=== PATIENT | male | born 1935 | race Caucasian/White ===

== ENCOUNTER → 2017-07-28 07:06 | Outpatient (CLI) | payer MEDICARE, SELFPAY ==
[2017-07-28 07:12] LABS: Bacteria 0 SEEN /hpf (None Seen); Red Blood Cells-Urine 0 SEEN /hpf (0-5)
[2017-07-28 10:08] LABS: Color, Urine Yellow (Yellow); Glucose, Dipstick Normal (Normal); Ketone-Dipstick 5 mg/dl (Negative); Leukocyte Esterase-Dipstick 25 /ul (Negative); Nitrite-Dipstick Negative (Negative); Occult Blood-Urine Negative /ul (Negative); Protein-Dipstick 30 mg/dl (Negative); Urine Bilirubin Dipstick Negative (Negative); Urine Clarity Sl. Cloudy (Clear); Urine Urobilinogen Normal (Normal)
[2017-07-28 10:15] LABS: White Blood Cells 0-5 SEEN /hpf (0-5)
[2017-07-28 10:16] LABS: Mucous, Urine 1+ /hpf (<or=2+); Squamous Epithelial Cells - UA 0-5 SEEN /hpf (0-5)
[2017-07-28 10:28] LABS: Absolute Lymphocyte Count 1.59 X10^3/ul (0.83-4.51); Basophil# 0.03 X10^3/uL; Basophil% 0.6 % (0-1); Eosinophil# 0.16 X10^3/uL; Hematocrit 41.2 % (40-54); Hemoglobin 12.1 g/dl (13.0-16.5); Lymphocyte # 1.59 X10^3/ul (4.0); Lymphocyte % 29.7 % (19-41); Mean Corp Hgb Conc 29.4 g/gl (32-36); Mean Corpuscular Hgb 21.5 pg (27.0-32.0); Mean Corpuscular Volume 73.3 fL (80-94); Monocyte# 0.57 X10^3/uL; Monocyte% 10.6 % (0-10); Neutrophil % 55.9 % (47-70); Platelet Count 107 K/mm3 (150-450); RBC Distribution Width CV 20.2 % (11.6-14.6); RBC Distribution Width SD 53.7 fl (35.1-43.9); Red Blood Count 5.62 M/mm3 (4.6-6.2); White Blood Count 5.4 K/mm3 (4.4-11.0)
[2017-07-28 10:33] LABS: Differential Indicated SCAN CRITERIA MET; POSITIVE COUNT NO; POSITIVE DIFFERENTIAL NO; POSITIVE MORPHOLOGY YES
[2017-07-28 10:59] LABS: ALB/GLOB Ratio 0.9 RATIO (0.9-2.4); AST(SGOT) 19 U/L (15-37); Alanine Aminotransfer ALT/SGPT 19 U/L (16-61); Albumin, Serum 3.4 g/dL (3.2-5.0); Alkaline Phosphatase 58 U/L (45-117); Anion Gap 6 (5-15); BUN 14 mg/dL (7-18); BUN/Creat Ratio 10.5 RATIO (10-20); Calcium,Total 8.7 mg/dL (8.5-10.1); Chloride 104 mmol/L (98-107); Creatinine, Serum 1.33 mg/dL (0.70-1.30); EST Glomerular Filtration Rate 55 mL/min (>60); Est Glom Filt Rate - Afr Amer 66 mL/min (>60); Ferritin 13 ng/mL (26-388); Globulin 3.8 g/dL (2.2-4.2); Glucose 88 mg/dL (74-106); Potassium 3.6 mmol/L (3.5-5.1); Protein, Total 7.2 g/dL (6.4-8.2); Sodium Level 138 mmol/L (136-145)
[2017-07-28 11:03] LABS: Differential Comment SCANNED
[2017-07-28 11:04] LABS: Anisocytosis 2+; Hypochromasia 2+; Platelet Estimate MOD DEC (ADEQ)
[2017-07-29 20:07] LABS: CHOLESTEROL TOTAL 134 mg/dL (100-199); HDL-C 50 mg/dL (>39); HDL-P TOTAL 25.2 umol/L (>=30.5); SMALL LDL-P <90 nmol/L (<=527); TRIGLYCERIDES 52 mg/dL (0-149)
[2017-07-30 09:31] LABS: LDL SIZE 21.7 nm (>20.5); LDL-C 74 mg/dL (0-99); LDL-P 589 nmol/L (<1000); LP-IR SCORE ** <25 (<=45)
== END ==
PROVIDERS: Family Provider Internal Medicine; PCP Internal Medicine; Visit Provider Internal Medicine
DX: E61.1 Iron deficiency (principal); E78.00 Pure hypercholesterolemia, unspecified
CPT/HCPCS: 36415; 80053; 80061; 81001; 82728; 83704; 85025

== ENCOUNTER → 2017-08-11 10:40 | Outpatient (CLI) | payer MEDICARE, SELFPAY ==
--- NOTE | 2017-08-11 10:57 | RAD_ITS ---
STUDY: X-RAY - CERVICAL SPINE REASON FOR EXAM: Male, 82 years old. Neck pain TECHNIQUE: 6 view(s) of the cervical spine were obtained. COMPARISON: None FINDINGS: Normal anterior atlantoaxial articulation. Normal odontoid process. Normal cervical lordosis. There is marginal osteophytic lipping of the C4-C7 vertebral bodies. There is severe narrowing of the C5-6 and C7-T1 disc spaces. There is mild narrowing of the C4-5 disc space. There is a 3 mm anterior subluxation of C7 relative to T1. There is multi-level osseous foraminal stenosis. Numerous surgical clips are seen in the anterior neck bilaterally. There is no demonstrated fracture of the cervical spine. RAD/Cerv Spine 4 or 5 Views IMPRESSION: Degenerative changes as detailed above. Electronically Signed: Cory Stovall MD at 16:52 EST , Service support ,
--- NOTE | 2017-08-11 10:57 | RAD_ITS ---
STUDY: X-RAY - LEFT KNEE REASON FOR EXAM: Male, 82 years old. Left knee pain, no known recent injury TECHNIQUE: 4 view(s) of the knee. COMPARISON: None. FINDINGS: Normal visualized distal femur. Normal visualized proximal tibia and fibula. Normal proximal tibiofibular articulation. There are status post medial hemiarthroplasty changes. There is no evidence of implant loosening or associated fracture or dislocation. 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 There is mild degenerative arthrosis of the patellofemoral articulation. The soft tissue structures are unremarkable. RAD/Knee 4 or More Views IMPRESSION: Status post medial hemiarthroplasty changes. There is no evidence of implant loosening or associated fracture or dislocation. Degenerative changes of the lateral and patellofemoral compartments. Electronically Signed: Cory Stovall MD at 16:55 EST , Service support ,
== END ==
PROVIDERS: Family Provider Internal Medicine; PCP Internal Medicine; Visit Provider Internal Medicine
DX: M54.2 Cervicalgia (principal); M25.562 Pain in left knee
CPT/HCPCS: 72050; 73564

== ENCOUNTER 2017-09-05 08:54 | Emergency (ER) | payer MEDICARE, SELFPAY ==
[2017-09-05] VITALS (9 sets, daily range): BP systolic 100–172; BP diastolic 62–106; PULSE 66–88; RESP 12–24; O2SAT 94–100; BMI 33.7
--- NOTE | 2017-09-05 08:57 | RAD_ITS ---
STUDY: X-RAY - PELVIS AND LEFT HIP REASON FOR EXAM: Male, 82 years old. Left hip pain. TECHNIQUE: Radiological exam, hip, unilateral, with pelvis when performed; 1 view COMPARISON: None. FINDINGS: One view of the left hip was obtained. There is total left hip prosthesis in place. There is superior dislocation of the femoral head component. There is no demonstrated definite fracture. RAD/Hip Min 2 Views (Portable) IMPRESSION: Dislocated left hip prosthesis. Electronically Signed: Ernie Noguera MD at 9:42 EDT Tel , Service support ,
[2017-09-05] MEDS: fentaNYL 100 MCG/2 ML Ampul IV (09:06)
--- NOTE | 2017-09-05 09:10 | ED.DCSUM_ITS ---
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 When he bent over his left prosthetic hip dislocated. He is presently in significant pain. He did receive 50 mg of fentanyl by paramedics in 4 mg of Zofran. He has had nothing to eat this morning. He states Dr. Williamson did the total left hip arthroplasty approximate 1 year ago. He has had no problems prior to today. He denies any paresthesia, anesthesia motor weakness. He is on no anticoagulant. He does have history of hypertension. Physical Examination: Blood pressure is elevated 149/96 most likely secondary to pain. He is in obvious discomfort. HEENT exam is unremarkable. Heart is regular without murmur, gallop or rub. Lungs are clear to auscultation. Abdomen is soft nontender with normal bowel sounds. There is no palpable muscle mass without bruit. The left lower extremity is shortened with flexion at the hip consistent with a dislocation. There are no neurovascular findings. Please read written note for complete detail Test Results: One view of the left hip was obtained because of patient having significant pain and concern administering more pain medicine resulting in apnea and hypoxia with hypercarbia. One view of the left hip reveals a superior posterior left prosthetic hip dislocation. Multiview x-ray of the left hip was obtained post reduction and reduction is successful. Emergency Department Course and Treatment: Patient received 100 mg of fentanyl prior to x-ray. plan is procedural sedation with propofol and reduction of prosthetic left hip dislocation. Treatment Plan: Patient was consented for deep sedation with propofol. He had no contra indication. Given an opportunity ask questions and none were asked. He denied allergy to soy products or egg products. He reports no problem with anesthesia in the past. Timeout was called. Patient received a total of 100 g of propofol. The left prosthetic hip dislocation was successfully reduced with out any difficulty. Total time of procedure 19 minutes. Patient did have a drop in his pulse ox. Initially question accuracy since he was not cyanotic and waveform was poor. Weight for may have been poor because of cold extremities. He did become cyanotic and was placed on a nonrebreather which resulted in improvement quickly. Patient has no recall of reduction. Patient is alert and oriented to time of this dictation. Knee immobilizer was placed after reduction. He was referred to Dr. Domingo who performed the left total hip arthroplasty approximately 1 year ago. Disposition: Discharged to home with spouse. Impression: 1. Posterior superior left prosthetic hip dislocation 2. Deep cessation (total time 19 minutes) 3. Reduction of left prosthetic hip dislocation This note was generated with [employer] dictation software. It may contain incorrect words, spelling, and punctuation that were not noted in review of the chart prior to signing ED Disposition - Plan for ED Patient: Disposition: Home or Assisted Living Chief Complaint: Lower Extremity Injury Instructions: ED Hip Replace Dislocation Reduc Referrals: Qing Hannon MD [Primary Care Provider] - Byron Domingo MD [STAFF PHYSICIAN] - 1 Week
--- NOTE | 2017-09-05 09:25 | ED.RN ---
PT PLACED ON NRB FOR LOW PULSE OX
--- NOTE | 2017-09-05 09:29 | RAD_ITS ---
STUDY: X-RAY - PELVIS AND LEFT HIP REASON FOR EXAM: Male, 82 years old. Post reduction. TECHNIQUE: Radiological exam, hip, unilateral, with pelvis when performed; 2 or 3 views. COMPARISON: 09/05/2017, 9:26 AM. FINDINGS: There again is left hip prosthesis in place. The previously noted dislocation of the femoral component has been reduced. The alignment as seen on these views appears to be unremarkable. There is no demonstrated acute fracture. RAD/Hip Min 2 Views (Portable) IMPRESSION: Reduced dislocation. Electronically Signed: Ernie Noguera MD at 10:21 EDT Tel , Service support ,
[2017-09-05] MEDS: Propofol 200 MG/20 ML Vial IV BOLUS (09:34)
--- NOTE | 2017-09-05 11:02 | ED.RN ---
THIS NURSE REVIEWED D/C INSTRUCTIONS WITH PT AND . PT VERBALIZED UNDERSTANDING INSTRUCTIONS. IV D/C. IV CATHETER INTACT. PT TOLERATED WELL. PT DENIES FURTHER NEEDS OR QUESTIONS AT THIS TIME
== END 2017-09-05 11:04 | disposition home or self-care (01) ==
PROVIDERS: Emergency Provider Emergency Medicine; Family Provider Internal Medicine; PCP Internal Medicine
DX: T84.021A Dislocation of internal left hip prosthesis, initial encounter (principal); R23.0 Cyanosis
CPT/HCPCS: 27265; 73502; 96374; 96375; 99285; J7030; A4216; J2405

== ENCOUNTER → 2017-10-09 11:07 | Outpatient (CLI) | payer MEDICARE, SELFPAY ==
[2017-10-09 11:35] LABS: AST(SGOT) 21 U/L (15-37); Alanine Aminotransfer ALT/SGPT 22 U/L (16-61); Albumin, Serum 3.7 g/dL (3.2-5.0); Alkaline Phosphatase 63 U/L (45-117); Anion Gap 6 (5-15); BUN 19 mg/dL (7-18); BUN/Creat Ratio 14.3 RATIO (10-20); Calcium,Total 8.6 mg/dL (8.5-10.1); Chloride 105 mmol/L (98-107); Creatinine, Serum 1.33 mg/dL (0.70-1.30); EST Glomerular Filtration Rate 55 mL/min (>60); Est Glom Filt Rate - Afr Amer 66 mL/min (>60); Globulin 3.6 g/dL (2.2-4.2); Glucose 124 mg/dL (74-106); Potassium 4.1 mmol/L (3.5-5.1); Protein, Total 7.3 g/dL (6.4-8.2); Sodium Level 137 mmol/L (136-145)
[2017-10-09 13:21] LABS: Absolute Lymphocyte Count 1.15 X10^3/ul (0.83-4.51); Basophil# 0.02 X10^3/uL; Basophil% 0.3 % (0-1); Eosinophil# 0.19 X10^3/uL; Eosinophils% 2.7 % (0-5); Hematocrit 41.8 % (40-54); Hemoglobin 12.1 g/dl (13.0-16.5); Lymphocyte # 1.15 X10^3/ul (4.0); Lymphocyte % 16.3 % (19-41); Mean Corp Hgb Conc 28.9 g/gl (32-36); Mean Corpuscular Hgb 21.3 pg (27.0-32.0); Mean Corpuscular Volume 73.7 fL (80-94); Monocyte# 0.65 X10^3/uL; Monocyte% 9.2 % (0-10); Neutrophil # 4.99 X10^3/uL (2.7-7.7); Neutrophil % 70.9 % (47-70); Platelet Count 115 K/mm3 (150-450); RBC Distribution Width CV 18.5 % (11.6-14.6); RBC Distribution Width SD 49.7 fl (35.1-43.9); Red Blood Count 5.67 M/mm3 (4.6-6.2)
[2017-10-09 13:29] LABS: POSITIVE COUNT NO; POSITIVE DIFFERENTIAL NO; POSITIVE MORPHOLOGY YES
[2017-10-09 13:30] LABS: Differential Indicated SCAN CRITERIA MET
[2017-10-09 13:38] LABS: Polychromasia 1+
[2017-10-09 13:39] LABS: Ovalocyte 2+; Platelet Morphology LARGE; Target Cells RARE
== END ==
PROVIDERS: Visit Provider Internal Medicine
DX: E86.0 Dehydration (principal)
CPT/HCPCS: 80053; 85025

== ENCOUNTER → 2018-01-29 12:31 | Outpatient (CLI) | payer MEDICARE, SELFPAY | PROVIDERS: Family Provider Internal Medicine; PCP Internal Medicine; Visit Provider Internal Medicine | DX: R05 Cough (principal) | CPT/HCPCS: 71046 ==

== ENCOUNTER → 2018-02-02 12:36 | Outpatient (CLI) | payer MEDICARE, SELFPAY | PROVIDERS: Family Provider Internal Medicine; PCP Internal Medicine; Visit Provider Internal Medicine | DX: R22.1 Localized swelling, mass and lump, neck (principal) | CPT/HCPCS: 76536 ==

== ENCOUNTER → 2018-04-26 11:12 | Outpatient (CLI) | payer MEDICARE, SELFPAY ==
--- NOTE | 2018-04-26 11:14 | RAD_ITS ---
STUDY: X-RAY - LEFT SHOULDER REASON FOR EXAM: Male, 82 years old. Bilateral shoulder pain. TECHNIQUE: 4 view(s) of the shoulder. COMPARISON: None. FINDINGS: There is severe degenerative arthrosis of the glenohumeral articulation. Normal acromioclavicular joint. Normal acromion. There is no acute fracture, dislocation or destructive osseous pathology. There is demineralization of the humerus and visualized osseous structures. The soft tissue structures are unremarkable. There is a pacer generator overlying the left chest. Normal visualized pulmonary apex. RAD/Shoulder min 2 Views IMPRESSION: Marked degenerative changes of the glenohumeral joint without fracture or dislocation. Electronically Signed: Ray Sebastian DO at 19:19 EST Tel [phone], Service support ,
--- NOTE | 2018-04-26 11:14 | RAD_ITS ---
STUDY: X-RAY - RIGHT SHOULDER REASON FOR EXAM: Male, 82 years old. Bilateral shoulder pain. TECHNIQUE: 4 view(s) of the shoulder. COMPARISON: None. FINDINGS: There is moderate to severe degenerative arthrosis of the glenohumeral articulation. Normal acromioclavicular joint. Normal acromion. There is no acute fracture, dislocation or destructive osseous pathology. There is demineralization of the humerus and visualized osseous structures. The soft tissue structures are unremarkable. Normal visualized pulmonary apex. RAD/Shoulder min 2 Views IMPRESSION: Moderate to severe degenerative changes of the glenohumeral joint without fracture or dislocation Electronically Signed: Ray Sebastian DO at 19:18 EST Tel [phone], Service support ,
== END ==
PROVIDERS: Family Provider Internal Medicine; PCP Internal Medicine; Referring Provider Internal Medicine; Visit Provider Internal Medicine
DX: M25.511 Pain in right shoulder (principal); M25.512 Pain in left shoulder
CPT/HCPCS: 73030

== ENCOUNTER 2018-05-12 07:00 | Outpatient (RCR) | payer MEDICARE, SELFPAY ==
--- NOTE | 2018-05-05 08:00 | HP.PTEVAL_ITS ---
Patient's Visit Information MARY SEBASTIAN is a 82 year old M referred to Physical Therapy by Qing Hannon with a diagnosis of B shoulder pain. Date of Evaluation: 05/05/18 Physical Therapist: Artemio Singer PT, - Visit Plan Frequency: 1x/Week Duration: 1 Week Plan: Issue HEP for rotator cuff strengthening and scap stab ex's - Subjective Subjective: Pt reports he has had B shoulder pain for 4-5 months. Pt reports his pain limits him from putting on a jacket, but he is able to perform most other motions. No sleep difficulty secondary to pain. Pt is R hand dominat. Pt reports he has had no results from his xrays. Pt reports he is able to reach overhead without too much difficulty, but his not able to lift much weight as he is afraid he will drop it. Pt reports his shoulder grinds as he moves it. There is discomfort present when he moves his shoulder, but it doesnt limit him. 0/10 pain at rest, 8/10 when pain is at its worst. - Pain B shoulders Pain Intensity (Out of 10): 0 Pain Intensity Range: 8 - Objective Neuro: B UE sensation is WNL to light touch. B bicepital reflex= 2/3. Palpation: B shoulders have crepitus with AROM. No obvious deformity. No pain with palpation. ROM: R shoulder flex= 150, abd= 150, ER= 55, IR WNL; L shoulder flex= 155, abd= 160, ER= 60, IR WNL. MMT: B shoulders are 5/5 with exception to ER= 4/5. Special tests: Pos empty can sign B shoulders. - Goals Goal 1:: I with HEP Goal Time Frame: 1 Week - Rehabilitation Potential Physical Therapy Diagnosis: B shoulder pain and weakness secondary to rotator cuff weakness. Rehabilitation Potential: Good - Anticipated Interventions Patient/Client Instruction: Educate patient on: Condition, Plan of Care For the Purpose of:: To improve self management Therapeutic Exercise to Include: Strength training, Scapular Strength/Stabilization For the Purpose of:: To decrease pain, To increase ROM, To improve muscle performance and motor function Cryotherapy (ice pack, ice massage): Yes For the Purpose of:: To decrease pain Thank you for the opportunity to evaluate your patient. For Medicare and Medicare HMO plans, please review the plan of care and approve it. It will need to be FAXED BACK to us at [phone] for Medicare purposes. Please let me know if there are questions or concerns regarding this plan of care. Physician Signature: Date:
--- NOTE | 2018-05-12 08:19 | HP.PTDCSUM ---
HP - PT D/C Summary It has been my pleasure to treat MARY SEBASTIAN under orders from Qing Hannon, for the diagnosis of B shoulder pain for a total of 2 visit(s). Discharge Date: Please see the following information for a summary of their discharge status. - Subjective Subjective: No pain this date - Pain B shoulders Pain Intensity (Out of 10): 0 - Objective Objective/Function: Pt is now I with HEP - Goals Goal 1:: I with HEP Goal Progress: Goal Met - Plan Plan: Discharge - D/C Information If there are questions or concerns regarding this patient's physical therapy, please feel free to call me at [phone]. Thank you for the referral of this patient. Sincerely, Artemio Singer, PT,
== END 2018-05-12 19:00 | disposition home or self-care (01) ==
LOC: PT 07:00
PROVIDERS: Family Provider Internal Medicine; PCP Internal Medicine; Referring Provider Internal Medicine; Visit Provider Internal Medicine
DX: M25.512 Pain in left shoulder (principal); M25.511 Pain in right shoulder; M54.5 Low back pain
CPT/HCPCS: 97110; 97162

== ENCOUNTER 2018-11-09 17:44 | Emergency (ER) | payer MEDICARE, SELFPAY ==
[2018-07-19 11:29] VITALS: BMI 33.3
[2018-11-09] VITALS (8 sets, daily range): BP systolic 140–189; BP diastolic 85–109; PULSE 66–81; RESP 14–16; TEMP 36.7; O2SAT 94–100; BMI 33.0
--- NOTE | 2018-11-09 18:16 | ED.VISSUMM ---
- ER Visit Summary Date of Service: 11/09/18 Chief Complaint: Dislocated left prosthetic hip History of Present Illness: The patient is a 83 M history of hypertension, DVT and anemia. Prior bilateral prosthetic hips. Patient states he was sitting on a step turn the wrong way and his hip dislocated. This occurred about an hour and a half ago. He denies any falls or trauma. He was brought in by squad and treated with fentanyl IV by the squad. Physical Examination: Vital signs stable afebrile. No distress. HEENT exam unremarkable. Lungs clear to auscultation. Heart regular rhythm no murmur. Abdomen soft nontender. Extremities moves 3 of the extremities. There are neurovascular intact. He has limited range of motion of the left hip. Consistent with dislocation. Left foot is neurovascular intact with DP pulse. Able to wiggle his toes. Normal touch sensation. Test Results: Left hip (2 views) x-ray shows dislocation. Post reduction left hip x-ray 1 view shows proper positioning of the hip canal in the prosthetic joint. Emergency Department Course and Treatment: Patiently consciously sedated with propofol. Hip reduced using traction countertraction. Patient did well. Vital signs stayed stable. On repeat exam at 2006 p.m. patient is doing well. Treatment Plan: Follow-up with Dr. Don Fisher of [facility]. Disposition: Discharge Impression: Acute dislocated left prosthetic hip Conscious sedation by ER. Left hip dislocation reduction by ER. This note was generated with [employer] dictation software. It may contain incorrect words, spelling, and punctuation that were not noted in review of the chart prior to signing ED Disposition - Plan for ED Patient: Referrals: iQng Hannon MD [Primary Care Provider] -
--- NOTE | 2018-11-09 18:19 | ED.DCSUM_ITS ---
- ER Visit Summary Date of Service: 11/09/18 Chief Complaint: Dislocated left prosthetic hip History of Present Illness: The patient is a 83 M history of hypertension, DVT and anemia. Prior bilateral prosthetic hips. Patient states he was sitting on a step turn the wrong way and his hip dislocated. This occurred about an hour and a half ago. He denies any falls or trauma. He was brought in by squad and treated with fentanyl IV by the squad. Physical Examination: Vital signs stable afebrile. No distress. HEENT exam unremarkable. Lungs clear to auscultation. Heart regular rhythm no murmur. Abdomen soft nontender. Extremities moves 3 of the extremities. There are neurovascular intact. He has limited range of motion of the left hip. Consistent with dislocation. Left foot is neurovascular intact with DP pulse. Able to wiggle his toes. Normal touch sensation. Test Results: Left hip (2 views) x-ray shows dislocation. Post reduction left hip x-ray 1 view shows proper positioning of the hip canal in the prosthetic joint. Emergency Department Course and Treatment: Patiently consciously sedated with propofol. Hip reduced using traction countertraction. Patient did well. Vital signs stayed stable. On repeat exam at 2006 p.m. patient is doing well. Treatment Plan: Follow-up with Dr. Don Fisher of [facility]. Disposition: Discharge Impression: Acute dislocated left prosthetic hip Conscious sedation by ER. Left hip dislocation reduction by ER. This note was generated with [employer] dictation software. It may contain incorrect words, spelling, and punctuation that were not noted in review of the chart prior to signing ED Disposition - Plan for ED Patient: Referrals: Qing Hannon MD [Primary Care Provider] -
--- NOTE | 2018-11-09 18:25 | RAD_ITS ---
STUDY: X-RAY - PELVIS AND LEFT HIP REASON FOR EXAM: Male, 83 years old. Dislocation TECHNIQUE: 3 views of the pelvis and hip. COMPARISON: September 05, 2017 FINDINGS: There is a normal bowel gas pattern. Normal visualized soft tissue structures. Normal bilateral iliac wings, sacroiliac joints and visualized sacrum. Normal bilateral superior and inferior pubic rami. Normal pubic symphysis. Normal bilateral ischial tuberosities. There are bilateral hip replacements. There is posterior-superior dislocation of the left femoral component . There is no acute fracture. RAD/Hip Min 2 Views (Portable) IMPRESSION: Dislocation of left hip prosthesis. Electronically Signed: Umesh Thomas MD at 18:47 EDT , Service support ,
--- NOTE | 2018-11-09 19:40 | RAD_ITS ---
STUDY: X-RAY - LEFT HIP REASON FOR EXAM: Male, 83 years old. Reduction of dislocation. TECHNIQUE: Frontal views of the left hip. COMPARISON: None. FINDINGS: There is a normal bowel gas pattern. Normal visualized soft tissue structures. There is left hip replacement. Alignment is near-anatomic. There is reduction of previously noted dislocation. No acute fracture. RAD/Hip 1 view with Pelvis IMPRESSION: Left hip replacement. Reduction of dislocation. Electronically Signed: Umesh Thomas MD at 20:04 EDT , Service support ,
--- NOTE | 2018-11-09 20:09 | DCINST.ED_ITS ---
ED Disposition - Plan for ED Patient: Disposition: Home or Assisted Living Instructions: ED Dislocation Hip Traumatic Redu Referrals: Farhan Fisher MD [STAFF PHYSICIAN] - As soon as possible Additional Instructions: Leave the knee immobilizer on this to prevent you from bending her knee which will prevent the hip from bending and hopefully prevent it from getting re- dislocated. Call follow-up with [facility].
== END 2018-11-09 20:42 | disposition home or self-care (01) ==
PROVIDERS: Emergency Provider Emergency Medicine; Family Provider Internal Medicine; PCP Internal Medicine
DX: T84.021A Dislocation of internal left hip prosthesis, initial encounter (principal); I10 Essential (primary) hypertension; D64.9 Anemia, unspecified; Z86.718 Personal history of other venous thrombosis and embolism
CPT/HCPCS: 27265; 73501; 73502; 99285; J7030; A4216

== ENCOUNTER 2019-04-13 06:33 | Day surgery (SDC) | payer MEDICARE, SELFPAY ==
[2018-11-09 17:45] VITALS: BMI 33.0
[2019-04-08 10:05] VITALS: BMI 33.7
--- NOTE | 2019-04-13 08:21 | PCM.OPRPT ---
Problem List (1) History of DVT (deep vein thrombosis) Status: Chronic Report of Operation Date of Procedure: 04/13/19 Pre-Operative Diagnosis: History DVT Post-Operative Diagnosis: The same Surgery/Procedure Performed:: 1. Ultrasound-guided access antegrade right common femoral vein. 2. Inferior venacavogram. 3. Placement of [place] IVC filter Type of Anesthesia:: Sedation,Conscious Description of Procedure: Patient brought to the [facility]. Underwent the appropriate timeout consent. Underwent sedation. Prepped and draped in a sterile fashion. We did ultrasound-guided access antegrade in the right common femoral vein. Put a Glidewire up and then brought in the [place] sheath. We did a inferior venacavogram through the sheath. Showed the bifurcation and the right and left renal veins. We we brought the wire up and brought the sheath to the appropriate level. Brought in the filter and deployed it with the anterior in good position. We removed out the sheath held pressure with good hemostasis he was then brought to recovery in stable condition
== END 2019-04-13 10:40 | disposition home or self-care (01) ==
LOC: CLSP 06:34
PROVIDERS: Family Provider Internal Medicine; PCP Internal Medicine; Referring Provider Surgery Vascular Surgery; Visit Provider Surgery Vascular Surgery
DX: Z86.718 Personal history of other venous thrombosis and embolism (principal); I10 Essential (primary) hypertension; M19.90 Unspecified osteoarthritis, unspecified site; Z85.828 Personal history of other malignant neoplasm of skin; Z79.01 Long term (current) use of anticoagulants; Z79.899 Other long term (current) drug therapy; Z87.891 Personal history of nicotine dependence; Z95.0 Presence of cardiac pacemaker
CPT/HCPCS: 37191; 76937; 99152; J7040; Q9967; C1769; C1880

== ENCOUNTER 2019-04-20 09:15 | Inpatient (IN) | payer MEDICARE, SELFPAY ==
[2018-11-09 17:45] VITALS: BMI 33.0
--- NOTE | 2019-03-22 12:53 | PCM.HP.BLA ---
History and Physical Patient Name: Maciel Guzman : 1935 From: ELENO GUTIÉRREZ PA-C DATE OF SURGERY: 04/20/2019 SCHEDULED PROCEDURE: revision left total hip arthroplasty HISTORY OF PRESENT ILLNESS: Preoperative history and physical exam was performed on March 21, 2019. This is an 83-year-old male who is been having ongoing left hip pain. He has history of dislocating left hip. Patient states this occurred in November 2018. He was evaluated in the emergency department which a closed reduction was performed. Patient does have a previous history of a left total hip arthroplasty by Dr. Byron Domingo on October 14, 2016. Patient does not complain of pain in his chief complaint is the dislocation. He has tried rest with knee immobilizer. Patient had dislocation in August and November 2018. One of the dislocations occurred when he was leaning forward to clean his shoes. Patient denies any recent fevers, chills, recent infections. Patient is fearful that he will continue to dislocate with range of motion. Patient does have a significant medical history pertinent for history of 2 previous blood clots with the most recent 5 years ago, paresthesias both feet, coagulopathy involving protein C deficiency, anti-thrombin 3 deficiency, and MTHFR gene mutation. Patient currently takes Eliquis. Patient also has history of gastroesophageal reflux disease as well as coronary artery disease and pacemaker. Patient does follow Dr. Stringer. She also does have mild cognitive impairment. History of stage I chronic kidney disease. After failing conservative measures and discussing treatment options with Dr. Farhan Fisher, the patient would like to proceed with a revision left total hip arthroplasty. Patient is also undergoing a procedure to have IVC filter placed by Dr. Crisostomo prior to this surgery. We'll obtain surgical clearance from the primary care physician and patient is able to come off of the Eliquis prior to surgery but resumed after. REVIEW OF SYSTEMS: ROS: Const: Denies anorexia, anxiety, change in appetite, fever, hard of hearing, vision problems and weight change. CV: Denies chest pain, heart murmur, irregular heartbeat and peripheral vascular disease. Resp: Denies asthma, cough, pneumonia, sleep apnea, SOB, tuberculosis and wheezing. GI: Denies constipation, diarrhea, difficulty swallowing, heartburn, nausea, bloody stools and vomiting. : Urinary: denies incontinence. Musculo: Reports limp and trouble walking, but denies leg swelling and weakness. Skin: Denies Raynaud's, history of shingles and tattoo. Neuro: Denies ambulatory dysfunction, dizziness, numbness/tingling and tremor. Psych: Denies anxiety, depression, insomnia, mental illness and stress. Ascencion/Lymph: Denies anemia, bleeding/bruising tendency and past transfusion. Reviewed, no changes. PAST MEDICAL HISTORY: Advance Care Plan: Other Directive, LIVING WILL Effective Date: 04/22/2017 Other Directive, POA Effective Date: 04/22/2017 PMH: Medical Problems: Arthritis, High Blood Pressure, Congestive Heart Failure (CHF), Pacemaker, History Of Phlebitis Accidents: LT Hip Dislocation - 2017 & 2019 Surgical Hx: Appendectomy - (1952) [facility] Gallbladder - (1992) [facility] Hernia Repair - (1979) [facility] Tonsillectomy - A CHILD Hip Replacement - [facility] Icd Pacemaker Inplanted - (05/2006) Corroded Artery Cleaned Right Side - (08/2005) Hemorrhoid Repaired - (06/1996) LT Unicompartmental Knee - (06/06/2008) [facility] Nodule On Left Thyroid Removed - (10/25/2012) Pacemaker Replaced - (11/13/2011) 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 SOCIAL HISTORY: SH: Marital: .Occupation: Retired.Work Status: Retired.Hand Dominance: Right-Handed. Personal Habits: Smoking: Patient is a former smoker.Cigarette Use: Former.Alcohol: Occasionally.Drug Use: Denies Use.Enjoy Exercising: Daily. Reviewed, no changes. VITALS: Ht: 68 Wt: 225lb Wt k.060 BMI: 34.2 BP: 152/88 Pulse: 76 Resp: 16 T: 98.1 T: 36.7C ALLERGIES: No Known Drug Allergy MEDICATIONS: Niacin 500 mg 1 PO bid, Testosterone .250ml 1 injection per week, Coq10 100 mg 1 PO qday, Lawrence-3 1000 mg 1 PO bid, Carvedilol 12.5 mg 1po daily, Omeprazole 40 mg 1po q day, Dhea 25 mg 1 tab PO qam, Docusate Sodium 240mg 1 cap by mouth twice a day as needed, Vitamin D3 5000 Unit 1 cap PO daily, Dutasteride 0.5 mg 1 cap PO daily, Eliquis 2.5 mg 1 tab PO bid, Vicodin 5-300 mg 1 by mouth q8 hour as needed pain, Cinnamon 900 mg 1 tab PO bid, Fiberwise 1 tab PO daily, Turmeric 400 mg 1 tab by mouth daily, Boswellia Extract 308 mg. 1 tab by mouth daily PRE-OP EXAM: General appearance:NORMAL Other: Eyes: Conjunctivae and lids: NORMAL Pupils: ERR Ears, Nose, Mouth, and Throat: NORMAL Other: Inspection of lips, teeth and gums: NORMAL Other: Neck: Examination of neck: no masses noted. Respiratory: Assessment of respiratory effort: NORMAL Other: Auscultation of lungs: clear to auscultation no wheezes, rhonchi or rales. Cardiovascular: Auscultation of heart: regular rate and rhythm, no murmurs, gallops or rubs. Gastrointestinal: Exam of abdomen: soft, nontender, nondistended bowel sounds present. PHYSICAL EXAMINATION: Partha incision is well-healed without erythema or signs of infection. Patient does have tenderness to palpation of the lateral left hip. Range of motion was deferred due to previous dislocations. Sensation intact to light touch. Neurovascularly intact. IMPRESSION: 1. Presence of left total hip arthroplasty with 2 previous hip dislocations 2. Hypertension 3. History of pacemaker 4. History of blood clots in the past with most recent 5 years ago: Currently on Eliquis 5. Mild Cognitive impairment Stage I chronic kidney disease 6. Enlarged prostate with overactive bladder 7. Carotid stenosis 8. Vitamin D deficiency 9. Degenerative lumbar disc disease 10. Hypercholesterolemia 11. Coagulopathy: Patient with protein C deficiency, anti-thrombin 3 deficiency, and MTHFR mutation: Currently follows Dr. Cardenas 12. Thrombocytopenia 13. Coronary artery disease 14. Gastroesophageal reflux disease PLAN: Dr. Farhan Fisher did discuss and review with the patient all treatment options including surgical versus nonsurgical options. Patient does wish to proceed with the above-stated procedure. Potential risks, benefits, and complications of the procedure were discussed in detail including but not limited to , infection, nerve and blood vessel damage, persistent pain, numbness, tingling, paresthesias, blood clot, pulmonary embolism, and requirement for possible further surgery. The patient expressed full understanding and has no further questions for the doctor. Patient does agree to proceed with the above-stated procedure and has signed the surgery consent form. This dictation was created using voice recognition software. Phonetic and/or grammatical errors may exist. ___ I have re-examined the patient. There are no clinical changes since date of exam. ___ See progress notes for changes. ___ Dictated on admission Date: Time: Signature:
[2019-04-08 10:05] VITALS: BP 100/64; PULSE 64; RESP 17; TEMP 36.4; O2SAT 97; BMI 33.7
--- NOTE | 2019-04-08 10:49 | SDCEKG_ITS ---
Test Reason : Blood Pressure : / mmHG Vent. Rate : 060 BPM Atrial Rate : 060 BPM P-R Int : 164 ms QRS Dur : 138 ms QT Int : 440 ms P-R-T Axes : 017 -34 147 degrees QTc Int : 440 ms AV sequential or dual chamber electronic pacemaker Confirmed by DIONNE METZGER MD ([id number]), rewrite editor ANTON KEYS ([id number]) on 04/11/2019 10:57:56 AM Referred By: Farhan Fisher Confirmed By:DIONNE METZGER MD
[2019-04-08 12:03] LABS: Absolute Neutrophil Count 4.2 X10^3/uL (2.0-7.7); Basophil# 0.02 X10^3/uL; Basophil% 0.3 % (0-1); Eosinophil# 0.08 X10^3/uL; Eosinophils% 1.3 % (0-5); Hematocrit 45.7 % (40-54); Hemoglobin 13.9 g/dL (13.0-16.5); Lymphocyte % 20.8 % (19-41); Mean Corp Hgb Conc 30.4 g/dL (32-36); Mean Corpuscular Hgb 24.6 pg (27.0-32.0); Mean Corpuscular Volume 80.7 fL (80-94); Mean Platelet Vol. 10.8 fl (6.2-12.0); Monocyte# 0.65 X10^3/uL; Monocyte% 10.4 % (0-10); NRBC Flagged by Analyzer 0 % (0-5); Platelet Count 136 K/mm3 (150-450); RBC Distribution Width CV 18.3 % (11.6-14.6); RBC Distribution Width SD 51.8 fl (35.1-43.9); Red Blood Count 5.66 M/mm3 (4.6-6.2); White Blood Count 6.3 K/mm3 (4.4-11.0)
[2019-04-08 12:32] LABS: Anion Gap 5 (5-15); BUN 16 mg/dL (7-18); BUN/Creat Ratio 11.8 RATIO (10-20); Calcium,Total 8.7 mg/dL (8.5-10.1); Chloride 105 mmol/L (98-107); Creatinine, Serum 1.36 mg/dL (0.70-1.30); EST Glomerular Filtration Rate 53 mL/min (>60); Est Glom Filt Rate - Afr Amer 64 mL/min (>60); Estimated Creatinine Clearance 39.82 ml/min; Glucose 100 mg/dL (74-106); Potassium 3.7 mmol/L (3.5-5.1); Sodium Level 140 mmol/L (136-145)
[2019-04-20] VITALS (14 sets, daily range): BP systolic 100–167; BP diastolic 67–106; PULSE 59–76; RESP 14–18; TEMP 36.2–36.9; O2SAT 93–100; BMI 33.7
[2019-04-20] MEDS: Gabapentin 600 MG Tablet PO (10:26)
[2019-04-20] MEDS: Acetaminophen 500 MG Tablet 1000 MG PO ×2 (10:26→20:56)
[2019-04-20 10:40] LABS: Bedside Glucose 104 mg/dL (70-110)
[2019-04-20] MEDS: Magnesium Sulfate 4gm/100mL 4 GM/100 ML IV.SOLN. IV (10:42)
[2019-04-20] MEDS: Lactated Ringers 1,000 ML 100 ML IV ×3 (10:43→18:28)
[2019-04-20] MEDS: Carvedilol 25 MG Tablet PO ×2 (11:21→20:55)
[2019-04-20] MEDS: Cefazolin 2 GM in 0.9% Normal Saline 100 ML IV (12:11)
[2019-04-20] MEDS: Heparin Injection (Vial) 5,000 UNIT/ML VIAL 5000 UNIT (13:48)
--- NOTE | 2019-04-20 13:52 | OP.PCM_ITS ---
Report of Operation Date of Procedure: 04/20/19 Pre-Operative Diagnosis: Failed left total hip replacement, instability Post-Operative Diagnosis: Failed left total hip replacement, instability Surgery/Procedure Performed:: Revision left total hip replacement femoral head and acetabular component Description of Surgical Findings:: Stable hip with constrained liner speech language pathologist assistant: Shay Avalos Type of Anesthesia:: Spinal Anesthesiologist: Alex Nobles Special Medications: 2 g Ancef, 1 g TXA at incision, 1 g TXA closure, 10 mg Decadron, joint cocktail (5 mg Duramorph, 30 mL of 0.5% Ropivicaine, 1000 units of epinephrine, 30 mg of Toradol) Specimen's removed: One specimen was sent for culture. Estimated Blood Loss (mL): 100 Fluids Replaced: 1400 mL crystalloid Description of Procedure: Findings: Adequate reduction with stability of the hip Components used: 1. [employer]j [employer]omet trilogy longevity constrained liner, 32 mm inner diameter for 58 mm shell 2. Biolox delta ceramic +6 mm neck sleeve 3. Biolox delta ceramic 36 mm head Brief history operative indications: 83-year-old male who presented to my office with multiple dislocations. We discussed risks and benefits of revision. We discussed potential complete revision of the implants versus constrained liner. Considering patient's age and medical comorbidities he wished to proceed with the constrained liner knowing that the stress on the implants can cause failure of the implants. Risks and benefits were discussed with the patient which included but were not limited to blood loss, DVTs, PEs, infection, neurovascular damage, and dislocation. In light of all this patient did agree to proceed with a total hip arthroplasty. Procedure: On the date of procedure the patient's L hip was marked in the preoperative area. Patient was then taken back to the operating room where anesthesia assumed control of the C-spine and airway and administered anesthetic. Patient was transferred to the operating table and placed in the lateral decubitus position with the affected hip up. The patient was secured in the bed with the lateral positioners and leg lengths were checked. The L lower extremity was then prepped out in a sterile fashion using chlorhexidine while the surgeon scrubbed. Upon reentering the room the L lower extremity was draped in the standard orthopedic fashion and the incision was marked. A timeout was called and everyone agreed upon the side, the site, the procedure be performed, antibiotics given, and patient's identity. At this time incision was made through skin, subcutaneous tissue, and fat down to fascia. The fascia was then incised and a Charley retractor was placed. At this time the posterior structures have been injured from the previous dislocations. There was not a significant amount of posterior structures takedown. We did do a synovectomy posteriorly. After we did this we were able to dislocate the hip. Using a bone tamp were able to dissociate the femoral head from the trunnion Bhatti taper. Once this was done the femur was retracted anteriorly and the acetabulum was visualized. At this time we then remove the acetabular liner from the acetabular shell. Once this was completed we elected to irrigate out the wound with 6 L of normal saline. Once this was completed we placed the constrained liner into the acetabular shell. Patient had a leg length discrepancy with the left leg longer. We decided to go with a shorter neck. We went down to a +6. 36 mm +6 mm sleeve were opened. The ring for the constrained liner was placed around the femoral neck. Soft tissue debris was debrided from around the acetabular liner. Hip was reduced. The locking mechanism was then impacted into place and appeared to be well locked into place. Once this was done we took the hip through range of motion. Hip had good range of motion with good stability. Wound was irrigated out with chlorhexidine solution. A TXA lavage was performed. Wound was then closed in layer aguirre fashion using #1 Vicryl for the fascia 2-0 Vicryl for the skin and final skin closure was done with garbiel. A sterile dressing was placed. Patient was awakened by anesthesia and transferred to the [facility]. Patient was then transferred to the PACU for recovery. Postoperative plan: Patient will get 24 hours postop antibiotics. Patient will get in-house physical therapy and will be weight-bear as tolerated. Patient will follow up in office in 2 weeks for a wound check and x-rays. Patient will be on posterior hip precautions for 3 months. He will be placed back on his Eliquis for DVT prophylaxis. During the course of the procedure the physician personal banking assistant played a vital role. His intimate knowledge of my steps in the procedure aided in safe and expedient completion of the procedure. The PA was vital in the retraction of soft tissues during the exposure and especially the femoral work as this is a vital part of the procedure to prevent complications and fractures. The PA was also vital and protecting soft tissues during times of bony cuts and reaming. He also played a vital role in closure with my direct supervision. The PA was also important during reduction and dislocation of the joint and trials intraoperatively. Grafts/Implants Used: Rj Biomet - Complications No intraoperative complications - Admit VTE Documentation VTE Present on Admission: No VTE Mechan Device Prophylaxis: SCD's, Thigh High RONALDO Hose VTE Pharm Prophylaxis ordered?: Yes
--- NOTE | 2019-04-20 14:50 | RAD_ITS ---
STUDY: X-RAY - PELVIS AND LEFT HIP REASON FOR EXAM: Postop left hip. TECHNIQUE: 2 views of the pelvis and hip. COMPARISON: Radiographs 11/09/2018. FINDINGS: There is postoperative gas and skin gabriel overlying the left hip. Normal visualized bilateral sacroiliac joints and visualized sacrum. Normal bilateral superior and inferior pubic rami. Normal pubic symphysis. Normal bilateral ischial tuberosities. There are postoperative changes of the left hip arthroplasty without evidence of complication. RAD/Hip Min 2 Views (Portable) IMPRESSION: Postoperative changes of left hip arthroplasty without evidence of complication. Electronically Signed: Angel Narayanan MD at 15:18 EST Tel , Service support ,
--- NOTE | 2019-04-20 16:35 | CON.PCM_ITS ---
Problem List (1) Osteoarthritis Status: Chronic Qualifiers: Osteoarthritis location: hip Osteoarthritis type: unspecified Laterality: left Qualified Code(s): M16.12 - Unilateral primary osteoarthritis, left hip (2) Protein C deficiency Status: Chronic (3) MTHFR mutation Status: Chronic (4) Antithrombin III deficiency Status: Chronic (5) History of right-sided carotid endarterectomy Status: Chronic (6) Dilated cardiomyopathy Status: Chronic (7) S/P implantation of automatic cardioverter/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 (AICD) Status: Chronic Comment: AICD Pacemaker implant, previously just AICD 05/20 & 10/24 @ [facility] (8) History of DVT (deep vein thrombosis) Status: Chronic (9) Hypertension Status: Chronic Qualifiers: Hypertension type: essential hypertension Qualified Code(s): I10 - Essential (primary) hypertension (10) Hyperlipidemia Status: Chronic Qualifiers: Hyperlipidemia type: pure hypercholesterolemia Qualified Code(s): E78.00 - Pure hypercholesterolemia, unspecified; E78.0 - Pure hypercholesterolemia (11) Diastolic CHF, chronic Status: Chronic Reason for Consult Date of Consultation: 04/20/19 Reason for Consultation: Medical management History of Present Illness: The patient is a 83 y/o M w/ PMHx: MTHFR Mutation, Protein C and Antithrombin III deficiency with history of prior DVTs on anticoagulant therapy, Nonobstructive CAD, Cardiac myopathy unclear type/Chronic diastolic CHF s/p AICD/pacemaker, Hypertension, Hyperlipidemia, Obesity, Carotid disease status post right CEA, GERD, OA who presents to the [facility] on 04/20/19 for planned L THR per Dr. Fisher secondary to failed outpatient interventions and treatments. Patient notes prior history of L THR x 2, noted the second failed, denied any associated pain but notes was very unstable. Patient evaluated in PACU and notes pain currently controlled however he did have a spinal and does not have full feeling or function of the lower extremities yet. Hospitalist medicine service consulted for medical management. 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) Atherosclerotic heart disease of [place] coronary artery without angina pectoris (Chronic) History of DVT (deep vein thrombosis) (Chronic) Hypertension (Chronic) Hyperlipidemia (Chronic) Diastolic CHF, chronic (Chronic) Osteoarthritis (Chronic) Medical History: Medical History (Last Updated 07/19/18 @ 11:36 by NADIRA Ann) Dilated cardiomyopathy (Chronic) I42.0 Cardiomyopathy in other diseases classified elsewhere (Chronic) I43 Atherosclerotic heart disease of [place] coronary artery without angina pectoris (Chronic) I25.10 History of DVT (deep vein thrombosis) (Chronic) Z86.718 Hypertension (Chronic) I10 Hyperlipidemia (Chronic) E78.5 Diastolic CHF, chronic (Chronic) I50.32 Body mass index (bmi) 30.0-30.9, adult Z68.30 Dizziness and giddiness R42 CAD (coronary artery disease) (Inactive) I25.10 Allergies No Known Allergies Allergy (Verified 04/20/19 10:11) Home Medications: Ambulatory Orders Medication Instructions Recorded Omeprazole [Prilosec] 40 mg PO DAILY 02/10/14 Testosterone Cypionate 0.25 mg IM . [id number] 02/10/14 [Depo-Testosterone] Apixaban [Eliquis] 2.5 mg PO BID 05/21/16 Prasterone (Dhea) [Dhea] 1 tab PO DAILY 09/16/16 Dutasteride 0.5 mg PO DAILY 10/01/16 Hydrocodone Bitart/Apap 5-325 1 - 2 tab PO Q6H PRN PRN #80 tab 10/16/16 [[place] 5/325] carvedilol 25 mg tablet 25 mg PO BID tab 07/19/18 coenzyme Q10 50 mg chewable tablet 100 mg PO DAILY tab 07/19/18 docusate calcium 240 mg capsule 240 mg PO QHS 07/19/18 Arginine HCl [l-Arginine HCl] 1 tab PO BID 04/12/19 Glucosamine Sulfate 1 tab PO BID 04/12/19 Lisinopril 20 mg PO DAILY 04/12/19 Saccharomyces Boulardii [Daily 1 tab PO DAILY 04/12/19 Probiotic] Tadalafil [Cialis] 5 mg PO DAILY PRN PRN 04/12/19 Surgical History: Surgical History (Last Reviewed 07/19/18 @ 11:37 by Stacey Gresham) History of right-sided carotid endarterectomy (Resolved) Z98.890 S/P implantation of automatic cardioverter/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 (AICD) (Chronic) Z95.810 AICD Pacemaker implant, previously just AICD 05/20 & 10/24 @ [facility] Surgical History: appendectomy, arthroscopy, knee, cholecystectomy, herniorrhaphy, - - Left total hip replacement now x3, right carotid en darterectomy, ICD/pacemaker placement, left unicompartmental knee replacement. Psychiatric History: No pertinent psych hx Lives: Spouse/ Significant Other Smoking Status: Former smoker - Patient quit cigarette tobacco usage greater than 55 years prior to current presentation. Tobacco Use: Non-smoker Alcohol: Occasional Drugs: None - *Family History Maternal Family History: Family History (Last Reviewed 07/19/18 @ 11:37 by Stacey Gresham) Father Diabetes Brother Cancer History Items: Diabetes Paternal Family History: Family History (Last Reviewed 07/19/18 @ 11:37 by Stacey Gresham) Father Diabetes Brother Cancer History Items: Diabetes Review of Systems Constitutional: Reports: Malaise, Weakness, Fatigue. Denies: Anorexia, Chills, Fever, Weight Change HEENT: Denies: Head Aches, Sinus Congestion, Sinus Drainage Cardiovascular: Denies: Chest Pain, Palpitations Respiratory: Denies: Cough, Shortness of breath at rest, Sputum production Gastrointestinal: Denies: Abdominal Pain, Nausea, Vomiting Genitourinary: Denies: Dysuria Musculoskeletal: Reports: Joint Pain, Joint stiffness, Joint swelling, Joint Tenderness Skin: Reports: Skin Changes. Denies: Rash, Wounds Neurological: Denies: Numbness, Tingling, Focal weakness Psychiatric: Denies: Anxiety, Depression, Homicidal Ideations, Suicidal Ideations Hematologic/ Lymphatic: Reports: Easy Bruising, Easy Bleeding Subjective: Patient laying in the PACU bed, denies any acute distress, notes dry mouth, no p ain currently, spinal anesthesia with sensation and function returning. Objective: Physical Examination: General: awake, alert, oriented x 3 and cooperative, seated upright in the PACU bed, no acute distress. Skin: normal color, turgor, no icterus, cyanosis, status post left total hip replacement with dressing in place and staged ecchymoses to right groin status post IVC filter placement on 04/13/2019. HEENT: AT/NC, EOMI, PERRLA, moderately dry MM, no carotid bruits or JVD noted. Lungs: CTA bilaterally, moderate effort, mild decrease BL bases, no rales, ronchi or wheezing. Heart: Regular rate and rhythm; no gallop, rub audible. Abdomen: soft, obese, NTTP, ND, normal BS, no HSM. Extremities: no cyanosis, clubbing, mild bilateral ankle edema, status post left total hip replacement with dressing in place, recent spinal anesthetic with sensation and function returning to lower extremities. Neurological: patient awake, alert, oriented x 3; cognitive function intact; pupils equally reactive to light and accomodation; cranial nerves II-XII grossly normal, moving upper extremities but lower extremities movement minimal given recent spinal anesthesia with sensation and function not returning, strength accordingly severely global decrease. Psychiatric: affect appears to be fatigued as expected, no acute evidence of depressive or anxiety feelings. - Physical Exam Vitals/I&O's: Vital Signs Temp Pulse Resp BP Pulse Ox 97.7 F L 60 16 118/75 96 04/20/19 16:24 04/20/19 16:24 04/20/19 16:24 04/20/19 16:24 04/20/19 16:24 Oxygen Flow Rate (L/min) 6 Oxygen Delivery Method Room Air Weight: 221 lb 9.033 oz Body Mass Index (BMI) 33.7 Intake and Output for Last 24 Hours 04/18/19 04/19/19 04/20/19 23:59 23:59 23:59 Intake Total 583.33 / 583.33 Balance 583.33 / 583.33 Laboratory Results 04/20/19 10:19: POC Glucose 104 Current Medications Acetaminophen (Tylenol) 1,000 mg PO Q8 [facility] Apixaban (Eliquis) 2.5 mg PO BID [facility] Carvedilol (Coreg) 25 mg PO BID [facility] Enteral Nutritional Formula (Ensure Surgery) 237 ml PO TIDCM [facility] Famotidine (Pepcid) 20 mg PO DAILY [facility] Finasteride (Proscar) 5 mg PO DAILY [facility] Cefazolin Sodium () 1 gm in 50 mls @ 150 mls/hr IV Q8H [facility] Stop: 04/21/19 04:19 Lactated Ringer's () 1,000 mls @ 100 mls/hr IV .Q10H [facility] Insulin Human Lispro (Humalog Kwikpen (Bkc)) 1 - 6 unit SC Q4H PRN PRN; Protocol PRN Reason: BG>/= 180, SEE PROTOCOL Stop: 04/20/19 17:30 Ketorolac Tromethamine (Toradol) 15 mg IV Q6H PRN PRN PRN Reason: Pain Score 1-5/10 Stop: 04/22/19 13:51 Lisinopril (Zestril) 20 mg PO DAILY [facility] Morphine Sulfate () 2 - 4 mg IV Q2H PRN PRN PRN Reason: Pain Score 4-10/10 Morphine Sulfate () 2 - 4 mg IV Q2H PRN PRN PRN Reason: Pain Score 4-10/10 Ondansetron HCl (Zofran) 4 mg IV Q8H PRN PRN PRN Reason: NAUSEA Oxycodone HCl (Oxyir) 5 - 10 mg PO Q4H PRN PRN PRN Reason: Pain Score 4-10/10 Pantoprazole Sodium (Protonix) 40 mg PO DAILY [facility] Promethazine HCl (Phenergan) 12.5 mg IM Q6H PRN PRN; Protocol PRN Reason: NAUSEA/VOMITING Senna/Docusate Sodium (Senokot-S, Carey-Colace) 2 tablet PO BID [facility] Assessment/Plan All Active Problems (Last Updated 07/19/18 @ 11:36 by NADIRA Ann) Acidosis (Resolved) Metabolic acidosis (Resolved) The patient is a 83 y/o M w/ PMHx: MTHFR Mutation, Protein C and Antithrombin III deficiency with history of prior DVTs on anticoagulant therapy, Nonobstructive CAD, Cardiaomyopathy unclear type/Chronic diastolic CHF s/p AICD/pacemaker, Hypertension, Hyperlipidemia, Obesity, Carotid disease status post right CEA, GERD, OA who presents to the [facility] on 04/20/19 for planned L THR per Dr. Fisher secondary to failed outpatient interventions and treatments. (1) Severe Osteoarthritis, left hip: Failed conservative therapies and treatments, admitted per Dr. Fisher for planned left total hip replacement, post-operative pain management, bowel regimen, DVT Prophylaxis, PT/OT/CM per Orthopedic surgery discretion. (2) Nonobstructive CAD: Patient denies any PCI history, maintain on resumption of Eliquis once cleared, continue home Coreg, lisinopril, not on statin therapy, defer to outpatient. (3) Cardiaomyopathy unclear type/Chronic diastolic CHF: s/p AICD/pacemaker (4) Hypertension: Continue home Coreg, lisinopril regimen. (5) Hyperlipidemia: Not on statin, possibly intolerance, defer to outpatient. (6) Carotid disease: status post right CEA, stable, maintained on Eliquis once resumption cleared, BP regimen, from current list not on statin. (7) MTHFR Mutation, Protein C and Antithrombin III deficiency with history of prior DVTs: Resumption of Eliquis once cleared per orthopedic surgery given recent operative intervention. Patient did have pre-operative IVC Filter placement via R groin 04/13/19. (8) GERD: PPI. (9) DVT prophylaxis: SCDs, resumption of Eliquis once cleared per orthopedic surgery. Code Visit Inpatient E&M: 83734 [facility] [[email or web address]] Hosp L3
[2019-04-20] MEDS: Ensure Surgery 237 ML LIQUID PO (18:28)
[2019-04-20] MEDS: Cefazolin 1 GM/50 ML BAG IV (20:42)
[2019-04-20] MEDS: Senna/Docusate Sodium 1 Tablet 2 TABLET PO (20:54)
[2019-04-21 03:23] VITALS: BP 142/89; PULSE 59; RESP 16; TEMP 36.4; O2SAT 98
[2019-04-21] MEDS: Cefazolin 1 GM/50 ML BAG IV (03:29)
[2019-04-21] MEDS: Acetaminophen 500 MG Tablet 1000 MG PO ×2 (05:54→13:21)
[2019-04-21 06:35] LABS: Hematocrit 46.3 % (40-54); Hemoglobin 14.2 g/dL (13.0-16.5); Mean Corp Hgb Conc 30.7 g/dL (32-36); Mean Corpuscular Hgb 24.9 pg (27.0-32.0); Mean Corpuscular Volume 81.2 fL (80-94); POSITIVE COUNT YES; Platelet Count 93 K/mm3 (150-450); RBC Distribution Width CV 19.1 % (11.6-14.6); RBC Distribution Width SD 53.8 fl (35.1-43.9); White Blood Count 6.5 K/mm3 (4.4-11.0)
[2019-04-21 06:37] LABS: Scan Indicated on CBC? Y/N NO
[2019-04-21 06:46] LABS: Anion Gap 6 (5-15); BUN 13 mg/dL (7-18); Calcium,Total 8.5 mg/dL (8.5-10.1); Chloride 104 mmol/L (98-107); Creatinine, Serum 1.18 mg/dL (0.70-1.30); EST Glomerular Filtration Rate 63 mL/min (>60); Est Glom Filt Rate - Afr Amer 76 mL/min (>60); Estimated Creatinine Clearance 45.89 ml/min; Glucose 102 mg/dL (74-106); Potassium 4.6 mmol/L (3.5-5.1); Sodium Level 140 mmol/L (136-145)
[2019-04-21 08:18] VITALS: BP 132/84; PULSE 62; RESP 18; TEMP 36.6; O2SAT 95
--- NOTE | 2019-04-21 08:36 | PCM.PN.ORT ---
Subjective: The patient was sitting in bedside chair upon examination. Patient denies any chest pain, shortness of breath, dizziness, lightheadedness, nausea or vomiting, or calf pain. Pain is controlled on medications. No adverse overnight events. Patient currently states he has 0/10 pain in his postoperative left hip. He is doing very well this morning and wishes to go home today. Objective: Vital signs stable and afebrile. Patient is able to plantarflex and dorsiflex actively. Sensation is intact to light touch to saphenous, sural, superficial and deep peroneal, and tibial distribution. Dressing is clean dry and intact. Negative Homans bilaterally, negative signs and symptoms of DVT. - Physical Exam Vitals/I&O's: Vital Signs Temp Pulse Resp BP Pulse Ox 97.9 F 62 18 132/84 H 95 04/21/19 08:18 04/21/19 08:18 04/21/19 08:18 04/21/19 08:18 04/21/19 08:18 Oxygen Flow Rate (L/min) 6 Oxygen Delivery Method Room Air Weight: 100.5 kg Body Mass Index (BMI) 33.7 Intake and Output for Last 24 Hours 04/19/19 04/20/19 04/21/19 23:59 23:59 23:59 Intake Total 2223.33 / 2223.33 760.83 / 760.83 Output Total 1150 / 1150 1575 / 1575 Balance 1073.33 / 1073.33 -814.17 / -814.17 General: Alert, Oriented x3, Cooperative, No apparent distress Laboratory Results 04/20/19 10:19: POC Glucose 104 04/21/19 06:10: WBC 6.5, RBC 5.70, Hgb 14.2, Hct 46.3, MCV 81.2, MCH 24.9 L, MCHC 30.7 L, RDW Std Deviation 53.8 H, RDW Coeff of Michael 19.1 H, Plt Count 93 L, MPV 10.0 04/21/19 06:10: Sodium 140, Potassium 4.6, Chloride 104, Carbon Dioxide 30.0, Anion Gap 6, BUN 13, Creatinine 1.18, Estim Creat Clear Calc 45.89, Est GFR (MDRD) Af Amer 76, Est GFR (MDRD) Non-Af 63, BUN/Creatinine Ratio 11.0, Glucose 102, Calcium 8.5 Current Medications Acetaminophen (Tylenol) 1,000 mg PO Q8 [facility] Last Admin: 04/21/19 05:54 Dose: 1,000 mg Documented by: Apixaban (Eliquis) 2.5 mg PO BID [facility] Carvedilol (Coreg) 25 mg PO BID [facility] Last Admin: 04/20/19 20:55 Dose: 25 mg Documented by: Enteral Nutritional Formula (Ensure Surgery) 237 ml PO TIDCM [facility] Last Admin: 04/20/19 18:28 Dose: 237 ml Documented by: Famotidine (Pepcid) 20 mg PO DAILY [facility] Finasteride (Proscar) 5 mg PO DAILY [facility] Ketorolac Tromethamine (Toradol) 15 mg IV Q6H PRN PRN PRN Reason: Pain Score 1-5/10 Stop: 04/22/19 13:51 Lisinopril (Zestril) 20 mg PO DAILY [facility] Morphine Sulfate () 2 - 4 mg IV Q2H PRN PRN PRN Reason: Pain Score 4-10/10 Morphine Sulfate () 2 - 4 mg IV Q2H PRN PRN PRN Reason: Pain Score 4-10/10 Ondansetron HCl (Zofran) 4 mg IV Q8H PRN PRN PRN Reason: NAUSEA Oxycodone HCl (Oxyir) 5 - 10 mg PO Q4H PRN PRN PRN Reason: Pain Score 4-10/10 Pantoprazole Sodium (Protonix) 40 mg PO DAILY [facility] Promethazine HCl (Phenergan) 12.5 mg IM Q6H PRN PRN; Protocol PRN Reason: NAUSEA/VOMITING Senna/Docusate Sodium (Senokot-S, Carey-Colace) 2 tablet PO BID [facility] Last Admin: 04/20/19 20:54 Dose: 2 tablet Documented by: Sodium Chloride () 10 - 40 ml IV UD PRN PRN Reason: SALINE FLUSH Medical Necessity - Tobacco Use Smoking Status: Former smoker - Patient quit cigarette tobacco usage greater than 55 years prior to current presentation. Tobacco Use: Non-smoker Assessment/Plan All Active Problems (Last Updated 07/19/18 @ 11:36 by NADIRA Ann) Acidosis (Resolved) Metabolic acidosis (Resolved) 1. S/P revision left total hip arthroplasty POD #1 2. Continue Pain Medications: Tylenol and OxyIR as needed 3. DVT Prophylaxis: Patient has been placed back on Eliquis and this will cover him for DVT prophylaxis 4. PT/OT: Weightbearing as tolerated, strict posterior hip dislocation precautions 3 months postoperatively 5. H & H: 14.2/46.3, asymptomatic 6. Encouraged Incentive Spirometry 7. Continue postoperative medical management per medicine 8. Disposition: Orthopedically stable, plan will be for possible discharge home today if cleared by medicine and passes physical therapy. Patient has 0/10 pain. Patient states he does have [place] at home that he uses for occasional pain relief from the primary care physician. We will resume his home medications of Eliquis which will cover him for DVT prophylaxis. He will follow-up per postop instructions.
--- NOTE | 2019-04-21 08:44 | PCM.DC.THR ---
Discharge Diet: No Restrictions Discharge Activity: May Not Drive - while taking narcotic pain medications. May shower in (days): 1 - Turn dressing away from water Ice area for (Minutes): 20 - Every 1-2 hours while awake Weight Bearing Status: Weight bearing as tolerated - With walker Elevate: Operative Extremity Additional Activity Instructions:: Wear elastic stockings for 2 weeks. DO NOT use alcohol with narcotic pain medication. DO NOT make important decisions while taking narcotic medication. If you have problems with taking your medication (rash, itching, nausea, etc.) call the office at once. Call your doctor if your incision/area has: Increased Pain/ Swelling, Increased Redness, Foul Smelling Discharge Call your doctor if you observe: Fever of 101 or Higher Remove Dressing in (days):: 4 - Okay to remove on April 25, 2019 Additional Instructions: Pain control: Use extra strength Tylenol 500 mg 2 tablets 3 times daily. Patient will then use [place] only for breakthrough pain. I discussed with him that he should not take more than 4000 mg of Tylenol in a day. Allergies/Adverse Reactions: Allergies No Known Allergies Allergy (Verified 04/20/19 10:11) Medications to take at Discharge Omeprazole [Prilosec] 40 mg PO DAILY 02/10/14 Testosterone Cypionate [Depo-Testosterone] 0.25 mg IM . [id number] 02/10/14 Apixaban [Eliquis] 2.5 mg PO BID 05/21/16 Prasterone (Dhea) [Dhea] 1 tab PO DAILY 09/16/16 Dutasteride 0.5 mg PO DAILY 10/01/16 Hydrocodone Bitart/Apap 5-325 [[place] 5/325] 1 - 2 tab PO Q6H PRN PRN #80 tab 10/16/16 carvedilol 25 mg tablet 25 mg PO BID tab 07/19/18 coenzyme Q10 50 mg chewable tablet 100 mg PO DAILY tab 07/19/18 docusate calcium 240 mg capsule 240 mg PO QHS 07/19/18 Arginine HCl [l-Arginine HCl] 1 tab PO BID 04/12/19 Glucosamine Sulfate 1 tab PO BID 04/12/19 Lisinopril 20 mg PO DAILY 04/12/19 Saccharomyces Boulardii [Daily Probiotic] 1 tab PO DAILY 04/12/19 Tadalafil [Cialis] 5 mg PO DAILY PRN PRN 04/12/19 Acetaminophen [Tylenol] 1,000 mg PO Q8 14 Days #100 tab 04/21/19 The following prescriptions were given: Acetaminophen [Tylenol] 1,000 mg PO Q8 14 Days #100 tab Prescription Printed Primary Care Physician: Qing Hannon MD [Primary Care Provider] - Test Results: Test results from this visit will be discussed in further detail at your follow-up appointment, if applicable. Please Follow Up With: [facility] When: 04/25/19 Please Follow Up With: Shay Avalos PA-C When: 05/04/19 @ 8:15 am
--- NOTE | 2019-04-21 09:28 | PCM.PN.HOSP ---
Subjective: Patient seen and examined. He is postop day 1 of left total hip replacement. Patient has no complaints this morning was ambulating in the hallway with therapy. Pain was well controlled. A complaint. Review of systems otherwise negative. Labs and vitals reviewed. Vitals/I&O's: Vital Signs Temp Pulse Resp BP Pulse Ox 97.9 F 62 18 132/84 H 95 04/21/19 08:18 04/21/19 08:18 04/21/19 08:18 04/21/19 08:18 04/21/19 08:18 Oxygen Flow Rate (L/min) 6 Oxygen Delivery Method Room Air Weight: 221 lb 9.033 oz Body Mass Index (BMI) 33.7 Intake and Output for Last 24 Hours 04/19/19 04/20/19 04/21/19 23:59 23:59 23:59 Intake Total 2223.33 / 2223.33 760.83 / 760.83 Output Total 1150 / 1150 1575 / 1575 Balance 1073.33 / 1073.33 -814.17 / -814.17 General: Alert, Oriented x3, Cooperative, No apparent distress HEENT: Atraumatic, PERRLA, EOMI, Normocephalic Oral: Moist Mucosa Neck: Supple, No JVD, Negative Carotid Bruits Lungs: Clear to auscultation, Normal air movement, No rhonchi, No wheeze, No rales Cardiovascular: Regular rate, Regular Rhythm, Normal S1, Normal S2, No murmurs Abdomen: Bowel Sounds Present, Soft, Non Tender, Non-Distended, No Hepato-splenomegaly Extremities: No clubbing, No cyanosis, No edema, Capillary Refill Less than 3 Seconds Skin: No rashes, No breakdown Musculoskeletal: No Tenderness to Palpation of Joints or Extremities Lymphatic: No Cervical, Supraclavicular, or Inguinal Adenopathy Neurological: Cranial nerves II-XII grossly intact, Neuro grossly intact, Motor Exam 5/5 strength throughout Psych/Mental Status: Normal Affect, Appropriate, Alert and oriented to time, place, person, mood and affect Laboratory Results 04/20/19 10:19: POC Glucose 104 04/21/19 06:10: WBC 6.5, RBC 5.70, Hgb 14.2, Hct 46.3, MCV 81.2, MCH 24.9 L, MCHC 30.7 L, RDW Std Deviation 53.8 H, RDW Coeff of Michael 19.1 H, Plt Count 93 L, MPV 10.0 04/21/19 06:10: Sodium 140, Potassium 4.6, Chloride 104, Carbon Dioxide 30.0, Anion Gap 6, BUN 13, Creatinine 1.18, Estim Creat Clear Calc 45.89, Est GFR (MDRD) Af Amer 76, Est GFR (MDRD) Non-Af 63, BUN/Creatinine Ratio 11.0, Glucose 102, Calcium 8.5 Diagnostic Data Hip X-Ray 04/20/19 14:50 IMPRESSION: Postoperative changes of left hip arthroplasty without evidence of complication. Electronically Signed: Angel Narayanan MD at 15:18 EST Tel , Service support , Current Medications Acetaminophen (Tylenol) 1,000 mg PO Q8 [facility] Last Admin: 04/21/19 05:54 Dose: 1,000 mg Documented by: Apixaban (Eliquis) 2.5 mg PO BID [facility] Carvedilol (Coreg) 25 mg PO BID [facility] Last Admin: 04/20/19 20:55 Dose: 25 mg Documented by: Enteral Nutritional Formula (Ensure Surgery) 237 ml PO TIDCM [facility] Last Admin: 04/20/19 18:28 Dose: 237 ml Documented by: Famotidine (Pepcid) 20 mg PO DAILY [facility] Finasteride (Proscar) 5 mg PO DAILY [facility] Ketorolac Tromethamine (Toradol) 15 mg IV Q6H PRN PRN PRN Reason: Pain Score 1-5/10 Stop: 04/22/19 13:51 Lisinopril (Zestril) 20 mg PO DAILY [facility] Morphine Sulfate () 2 - 4 mg IV Q2H PRN PRN PRN Reason: Pain Score 4-10/10 Morphine Sulfate () 2 - 4 mg IV Q2H PRN PRN PRN Reason: Pain Score 4-10/10 Ondansetron HCl (Zofran) 4 mg IV Q8H PRN PRN PRN Reason: NAUSEA Oxycodone HCl (Oxyir) 5 - 10 mg PO Q4H PRN PRN PRN Reason: Pain Score 4-10/10 Pantoprazole Sodium (Protonix) 40 mg PO DAILY [facility] Promethazine HCl (Phenergan) 12.5 mg IM Q6H PRN PRN; Protocol PRN Reason: NAUSEA/VOMITING Senna/Docusate Sodium (Senokot-S, Carey-Colace) 2 tablet PO BID [facility] Last Admin: 04/20/19 20:54 Dose: 2 tablet Documented by: Sodium Chloride () 10 - 40 ml IV UD PRN PRN Reason: SALINE FLUSH STROKE Vital Signs/Narrative: Vital Signs Temp Pulse Resp BP Pulse Ox 04/21/19 08:18 97.9 F 62 18 132/84 H 95 Medical Necessity - Tobacco Use Smoking Status: Former smoker - Patient quit cigarette tobacco usage greater than 55 years prior to current presentation. Tobacco Use: Non-smoker Assessment/Plan All Active Problems (Last Updated 07/19/18 @ 11:36 by NADIRA Ann) Acidosis (Resolved) Metabolic acidosis (Resolved) 1. Osteoarthritis of left hip s/p left total hip replacement today is POD 1 pain is well controlled; pain management as per orthopedics PT/OT on board incentive spirometry 2. History of protein c and antithrombin 3 deficiency as well as MTHFR mutation has had prior DVTs had IVC filter inserted prior to surgery to resume eliquis today, per orthopedic surgery 3. History of nonobstructive CAD: on coreg and lisinopril. 4. Hyperlipidemia: diet controlled. Not on statin; to follow up with PCP 5. Carotid stenosis s/o right carotid endarterectomy: on eliquis. 7. Hypertension: on lisinopril. controlled 8. GERD: on PPI DVT prophylaxis: on SCDs. Eliquis resumed today Code Visit Inpatient E&M: 79313 [facility] L2
[2019-04-21] MEDS: APIXABAN 2.5 MG TABLET PO (10:15)
[2019-04-21] MEDS: Ensure Surgery 237 ML LIQUID PO ×2 (10:15→13:22)
[2019-04-21] MEDS: Carvedilol 25 MG Tablet PO (10:15)
[2019-04-21] MEDS: Lisinopril 20 MG Tablet PO (10:16)
[2019-04-21] MEDS: Finasteride 5 MG Tablet PO (10:16)
[2019-04-21] MEDS: Pantoprazole Sodium 40 MG Tablet PO (10:16)
[2019-04-21] MEDS: Senna/Docusate Sodium 1 Tablet 2 TABLET PO (10:16)
[2019-04-21] MEDS: Famotidine 20 MG Tablet PO (10:17)
[2019-04-21 10:20] VITALS: PULSE 68
--- NOTE | 2019-04-21 11:05 | CASEMGMT ---
RN MARYSE Face to Face with patient for initial transition planning/care coordination assessment. RN CM introduced self and role at [facility]. Patient sitting in chair, alert and oriented. Patient willing to participate in assessment and is able to answer all questions appropriately. Care providers, pharmacy, and demographics verified. Patient wishes to discharge home and is setup for outpatient therapy at [facility]. Patient states he has no further needs or concerns at this time. CM to follow for discharge planning needs that may arise. PCP: Parvez Specialists: None Preferred Pharmacy: [facility] Insurance: [employer] [facility] Prescription Benefit: yes Living Will/HPOA: yes Keshia Guzman LNOK: Living Arrangements: Patient lives with in single story home with 3 steps and railing to enter the home. Patient independent at home prior to surgey. Transportation: DME/HHC: Patient has raised toilet, cane, crutches, and walker at home. Patient is setup for outpatient therapy at [facility] on Thursday. Disposition Plan: Patient to discharge home with outpatient therapy, family support, and follow-up plans in place. Jennifer WATKINS, RN, CM
[2019-04-21 13:19] VITALS: BP 125/76; PULSE 74; RESP 16; TEMP 36.4; O2SAT 96
== END 2019-04-21 13:41 | disposition home or self-care (01) | DRG 470 ==
LOC: ACINP 09:15 → MS3 14:01
PROVIDERS: Anesthesiology; Admitting Provider Specialist; Family Provider Internal Medicine; PCP Internal Medicine; Referring Provider Specialist; Visit Provider Student in an Organized Health Care Education/Training Program
PROC: 0SRB03Z Replacement of Left Hip Joint with Ceramic Synthetic Substitute, Open Approach (ICD-10-PCS; CPT 27134; principal; 2019-04-20 11:05)
DX: T84.091A Other mechanical complication of internal left hip prosthesis, initial encounter (principal); E72.12 Methylenetetrahydrofolate reductase deficiency; D68.59 Other primary thrombophilia; I13.0 Hypertensive heart and chronic kidney disease with heart failure and stage 1 through stage 4 chronic kidney disease, or unspecified chronic kidney disease; I50.32 Chronic diastolic (congestive) heart failure; I42.0 Dilated cardiomyopathy; N18.1 Chronic kidney disease, stage 1; M25.352 Other instability, left hip; M16.12 Unilateral primary osteoarthritis, left hip; Z86.718 Personal history of other venous thrombosis and embolism; Z79.02 Long term (current) use of antithrombotics/antiplatelets; G31.84 Mild cognitive impairment of uncertain or unknown etiology; N40.0 Benign prostatic hyperplasia without lower urinary tract symptoms; N32.81 Overactive bladder; I65.29 Occlusion and stenosis of unspecified carotid artery; E55.9 Vitamin D deficiency, unspecified; M51.36 Other intervertebral disc degeneration, lumbar region; D69.6 Thrombocytopenia, unspecified; I25.10 Atherosclerotic heart disease of native coronary artery without angina pectoris; K21.9 Gastro-esophageal reflux disease without esophagitis; Z86.72 Personal history of thrombophlebitis; Z87.891 Personal history of nicotine dependence; Z79.899 Other long term (current) drug therapy; Z95.810 Presence of automatic (implantable) cardiac 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; E66.9 Obesity, unspecified; Z68.33 Body mass index [BMI] 33.0-33.9, adult; E78.5 Hyperlipidemia, unspecified
CPT/HCPCS: 36415; 73502; 80048; 82962; 84443; 85025; 85027; 87015; 87070; 87075; 87081; 87102; 87116; 87176; 87205; 87206; 93005; 97110; 97162; 97166; 97530; 99251; C1776; J7120; G0463

== ENCOUNTER 2019-05-18 08:00 | Outpatient (RCR) | payer MEDICARE, SELFPAY ==
[2018-11-09 17:45] VITALS: BMI 33.0
[2019-04-20 16:56] VITALS: BMI 33.7
--- NOTE | 2019-04-25 07:47 | HP.PTEVAL_ITS ---
Patient's Visit Information MARY SEBASTIAN is a 83 year old M referred to Physical Therapy by Shay Avalos PA-C with a diagnosis of L internal prosthesis dislocation. Date of Evaluation: 04/25/19 Physical Therapist: Pineda Roberts, LORNET, OCS, CSCS - Visit Plan Frequency: 3x /Week Duration: 4-6 Weeks Plan: 3x/week for 3-6 weeks for ... 1. Progression of LE strength obeying L hip precautions, can start in gym. 2. L hip ROM and gait training. 3. Str etch quad and hip flexors and glut. 4. Progress back to his gym workout. - Subjective Findings: L hip replaced. Done 2017. popped out 2x a year apart. Last time was a few months. Now is replaced again. That surgery was last Thursday to make it more stable at the socket. No real pain since then. Used walker coming home last one day later. Did not need walker and now switched to cane. No real precautions form doctor other than standard for hip replacements. Incision is posterior. Dislocations were while sitting on the back step and cr ossing L hip and popped and gotten sudden pain. Has discomfort rolling to left in bed. No other real pain. Sleeping normal for him. Up a lot to pee. Not employed. Hobbies include wood shop and piddling around in grass. Hp workout 5x/week on machines when healthy. puts rosa elena hose on but otherwise dresses normally. helps with shoes. Uses grabber for pants. Steps at home 3with railing using R LE one at a time. - Objective Ambulates mod i with cane R UE without deficits. Has mild L trendelenberg without cane but safe and I. Steps prefers R but can ascend with L adn needs a rail. Transfer to and fro sit I with L LE mildly out in front for precautions. Trasnfer toa dn fro supine I obeying precautions. PROM L hip 90 flexion 5 ext, 20 abd, no real pain. AROM 80 flexion 15 abd, 0 ext. Weakness in extensors adn abd at 3+ and 4- flexors and adductors on L, 4 on R. Knees an ankles WFL and 4+/5 strength. reflexes 2/3 patella and achilles. SensationWNL to gross light touch B E. Incision is dressed with water roof dressing but no signs of excessive redness heat or swelling and no edematous fluid apparent. - Goals Goal 1:: Maintain no pain while regaining normal gait and steps without need for rail. Goal Time Frame: 4-6 Weeks Goal 2:: Back to normal HP workout without irritation Goal Time Frame: 4-6 Weeks Goal 3:: Pt feel L hip back to 100% normal activitiy without interruption or discomfort Goal Time Frame: 4-6 Weeks Goal 4:: < 25% disability on LEFS Goal Time Frame: 4-6 Weeks - Rehabilitation Potential Physical Therapy Diagnosis: s/pL hip dislocation and surgery Rehabilitation Potential: Good - Anticipated Interventions Patient/Client Instruction: Educate patient on: Condition, Plan of Care For the Purpose of:: To decrease pain, To increase ROM, To improve nutrient delivery to tissue, To improve muscle performance and motor function, To increase tolerance to activity/condition/position, To improve gait and locomotor functions Therapeutic Exercise to Include: Strength training, Flexibilty training, Gait and locomotor training, Passive ROM, Active ROM For the Purpose of:: To increase ROM, To improve nutrient delivery to tissue, To improve muscle performance and motor function, To increase tolerance to activity/condition/position, To improve ability of physical actions for home/community/work/leisure Thank you for the opportunity to evaluate your patient. For Medicare and Medicare HMO plans, please review the plan of care and approve it. It will need to be FAXED BACK to us at [phone] for Medicare purposes. For Medicare only, by signing this I certify the plan of care. Please let me know if there are questions or concerns regarding this plan of care. Physician Sig nature: Date:
--- NOTE | 2019-05-18 08:47 | HP.PTDCSUM ---
HP - PT D/C Summary It has been my pleasure to treat MARY SEBASTIAN under orders from Shay Avalos PA-C, for the diagnosis of L internal prosthesis dislocation for a total of 10 visit(s). Discharge Date: 05/18/19 Please see the following information for a summary of their discharge status. - Subjective Subjective: No pain, sleeping well. Activities going pretty well. To doctor next Thursday. Still has precautions for 3 months. Feels confident with gym workout. Walking with cane. Activities at home are normal. Can get out in the woodshop - Overall Improvement % Improvement: 100 - Objective Objective/Function: Walking I without AD with slight L trendelenberg. steps are reciprocal with one rail. AROM WFL with in precautions. OVERALL DOING EXCELLENT ADN SHOULD BE ABLE TO CONTINUE ON OWN IN GYM - Goals Goal 1:: Maintain no pain while regaining normal gait and steps without need for rail. Goal Progress: Goal Met Goal 2:: Back to normal HP workout without irritation Goal 3:: Pt feel L hip back to 100% normal activitiy without interruption or discomfort Goal Progress: Progressing Goal 4:: < 25% disability on LEFS Goal Progress: Progressing - Plan Plan: D/C - D/C Information Discharge Comments: pT TO CONTINUE IN GYM ON OWN AND F/U WITH DOCTOR NEXT WEEK. If there are questions or concerns regarding this patient's physical therapy, please feel free to call me at [phone]. Thank you for the referral of this patient. Sincerely, Pineda Roberts, DPT, OCS, CSCS
== END 2019-05-18 19:00 | disposition home or self-care (01) ==
LOC: PT 08:00
PROVIDERS: Family Provider Internal Medicine; PCP Internal Medicine; Referring Provider Physician Assistant Surgical; Visit Provider Physician Assistant Surgical
DX: T84.021D Dislocation of internal left hip prosthesis, subsequent encounter (principal)
CPT/HCPCS: 97110; 97140; 97162; 97530

== ENCOUNTER → 2019-07-15 13:44 | Outpatient (CLI) | payer MEDICARE, SELFPAY ==
[2019-04-20 16:56] VITALS: BMI 33.7
--- NOTE | 2019-07-15 13:46 | VDLE_ITS ---
Reason For Study: Presence of IVC filter, H/O DVT. RIGHT LEFT GSV is normal. GSV is normal. CFV is compressible, spontaneous, phasic, CFV is compressible, spontaneous, phasic, competent and demonstrates normal competent, and demonstrates normal augmentation. augmentation. FV is compressible, spontaneous, phasic, FV is compressible, spontaneous, phasic, competent and demonstrates normal competent and demonstrates normal augmentation. augmentation. POP V is compressible, spontaneous, phasic, POP V is compressible, spontaneous, phasic, competent and demonstrates normal competent and demonstrates normal augmentation. augmentation. T/P Trunk is compressible. T/P Trunk is compressible. PTV is compressible. PTV is compressible. RT PerV is compressible. LT PerV is compressible. Procedure Exam performed in department. The exam was diagnostic. A preliminary report was called and/or faxed to Dr. Benjamin. Interpretation Summary 1. Bilateral no DVT. Ordering Physician: Moi Benjamin Referring Physician: Qing Hannon Performed By: Corrie Hudson, RDCS, RVT
== END ==
LOC: CVS 13:44
PROVIDERS: PCP Internal Medicine; Referring Provider Surgery Vascular Surgery; Visit Provider Surgery Vascular Surgery
DX: Z86.718 Personal history of other venous thrombosis and embolism (principal); Z95.828 Presence of other vascular implants and grafts
CPT/HCPCS: 93970

== ENCOUNTER 2019-08-17 06:27 | Day surgery (SDC) | payer MEDICARE, SELFPAY ==
[2019-04-20 16:56] VITALS: BMI 33.7
[2019-08-05 10:17] VITALS: BMI 34.2
[2019-08-16 09:27] VITALS: BMI 33.4
[2019-08-17 06:45] LABS: Hematocrit 44.9 % (40-54); Hemoglobin 14.4 g/dL (13.0-16.5); Mean Corp Hgb Conc 32.1 g/dL (32-36); Mean Corpuscular Hgb 27.3 pg (27.0-32.0); Mean Corpuscular Volume 85.2 fL (80-94); Mean Platelet Vol. 9.9 fl (6.2-12.0); Platelet Count 131 K/mm3 (150-450); RBC Distribution Width SD 46.7 fl (35.1-43.9); Red Blood Count 5.27 M/mm3 (4.6-6.2); White Blood Count 6.2 K/mm3 (4.4-11.0)
[2019-08-17 06:52] LABS: International Normalized Ratio 1.1; Prothrombin Time (Protime)PT. 13.9 SECONDS (11.7-14.9)
[2019-08-17 06:53] LABS: Partial Thromboplast Time 26.9 Seconds (24.1-36.2)
[2019-08-17 07:07] LABS: Albumin, Serum 3.6 g/dL (3.2-5.0); BUN 13 mg/dL (7-18); BUN/Creat Ratio 11.3 RATIO (10-20); Calcium,Total 8.6 mg/dL (8.5-10.1); Chloride 106 mmol/L (98-107); Creatinine, Serum 1.15 mg/dL (0.70-1.30); EST Glomerular Filtration Rate 64 mL/min (>60); Est Glom Filt Rate - Afr Amer 78 mL/min (>60); Estimated Creatinine Clearance 46.26 ml/min; Glucose 103 mg/dL (74-106); Phosphorus 3.4 mg/dL (2.5-4.9); Potassium 3.9 mmol/L (3.5-5.1); Sodium Level 139 mmol/L (136-145)
--- NOTE | 2019-08-17 08:00 | PCM.OPRPT ---
Problem List (1) History of DVT (deep vein thrombosis) Status: Chronic Report of Operation Date of Procedure: 08/17/19 Pre-Operative Diagnosis: DVT with prior filter Post-Operative Diagnosis: The same Surgery/Procedure Performed:: 1. Ultrasound-guided access antegrade right jugular vein. 2. Inferior venacavogram. 3. Snare removal of IVC filter Type of Anesthesia:: Sedation,Conscious Description of Procedure: Patient brought to the Director Of Financial Planning. Underwent the appropriate timeout consent. Underwent sedation. Was prepped and draped in a sterile fashion. We did ultrasound-guided access antegrade in the right jugular vein put a Glidewire down that we got down the SVC into the IVC. We got this past the area of the filter. We then brought the sheath down and did a inferior cavogram. Showed the filter widely patent. We brought the snare and and did a removal of the IVC filter. Removed without any difficulty. We removed the sheath held pressure with good hemostasis. He was then brought to recovery stable condition. Sedation: This 84-year-old gentleman underwent moderate sedation given by Dr. Moi Benjamin. He was monitored EKG blood pressure and pulse ox for over the 30 minutes preop, during the procedure and postop. See the EMR for the complete record.
== END 2019-08-17 09:50 | disposition home or self-care (01) ==
LOC: CLSP 06:28
PROVIDERS: PCP Internal Medicine; Referring Provider Surgery Vascular Surgery; Visit Provider Surgery Vascular Surgery
DX: Z45.89 Encounter for adjustment and management of other implanted devices (principal); Z86.718 Personal history of other venous thrombosis and embolism; Z79.01 Long term (current) use of anticoagulants; Z79.899 Other long term (current) drug therapy; M19.90 Unspecified osteoarthritis, unspecified site; I10 Essential (primary) hypertension; Z87.891 Personal history of nicotine dependence
CPT/HCPCS: 36415; 37193; 76937; 80069; 85027; 85610; 85730; 99152; C1773; J7040; Q9967; C1769

== ENCOUNTER → 2019-10-06 13:45 | Outpatient (CLI) | payer MEDICARE, SELFPAY ==
[2019-08-05 10:17] VITALS: BMI 34.2
[2019-08-16 09:27] VITALS: BMI 33.4
--- NOTE | 2019-10-06 13:48 | ECHOD_ITS ---
Reason For Study: CARDIOMYOPATHY Procedure This was a 2D Doppler, Color Flow transthoracic echocardiogram. The study was technically difficult. Exam performed in department. Left Ventricle Normal LV size. Moderate concentric left ventricular hypertrophy. Apical false tendon noted. Left ventricular systolic function is normal. The estimated ejection fraction is 55 %. No evidence for diastolic dysfunction. Right Ventricle Normal RV size. ICD or pacer leads identified within the right ventricle. Normal systolic function. Atria The left atrium is mildly enlarged. Normal right atrium. ICD or pacer leads identified within the right atrium. No doppler evidence for ASD. Mitral Valve There is no mitral annular calcification. Normal mitral valve. Mild (1+) mitral valve insufficiency. Tricuspid Valve Normal tricuspid valve. Trivial tricuspid valve insufficiency. Right ventricular systolic pressure estimated to be 20 mmHg. Aortic Valve Trisinus/trileaflet aortic valve. Mild focal aortic valve calcification. Trivial aortic valve insufficiency. Pulmonic Valve The pulmonic valve is not well visualized. Trivial pulmonic valve insufficiency. Great Vessels Normal sized aortic root. Pericardium/Pleural No pericardial effusion. MMode/2D Measurements & Calculations LVIDd: 4.8 cm IVSd: 1.7 cm LVOT diam: 2.4 cm LVIDs: 3.1 cm LVPWd: 1.5 cm LVOT area: 4.5 cm2 RVDd: 3.2 cm FS: 35.8 % Ao root diam: 3.6 cm LAV(MOD-bp): 67.4 ml LA A4 area: 21.3 cm2 LAV(MOD-bp) Indexed: 31.6 ml/m2 LAV(MOD-sp2): 67.9 ml LAV(MOD-sp4): 62.9 ml LA dimension(2D): 4.5 cm RA A4 area: 16.1 cm2 Doppler Measurements & Calculations MV E max yon: 40.7 cm/sec Lat Peak E' Yon: 4.7 cm/sec Med Peak E' Yon: 5.0 cm/sec MV A max yon: 84.9 cm/sec E/E' lat: 8.6 E/E' med: 8.2 MV E/A: 0.48 Ao V2 max: 130.6 cm/sec LV V1 max: 71.6 cm/sec SV(LVOT): 63.3 ml Ao max P.8 mmHg LV V1 max P.1 mmHg Ao V2 mean: 96.1 cm/sec LV V1 mean P.1 mmHg Ao mean P.9 mmHg LV V1 mean: 50.0 cm/sec Ao V2 VTI: 23.3 cm LV V1 VTI: 14.0 cm RIVAS(I,D): 2.7 cm2 RIVAS(V,D): 2.5 cm2 PA V2 max: 96.1 cm/sec TR max yon: 206.2 cm/sec TR max P.0 mmHg Interpretation Summary The study was technically difficult. Left ventricular systolic function is normal. The estimated ejection fraction is 55 %. Moderate concentric left ventricular hypertrophy. Apical false tendon noted. The left atrium is mildly enlarged. Mild (1+) mitral valve insufficiency. Trivial tricuspid valve insufficiency. Mild focal aortic valve calcification. Trivial aortic valve insufficiency. Trivial pulmonic valve insufficiency. Right ventricular systolic pressure estimated to be 20 mmHg. No evidence for diastolic dysfunction. ICD or pacer leads identified within the right atrium ICD or pacer leads identified within the right ventricle. Ordering Physician: Rip Stringer Referring Physician: Qing Hannon Performed By: Corrie Hudson, JOHN, RVT
== END ==
PROVIDERS: PCP Internal Medicine; Referring Provider Internal Medicine Cardiovascular Disease; Visit Provider Internal Medicine Cardiovascular Disease
DX: I25.10 Atherosclerotic heart disease of native coronary artery without angina pectoris (principal)
CPT/HCPCS: 93306

== ENCOUNTER → 2021-02-20 10:52 | Outpatient (CLI) | payer MEDICARE, SELFPAY ==
[2021-02-20 12:28] LABS: CRP < 2.90 mg/L (0.0-3.0)
[2021-02-21 16:08] LABS: Endomysial Antibody IgA Negative (Negative)
[2021-02-21 17:50] LABS: Immunoglobulin A 261 mg/dL (61-437); t-Transglutaminase IgA <2 U/mL (0-3)
== END ==
PROVIDERS: PCP Internal Medicine; Referring Provider Internal Medicine Gastroenterology; Visit Provider Internal Medicine Gastroenterology
DX: R19.7 Diarrhea, unspecified (principal)
CPT/HCPCS: 36415; 82784; 83516; 86140; 86255

== ENCOUNTER 2021-06-18 07:30 | Outpatient (RCR) | payer MEDICARE, SELFPAY ==
--- NOTE | 2021-05-28 09:03 | HP.PTEVAL_ITS ---
Patient's Visit Information MARY SEBASTIAN is a 85 year old M referred to Physical Therapy by Dr. Qing Hannon MD with a diagnosis of LEFT SHOULDER PAIN. Date of Evaluation: 05/28/21 Physical Therapist: Byron Coon PT, Cert MDT, OCS - Visit Plan Frequency: 1-2x /Week Duration: 4 Weeks Plan: PRECAUTION: PACEMAKER. PT INTERVETIONS POSTURAL EX'S,RTC/SCAPULAR STRENGTHENING AND ROM - Subjective This 85 y/o male presents to physical therapy with left shoulder pain ~ 2 months . Patient located left anterior shoulder. Aggravated factors with movement OH flexion /abduction ,lifting. Alleviating factors rest. Patient seen DR had x- rays MOD AC arthrosis ,recommended PT. Denies paresthesia/tingling. Sleeping good. Patient pain affects ability to perform ADLS' ,putting on coat and woodworking. Patient pain affects QOL and function. PRECAUTION: pacemaker. SOCIAL: . VOCATION: retired - Pain Left Shoulder Pain Intensity (Out of 10): 5 Pain Intensity Range: 10 Comment: movement - Objective POSTURE: rounded shoulders head forward. PALAPTION: unremarkable. NEURO: intact. AROM SHOULDER: flexion 130 degrees, abduction 130 degrees in scapation, ER 80, IR L2. MMT: RTC 4/5 except supraspinatus ,deltoid 4-/5 - Special Tests C/S Radiculapathy - Left Upper limb tension test: Negative C/S Radiculapathy - Right Upper limb tension test: Negative C/S Radiculapathy - Left Spurlings: Negative C/S Radiculapathy - Right Spurlings: Negative L Shoulder Lift Off Test - Subscapular Tear: Negative L Shoulder Drop Sign - IS Test: Negative L Shoulder Empty Can - SS: Negative L Shoulder Belly Press - SupScap: Negative L Shoulder Neer - Impingement: Positive L Shoulder Le Agus - Impingement: Positive L Shoulder Shrug Sign - OA/Adhesive Capsulitis: Negative - Balance/Special Test Scores Quick DASH Score: 47.7250 - Goals Goal 1:: I with HEP for shoulder Goal Time Frame: 4-6 Weeks Goal 2:: Improve posture for ADLS Goal 3:: Patient to demonstrate 50% improvement with left shoulder with function Goal Time Frame: 4-6 Weeks Goal 4:: Patient to improve AROM shoulder WFL with less pain to improve ADLS Goal Time Frame: 4-6 Weeks Goal 5:: Patient to improve quick dash by 5 points to improve function Goal Time Frame: 4-6 Weeks - Rehabilitation Potential Physical Therapy Diagnosis: This patient has left shoulder pain with impingement signs with X-rays showed mod arthrosis AC causes deficits with ROM OH and strength impairs ADLS' and housework tasks thus benefit from skilled PT Rehabilitation Potential: Good - Anticipated Interventions Patient/Client Instruction: Educate patient on: Condition, Plan of Care For the Purpose of:: To decrease pain, To increase ROM, To improve muscle performance and motor function, To improve ability to perform ADL's, To increase tolerance to activity/condition/position, To decrease level of supervision to perform tasks, To improve health of tissue, To decrease soft tissue restriction, To increase flexibility/ROM, To prevent re-injury Therapeutic Exercise to Include: Strength training, Postural training, Flexibilty training, Passive ROM, Active ROM Comment: RTC For the Purpose of:: To decrease pain, To increase ROM, To improve muscle performance and motor function, To improve ability to perform ADL's, To increase tolerance to activity/condition/position, To improve performance and independence with ADL's, To improve ability of physical actions for home/community/work/leisure, To improve health of tissue, To decrease soft tissue restriction, To increase flexibility/ROM Manual Therapy Techniques to Include: Mobilization, Passive ROM For the Purpose of:: To increase ROM, To improve muscle performance and motor function, To improve health of tissue, To decrease soft tissue restriction, To increase flexibility/ROM Cryotherapy (ice pack, ice massage): Yes Thermo therapy (hot pack): Yes Ultrasound (thermal/non thermal): Yes For the Purpose of:: To decrease pain, To increase ROM, To improve nutrient delivery to tissue, To increase oxygenation perfusion Thank you for the opportunity to evaluate your patient. For Medicare and Medicare HMO plans, please review the plan of care and approve it. It will need to be FAXED BACK to us at [phone] for Medicare purposes. For Medicare only, by signing this I certify the plan of care. Please let me know if there are questions or concerns regarding this plan of care. Physician Signature: Date:
--- NOTE | 2021-06-18 07:37 | HP.PTDCSUM ---
It has been my pleasure to treat MARY SEBASTIAN referred by Dr. Qing Hannon MD, with the diagnosis of LEFT SHOULDER PAIN for a total of 4 visit(s). Discharge Date: 06/18/21 Please see the following information for a summary of their discharge status. Subjective: PAIN IS OKAY ..PAIN IS SOME BETTER Left Shoulder Pain Intensity (Out of 10): 2 % Improvement: 40 Objective/Function: AROM SHOULDER: FLEXION 140 DEGREES,140 ABD. ER 80. MMT: 4/5 EXCEPT DELTOID 4-/5 Goal 1:: I with HEP for shoulder Goal Progress: Goal Met Goal 2:: Improve posture for ADLS Goal Progress: Goal Met Goal 3:: Patient to demonstrate 50% improvement with left shoulder with function Goal Progress: Progressing Goal 4:: Patient to improve AROM shoulder WFL with less pain to improve ADLS Goal Progress: Progressing Goal 5:: Patient to improve quick dash by 5 points to improve function Goal Progress: Progressing Plan: D/C Discharge Comments: HEP If there are questions or concerns regarding this patient's physical therapy, please feel free to call me at [phone]. Thank you for the referral of this patient. Sincerely, Byron Coon, PT, Cert MDT, OCS Balance/Gait/Functional tests - Balance/Special Test Scores Quick DASH Score: 25.0000
== END 2021-07-08 13:13 | disposition home or self-care (01) ==
LOC: PT 07:30
PROVIDERS: PCP Internal Medicine; Referring Provider Internal Medicine; Visit Provider Internal Medicine
DX: M25.512 Pain in left shoulder (principal)
CPT/HCPCS: 97035; 97110; 97162

== ENCOUNTER 2021-07-01 15:39 | Outpatient (CLI) | payer MEDICARE, SELFPAY ==
--- NOTE | 2021-07-01 15:47 | CT_ITS ---
EXAM: CT HEAD WITHOUT AND WITH INTRAVENOUS CONTRAST CLINICAL INDICATION: MEMORY LOSS TECHNIQUE: Multiple axial images were obtained of the head without and with intravenous contrast. This CT exam was performed using one or more of the following dose reduction techniques: automated exposure control, adjustment of the mA and/or kV according to patient size, and/or use of iterative reconstruction technique. This report was created using [employer] report generation technology. CONTRAST: IV 50mL [id number] COMPARISON: None. FINDINGS: BRAIN AND EXTRA-AXIAL SPACES: Old left occipital lobe infarct. Microvascular ischemic changes. No intra- or extra-axial hemorrhage. No intracranial mass or mass effect. Posterior fossa structures are unremarkable. Ventricles are appropriate for age. No hydrocephalus. Basal cisterns are patent. BONES/JOINTS: Unremarkable. No discrete lytic or blastic abnormalities. SINUSES: There is mild maxillary sinus disease. Right maxillary sinus is going into the ethmoid sinus. Right frontal sinus disease. MASTOID AIR CELLS: Unremarkable. Clear. ORBITS: Visualized globes, extraocular muscles, optic nerves and retrobulbar fat appear unremarkable. CT/Brain/Head W/WO Contrast IMPRESSION: There is sinus disease which may represent polypoid sinus disease. Electronically Signed: Artemio Avelar MD at 16:34 EST , Service support ,
[2021-07-01 16:01] LABS: EGFR FINGERSTICK > 60.0000 mL/min (>60)
== END 2021-07-01 23:59 | disposition short-term general hospital (02) ==
PROVIDERS: PCP Internal Medicine; Referring Provider Internal Medicine; Visit Provider Internal Medicine
DX: R41.3 Other amnesia (principal)
CPT/HCPCS: 70470; Q9967

== ENCOUNTER 2021-08-01 14:25 | Outpatient (CLI) | payer MEDICARE, SELFPAY ==
--- NOTE | 2021-08-01 14:27 | CT_ITS ---
STUDY: CT MAXILLOFACIAL SINUSES REASON FOR EXAM: Male, 86 years old. RIGHT MASS SINUS MASS RADIATION DOSAGE (If Supplied By Facility): CTDIvol = ( 33.06 ) mGy, DLP = ( 776.00 ) mGycm TECHNIQUE: The patient was scanned in a multi detector CT scanner. High resolution axial imaging was performed without the administration of intravenous contrast material. Sagittal and coronal images were reconstructed. Individualized dose optimization techniques were used for this CT. COMPARISON: None. FINDINGS: FRONTAL SINUSES: Near complete mucosal opacification of the right frontal sinus. Left frontal sinus is normally aerated. ETHMOIDAL SINUSES: Mucosal opacification of anterior right ethmoid air cells. Posterior right and left ethmoid air cells are normal. MAXILLARY SINUSES: Complete opacification of the right maxillary sinus with bowing of the medial maxillary sinus wall. Mucosal thickening/soft tissue density expands the ostiomeatal unit and extends into the nasal cavity (image 52 series 601 and image 85 series 4). Other than small mucosal retention cyst, left maxillary sinus is unremarkable. SPHENOIDAL SINUSES: Normal aeration, without mucosal inflammatory disease. Left ostiomeatal unit is widely patent. Normal bilateral middle turbinates. Normal bilateral inferior turbinates. Normal midline nasal septum. There is patency of the bilateral nasal airways. The visualized osseous structures are normal. The visualized bilateral orbital contents are normal. CT/Sinus/Facial Bone IMPRESSION: 1. 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 Right anterior ethmoid and frontal sinusitis; ostiomeatal unit obstruction pattern. Electronically Signed: Marquise Castellano MD ([place]) at 15:07 EST ,
== END 2021-08-01 23:59 | disposition home or self-care (01) ==
LOC: CT 14:26
PROVIDERS: PCP Internal Medicine; Referring Provider Otolaryngology; Visit Provider Otolaryngology
DX: J34.89 Other specified disorders of nose and nasal sinuses (principal)
CPT/HCPCS: 70486

== ENCOUNTER 2021-08-12 15:09 | Outpatient (CLI) | payer MEDICARE, SELFPAY ==
[2021-08-12 15:24] LABS: Absolute Lymphocyte Count 1.46 X10^3/uL (0.83-4.51); Absolute Neutrophil Count 2.7 X10^3/uL (2.0-7.7); Basophil# 0.03 X10^3/uL; Basophil% 0.6 % (0-1); Eosinophil# 0.15 X10^3/uL; Eosinophils% 3.1 % (0-5); Hematocrit 31.7 % (40-54); Hemoglobin 10.2 g/dL (13.0-16.5); Lymphocyte # 1.46 X10^3/ul (0.83-4.51); Lymphocyte % 30.2 % (19-41); Mean Corp Hgb Conc 32.2 g/dL (32-36); Mean Corpuscular Hgb 27.3 pg (27.0-32.0); Mean Platelet Vol. 11.5 fl (6.2-12.0); Monocyte% 10.4 % (0-10); NRBC Flagged by Analyzer 0 % (0-5); Neutrophil # 2.69 X10^3/uL (2.7-7.7); Neutrophil % 55.7 % (47-70); Platelet Count 140 K/mm3 (150-450); RBC Distribution Width CV 14.5 % (11.6-14.6); RBC Distribution Width SD 44.8 fl (35.1-43.9); Red Blood Count 3.73 M/mm3 (4.6-6.2); White Blood Count 4.8 K/mm3 (4.4-11.0)
[2021-08-12 15:39] LABS: Color, Urine Yellow (Yellow); Glucose, Dipstick Normal (Normal); Ketone-Dipstick 5 mg/dl (Negative); Leukocyte Esterase-Dipstick 25 /ul (Negative); Nitrite-Dipstick Negative (Negative); Occult Blood-Urine Negative /ul (Negative); Protein-Dipstick 30 mg/dl (Negative); Urine Bilirubin Dipstick Negative (Negative); Urine Clarity Clear (Clear); Urine Urobilinogen Normal (Normal)
[2021-08-12 15:42] LABS: International Normalized Ratio 1.2; Prothrombin Time (Protime)PT. 14.4 SECONDS (11.7-14.9)
[2021-08-12 16:08] LABS: AST(SGOT) 17 U/L (15-37); Alanine Aminotransfer ALT/SGPT 15 U/L (16-61); Albumin, Serum 3.3 g/dL (3.2-5.0); Alkaline Phosphatase 83 U/L (45-117); Anion Gap 4 (5-15); BUN 22 mg/dL (7-18); BUN/Creat Ratio 16.8 RATIO (10-20); Calcium,Total 8.5 mg/dL (8.5-10.1); Chloride 106 mmol/L (98-107); Creatinine, Serum 1.31 mg/dL (0.70-1.30); EST Glomerular Filtration Rate 55 mL/min (>60); Est Glom Filt Rate - Afr Amer 67 mL/min (>60); Globulin 3.4 g/dL (2.2-4.2); Glucose 85 mg/dL (74-106); Potassium 4.1 mmol/L (3.5-5.1); Protein, Total 6.7 g/dL (6.4-8.2); Sodium Level 141 mmol/L (136-145)
== END 2021-08-12 23:59 | disposition home or self-care (01) ==
LOC: LABSPEC 15:10
PROVIDERS: PCP Internal Medicine; Visit Provider Internal Medicine
DX: Z01.818 Encounter for other preprocedural examination (principal)
CPT/HCPCS: 80053; 81002; 85025; 85610

== ENCOUNTER 2021-08-15 10:59 | Outpatient (CLI) | payer MEDICARE, SELFPAY ==
[2021-08-15 09:04] VITALS: BMI 34.0
--- NOTE | 2021-08-15 11:01 | VDLE_ITS ---
Reason For Study: Pre op testing RIGHT LEFT GSV is normal. GSV is normal. CFV is compressible, spontaneous, phasic, CFV is compressible, spontaneous, phasic, competent and demonstrates normal competent, and demonstrates normal augmentation. augmentation. FV is compressible, spontaneous, phasic, FV is compressible, spontaneous, phasic, competent and demonstrates normal competent and demonstrates normal augmentation. augmentation. POP V is compressible, spontaneous, phasic, POP V is compressible, spontaneous, phasic, competent and demonstrates normal competent and demonstrates normal augmentation. augmentation. T/P Trunk is compressible. LT PerV is compressible. PTV is compressible. Left T/P Trunk, PTV and SoleusV are RT PerV is compressible. noncompressible with no venous flow noted. Procedure This is a venous duplex using B-mode, color flow and spectral Doppler. Exam performed in department. A preliminary report was called and/or faxed to [facility]. VL/Venous Duplex US - Santosh Extrem Interpretation Summary There is no evidence of right lower extremity deep vein thrombosis. Acute deep venous thrombosis left tibioperoneal trunk, posterior tibial, and soleus veins. Patent and compressible bilateral great saphenous veins Ordering Physician: Matilde Watt Referring Physician: Qing Hannon M.D. Performed By: Jennifer Benjamin RVT
== END 2021-08-15 23:59 | disposition home or self-care (01) ==
LOC: CVS 11:00
PROVIDERS: PCP Internal Medicine; Referring Provider Physician Assistant; Visit Provider Physician Assistant
DX: Z01.818 Encounter for other preprocedural examination (principal); Z86.718 Personal history of other venous thrombosis and embolism
CPT/HCPCS: 37191; 76937; 93970; Q9967; C1769; C1880

== ENCOUNTER → 2021-08-15 | Day surgery (SDC) | payer MEDICARE, SELFPAY ==
--- NOTE | 2021-08-15 11:44 | HP.PCM_ITS ---
History and Physical Date of Ad[facility]: [facility] [id number] [place] [address] [phone] OFFICE VISITDate of Service: 08/14/21 MR#:[id number]: MARY SEBASTIANRep #:[id number] Provider: ISABEL Khan/Sex: 86/M [facility] Vital Signs 08/14/21 12:26 Height 5 ft 9 in Weight: 230 lb BMI 34.0 BP 144/78 H Blood Pressure Location Rt brachial Position Sitting Respiration 18 Intake Visit Reasons: anemia Chief Complaint: anemia Paralegals Required: No Is patient in pain?: No Allergies No Known Allergies Allergy (Verified 08/14/21 12:27) Medications omeprazole 40 mg PO DAILY 02/10/14 [History Confirmed 08/14/21] prasterone (dhea) 1 tab PO DAILY 09/16/16 [History Confirmed 08/14/21] dutasteride 0.5 mg PO DAILY 10/01/16 [History Confirmed 08/14/21] coenzyme Q10 50 mg chewable tablet 100 mg PO DAILY tab 07/19/18 [History Confirmed 08/14/21] carvedilol 12.5 mg tablet 12.5 mg PO BID 08/05/19 [History Confirmed 08/14/21] cholecalciferol (vitamin D3) 125 mcg (5,000 unit) capsule 125 mcg PO DAILY 08/05/19 [History Confirmed 08/14/21] ascorbic acid (vitamin C) 1,000 mg tablet,extended release 1,000 mg PO Q12H 08/14/21 [History Confirmed 08/15/21] glucosamine 750 fz-kpklmkzhm-tdf no.7 644 mg-vit Q-hpfbxl-hdioy tablet 1 tab PO DAILY 08/14/21 [History Confirmed 08/15/21] turmeric 400 mg capsule 400 mg PO DAILY 08/14/21 [History Confirmed 08/15/21] zinc 50 mg tablet 50 mg PO DAILY 08/14/21 [History Confirmed 08/15/21] [facility] Medical History (Updated 08/15/21 @ 08:12 by Matilde WADDELL PA-C) Anemia Arthritis Atherosclerotic heart disease of [place] coronary artery without angina pectoris Body mass index (bmi) 30.0-30.9, adult CAD (coronary artery disease) Cardiology follow-up encounter Cardiomyopathy in other diseases classified elsewhere Diastolic CHF, chronic Dilated cardiomyopathy Dizziness and giddiness DVT (deep venous thrombosis) Essential hypertension Former smoker Gastric reflux History of DVT (deep vein thrombosis) History of echocardiogram History of edema History of steroid therapy History of stress test Pure hypercholesterolemia Shortness of breath on exertion Syncope Wears glasses Wears hearing aid Surgical History History of left hip replacement History of right-sided carotid endarterectomy Hx of left cataract extraction Hx of total hip arthroplasty S/P implantation of automatic cardioverter/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 (AICD) Family History Father Diabetes Brother Cancer Prostate cancer Social History Smoking Status: Former smoker how long ago did patient quit smokin alcohol intake: current alcohol intake frequency: holidays/special occasions only Alcohol type: wine substance use type: does not use caffeine: Yes Type: tea Number of servings: 1 what type of physical activity do you participate in: 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: [place] frequency: 5-6 times per week duration: 30-45 minutes/day seatbelt use: always do you feel safe at home: Yes HPI HPI HPI: MARY SEBASTIAN, is a 86 M who presents to the office today for new onset of anemia, chronic anticoagulation on Eliquis. Patient stated approximately 3 weeks ago he had a single episode of rectal bleeding. Patient was evaluated by his PCP who noted the patient has continued to have a steadily declining hemoglobin. Patient stopped the Eliquis on his own as he believed the rectal bleeding was from his blood thinner. Patient has been on anticoagulation for at least 11 years when his most recent blood clot was noted. He notes he was started on Coumadin for clots in his legs. He notes eventually he was switched to Eliquis and maintained on this medication since that time. He has previously been evaluated by Dr. Cardenas for hematology etiology of the blood clots. He has had two temporary filters placed in the past for orthopedic surgeries in [address] Benjamin. He is currently scheduled for sinus surgery with Dr. Lancaster on Thursday. 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 Patient's PCP had contacted our office for evaluation of anemia and potential need for a filter placement prior to ENT surgery. Patient currently denies any further rectal bleeding. He denies abdominal pain, nausea, vomiting, reflux symptoms, change in bowel habits, and weight loss. he was also noted to have a heme positive occult blood test. He notes having a previous colonoscopy a long time ago with Dr. Enriquez. Patient has been on omeprazole for at least 5-10 years now. Patient does have a pacemaker/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. he follows with Dr. Stringer for cardiology. He denies previous stroke, myocardial infraction. He denies current chest pain. ROS General General: Yes fatigue; No weight change, appetite, colon cancer, breast cancer or weakness HEENT HEENT: No difficulty swallowing, eye injury, eye surgery, swollen glands or hoarseness Endo Endocrine: No thyroid disease, diabetes mellitus, thyroid cancer, Hair loss, heat intolerance or cold intolerance Skin Skin: No rash or changing moles Breast Breast: No left breast lump, right breast lump, nipple discharge, breast pain, abnormal mammogram, abnormal US or breast enlargement Musc Musculoskeletal: Yes back problems and arthritis; No rheumatoid arthritis, gout or joint pain Cardio Cardiovascular: Yes pacemaker and high blood pressure; No murmur, heart disease, atrial fibrillation, heart attack, heart stent, palpitations, shortness of breat with exertion or chest pain Psych Psychiatric: No depression, anxiety or hearing voices Resp Respiratory: Yes shortness of breath, No sleep apnea, No cough, No COPD, No asthma, No emphysema and No wheezing Gastro Gastrointestinal: No abdominal pain, No nausea or vomiting, No diarrhea, No constipation, No blood in stool, No acid reflux, No hemorrhoids, No ulcers, No gallbladder problem and No black,tarry stools Ascecnion Hematologic: No blood thinners, No blood disorders, No bleeding, No anemia and Yes blood clots Neuro Neurologic: No system reviewed and no additional complaints, except as documented, No as per HPI, No abnormal gait, No abnormal hearing, No abnormal movements, No abnormal speech, No behavioral changes, No burning sensations, No confusion, No convulsions, No disequilibrium, No dizziness, No localized weakness, No frequent falls, No headache(s), No lack of coordination, No loss of vision, No memory loss, No numbness, No other visual disturbances, No radicular pain, No restless legs, No sensory deficit, No syncope, No tingling, No tremor(s), No weakness and No other Exam Const General: cooperative, healthy appearing, comfortable and no acute distress Nutritional Appearance: obese Orientation: alert, awake and oriented x3 HENMT Head: normal to inspection Eyes General: appearance normal, both eyes and all related structures Neck Neck: normal visual inspection Neck mass: No Resp Effort & Inspection: normal respiratory effort Auscultation: clear to auscultation bilaterally Cardio Rate: regular rate Rhythm: regular rhythm Bruits: no carotid bruits GI Inspection: normal to inspection and obesity Palpation: soft and nontender Auscultation: normal bowel sounds Skin General: no rashes or lesions noted Neuro General: no focal motor deficits and CN's II-XI intact bilaterally Extrem General: edema Laterality: bilateral Severity: pitting and 2+ Psych Appearance: grossly normal Affect: normal affect COVID (Procedure Consent) Procedure Criteria Procedure Criteria: Yes Elective The surgeon/proceduralist and patient have d iscussed in detail the risk of exposure to and/or potential harm posed by the COVID-19 virus with having a surgery/procedure at this time versus the risk of delaying the surgery/procedure. It is not possible to know either the risk of delaying the surgery or procedure or chance of getting an infection with perfect accuracy, but a joint decision was made between the patient and the surgeon/proceduralist to proceed at this time with the scheduled surgery/procedure as indicated on the consent form. Assessment and Plan Assessment and Plan (1) History of DVT (deep vein thrombosis): Status: Chronic Orders: Orders: Venous Duplex US - Santosh Extrem Today Plan - Matilde WADDELL PABrionnaC: Dr. Crane has also evaluated this patient. Dr. Crane discussed this patient with Dr. Cardenas. Dr. Cardenas is in agreement that patient would benefit from an IVC filter placement. Patient is certainly at higher risk for blood clots with being off of his anticoagulation due to anemia and rectal bleed. Patient will also be undergoing a 2-2 1/2 hour ENT procedure on Thursday, 08/19 placing him at a slightly higher risk for blood clot development. Dr. Cebul will plan to perform an inferior vena cava filter placement. Procedure details, risks and benefits have been explained to the patient. Patient and have had the opportunity to ask and have questions answered. Patient verbally understands and agrees with the plan. Patient will also plan to obtain a bilateral lower extremity DVT study prior to the procedure. (2) Anemia: Status: Acute Qualifiers: Anemia type: unspecified type Qualified Code(s): D64.9 - Anemia, unspecified Plan - Matilde WADDELL PA-C: Patient's hemoglobin has steadily been declining over the last few months. It has been explained to the patient that due to heme positive stools and acute anemia, we are recommending proceeding with upper and lower scopes. Dr. Crane will plan to perform an upper and lower endoscopy with possible biopsies. Procedure details, risks and benefits have been briefly reviewed. I am recommending scheduling patient in 10-14 days after his office visit. I unfortunately am uncertain of recovery period for his ENT procedure. I will contact the patient next Thursday or Thursday to further discuss endoscopy procedures. I will have our angiography technologist, schedule the procedure at that time. We will continue to expedite these procedures for the patient. Most certainly if we can proceed sooner, we will accommodate. Our office will update patient's PCP with the proposed plan. Plan Details Other Orders: Orders: Venous Duplex US - Santosh Extrem Today Z01.818 Coding Level of Care Code 59243 Diagnoses History of DVT (deep vein thrombosis) Z86.718 Anemia D64.9 Anemia type: unspecified type 08/15/21 0854<Electronically signed by Matilde WADDELL PA-C>Date Matilde WADDELL PA-C Charges/Coding Visit Charges Office Visits / Consults: 04235 OV L1 Est (No charge)
--- NOTE | 2021-08-15 12:49 | OP.PCM_ITS ---
Problems Associated Problem List Diagnoses (1) Acute deep venous thrombosis: Report of Operation Date of Procedure: 08/15/21 Pre-Operative Diagnosis: Acute deep venous thrombosis left lower extremity with contraindication to anticoagulation Post-Operative Diagnosis: Same Surgery/Procedure Performed:: Right internal jugular inferior venacavogram with inferior vena cava Routt filter placement Description of Surgical Findings:: Timeout informed consent was obtained. The patient had eaten within the past 3 hours of no IV sedation provided. The patient had a venous duplex exam today. He was detected is having a left lower extremity DVT. Has upcoming sinus surgery. He has had 2 previous vena cava filters placed and removed because of a previous history of deep venous thrombos is. He has had recent evidence suggesting a GI bleed. His anticoagulant has been ceased. He has sinus surgery scheduled within 4 days. He was taken to the special procedure lab placed on the table the right neck was sterilely prepped and draped ultrasound was performed demonstrating the internal jugular vein under ultrasound guidance 2% lidocaine was instilled as a local static micropuncture needle inserted micropuncture wire inserted micropuncture sheath inserted an 035 J-wire was placed 5 Burmese short sheath catheter inserted placed then using an 035 J-wire and a 5 Burmese universal flush catheter access was gained to the inferior vena cava and the cath was placed in the proximal left common iliac vein. Using Isovue contrast with her to 15 cc a second for 15 cc a inferior venacavogram was obtained. This demonstrated patent bilateral common neck veins patent inferior vena cava with some slight irregularity just distal to the renal veins. The vena cava however widely patent. It was of appropriate diameter to allow for filter placement. So the 5 Burmese sheath was removed as was the flush catheter. 9 Burmese sheath was used to predilate. The 8 Burmese delivery sheath was inserted under fluoroscopic control. The filter was deployed so the apex to be close to the renal vein orifice. Good upright positioning was achieved. Delivery device and sheath removed. Pressure was held for hemostasis. Telfa OpSite dressing applied. He tolerated the procedure well there is no apparent complication who was taken back to his room in satisfactory addition. Inferior venacavogram demonstrates a widely patent inferior vena cava slight irregularity distal to the renal veins but quite mild. No evidence of acute thrombus. Josiah Crane M.D., F.A.C.S. Surgeon: Josiah Crane Type of Anesthesia: Local
== END | disposition home or self-care (01) ==
LOC: CLSP 09-06 15:15
PROVIDERS: PCP Internal Medicine; Visit Provider Surgery
DX: I82.402 Acute embolism and thrombosis of unspecified deep veins of left lower extremity (principal); I11.0 Hypertensive heart disease with heart failure; I42.0 Dilated cardiomyopathy; I50.32 Chronic diastolic (congestive) heart failure; D64.9 Anemia, unspecified; E78.00 Pure hypercholesterolemia, unspecified; Z95.810 Presence of automatic (implantable) cardiac 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; I25.10 Atherosclerotic heart disease of native coronary artery without angina pectoris; Z87.891 Personal history of nicotine dependence; Z79.899 Other long term (current) drug therapy; M19.90 Unspecified osteoarthritis, unspecified site; K21.9 Gastro-esophageal reflux disease without esophagitis

== ENCOUNTER 2021-08-19 08:46 | Day surgery (SDC) | payer MEDICARE, SELFPAY ==
[2021-08-19] VITALS (12 sets, daily range): BP systolic 132–167; BP diastolic 67–94; PULSE 59–63; RESP 16–18; TEMP 36.2–36.7; O2SAT 91–97; BMI 34.2
[2021-08-19] MEDS: Lactated Ringers 1,000 ML 15 ML IV ×2 (09:30→13:30)
--- NOTE | 2021-08-19 10:25 | NASAL_PTH ---
PATIENT: MARY SEBASTIAN LOC: [facility] [place] U#:[id number] AGE/SX: 86/M ROOM: RE08/19/[address]: Dr. Dashawn Lancaster MD : 1935 BED: DIS: 08/19/2021 SPEC #: [id number] RECD: 08/19/21 14:06 STATUS: NOLA GAUTHIER #: [id number] SILVA: 08/19/21 10:[address]: Dashawn Lancaster DEPT: SURGICAL PATHOLOGY RECD BY: Shila Ivan ENTERED: 08/20/21 09:17 SP TYPE: NASAL SPEC OTHR DR: Dr. 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 MACARIO:derrick 08/23/2021 MICROSCOPIC DESCRIPTION Slides are reviewed. GROSS DESCRIPTION Received in fixative is one container labeled with the patient's name and designated right maxillary sinus contents. The specimen consists of multiple irregular fragments of jama soft tissue mixed with possible fragments of bone that in aggregate measure 2.5 x 2.5 x 0.3 cm. The specimen is totally submitted in one cassette after decalcification. / MACARIO:derrick 08/20/2021 TC:3 CPT:00261, 91835
--- NOTE | 2021-08-19 12:19 | DS.PCM_ITS ---
Providers Primary Care Physician: Dr. Qing Hannon MD Reason For Visit: MAXILLARY ANTROSTOMY WITH TISSUE REMOVAL, NAVIGATI Medications at Discharge Home Medications omeprazole 40 mg PO DAILY 02/10/14 prasterone (dhea) 1 tab PO DAILY 09/16/16 dutasteride 0.5 mg PO DAILY 10/01/16 coenzyme Q10 50 mg chewable tablet 100 mg PO DAILY tab 07/19/18 carvedilol 12.5 mg tablet 12.5 mg PO BID 08/05/19 cholecalciferol (vitamin D3) 125 mcg (5,000 unit) capsule 125 mcg PO DAILY 08/05/19 ascorbic acid (vitamin C) 1,000 mg tablet,extended release 1,000 mg PO Q12H 08/14/21 glucosamine 750 wl-uxuufxgcz-rnd no.7 644 mg-vit V-blthqx-fydik tablet 1 tab PO DAILY 08/14/21 turmeric 400 mg capsule 400 mg PO DAILY 08/14/21 zinc 50 mg tablet 50 mg PO DAILY 08/14/21 Weight / BMI Weight Weight: 105.1 kg Body Mass Index (BMI) 34.2 D/C Instructions Discharge Diet: No restrictions Discharge Activity: Return to Normal Activity Additional Activity Instructions: No noseblowing Additional Dressing/Incision Instructions: Start saline nasal spray 4x/day on 08/20/21. Start antibiotics tonight Please Follow Up With: Dashawn Lancaster MD When: next week. Call for an appointment Meaningful Use Info Meaningful Use Diagnoses (Choose all that apply): None applicable Discharge Plan Admission Attending Provider: Dashawn Lancaster Primary Care Provider: Qing Hannon Discharge Orders/Prescriptions Prescriptions: No Action carvedilol 12.5 mg tablet 12.5 mg PO BID RF: 0 cholecalciferol (vitamin D3) 125 mcg (5,000 unit) capsule 125 mcg PO DAILY RF: 0 ascorbic acid (vitamin C) 1,000 mg tablet extended release 1,000 mg PO Q12H RF: 0 zinc 50 mg tablet 50 mg PO DAILY RF: 0 Glucosamine-Chondr (boswellia) [id number] mg tablet 1 tab PO DAILY RF: 0 turmeric 400 mg capsule 400 mg PO DAILY RF: 0 omeprazole 40 MG capsule 40 mg PO DAILY RF: 0 coenzyme Q10 50 mg tablet,chewable 100 mg PO DAILY RF: 0 prasterone (dhea) 25 MG tablet 1 tab PO DAILY RF: 0 dutasteride 0.5 MG capsule 0.5 mg PO DAILY RF: 0 Other Ambulatory Orders: Basic Metabolic Profile (BMP) (Routine) Timeframe: [id number] Facility: [facility] - Location: Laboratory Ordered By: Dr. Alex Nobles CBC-Complete Blood Cnt No Diff (Routine) Timeframe: 20210813 Facility: [facility] - Location: Laboratory Ordered By: Dr. Alex Nobles 12 Lead EKG (Routine) Timeframe: [id number] Location: None Selected Ordered By: Dr. Alex Nobles Disposition Discharge Orders: Discharge Patient (Routine); Ordered 08/19/21 Ordered By: Dr. Dashawn Lancaster
[2021-08-19] MEDS: Oxymetazoline 0.05% 1 SPRAY SPRAY.BTL 15 SPRAY (12:27)
[2021-08-19] MEDS: Oxymetazoline 0.05% 1 SPRAY SPRAY.BTL 3 SPRAY NASAL (12:57)
--- NOTE | 2021-08-19 13:35 | PCM.OPRPT ---
Report of Operation Date of Procedure: 08/19/21 Pre-Operative Diagnosis: right maxillary sinus mass chronic sinusitis Post-Operative Diagnosis: same Surgery/Procedure Performed:: Right maxillary antrostomy with tissue removal Right total ethmoidectomy use of navigation Description of Surgical Findings:: pus in the right maxillary sinus with severely inflamed tissue suggestive of mucocele Surgeon: Dashawn Lancaster Type of Anesthesia: General Anesthesiologist: Jose R Anderson Specimen's removed: right maxillary sinus contents Estimated Blood Loss (mL): minimal Description of Procedure: The patient was taken to the operating room on 08/19/2021. The patient was placed in the supine position on the operating table. The patient was given sufficient general endotracheal anesthesia. The head of bed was elevated 30 degrees. The navigation system was placed and verified per protocol and found to be accurate. 0 and 30 degrees rigid nasal endoscopes were used throughout the entire case. The right middle turbinate and uncinate process were injected with 1% lidocaine with epinephrine. The right middle turbinate was medialized with a [place]abash elevator. A ball-tipped sinus seeker was placed into the patient's maxillary sinus. There was immediate extrusion of pus. A backbiter was used to create the antrostomy. A significant amount of pus was suctioned from the right maxillary sinus. The uncinate process was taken down using a microdebrider. I then thoroughly irrigated the right maxillary sinus with saline and the irrigant was suctioned from the nasopharynx. Tissue was removed from the maxillary sinus using a giraffe forceps with a 30 degree rigid nasal endoscope for visualization. Next, the ethmoid bulla was opened with a small curette. Anterior and posterior ethmoidectomy were then carried out using curette, sinus shaver and 45 degree Blakesley Bg forceps. Ethmoid cells were verified for relation to the skull base and orbit prior to being entered with the navigation system. Hemostasis was then achieved using Afrin pledgets. The pledgets were then removed and Tucker powder was applied for absolute hemostasis. The procedure was then terminated. The patient was then awoken and brought to the recovery room in stable condition blood loss less than 10 cc, replacement none. Sponge, needle, instrument count were correct at the end of the procedure. Admit VTE Documentation VTE Mechan Device Prophylaxis: None
[2021-08-19] MEDS: Lidocaine 1% /Epi 1:100 (50ml) 50 ML VIAL (13:37)
--- NOTE | 2021-08-19 13:55 | SUR.PHASEI ---
NO SCDs WORN D/T BLOOD CLOT IN LOWER LEG. SEE HISTORY.
--- NOTE | 2021-08-19 15:54 | SUR.PHASEII ---
AFTER TALKING TO DR. NG I WENT IN AND AFTER CONTINUOUS PRESSURE PATIENT HAD BLOOD DRIPPING A LOT. I DID 4 SPRAYS OF THE AFRIN IN THAT NARES AND HAD HIM CONTINUE TO HOLD PRESSURE UNTIL I RETURNED. WHEN I RETURNED IT HADN'T BLED MUCH, BUT SOON HE MOVED TO START TO GET UP IT STARTED DRIPPING AGAIN. IS NOT COMFORTABLE WITH THIS.
--- NOTE | 2021-08-19 16:27 | SUR.PHASEII ---
4 MORE SPRAYS OF AFRIN ADMINISTERED VIA PATIENT'S OWN AFRIN PER VERBAL ORDER FROM DR. NG. I GOT THE PATIENT BACK IN BED TO REST.
[2021-08-19] MEDS: hydrALAZINE 20 MG/ML Vial 10 MG IV (16:29)
== END 2021-08-19 23:59 | disposition home or self-care (01) ==
LOC: SDC 08:48 → AC 08:48
PROVIDERS: PCP Internal Medicine; Referring Provider Otolaryngology; Visit Provider Otolaryngology
PROC: (CPT 31255; principal; 2021-08-19 09:55)
DX: J32.9 Chronic sinusitis, unspecified (principal); I43 Cardiomyopathy in diseases classified elsewhere; I11.0 Hypertensive heart disease with heart failure; I50.32 Chronic diastolic (congestive) heart failure; I42.0 Dilated cardiomyopathy; D14.0 Benign neoplasm of middle ear, nasal cavity and accessory sinuses; Z79.899 Other long term (current) drug therapy; Z79.01 Long term (current) use of anticoagulants; Z87.891 Personal history of nicotine dependence; R93.1 Abnormal findings on diagnostic imaging of heart and coronary circulation; I25.10 Atherosclerotic heart disease of native coronary artery without angina pectoris; Z86.718 Personal history of other venous thrombosis and embolism; E78.00 Pure hypercholesterolemia, unspecified; Z95.810 Presence of automatic (implantable) cardiac 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; M19.90 Unspecified osteoarthritis, unspecified site; K21.9 Gastro-esophageal reflux disease without esophagitis
CPT/HCPCS: 31255; 31267; 88305; 88311; J7120; J2405

== ENCOUNTER → 2021-08-22 09:50 | Outpatient (CLI) | payer MEDICARE, SELFPAY ==
--- NOTE | 2021-08-22 10:30 | VDLE_ITS ---
Reason For Study: Other specified soft tissue disorders` RIGHT LEFT CFV is compressible, spontaneous, phasic, GSV is normal. competent and demonstrates normal CFV is compressible, spontaneous, phasic, augmentation. competent, and demonstrates normal Procedure augmentation. This is a venous duplex using B-mode, color FV is compressible, spontaneous, phasic, flow and spectral Doppler. competent and demonstrates normal Exam performed in department. augmentation. A preliminary report was called and/or faxed POP V is compressible, spontaneous, phasic, to Parvez. competent and demonstrates normal augmentation. Left T/P Trunk, PTV, PeroV mid, and SoleusV are noncompressible with no venous flow noted. Compared to 08/15/21. VL/Venous Duplex US, Unilateral Interpretation Summary Acute deep venous thrombosis left tibioperoneal trunk, posterior tibial, perone al, and soleus veins. Patent and compressible left great saphenous vein Normal flow patterns right common femoral vein No significant change from the previous venous duplex exam of August 15, 2021 Ordering Physician: Qing Hannon Referring Physician: Qing Hannon Performed By: Jennifer Benjamin RVT
== END ==
PROVIDERS: PCP Internal Medicine; Referring Provider Internal Medicine; Visit Provider Internal Medicine
DX: M79.89 Other specified soft tissue disorders (principal); I82.409 Acute embolism and thrombosis of unspecified deep veins of unspecified lower extremity
CPT/HCPCS: 93971

== ENCOUNTER 2021-09-03 12:35 | Outpatient (CLI) | payer MEDICARE, SELFPAY ==
--- NOTE | 2021-09-03 12:52 | RAD_ITS ---
STUDY: X-RAY - LEFT HUMERUS REASON FOR EXAM: Male, 86 years old. SWELLING TECHNIQUE: 2 view(s) of the humerus. COMPARISON: None. FINDINGS: Marked degree of osteoarthritis of the left glenohumeral joint. Degenerative spur formation is seen along the inferior medial aspect of the humeral head. There is no demonstrated fracture or osseous destructive process. There is no demonstrated soft tissue abnormality. RAD/Humerus min 2 Views IMPRESSION: Marked degree of osteoarthritis involving the left glenohumeral joint with degenerative spurring. Electronically Signed: Wyatt Rivers MD at 13:18 EDT ,
== END 2021-09-03 23:59 | disposition home or self-care (01) ==
LOC: MTRAD 12:37
PROVIDERS: PCP Internal Medicine; Referring Provider Internal Medicine; Visit Provider Internal Medicine
DX: M79.89 Other specified soft tissue disorders (principal)
CPT/HCPCS: 73060

== ENCOUNTER 2021-09-04 07:43 | Outpatient (CLI) | payer MEDICARE, SELFPAY ==
--- NOTE | 2021-09-04 07:58 | VDUE_ITS ---
Reason For Study: swelling Left Proximal Left jugular vein is spontaneous, widely patent, phasic, with no intraluminal echogenicity noted. Subclavian V, Axillary V, Brachial V, and Basilic V are dilated and noncompressible. Left Arm Left cephalic vein is compressible. Left Lower Arm Left radial vein is compressible. Left ulnar vein is compressible. Prelim called to Leatha. VL/Venous Duplex US, Unilateral Interpretation Summary Acute deep venous thrombosis left subclavian, axillary, brachial veins. Superficial thrombophlebitis left basilic vein. Left cephalic vein is patent and compressible Ordering Physician: Qing Hannon Performed By: Lencho Ruiz RVT ?
== END 2021-09-04 23:59 | disposition home or self-care (01) ==
PROVIDERS: PCP Internal Medicine; Visit Provider Internal Medicine
DX: M79.89 Other specified soft tissue disorders (principal)
CPT/HCPCS: 93971

== ENCOUNTER 2021-09-06 05:12 | Day surgery (SDC) | payer MEDICARE, SELFPAY ==
[2021-09-06] VITALS (9 sets, daily range): BP systolic 113–152; BP diastolic 63–80; PULSE 60–69; RESP 14–17; TEMP 36.2–36.6; O2SAT 92–96; BMI 34.2
--- NOTE | 2021-09-06 05:35 | HP.PCM_ITS ---
History and Physical Date of Admission: 09/06/21 Visit Reasons: egd/cscope Chief Complaint: discuss scopes Allergies No Known Allergies Allergy (Verified 09/04/21 13:41) Medications omeprazole 40 mg PO DAILY 02/10/14 [History Confirmed 09/04/21] prasterone (dhea) 1 tab PO DAILY 09/16/16 [History Confirmed 09/04/21] dutasteride 0.5 mg PO DAILY 10/01/16 [History Confirmed 09/04/21] coenzyme Q10 50 mg chewable tablet 100 mg PO DAILY tab 07/19/18 [History Confirmed 09/04/21] carvedilol 12.5 mg tablet 12.5 mg PO BID 08/05/19 [History Confirmed 09/04/21] cholecalciferol (vitamin D3) 125 mcg (5,000 unit) capsule 125 mcg PO DAILY 08/05/19 [History Confirmed 09/04/21] ascorbic acid (vitamin C) 1,000 mg tablet,extended release 1,000 mg PO Q12H 08/14/21 [History Confirmed 09/04/21] glucosamine 750 ea-hlquydcfx-cwv no.7 644 mg-vit V-blgvnd-zngdy tablet 1 tab PO DAILY 08/14/21 [History Confirmed 09/04/21] turmeric 400 mg capsule 400 mg PO DAILY 08/14/21 [History Confirmed 09/04/21] zinc 50 mg tablet 50 mg PO DAILY 08/14/21 [History Confirmed 09/04/21] PFSH Medical History Anemia Arthritis Atherosclerotic heart disease of [place] coronary artery without angina pectoris Body mass index (bmi) 30.0-30.9, adult CAD (coronary artery disease) Cardiology follow-up encounter Cardiomyopathy in other diseases classified elsewhere Diastolic CHF, chronic Dilated cardiomyopathy Dizziness and giddiness DVT (deep venous thrombosis) Essential hypertension Former smoker Gastric reflux Annalisa filter in place History of DVT (deep vein thrombosis) History of echocardiogram History of edema History of steroid therapy History of stress test Pure hypercholesterolemia Shortness of breath on exertion Syncope Wears glasses Wears hearing aid Surgical History History of left hip replacement History of right-sided carotid endarterectomy Hx of left cataract extraction Hx of total hip arthroplasty S/P implantation of automatic cardioverter/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 (AICD) Family History Father Diabetes Brother Cancer Prostate cancer Social History Smoking Status: Former smoker how long ago did patient quit smokin alcohol intake: current alcohol intake frequency: holidays/special occasions only Alcohol type: wine substance use type: does not use caffeine: Yes Type: tea Number of servings: 1 what type of physical activity do you participate in: 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: [employer] frequency: 5-6 times per week duration: 30-45 minutes/day seatbelt use: always do you feel safe at home: Yes HPI HPI HPI: MARY SEBASTIAN is a 86 M who presents to the office today for an update history and physical for an upper and lower scope. Patient was evaluated by our office on 08/14/21 for an IVC filter placement and acute anemia on anticoagulation, heme positive stools. Patient was also scheduled for sinus surgery Thursday, 08/19, which was successfully completed. Patient had discontinued his anticoagulation himself following a single episode of rectal bleeding approximately 1 1/2 months ago. He had since had an IVC filter placed by Dr. Crane on 08/15. Patient developed left upper extremity swelling last Thursday, 08/30. His family encouraged him to reach out to his PCP. Dr. Hannon ordered a venous duplex of the left upper extremity which demonstrated an acute deep venous thrombosis of left subclavian, axillary, and brachial veins. Superficial thrombo phlebitis left basilic vein. Patient's PCP would like to place patient on anticoagulation to treat the DVT. His PCP has started the patient on Coumadin and Lovenox. Dr. Hannon would like patient to have an upper and lower to further investigate his anemia. He denies any further rectal bleeding, change in bowel habits, abdominal pain/discomfort. Patient's previous history from 08/14/21: MARY SEBASTIAN is a 86 M who presents to the office today for new onset of anemia, chronic anticoagulation on Eliquis. Patient stated approximately 3 weeks ago he had a single episode of rectal bleeding. Patient was evaluated by his PCP who noted the patient has continued to have a steadily declining hemoglobin. Patient stopped the Eliquis on his own as he believed the rectal bleeding was from his blood thinner. Patient has been on anticoagulation for at least 11 years when his most recent blood clot was noted. He notes he was started on Coumadin for clots in his legs. He notes eventually he was switched to Eliquis and maintained on this medication since that time. He has previously been evaluated by Dr. Cardenas for hematology etiology of the blood clots. He has had two temporary filters placed in the past for orthopedic surgeries in [address] Benjamin. He is currently scheduled for sinus surgery with Dr. Lancaster on Thursday. 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 Patient's PCP had contacted our office for evaluation of anemia and potential need for a filter placement prior to ENT surgery. Patient currently denies any further rectal bleeding. He denies abdominal pain, nausea, vomiting, reflux symptoms, change in bowel habits, and weight loss. he was also noted to have a heme positive occult blood test. He notes having a previous colonoscopy a long time ago with Dr. Enriquez. Patient has been on omeprazole for at least 5-10 years now. Patient does have a pacemaker/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. he follows with Dr. Stringer for cardiology. He denies previous stroke, myocardial infraction. He denies current chest pain. ROS General General: Yes fatigue; No weight change, appetite, colon cancer, breast cancer or weakness HEENT HEENT: No difficulty swallowing, eye injury, eye surgery, swollen glands or hoarseness Endo Endocrine: No thyroid disease, diabetes mellitus, thyroid cancer, Hair loss, heat intolerance or cold intolerance Skin Skin: No rash or changing moles Breast Breast: No left breast lump, right breast lump, nipple discharge, breast pain, abnormal mammogram, abnormal US or breast enlargement Musc Musculoskeletal: Yes back problems and arthritis; No rheumatoid arthritis, gout or joint pain Cardio Cardiovascular: Yes pacemaker and high blood pressure; No murmur, heart disease, atrial fibrillation, heart attack, heart stent, palpitations, shortness of breat with exertion or chest pain Psych Psychiatric: No depression, anxiety or hearing voices Resp Respiratory: Yes shortness of breath, No sleep apnea, No cough, No COPD, No asthma, No emphysema and No wheezing Gastro Gastrointestinal: No abdominal pain, No nausea or vomiting, No diarrhea, No constipation, No blood in stool, No acid reflux, No hemorrhoids, No ulcers, No gallbladder problem and No black,tarry stools Ascencion Hematologic: No blood thinners, No blood disorders, No bleeding, No anemia and Yes blood clots Neuro Neurologic: No system reviewed and no additional complaints, except as documented, No as per HPI, No abnormal gait, No abnormal hearing, No abnormal movements, No abnormal speech, No behavioral changes, No burning sensations, No confusion, No convulsions, No disequilibrium, No dizziness, No localized weakness, No frequent falls, No headache(s), No lack of coordination, No loss of vision, No memory loss, No numbness, No other visual disturbances, No radicular pain, No restless legs, No sensory deficit, No syncope, No tingling, No tremor(s), No weakness and No other Exam Const General: cooperative, healthy appearing, comfortable and no acute distress [facility] Head: normal to inspection Eyes General: appearance normal, both eyes and all related structures Neck Neck: normal visual inspection Neck mass: No Resp Effort & Inspection: normal respiratory effort Auscultation: clear to auscultation bilaterally Cardio Rate: regular rate Rhythm: regular rhythm Bruits: no carotid bruits GI Inspection: normal to inspection and obesity Palpation: soft and nontender Auscultation: normal bowel sounds Skin General: no rashes or lesions noted Neuro General: no focal motor deficits and CN's II-XI intact bilaterally Extrem General: edema Laterality: bilateral Severity: pitting and 2+ Psych Appearance: grossly normal Affect: normal affect Assessment and Plan Assessment and Plan (1) Anemia: Status: Acute Qualifiers: Anemia type: unspecified type Qualified Code(s): D64.9 - Anemia, unspecified Plan - Matilde WADDELL PABrionnaC: Patient's hemoglobin has steadily been declining over the last few months. It has been explained to the patient that due to heme positive stools and acute anemia, we are recommending proceeding with upper and lower scopes. Dr. Crane will plan to perform an upper and lower endoscopy with possible biopsies. Procedure details, risks and benefits have been explained. We will expedite these procedures for the patient. Patient has been provided prep instructions and instructions to hold his anticoagulation. Patient was instructed to hold his Coumadin on and to hold his Lovenox on Thursday morning. He will resume his anticoagulation following the procedure according to the recommendations of Dr. Crane. Patient and his have had the opportunity to ask and have questions answered. Patient verbally understands and agrees with the plan. I have re-examined the patient. There are no clinical changes since date of exam. Josiah Crane M.D., F.A.C.S.
[2021-09-06] MEDS: Lactated Ringers 1,000 ML 15 ML IV (06:03)
--- NOTE | 2021-09-06 06:30 | IMM_PTH ---
PATIENT: MARY SEBASTIAN LOC: EN U#:[id number] AGE/SX: 86/M ROOM: RE09/06/[address]: Dr. Josiah Crane MD : 1935 BED: DIS: 09/06/2021 SPEC #: [id number] RECD: 09/06/21 12:52 STATUS: NOLA REValeria #: [id number] SILVA: 09/06/21 06:[address]: Joisah Crane DEPT: IMMUNOHISTOCHEMISTRY RECD BY: Ysabel Ram ENTERED: 09/06/21 12:52 SP TYPE: IMMUNO OTHR DR: Dr. Qing Hannon MD Tissues: A - Stomach, NOS Procedures: H Pylori (initial) PHYSICIAN & INSTITUTION [place] [id number] SPECIMEN INFORMATION: Tissue Source: A ? Antrum biopsy Clinical Info: Anemia Specimen Number: [id number] CPT code: 87804 METHODOLOGY: Deparaffinized sections of prefer/formalin-fixed tissue or PAP/DQ stained slides are incubated with monoclonal/polyclonal antibodies/oligonucleotide probes. Localization is made via biotin free immunoperoxidase method. Appropriate controls are performed and reacted as expected. Results on target cell population are indicated in the following table: RESULTS: ANTIBODY / CLONE RESULT Block A H Pylori (polyclonal) negative These tests were developed and their performance characteristics determined by [facility]. They may not have been cleared or approved by the U.S. Food and Drug Administration. The FDA has determined that such clearance or approval is not necessary. INTERPRETATION: A. Antrum, biopsy: Negative for Helicobacter pylori organisms. SJ:derrick 09/09/2021
--- NOTE | 2021-09-06 06:30 | EGD_PTH ---
PATIENT: MARY SEBASTIAN LOC: EN U#:[id number] AGE/SX: 86/M ROOM: RE09/06/[address]: Dr. Josiah Crane MD : 1935 BED: DIS: 09/06/2021 SPEC #: [id number] RECD: 09/06/21 10:06 STATUS: NOLA TRUJILLOValeria #: [id number] SILVA: 09/06/21 06:[address]: Josiah Crane DEPT: SURGICAL PATHOLOGY RECD BY: Shila Ivan ENTERED: 09/06/21 11:02 SP TYPE: EGD BIOPSY [facility] DR: Dr. Qing Hannon MD Tissues: A - Gastric mucous membrane B - Gastric fundus C - Gastric mucous membrane Procedures: Surgery Specimen Level IV HEADER OPERATION: Colonoscopy, EGD ([facility] [place]) PRE-OP DIAGNOSIS: Anemia TISSUE SUBMITTED: A - Antrum biopsy for H. pylori and path, B - Fundal polyp biopsy, C - Gastric polyp MICROSCOPIC DIAGNOSIS A. Antrum biopsy: Mild gastritis. See microscopic description and comment. B. Fundal polyp, biopsy: A fragment of gastric mucosa with minimal chronic inflammation. C. Gastric polyp, biopsy: Fundic gland polyp. SJ:rg 09/09/2021 COMMENT A. The results of immunohistochemistry for Helicobacter pylori will be reported separately ([id number]). MICROSCOPIC DESCRIPTION Slides are reviewed. A. The specimen shows fragments of gastric mucosa with chronic inflammatory cell infiltrates in the lamina propria consisting of lymphocytes and plasma cells, consistent with mild chronic gastritis. GROSS DESCRIPTION A - Received in fixative is one container labeled with the patient's name and designated antrum biopsy. The specimen consists of one irregular fragment of light jama soft tissue that measures 0.7 x 0.2 x 0.1 cm. The specimen is totally submitted in one cassette. B - Received in fixative is one container labeled with the patient's name and designated fundal polyp biopsy. The specimen consists of one irregular fragment of light jama soft tissue that measures 0.5 x 0.4 x 0.1 cm. The specimen is totally submitted in one cassette. C - Received in fixative is one container labeled with the patient's name and designated gastric polyp. The specimen consists of a jama-pink congested polyp measuring 2.4 x 2.5 x 1.5 cm. Apparent base is inked black. The specimen is serially sectioned and submitted entirely in four cassettes. / SJ:rg 09/06/2021 TC:5 CPT: 90382 x3
[2021-09-06] MEDS: 0.9% Normal Saline (Pres. free 10 ML Vial (06:50)
[2021-09-06] MEDS: Epinephrine (1 mg/ml) 1 MG/ML VIAL (06:50)
--- NOTE | 2021-09-06 07:19 | OP.EGD_ITS ---
Patient Name: Maciel Guzman Procedure Date: 09/06/2021 6:24 AM Date of : 1935 Age: 86 Procedure: Upper GI endoscopy Indications: Iron deficiency anemia Providers: Josiah Crane MD Medicines: See the Anesthesia note for documentation of the administered medications Complications: No immediate complications. Procedure: Pre-Anesthesia Assessment: - Prior to the procedure, a History and Physical was performed, and patient medications and allergies were reviewed. The patient's tolerance of previous anesthesia was also reviewed. The risks and benefits of the procedure and the sedation options and risks were discussed with the patient. All questions were answered, and informed consent was obtained. Prior Anticoagulants: The patient has taken Coumadin (warfarin), last dose was 1 day prior to procedure. ASA Grade Assessment: III - A patient with severe systemic disease. After reviewing the risks and benefits, the patient was deemed in satisfactory condition to undergo the procedure. After obtaining informed consent, the endoscope was passed under direct vision. Throughout the procedure, the patient's blood pressure, pulse, and oxygen saturations were monitored continuously. The gastroscope was introduced through the mouth, and advanced to the second part of duodenum. The upper GI endoscopy was performed with difficulty due to excessive bleeding. The patient tolerated the procedure well. Scope In: 6:34:03 AM Scope Out: 6:55:56 AM Total Procedure Duration Time 0 hours 21 minutes 53 seconds Findings: A small hiatal hernia was present. Diffuse mildly erythematous mucosa without bleeding was found in the gastric antrum. Biopsies were taken with a cold forceps for histology. Multiple 29 mm pedunculated and sessile polyps with bleeding and no stigmata of recent bleeding were found in the cardia, in the gastric fundus and in the gastric body. The polyp was removed with a hot snare. Resection and retrieval were complete. Area was successfully injected with 10 mL of a 1:10,000 solution of epinephrine for hemostasis of bleeding caused by the procedure. Fulguration to stop the bleeding by argon beam at 1.4 liters/minute and 30 moss was successful. The examined duodenum was normal. Impression: - Small hiatal hernia. - Erythematous mucosa in the antrum. Biopsied. - Multiple gastric polyps. Resected and retrieved. Injected. Treated with argon beam coagulation. - Normal examined duodenum. Recommendation: - Discharge patient to home. - Resume previous diet. - Continue present medications. - Telephone my office for pathology results in 1 week. Too numerous to count gastric polyps with evidence of polyp or bleeding. Too numerous to treat with endoscopic resections Procedure Code(s): --- Professional --- 91095, 59, Esophagogastroduodenoscopy, flexible, transoral; with control of bleeding, any method 65845, Esophagogastroduodenoscopy, flexible, transoral; with removal of tumor(s), polyp(s), or other lesion(s) by snare technique 01466, 59, Esophagogastroduodenoscopy, flexible, transoral; with biopsy, single or multiple Diagnosis Code(s): --- Professional --- K44.9, Diaphragmatic hernia without obstruction or gangrene K31.89, Other diseases of stomach and duodenum K31.7, Polyp of stomach and duodenum D50.9, Iron deficiency anemia, unspecified CPT copyright 2017 [employer]. All rights reserved. The codes documented in this report are preliminary and upon medical coder review may be revised to meet current compliance requirements. Josiah Crane MD 09/06/2021 7:18:37 AM This report has been signed electronically. Number of Addenda: 0 Note Initiated On: 09/06/2021 6:24 AM
--- NOTE | 2021-09-06 07:19 | OP.CCLET_ITS ---
09/06/2021 Qing Hannon Re : Upper GI endoscopy procedure for Maciel Baptiste Parvez This procedure was performed on Monday, September 06, 2021. My impressions and recommendations are as follows: Impressions : - Small hiatal hernia. - Erythematous mucosa in the antrum. Biopsied. - Multiple gastric polyps. Resected and retrieved. Injected. Treated with argon beam coagulation. - Normal examined duodenum. Recommendations : - Discharge patient to home. - Resume previous diet. - Continue present medications. - Telephone my office for pathology results in 1 week. Too numerous to count gastric polyps with evidence of polyp or bleeding. Too numerous to treat with endoscopic resections My findings are described in the full procedure note, which is enclosed. If I can be of further assistance, please feel free to contact me at Doctor phone number(s): Work: . Sincerely, Josiah Crane MD 09/06/2021 7:18:37 AM This report has been signed electronically.
--- NOTE | 2021-09-06 07:22 | OP.COLON_ITS ---
Patient Name: Maciel Guzman Procedure Date: 09/06/2021 6:57 AM Date of : 1935 Age: 86 Procedure: Colonoscopy Indications: Iron deficiency anemia Providers: Josiah Crane MD Medicines: See the Anesthesia note for documentation of the administered medications Patient Profile: Last Colonoscopy: date unknown. Complications: No immediate complications. Procedure: Pre-Anesthesia Assessment: - Prior to the procedure, a History and Physical was performed, and patient medications and allergies were reviewed. The patient's tolerance of previous anesthesia was also reviewed. The risks and benefits of the procedure and the sedation options and risks were discussed with the patient. All questions were answered, and informed consent was obtained. Prior Anticoagulants: The patient has taken Coumadin (warfarin), last dose was 1 day prior to procedure. ASA Grade Assessment: III - A patient with severe systemic disease. After reviewing the risks and benefits, the patient was deemed in satisfactory condition to undergo the procedure. After I obtained informed consent, the scope was passed under direct vision. Throughout the procedure, the patient's blood pressure, pulse, and oxygen saturations were monitored continuously. The colonoscope was introduced through the anus and advanced to the cecum, identified by appendiceal orifice and ileocecal valve. The colonoscopy was performed without difficulty. The patient tolerated the procedure well. The quality of the bowel preparation was good. The ileocecal valve and the appendiceal orifice were photographed. Scope In: 6:58:55 AM Scope Withdrawal Time 0 hours 6 minutes 20 seconds Scope Out: 7:10:04 AM Total Procedure Duration Time 0 hours 11 minutes 9 seconds Findings: The digital rectal exam findings include non-thrombosed external hemorrhoids, non-thrombosed internal hemorrhoids, internal hemorrhoids (Grade I) and enlarged prostate. Scattered diverticula were found in the sigmoid colon. The exam was otherwise without abnormality. Impression: - Non-thrombosed external hemorrhoids, non-thrombosed internal hemorrhoids, internal hemorrhoids (Grade I) and enlarged prostate found on digital rectal exam. - Diverticulosis in the sigmoid colon. - The examination was otherwise normal. - No specimens collected. Recommendation: - Discharge patient to home. - Resume previous diet. - Continue present medications. - Repeat colonoscopy is not recommended due to current age (66 years or older) for screening purposes. Procedure Code(s): --- Professional --- 11795, Colonoscopy, flexible; diagnostic, including collection of specimen(s) by brushing or washing, when performed (separate procedure) Diagnosis Code(s): --- Professional --- K64.0, First degree hemorrhoids K64.4, Residual hemorrhoidal skin tags D50.9, Iron deficiency anemia, unspecified N40.0, Benign prostatic hyperplasia without lower urinary tract symptoms K57.30, Diverticulosis of large intestine without perforation or abscess without bleeding CPT copyright 2017 [employer]. All rights reserved. The codes documented in this report are preliminary and upon pattern puncher review may be revised to meet current compliance requirements. Josiah Crane MD 09/06/2021 7:21:42 AM This report has been signed electronically. Number of Addenda: 0 Note Initiated On: 09/06/2021 6:57 AM
--- NOTE | 2021-09-06 07:22 | OP.CCLET_ITS ---
09/06/2021 Qing Hannon Re : Colonoscopy procedure for Maciel Choharjinder This procedure was performed on Monday, September 06, 2021. My impressions and recommendations are as follows: Impressions : - Non-thrombosed external hemorrhoids, non-thrombosed internal hemorrhoids, internal hemorrhoids (Grade I) and enlarged prostate found on digital rectal exam. - Diverticulosis in the sigmoid colon. - The examination was otherwise normal. - No specimens collected. Recommendations : - Discharge patient to home. - Resume previous diet. - Continue present medications. - Repeat colonoscopy is not recommended due to current age (66 years or older) for screening purposes. My findings are described in the full procedure note, which is enclosed. If I can be of further assistance, please feel free to contact me at Doctor phone number(s): Work: . Sincerely, Josiah Crane MD 09/06/2021 7:21:42 AM This report has been signed electronically.
== END 2021-09-06 23:59 | disposition home or self-care (01) ==
LOC: EN 05:13 → AC 05:17
PROVIDERS: PCP Internal Medicine; Referring Provider Internal Medicine; Visit Provider Surgery
PROC: 0DJD8ZZ Inspection of Lower Intestinal Tract, Via Natural or Artificial Opening Endoscopic (ICD-10-PCS; CPT 45378; principal; 2021-09-06 06:25)
DX: Z12.11 Encounter for screening for malignant neoplasm of colon (principal); I11.0 Hypertensive heart disease with heart failure; I50.32 Chronic diastolic (congestive) heart failure; I42.0 Dilated cardiomyopathy; K64.4 Residual hemorrhoidal skin tags; K64.0 First degree hemorrhoids; K44.9 Diaphragmatic hernia without obstruction or gangrene; K31.7 Polyp of stomach and duodenum; K57.30 Diverticulosis of large intestine without perforation or abscess without bleeding; K31.89 Other diseases of stomach and duodenum; K29.50 Unspecified chronic gastritis without bleeding; M19.90 Unspecified osteoarthritis, unspecified site; N40.0 Benign prostatic hyperplasia without lower urinary tract symptoms; D64.9 Anemia, unspecified; I25.10 Atherosclerotic heart disease of native coronary artery without angina pectoris; Z79.01 Long term (current) use of anticoagulants; Z79.899 Other long term (current) drug therapy; Z87.891 Personal history of nicotine dependence; Z95.0 Presence of cardiac pacemaker
CPT/HCPCS: 45378; 43251; 43255; 43239; 88305; 88342; J7120; J2405; J3490

== ENCOUNTER 2022-01-04 18:40 | Emergency (ER) | payer MEDICARE, SELFPAY ==
[2022-01-04 18:41] VITALS: BP 112/72; PULSE 71; RESP 16; TEMP 36.1; BMI 35.2
--- NOTE | 2022-01-04 19:10 | EKG12_ITS ---
Test Reason : dizzy Blood Pressure : / mmHG Vent. Rate : 065 BPM Atrial Rate : 065 BPM P-R Int : 150 ms QRS Dur : 126 ms QT Int : 436 ms P-R-T Axes : 012 -69 097 degrees QTc Int : 453 ms Atrial-sensed ventricular-paced rhythm Biventricular pacemaker detected Abnormal ECG Confirmed by YASSINE HORNER, DIONNE ([id number]), editor city [place]TON KEYS ([id number]) on 01/07/2022 9:28:58 AM Referred By: Confirmed By:DIONNE METZGER MD
--- NOTE | 2022-01-04 19:11 | EDS_ITS ---
HPI History of Present Illness Chief Complaint: Dizziness Informant: patient Onset/Context/Timing Onset: Today Timing: Intermittent Quality: lightheadedness Current Severity: Gone Maximum Severity: Moderate Worsened by: standing up Relieved by: sitting/lying down Associated Symptoms Associated Symptoms: no new sx Narrative Narrative: Patient states he has had intermittent lightheadedness multiple times a day, every time has been orthostatic in mechanism when he stands up. When he rests sits down, lies down, it goes away and feels better, lying here in the ER he states he feels fine. He has a history of back and left shoulder pain for which she has been taking hydrocodone off and on as well as tizanidine, he has had some constipation from that and some darker stools but no melena. No blood. He did have GI bleeding in June when he was on Eliquis so that has been discontinued and he is on no antiplatelet or anticoagulant medications right now. He denies any chest pain, shortness of breath, palpitations, recent illness, vomiting, cough, or obvious reason to be dehydrated. No recent travel out of the area. States he has a pacemaker 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, he gets it checked every 3 months, he states the battery is getting low but otherwise he has had no issues. Defibrillator has not gone off, he cannot remember why he has the need for a 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. His last echocardiogram in 2019 showed an ejection fraction of 55%. [facility] Medical History Anemia Arthritis Atherosclerotic heart disease of [place] coronary artery without angina pectoris Body mass index (bmi) 30.0-30.9, adult CAD (coronary artery disease) Cardiology follow-up encounter Cardiomyopathy in other diseases classified elsewhere Diastolic CHF, chronic Dilated cardiomyopathy Dizziness and giddiness DVT (deep venous thrombosis) Essential hypertension Former smoker Gastric reflux Egan filter in place History of DVT (deep vein thrombosis) History of echocardiogram History of edema History of steroid therapy History of stress test Hx of chcf use of blood thinners Pure hypercholesterolemia Shortness of breath on exertion Syncope Wears glasses Wears hearing aid Home Medications prasterone (dhea) 25 mg tablet 1 tab PO DAILY supplement 09/16/16 [History Last Taken 08/15/21] dutasteride 0.5 mg capsule 0.5 mg PO DAILY bph 10/01/16 [History Last Taken 08/19/21 07:30] coenzyme Q10 50 mg chewable tablet 100 mg PO DAILY supplement 07/19/18 [History Last Taken 08/15/21] carvedilol 12.5 mg tablet 12.5 mg PO BID 08/05/19 [History Last Taken 09/06/21] cholecalciferol (vitamin D3) 125 mcg (5,000 unit) capsule 125 mcg PO DAILY 08/05/19 [History Last Taken 08/15/21] ascorbic acid (vitamin C) 1,000 mg tablet,extended release 1,000 mg PO Q12H 08/14/21 [History Last Taken 08/15/21] glucosamine 750 [id number] no.7 644 mg-vit Q-iebauh-pnfaw tablet (Glucosamine-Chondr Cmplx (boswellia)) 1 tab PO DAILY 08/14/21 [History Last Taken 08/15/21] turmeric 400 mg capsule 400 mg PO DAILY 08/14/21 [History Last Taken 08/15/21] zinc 50 mg tablet 50 mg PO DAILY 08/14/21 [History Last Taken 08/15/21] Allergy/AdvReac Type Severity Reaction Status Date / Time No Known Allergies Allergy Verified 01/04/22 18:41 Family History Father Diabetes Brother Cancer Prostate cancer Surgical History History of left hip replacement History of nasal surgery History of right-sided carotid endarterectomy Hx of left cataract extraction Hx of total hip arthroplasty S/P implantation of automatic cardioverter/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 (AICD) Social History Smoking Status: Former smoker how long ago did patient quit smokin alcohol intake: current alcohol intake frequency: holidays/special occasions only Alcohol type: wine substance use type: does not use caffeine: Yes Type: tea Number of servings: 1 what type of physical activity do you participate in: 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: [employer] frequency: 5-6 times per week duration: 30-45 minutes/day seatbelt use: always do you feel safe at home: Yes ROS ROS ED Constitutional Constitutional ED: Denies chills or fever(s) Eyes Eyes: Denies change in vision or diplopia ENT ENT ED: Denies rhinorrhea or sore throat Cardiovascular Cardiovascular: Reports lightheadedness; Denies chest pain, palpitations, pounding heartbeat, racing heartbeat or syncope Respiratory/Chest Respiratory/Chest: Denies cough or dyspnea Gastrointestinal Gastrointestinal: Reports constipation; Denies abdominal pain, diarrhea, nausea or vomiting Genitourinary Genitourinary ED: Denies dysuria or hematuria Musculoskeletal Musculoskeletal: Reports as per HPI, back pain and extremity pain; Denies neck pain Integumentary Denies abscess or rash Neurologic Neurologic: Denies headache(s), paresthesias or weakness Psychiatric Psychiatric: Denies anxiety or suicidal thoughts EXAM Physical Exam Const Vital Signs: 01/04/22 18:41 01/04/22 19:39 01/04/22 19:40 Temperature 97.0 F L Temperature Source Temporal Pulse Rate 71 Pulse Rate [Lying] 68 Pulse Rate [Sitting (for 1 minute prior to obtaining)] 74 Pulse Rate [Standing (for 1 minute prior to obtaining)] 74 Respiratory Rate 16 Respiratory Effort Normal Respiratory Pattern Normal Blood Pressure 112/72 Blood Pressure [Lying] 131/78 H Blood Pressure [Sitting (for 1 minute prior to obtaining)] 122/83 H Blood Pressure [Standing (for 1 minute prior to obtaining)] 93/56 L Blood Pressure Mean 85 Blood Pressure Mean [Lying] 95 Blood Pressure Mean [Sitting (for 1 minute prior to obtaining)] 96 Blood Pressure Mean [Standing (for 1 minute prior to obtaining)] 68 Pulse Ox Oxygen Delivery Method Room Air 01/04/22 20:31 01/04/22 20:57 Temperature Temperature Source Pulse Rate 65 Pulse Rate [Lying] Pulse Rate [Sitting (for 1 minute prior to obtaining)] Pulse Rate [Standing (for 1 minute prior to obtaining)] Respiratory Rate 25 H Respiratory Effort Respiratory Pattern Blood Pressure 143/82 H 110/80 Blood Pressure [Lying] Blood Pressure [Sitting (for 1 minute prior to obtaining)] Blood Pressure [Standing (for 1 minute prior to obtaining)] Blood Pressure Mean 102 90 Blood Pressure Mean [Lying] Blood Pressure Mean [Sitting (for 1 minute prior to obtaining)] Blood Pressure Mean [Standing (for 1 minute prior to obtaining)] Pulse Ox 95 Oxygen Delivery Method Room Air Positive well nourished and well developed General Appearance ED: well developed and NAD HEENT Reports TM's clear and moist mucous membranes normocephalic and atraumatic Tympanic Membrane ED: Yes TM's clear Eyes PERRL and EOMs intact bilaterally Neck full ROM and supple Resp normal respiratory effort and clear to auscultation bilaterally Cardio regular rate, regular rhythm and no JVD Cardio Narrative: Faint heart sounds GI non-tender and non-distended Auscultation: normoactive bowel sounds Palpation: soft Back/Spine no CVA tenderness General Back: other FROM Extremity normal to inspection General Extremety ED: Negative for edema, pulses abnormal or tenderness General Extremity: Negative for edema or pulses abnormal Neuro oriented x3, CN's II-XII intact bilaterally and no sensory deficits noted Sensorium / Orientation: awake and alert Coordination / Balance: [id number]-[id number] test normal and qpxb-[id number] test normal Speech: speech normal Motor Exam: strength 5/5 throughout Skin no rashes or lesions noted and no wounds MDM MDM MDM Narrative Medical decision making narrative: The status were positive with regards of his blood pressure, which dropped into the 90s but he was not very symptomatic that time. Labs were obtained, he is not anemic, he does have some mild renal insufficiency and prerenal azotemia which would be consistent with dehydration, he does not have symptoms of heart failure exacerbation right now, and his cardiac work-up is unremarkable. Therefore, he was given a half liter of IV fluid bolus and reevaluated. He felt well except for having some of his low back pain for which he takes analgesics at home. At this time comfortable with him going home since he has no more lightheadedness. Encouraged to drink fluids and follow-up with his doctor next week if he is still having episodes or symptoms. Lab Data Attestation: I reviewed the patient's lab results. Labs: Laboratory Results - last 24 hr 01/04/22 01/04/22 01/04/22 18:49 18:49 19:20 WBC 7.0 RBC 4.95 Hgb 14.0 Hct 44.3 MCV 89.5 MCH 28.3 MCHC 31.6 L RDW Std Deviation 49.8 H RDW Coeff of Michael 15.4 H Plt Count 117 L MPV 10.7 Immature Gran % (Auto) 0.300 Neut % (Auto) 69.9 Lymph % (Auto) 20.1 [place] % (Auto) 7.3 Eos % (Auto) 2.0 Baso % (Auto) 0.4 Absolute Neuts (auto) 4.9 Absolute Lymphs (auto) 1.41 Nucleated RBC % 0 Sodium 137 Potassium 4.9 Chloride 105 Carbon Dioxide 28.0 Anion Gap 4 L BUN 24 H Creatinine 1.43 H Estim Creat Clear Calc 35.87 Est GFR (MDRD) Af Amer 60 Est GFR (MDRD) Non-Af 50 L BUN/Creatinine Ratio 16.8 Glucose 155 H Calcium 9.3 Troponin I High Sens 10 Urine Color Yellow Urine Clarity Sl. Cloudy Urine pH 5.0 Ur Specific [place] 1.025 Urine Protein 100 H Urine Glucose (UA) Normal Urine Ketones 5 H Urine Occult Blood 10 H Urine Nitrite Negative Urine Bilirubin Negative Urine Urobilinogen 1 H Ur Leukocyte Esterase 25 H Urine RBC 0-5 SEEN Urine WBC 0-5 SEEN Ur Squamous Epith Cells 0 SEEN Calcium Oxalate Crystal 1+ Urine Bacteria 0 SEEN Hyaline Casts 25-50 SEEN Urine Mucus 3+ Rhythm Strip Rhythm Strip: paced Rate: 65 Ectopy: None EKG Initial EKG: Attestation: I personally reviewed and interpreted this EKG as follows: Interpretation: No Acute Injury Pattern and Paced Discharge Plan Triage Chief Complaint: Dizziness ED Provider: Umesh Chaney Dx/Rx/DC Orders Clinical Impression: Orthostatic lightheadedness, Acute kidney insufficiency Instructions: ED Hypotension, Orthostatic Prescriptions: No Action carvedilol 12.5 mg tablet 12.5 mg PO BID Rx Instructions: must administer with a meal/food cholecalciferol (vitamin D3) 125 mcg (5,000 unit) capsule 125 mcg PO DAILY ascorbic acid (vitamin C) 1,000 mg tablet extended release 1,000 mg PO Q12H zinc 50 mg tablet 50 mg PO DAILY Glucosamine-Chondr (boswellia) [id number] mg tablet 1 tab PO DAILY turmeric 400 mg capsule 400 mg PO DAILY coenzyme Q10 50 mg tablet,chewable 100 mg PO DAILY Label Comments: supplement prasterone (dhea) 25 MG tablet 1 tab PO DAILY dutasteride 0.5 MG capsule 0.5 mg PO DAILY Primary Care Provider: Qing Hannon Referrals: Qing Hannon MD [Primary Care Provider] - 3-5 Days if not improving Disposition Disposition: Home, Self Care
[2022-01-04 19:39] VITALS: BP 122/83; BP 131/78; BP 93/56; PULSE 68; PULSE 74
[2022-01-04 19:41] LABS: Bacteria 0 SEEN /hpf (None Seen); Squamous Epithelial Cells - UA 0 SEEN /hpf (0-5)
[2022-01-04 19:45] LABS: Absolute Lymphocyte Count 1.41 X10^3/uL (0.83-4.51); Absolute Neutrophil Count 4.9 X10^3/uL (2.0-7.7); Basophil# 0.03 X10^3/uL; Basophil% 0.4 % (0-1); Eosinophil# 0.14 X10^3/uL; Hematocrit 44.3 % (40-54); Lymphocyte # 1.41 X10^3/ul (0.83-4.51); Lymphocyte % 20.1 % (19-41); Mean Corp Hgb Conc 31.6 g/dL (32-36); Mean Corpuscular Hgb 28.3 pg (27.0-32.0); Mean Corpuscular Volume 89.5 fL (80-94); Mean Platelet Vol. 10.7 fl (6.2-12.0); Monocyte# 0.51 X10^3/uL; Monocyte% 7.3 % (0-10); NRBC Flagged by Analyzer 0 % (0-5); Neutrophil % 69.9 % (47-70); Platelet Count 117 K/mm3 (150-450); RBC Distribution Width CV 15.4 % (11.6-14.6); RBC Distribution Width SD 49.8 fl (35.1-43.9); Red Blood Count 4.95 M/mm3 (4.6-6.2)
[2022-01-04 20:06] LABS: Anion Gap 4 (5-15); BUN 24 mg/dL (7-18); BUN/Creat Ratio 16.8 RATIO (10-20); Calcium,Total 9.3 mg/dL (8.5-10.1); Chloride 105 mmol/L (98-107); Creatinine, Serum 1.43 mg/dL (0.70-1.30); EST Glomerular Filtration Rate 50 mL/min (>60); Est Glom Filt Rate - Afr Amer 60 mL/min (>60); Estimated Creatinine Clearance 35.87 ml/min; Glucose 155 mg/dL (74-106); Potassium 4.9 mmol/L (3.5-5.1); Sodium Level 137 mmol/L (136-145); Troponin-I HS 10 pg/mL (3.0-78.0)
[2022-01-04 20:11] LABS: Color, Urine Yellow (Yellow); Glucose, Dipstick Normal (Normal); Ketone-Dipstick 5 mg/dl (Negative); Leukocyte Esterase-Dipstick 25 /ul (Negative); Nitrite-Dipstick Negative (Negative); Occult Blood-Urine 10 /ul (Negative); Protein-Dipstick 100 mg/dl (Negative); Specific Gravity, Urine 1.025 (1.002-1.030); Urine Bilirubin Dipstick Negative (Negative); Urine Clarity Sl. Cloudy (Clear); Urine Urobilinogen 1 mg/dl (Normal)
[2022-01-04 20:12] LABS: Calcium Oxalate Crystals Ur 1+ /hpf (<or=2+); Hyaline Cast 25-50 SEEN /lpf (0-5); Mucous, Urine 3+ /hpf (<or=2+); Red Blood Cells-Urine 0-5 SEEN /hpf (0-5); White Blood Cells 0-5 SEEN /hpf (0-5)
[2022-01-04 20:31] VITALS: BP 143/82; PULSE 65; RESP 25; O2SAT 95
[2022-01-04 20:57] VITALS: BP 110/80
== END 2022-01-04 21:31 | disposition home or self-care (01) ==
PROVIDERS: Emergency Provider Emergency Medicine; PCP Internal Medicine; Visit Provider Emergency Medicine
DX: R42 Dizziness and giddiness (principal); I25.10 Atherosclerotic heart disease of native coronary artery without angina pectoris; N28.9 Disorder of kidney and ureter, unspecified; Z79.899 Other long term (current) drug therapy; Z86.718 Personal history of other venous thrombosis and embolism; Z87.891 Personal history of nicotine dependence
CPT/HCPCS: 80048; 81001; 84484; 85025; 93005; 99285; J7030; A4216

== ENCOUNTER → 2022-01-20 | Outpatient (CLI) | payer MEDICARE, SELFPAY ==
--- NOTE | 2022-01-20 13:38 | ECHOD_ITS ---
Reason For Study: [place] Procedure This was a 2D Doppler, Color Flow transthoracic echocardiogram. Exam performed in department. Left Ventricle Normal LV size. Mild concentric left ventricular hypertrophy. Left ventricular systolic function is normal. The estimated ejection fraction is 60 %. Stage 1 diastolic dysfunction. No regional wall motion abnormalities noted. Right Ventricle Normal RV size. ICD or pacer leads identified within the right ventricle. Normal systolic function. Atria Normal left atrium. Normal right atrium. Mitral Valve Normal mitral valve. Mild (1+) eccentric mitral valve insufficiency. Tricuspid Valve Normal tricuspid valve. Mild tricuspid valve insufficiency. Pulmonary artery systolic pressure is 24 mmHg. Aortic Valve Trisinus/trileaflet aortic valve. Mild focal aortic valve calcification. Mild (1+) aortic valve insufficiency. Great Vessels Normal aortic root. The pulmonary artery is normal size. Normal inferior vena cava. Pericardium/Pleural No pericardial effusion. MMode/2D Measurements & Calculations LVIDd: 4.3 cm IVSd: 1.3 cm Ao root diam: 3.6 cm LVIDs: 2.2 cm LVPWd: 1.5 cm FS: 48.8 % LAV(MOD-bp): 46.4 ml LVAd ap4: 31.2 cm2 SV(MOD-sp4): 58.8 ml LAV(MOD-bp) Indexed: 21.8 ml/m2 LVLd ap4: 8.4 cm LAV(MOD-sp2): 51.2 ml EDV(MOD-sp4): 103.5 ml LAV(MOD-sp4): 41.5 ml EDV(sp4-el): 98.8 ml LVAs ap4: 18.3 cm2 LVLs ap4: 6.8 cm ESV(MOD-sp4): 44.7 ml ESV(sp4-el): 41.8 ml EF(MOD-sp4): 56.8 % EF(sp4-el): 57.6 % SV(sp4-el): 57.0 ml LA dimension(2D): 5.4 cm LA A4 area: 16.5 cm2 RA A4 area: 12.0 cm2 Doppler Measurements & Calculations MV E max yon: 63.0 cm/sec Lat Peak E' Yon: 3.3 cm/sec Med Peak E' Yon: 7.9 cm/sec MV A max yon: 91.1 cm/sec E/E' lat: 19.2 E/E' med: 8.0 MV E/A: 0.69 Ao V2 max: 168.9 cm/sec AI max yon: 449.0 cm/sec LV V1 max: 83.2 cm/sec Ao max P.5 mmHg AI max P.7 mmHg LV V1 max P.8 mmHg Ao V2 mean: 114.4 cm/sec LV V1 mean P.6 mmHg Ao mean P.1 mmHg AI dec slope: 317.2 cm/sec2 LV V1 mean: 60.1 cm/sec Ao V2 VTI: 39.9 cm AI P1/2t: 414.6 msec LV V1 VTI: 19.7 cm MR max yon: 538.7 cm/sec TR max yon: 226.5 cm/sec MR max P.1 mmHg TR max P.5 mmHg ECHO/Echo Complete Interpretation Summary Normal LV size. Left ventricular systolic function is normal. Mild concentric left ventricular hypertrophy. The estimated ejection fraction is 60 %. Stage 1 diastolic dysfunction. Mild (1+) aortic valve insufficiency. ICD or pacer leads identified within the right ventricle. Ordering Physician: Qing Hannon Referring Physician: iQng Hannon Performed By: Lyndsay Gomez RCS
== END | disposition home or self-care (01) ==
LOC: CVS 13:34
PROVIDERS: PCP Internal Medicine; Referring Provider Internal Medicine; Visit Provider Internal Medicine
DX: R06.09 Other forms of dyspnea (principal)
CPT/HCPCS: 93306

== ENCOUNTER → 2022-01-29 | Outpatient (CLI) | payer MEDICARE, SELFPAY ==
--- NOTE | 2022-01-29 11:21 | RAD_ITS ---
FLUOROSCOPY GUIDED LEFT SHOULDER JOINT INJECTION. INDICATION: Left shoulder pain.. PERFORMING PHYSICIAN:William Xiao MD DATE OF PROCEDURE: 01/29/2022 DESIGN ASSISTANT: NONE FLUOROSCOPY TIME (if supplied): (2:25 minutes/seconds.minutes/second ESTIMATED BLOOD LOSS: Negligible SPECIMENS REMOVED: None COMPLICATIONS: None PROCEDURE: Informed consent was obtained from the patient. The risks (including bleeding, infection and capsular rupture), benefits, and alternatives to the examination were discussed and written informed consent was obtained. Fluoroscopic evaluation of the left shoulder joint was performed. The patient was draped and prepared in a sterile fashion. The entrance site was localized using fluoroscopic guidance. Local anesthesia was achieved with 1% lidocaine solution. A 22-gauge spinal needle and stylet were introduced under fluoroscopic guidance into the left shoulder joint and approximately 2 mL of iodinated contrast was instilled to confirm intra-articular position. A solution of dilated MRI contrast was then injected into the left shoulder joint. The needle was then removed and sterile dressing was applied. The entrance site was dressed with a Band-Aid. The patient was transferred to CT scan for left shoulder arthrogram. There were no immediate postprocedural complications. RAD/Arthrogram Shoulder IMPRESSION: Fluoroscopy guided left shoulder arthrogram. Electronically Signed: William Xiao MD at 16:19 EDT ,
--- NOTE | 2022-01-29 11:21 | CT_ITS ---
STUDY: CT LEFT SHOULDER ARTHROGRAPHY REASON FOR EXAM: Left shoulder pain for weeks, no specific injury. TECHNIQUE: The patient was scanned in a multi detector CT scanner. High resolution transaxial imaging was performed after intra-articular instillation of 20 mL of iodinated contrast. Sagittal and coronal images were reconstructed. Individualized dose optimization techniques were used for this CT. COMPARISON: Radiographs 05/27/2021. FINDINGS: There is glenohumeral arthrosis with marginal osteophytes and humeral head, joint space narrowing and pressure erosion of the posterior glenoid (axial images 28-36). There are intra-articular bodies in the subscapularis recess (sagittal reconstructions 57-59) and at the posterior aspect of the glenohumeral joint (sagittal reconstructions 73, 74). There is a cyst in the anterior aspect of the greater tuberosity (sagittal reconstruction 46) and a bone island in the posterior aspect of the humeral head. There is a small partial-thickness tear of the articular surface of the distal supraspinatus tendon, likely a high-grade partial tear (coronal reconstruction 29) measuring 0.4 cm in length. There is no contrast communicating with the subacromial-subdeltoid bursa to indicate a full-thickness rotator cuff tear. Normal visualized lateral clavicle. There is mild acromioclavicular arthrosis without undersurface osteophytes (coronal reconstruction 36). There is a Type II morphology (curved), with a neutral orientation. Normal visualized muscles and soft tissue structures. There is vascular calcification. CT/Extremity Upper WITH Contrast IMPRESSION: Glenohumeral arthrosis with intra-articular bodies. Small partial-thickness tear of the supraspinatus tendon. Mild acromioclavicular arthrosis. Electronically Signed: Angel Narayanan MD at 13:33 EDT ,
[2022-01-29] MEDS: Lidocaine 2% (5ml sdv) 5 ML VIAL.MPF (12:04)
[2022-01-29] MEDS: Iopamidol 10 ML in Syringe 1 EACH 600 ML INTRAARTIC (12:07)
[2022-01-29] MEDS: Gadoterate Meglumine Diluted 10 ML, Iopamidol 5 ML, Lidocaine 1% (20 ml mdv) 5 ML, Epin... INTRAARTIC (12:07)
== END | disposition home or self-care (01) ==
LOC: RAD 11:19
PROVIDERS: PCP Internal Medicine; Referring Provider Internal Medicine; Visit Provider Internal Medicine
DX: M25.512 Pain in left shoulder (principal)
CPT/HCPCS: 23350; 73040; 73201; Q9967

== ENCOUNTER → 2022-02-03 | Outpatient (CLI) | payer MEDICARE, SELFPAY ==
[2022-02-03 10:43] LABS: Bacteria 0 SEEN /hpf (None Seen)
[2022-02-03 11:12] LABS: Hematocrit 42.8 % (40-54); Mean Corp Hgb Conc 32.7 g/dL (32-36); Mean Corpuscular Hgb 28.9 pg (27.0-32.0); Mean Corpuscular Volume 88.4 fL (80-94); Mean Platelet Vol. 10.7 fl (6.2-12.0); Platelet Count 128 K/mm3 (150-450); RBC Distribution Width CV 14.3 % (11.6-14.6); RBC Distribution Width SD 46.1 fl (35.1-43.9); Red Blood Count 4.84 M/mm3 (4.6-6.2); White Blood Count 6.2 K/mm3 (4.4-11.0)
[2022-02-03 11:15] LABS: Glucose, Dipstick Normal (Normal); Ketone-Dipstick Negative (Negative); Leukocyte Esterase-Dipstick 100 /ul (Negative); Nitrite-Dipstick Negative (Negative); Occult Blood-Urine 25 /ul (Negative); Protein-Dipstick 30 mg/dl (Negative); Urine Bilirubin Dipstick Negative (Negative); Urine Urobilinogen Normal (Normal)
[2022-02-03 11:21] LABS: Color, Urine Yellow (Yellow)
[2022-02-03 11:22] LABS: Urine Clarity Clear (Clear)
[2022-02-03 11:25] LABS: Red Blood Cells-Urine 0-5 SEEN /hpf (0-5)
[2022-02-03 11:27] LABS: Mucous, Urine 1+ /hpf (<or=2+); Squamous Epithelial Cells - UA 0-5 SEEN /hpf (0-5); White Blood Cells 5-10 SEEN /hpf (0-5)
[2022-02-03 11:48] LABS: International Normalized Ratio 1.1; Prothrombin Time (Protime)PT. 14.3 SECONDS (11.7-14.9)
[2022-02-03 12:02] LABS: Anion Gap 4 (5-15); BUN 16 mg/dL (7-18); Chloride 104 mmol/L (98-107); Creatinine, Serum 1.14 mg/dL (0.70-1.30); EST Glomerular Filtration Rate 65 mL/min (>60); Est Glom Filt Rate - Afr Amer 78 mL/min (>60); Glucose 101 mg/dL (74-106); Potassium 4.1 mmol/L (3.5-5.1); Sodium Level 140 mmol/L (136-145)
== END | disposition home or self-care (01) ==
PROVIDERS: PCP Internal Medicine; Referring Provider Internal Medicine Cardiovascular Disease; Visit Provider Internal Medicine Cardiovascular Disease
DX: I50.32 Chronic diastolic (congestive) heart failure (principal); I42.0 Dilated cardiomyopathy; I43 Cardiomyopathy in diseases classified elsewhere; I25.10 Atherosclerotic heart disease of native coronary artery without angina pectoris; Z95.810 Presence of automatic (implantable) cardiac 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; Z20.822 Contact with and (suspected) exposure to COVID-19
CPT/HCPCS: 36415; 80048; 81001; 85027; 85610; 87635; C9803; U0003; U0005

== ENCOUNTER 2022-02-06 09:22 | Day surgery (SDC) | payer MEDICARE, SELFPAY ==
[2022-02-05 07:26] VITALS: BMI 34.3
--- NOTE | 2022-02-06 11:53 | EX.DEFIBPR_ITS ---
Defibrillator Procedure Note Defibrillator Procedure Note Diagnosis: nonisch Cardiomyopathy with NYHA Class ii. ICD for primary preventi on. Device generator replacement for normal battery depletion Preoperative diagnosis is device at end of life for normal battery depletion. Postoperative diagnosis same as above. After informed consent and IV antibiotics the patient was brought to the [place] catheterization laboratory and the skin over the device was prepped and draped in the usual sterile manner. Intermittent boluses of Versed, and fentanyl were used for sedation and analgesia as well as 1% subcutaneous lidocaine. An incision was made over the pre-existing device. Using blunt and Bovie dissection the pocket was opened and the device was removed. Careful attention was paid not to injure the pre-existing leads. The leads were removed from the device header and they were interrogated. There is normal lead function. Hemostasis was obtained. The pocket was flushed with antibiotic solution. The sponge and needle count were correct. The new device was brought to the field. The leads were placed in the appropriate position in the header and secured by the set screw. The leads and the device were then placed in the pocket. The pocket was closed with a deep layer of running 2-0 Vicryl, a superficial layer of running 4-0 Vicryl, skin with Steri-Strips which were covered with a rolled 4 x 4 and Tegaderm. Patient left the room with the device programmed to proper parameters and there were no complications. The device is a 3 lead biv icd [facility] [employer] [employer] generator. All lead parameters were tested and found to be functionally normal. Lead and device serial and model numbers are available in the chart documents provided by the device company loan servicing representative procedure summary.
== END 2022-02-06 23:59 | disposition home or self-care (01) ==
LOC: CLSP 09:23
PROVIDERS: PCP Internal Medicine; Referring Provider Internal Medicine Cardiovascular Disease; Visit Provider Internal Medicine Cardiovascular Disease
DX: Z95.810 Presence of automatic (implantable) cardiac 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 (principal); I42.0 Dilated cardiomyopathy; I11.0 Hypertensive heart disease with heart failure; I50.32 Chronic diastolic (congestive) heart failure; I25.10 Atherosclerotic heart disease of native coronary artery without angina pectoris; E66.9 Obesity, unspecified; Z86.718 Personal history of other venous thrombosis and embolism; Z79.899 Other long term (current) drug therapy; Z87.891 Personal history of nicotine dependence; Z68.34 Body mass index [BMI] 34.0-34.9, adult
CPT/HCPCS: 33264; 93641; 99152; 99153; J7040; J7050

== ENCOUNTER 2022-03-19 16:36 | Emergency (ER) | payer MEDICARE, SELFPAY ==
[2022-03-19 16:36] VITALS: BP 86/65; PULSE 65; RESP 16; TEMP 35.8; O2SAT 96; BMI 33.4
[2022-03-19 17:06] LABS: Bedside Glucose 130 mg/dL (74-106)
--- NOTE | 2022-03-19 17:20 | RAD_ITS ---
STUDY: X-RAY CHEST REASON FOR EXAM: Male, 86 years old. chest pain TECHNIQUE: Single AP portable view of the chest. COMPARISON: 01/06/2022 FINDINGS: Left subclavian AICD which is unchanged. The lungs are clear and expanded. There is no demonstrated pleural abnormality. Normal size heart. Normal mediastinum and arielle. Normal visualized pulmonary arteries. Normal visualized aortic arch and descending thoracic aorta. Normal visualized thoracic spine. Normal visualized ribs, clavicles, and shoulders. There is no demonstrated abnormality of the visualized soft tissue structures of the upper abdomen. RAD/Chest 1 View (Portable) IMPRESSION: No active disease. Electronically Signed: Raymond Diaz MD at 17:30 EDT ,
[2022-03-19 17:32] LABS: Absolute Lymphocyte Count 1.06 X10^3/uL (0.83-4.51); Absolute Neutrophil Count 3.6 X10^3/uL (2.0-7.7); Basophil# 0.02 X10^3/uL; Basophil% 0.4 % (0-1); Eosinophils% 1.9 % (0-5); Hematocrit 41.3 % (40-54); Hemoglobin 13.9 g/dL (13.0-16.5); Lymphocyte # 1.06 X10^3/ul (0.83-4.51); Lymphocyte % 20.4 % (19-41); Mean Corp Hgb Conc 33.7 g/dL (32-36); Mean Platelet Vol. 10.3 fl (6.2-12.0); Monocyte# 0.45 X10^3/uL; Monocyte% 8.7 % (0-10); NRBC Flagged by Analyzer 0 % (0-5); Neutrophil # 3.55 X10^3/uL (2.7-7.7); Neutrophil % 68.4 % (47-70); Platelet Count 120 K/mm3 (150-450); RBC Distribution Width CV 14.5 % (11.6-14.6); RBC Distribution Width SD 47.4 fl (35.1-43.9); Red Blood Count 4.64 M/mm3 (4.6-6.2); White Blood Count 5.2 K/mm3 (4.4-11.0)
[2022-03-19 17:36] VITALS: BP 108/79; PULSE 65; RESP 18
[2022-03-19 17:41] LABS: Anion Gap 7 (5-15); BUN 18 mg/dL (7-18); BUN/Creat Ratio 12.6 RATIO (10-20); Calcium,Total 9.2 mg/dL (8.5-10.1); Chloride 105 mmol/L (98-107); Creatinine, Serum 1.43 mg/dL (0.70-1.30); EST Glomerular Filtration Rate 50 mL/min (>60); Est Glom Filt Rate - Afr Amer 60 mL/min (>60); Estimated Creatinine Clearance 35.87 ml/min; Glucose 148 mg/dL (74-106); Potassium 4.2 mmol/L (3.5-5.1); Sodium Level 139 mmol/L (136-145); Troponin-I HS (w/2H Reflex) 13 pg/mL (3.0-78.0)
--- NOTE | 2022-03-19 17:52 | EX.ED.DYSGE1 ---
HPI History of Present Illness Chief Complaint: Syncope Informant: patient and family Onset/Context/Timing Onset: Today Context: Sudden Onset Worsened by: fasting and standing Narrative Narrative: Patient was fasting for moravian service since last night. He was standing in denominational today and he sat down abruptly and forcefully. Did not completely lose consciousness or muscle tone. No incontinence or shaking. This happened before and was attributed to dehydration. Patient feels better now and was not sure if he should even come into the ED. He has no chest pain, shortness of breath, nausea, vomiting, bleeding, diarrhea, new vision changes, new speech changes, facial droop, focal weakness or numbness. No history of seizures. He is compliant with his medications and reports no new medications or recent procedures/hospitalizations. Prior similar symptoms: Yes Recent Illness/Hospitalization: No [facility] Medical History Anemia Arthritis Atherosclerotic heart disease of [place] coronary artery without angina pectoris Body mass index (bmi) 30.0-30.9, adult CAD (coronary artery disease) Cardiology follow-up encounter Cardiomyopathy in other diseases classified elsewhere Diastolic CHF, chronic Dilated cardiomyopathy Dizziness and giddiness DVT (deep venous thrombosis) Essential hypertension Former smoker Gastric reflux [place] filter in place History of DVT (deep vein thrombosis) History of echocardiogram History of edema History of steroid therapy History of stress test Hx of intermediate use of blood thinners Pure hypercholesterolemia Shortness of breath on exertion Syncope Wears glasses Wears hearing aid Home Medications dutasteride 0.5 mg capsule 0.5 mg PO DAILY bph 10/01/16 [History Last Taken 08/19/21 07:30] carvedilol 12.5 mg tablet 12.5 mg PO BID 08/05/19 [History Last Taken 02/06/22] cholecalciferol (vitamin D3) 125 mcg (5,000 unit) capsule 125 mcg PO DAILY 08/05/19 [History Last Taken 08/15/21] glucosamine 750 we-qxayzwxrs-dxw no.7 644 mg-vit W-shmduu-bvegn tablet (Glucosamine-Chondr Cmplx (boswellia)) 1 tab PO DAILY 08/14/21 [History Last Taken 08/15/21] zinc 50 mg tablet 50 mg PO DAILY 08/14/21 [History Last Taken 08/15/21] ascorbic acid (vitamin C) 1,000 mg tablet,extended release 1,000 mg PO DAILY 02/03/22 [History Last Taken Unknown] coenzyme Q10 50 mg chewable tablet 100 mg PO BID supplement 02/03/22 [History Last Taken Unknown] flaxseed oil 1,000 mg capsule ([place]-3 Flaxseed Oil) 1,000 mg PO BID 02/03/22 [History Last Taken Unknown] hydrocodone-acetaminophen 5-325mg 5mg-325mg See Rx Instructions PO BID 02/03/22 [History Last Taken Unknown] prasterone (dhea) 25 mg tablet 50 mg PO DAILY supplement 02/03/22 [History Last Taken Unknown] sulfamethoxazole 800 mg-trimethoprim 160 mg tablet (Bactrim DS) 1 tab PO .COMPLEX #6 tabs 02/03/22 [Rx Last Taken Unknown] turmeric 400 mg capsule 400 mg PO BID 02/03/22 [History Last Taken Unknown] wheat dextrin 3 gram/3.5 gram oral powder (Best Fiber) 1 packet PO DAILY 02/03/22 [History Last Taken Unknown] Allergy/AdvReac Type Severity Reaction Status Date / Time No Known Allergies Allergy Verified 03/19/22 16:36 Family History Father Diabetes Brother Cancer Prostate cancer Surgical History History of left hip replacement History of nasal surgery History of right-sided carotid endarterectomy Hx of left cataract extraction Hx of total hip arthroplasty S/P implantation of automatic cardioverter/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 (AICD) Social History Smoking Status: Former smoker how long ago did patient quit smokin alcohol intake: current alcohol intake frequency: holidays/special occasions only Alcohol type: wine substance use type: does not use caffeine: Yes Type: tea Number of servings: 1 what type of physical activity do you participate in: 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: [employer] frequency: 5-6 times per week duration: 30-45 minutes/day seatbelt use: always do you feel safe at home: Yes ROS ROS ED Constitutional Constitutional ED: Denies chills or fever(s) Eyes Eyes: Denies blurry vision or change in vision ENT ENT ED: Denies ear pain Cardiovascular Cardiovascular: Denies chest pain, palpitations or racing heartbeat Respiratory/Chest Respiratory/Chest: Denies cough or dyspnea Gastrointestinal Gastrointestinal: Denies abdominal pain, constipation, diarrhea, melena, nausea or vomiting Genitourinary Genitourinary ED: Denies dysuria Musculoskeletal Musculoskeletal: Denies arthralgias, back pain, myalgias or neck pain Integumentary Denies abscess Neurologic Neurologic: Denies headache(s), paresthesias or weakness Psychiatric Psychiatric: Denies anxiety Endocrine Endocrinology: Denies cold intolerance Allergic/Immunologic Allergic/Immunologic ED: Denies mouth swelling EXAM Physical Exam Const Vital Signs: 03/19/22 16:36 03/19/22 16:52 03/19/22 17:11 Temperature 96.5 F L Temperature Source Temporal Pulse Rate 65 Respiratory Rate 16 Respiratory Effort Normal Non-Labored Respiratory Pattern Normal Blood Pressure 86/65 L Blood Pressure Mean 72 Pulse Ox 96 Oxygen Delivery Method Room Air Room Air Positive well nourished and well developed General Appearance ED: well developed HEENT Reports moist mucous membranes Eyes PERRL and EOMs intact bilaterally Neck no lymphadenopathy Resp normal respiratory effort and clear to auscultation bilaterally Cardio regular rate and regular rhythm GI normal to inspection, nondistended, normoactive bowel sounds Extremity normal to inspection General Extremety ED: Negative for edema or tenderness General Extremity: Negative for edema Neuro oriented x3, CN's II-XII intact bilaterally and no sensory deficits noted Motor Exam: strength 5/5 throughout Psych mental status grossly normal Skin no rashes or lesions noted MDM MDM MDM Narrative Medical decision making narrative: EKG showed a paced rhythm which limits interpretation but no definite signs of infarction. This was interpreted by me. Chest x-ray was reviewed by the radiologist and myself and showed no acute abnormalities. Labs were all fairly unremarkable. Creatinine is 1.43. He has had creatinines in the 1.3 and 1.4 range in the past. I do not believe this represents a true acute kidney injury, but suspect he may be a little bit dry. He received a fluid bolus and will resume his normal diet and fluid intake. Follow-up as an outpatient. Return for any new or worsening issues. Impression #1 dehydration Impression #2 syncopal episode Disposition is discharged home Lab Data Attestation: I reviewed the patient's lab results. Labs: Laboratory Results - last 24 hr 10/05/22 10/05/22 10/05/22 16:47 17:16 17:16 WBC 5.2 RBC 4.64 Hgb 13.9 Hct 41.3 MCV 89.0 MCH 30.0 MCHC 33.7 RDW Std Deviation 47.4 H RDW Coeff of Michael 14.5 Plt Count 120 L MPV 10.3 Immature Gran % (Auto) 0.200 Neut % (Auto) 68.4 Lymph % (Auto) 20.4 Williams % (Auto) 8.7 Eos % (Auto) 1.9 Baso % (Auto) 0.4 Absolute Neuts (auto) 3.6 Absolute Lymphs (auto) 1.06 Nucleated RBC % 0 Sodium 139 Potassium 4.2 Chloride 105 Carbon Dioxide 27.0 Anion Gap 7 BUN 18 Creatinine 1.43 H Estim Creat Clear Calc 35.87 Est GFR (MDRD) Af Amer 60 Est GFR (MDRD) Non-Af 50 L BUN/Creatinine Ratio 12.6 Glucose 148 H Calcium 9.2 Troponin I High Sens 13 POC Glucose 130 H Radiography Diagnostic Testing: Clinical Impression(s) from Imaging Studies Chest X-Ray 03/19/22 17:20 IMPRESSION: No active disease. Electronically Signed: Raymond Diaz MD at 17:30 EDT , Discharge Plan Triage Chief Complaint: Syncope ED Provider: Gian Guan Dx/Rx/DC Orders Instructions: ED Fainting, Uncertain Cause Prescriptions: No Action carvedilol 12.5 mg tablet 12.5 mg PO BID Rx Instructions: must administer with a meal/food cholecalciferol (vitamin D3) 125 mcg (5,000 unit) capsule 125 mcg PO DAILY zinc 50 mg tablet 50 mg PO DAILY Glucosamine-Chondr (boswellia) 455-981-32-1-3 mg tablet 1 tab PO DAILY ascorbic acid (vitamin C) 1,000 mg tablet extended release 1,000 mg PO DAILY turmeric 400 mg capsule 400 mg PO BID hydrocodone-acetaminophen 5-325 mg tablet See Rx Instructions PO BID Label Comments: TAKE 1-2 TABLETS BY MOUTH TWICE A DAY NEEDED Rx Instructions: TAKE 1-2 TABLETS BY MOUTH TWICE A DAY NEEDED flaxseed oil [[place]-3 Flaxseed Oil] 1,000 mg capsule 1,000 mg PO BID Rx Instructions: administer with meals Best Fiber 3 gram/3.5 gram powder 1 packet PO DAILY Rx Instructions: mix into at least 4 oz water or juice before administering coenzyme Q10 50 mg tablet,chewable 100 mg PO BID Label Comments: supplement prasterone (dhea) 25 mg tablet 50 mg PO DAILY dutasteride 0.5 MG capsule 0.5 mg PO DAILY sulfamethoxazole-trimethoprim [Bactrim DS] 800-160 mg tablet 1 tab PO .COMPLEX Qty: 6 0RF Rx Instructions: 1 TAB orally 1 tab by mouth twice daily x3 days; Primary Care Provider: Qing Hannon Referrals: Qing Hannon MD [Primary Care Provider] - Activity Restrictions/Additional Instructions: Previous visit was 01/04/2022 Disposition Disposition: Home, Self Care
[2022-03-19 18:52] VITALS: BP 108/79
[2022-03-19 19:20] LABS: Reflex Troponin-HS? (from REC) Y
== END 2022-03-19 18:52 | disposition home or self-care (01) ==
PROVIDERS: Emergency Provider Emergency Medicine; PCP Internal Medicine; Visit Provider Emergency Medicine
DX: R55 Syncope and collapse (principal); I11.0 Hypertensive heart disease with heart failure; I50.32 Chronic diastolic (congestive) heart failure; I42.0 Dilated cardiomyopathy; I25.10 Atherosclerotic heart disease of native coronary artery without angina pectoris; M19.90 Unspecified osteoarthritis, unspecified site; Z86.718 Personal history of other venous thrombosis and embolism; Z79.899 Other long term (current) drug therapy; Z87.891 Personal history of nicotine dependence
CPT/HCPCS: 71045; 80048; 82962; 84484; 85025; 93005; 96360; 99284; J7040; A4216

== ENCOUNTER → 2022-04-14 | Outpatient (CLI) | payer MEDICARE, SELFPAY ==
[2022-04-14 10:12] LABS: Absolute Lymphocyte Count 1.43 X10^3/uL (0.83-4.51); Absolute Neutrophil Count 3.5 X10^3/uL (2.0-7.7); Basophil# 0.02 X10^3/uL; Basophil% 0.4 % (0-1); Eosinophil# 0.17 X10^3/uL; Eosinophils% 3.1 % (0-5); Hematocrit 42.7 % (40-54); Hemoglobin 14.3 g/dL (13.0-16.5); Lymphocyte # 1.43 X10^3/ul (0.83-4.51); Lymphocyte % 25.7 % (19-41); Mean Corp Hgb Conc 33.5 g/dL (32-36); Mean Corpuscular Volume 89.7 fL (80-94); Mean Platelet Vol. 11.3 fl (6.2-12.0); Monocyte# 0.44 X10^3/uL; Monocyte% 7.9 % (0-10); NRBC Flagged by Analyzer 0 % (0-5); Neutrophil # 3.49 X10^3/uL (2.7-7.7); Neutrophil % 62.7 % (47-70); Platelet Count 108 K/mm3 (150-450); RBC Distribution Width CV 14.6 % (11.6-14.6); RBC Distribution Width SD 47.9 fl (35.1-43.9); Red Blood Count 4.76 M/mm3 (4.6-6.2); White Blood Count 5.6 K/mm3 (4.4-11.0)
[2022-04-14 10:36] LABS: AST(SGOT) 22 U/L (15-37); Alanine Aminotransfer ALT/SGPT 23 U/L (16-61); Albumin, Serum 3.6 g/dL (3.2-5.0); Alkaline Phosphatase 71 U/L (45-117); Anion Gap 9 (5-15); BUN 21 mg/dL (7-18); BUN/Creat Ratio 15.4 RATIO (10-20); Calcium,Total 9.1 mg/dL (8.5-10.1); Chloride 102 mmol/L (98-107); Creatinine, Serum 1.36 mg/dL (0.70-1.30); EST Glomerular Filtration Rate 53 mL/min (>60); Est Glom Filt Rate - Afr Amer 64 mL/min (>60); Globulin 3.7 g/dL (2.2-4.2); Glucose 123 mg/dL (74-106); Potassium 4.2 mmol/L (3.5-5.1); Protein, Total 7.3 g/dL (6.4-8.2); Sodium Level 140 mmol/L (136-145)
== END | disposition home or self-care (01) ==
LOC: LABSPEC 09:52
PROVIDERS: PCP Internal Medicine; Visit Provider Nurse Practitioner Family
DX: R53.1 Weakness (principal)
CPT/HCPCS: 80053; 85025

== ENCOUNTER → 2022-04-23 | Outpatient (CLI) | payer MEDICARE, SELFPAY ==
[2022-04-23 12:33] LABS: AST(SGOT) 22 U/L (15-37); Alanine Aminotransfer ALT/SGPT 25 U/L (16-61); Albumin, Serum 3.5 g/dL (3.2-5.0); Alkaline Phosphatase 69 U/L (45-117); Anion Gap 5 (5-15); BUN 26 mg/dL (7-18); BUN/Creat Ratio 18.2 RATIO (10-20); Calcium,Total 9.4 mg/dL (8.5-10.1); Chloride 103 mmol/L (98-107); Creatinine, Serum 1.43 mg/dL (0.70-1.30); EST Glomerular Filtration Rate 50 mL/min (>60); Est Glom Filt Rate - Afr Amer 60 mL/min (>60); Globulin 3.5 g/dL (2.2-4.2); Glucose 103 mg/dL (74-106); Potassium 4.5 mmol/L (3.5-5.1); Sodium Level 138 mmol/L (136-145)
--- NOTE | 2022-04-23 12:33 | VDLE_ITS ---
Reason For Study: EDEMA - HX DVT RIGHT LEFT GSV is normal. GSV is normal. CFV is compressible but shows decreased CFV is compressible but shows decreased spontaneity and limited augmentation. spontaneity and limited augmentation. FV is compressible but shows decreased FV is compressible but shows decreased spontaneity and limited augmentation. spontaneity and limited augmentation. Pop V and PTV are dilated and non Pop V is dilated and non compressible with compressible with mixed intraluminal echoes. mixed intraluminal echoes. T/P Trunk is compressible. T/P Trunk is compressible. RT PerV is compressible. PTV is compressible. Procedure LT PerV is compressible. This is a venous duplex using B-mode, color flow and spectral Doppler. Exam performed in department. The exam was diagnostic. Technically difficult study due to swelling and calcific shadowing. A preliminary report was called and/or faxed to Renea at Dr. Johns's office. VL/Venous Duplex US - Santosh Extrem Interpretation Summary Deep venous thrombosis right popliteal and posterior tibial veins. Deep venous thrombosis left popliteal vein Diminished augmentation bilateral common femoral veins suspicious for proximal venous hypertension or obstruction. Clinical correlation would be appropriate. Technically difficult examination due to swelling and calcific shadowing. Ordering Physician: Annika Johns Referring Physician: Qing Hannon M.D. Performed By: Bon [place], RVT
[2022-04-23 13:19] LABS: BNP,B-Type NATRIURETIC PEPTIDE 70.9 pg/mL (0-100)
== END | disposition home or self-care (01) ==
PROVIDERS: PCP Internal Medicine; Visit Provider Internal Medicine
DX: R60.0 Localized edema (principal); Z86.718 Personal history of other venous thrombosis and embolism
CPT/HCPCS: 80053; 83880; 93970

== ENCOUNTER → 2022-05-01 | Outpatient (CLI) | payer MEDICARE, SELFPAY ==
--- NOTE | 2022-05-01 14:16 | CT_ITS ---
STUDY: CT ABDOMEN AND PELVIS WITH CONTRAST REASON FOR EXAM: Male, 86 years old. [place] filter in place RADIATION DOSAGE (If Supplied By Facility): CTDIvol = ( 24.45 ) mGy, DLP = ( 1770.63 ) mGycm TECHNIQUE: Transaxial images were obtained from the dome of the diaphragm to the symphysis pubis without oral contrast. IV 100mL Isovue-300 was administered. Sagittal and coronal images were reconstructed. Individualized dose optimization techniques were used for this CT. COMPARISON: None. FINDINGS: The visualized lung bases are unremarkable. A dual-chamber pacemaker is seen. Coronary artery calcification. There is a septated 2.6 cm x 3.1 cm cyst in the dome of the right lobe of the liver. Diffuse fatty infiltration of the liver. Tiny cysts are seen in the right lobe of the liver. There are surgical clips in the gallbladder fossa consistent with a prior cholecystectomy. Normal spleen. There is diffuse atrophy of the pancreas. Normal bilateral adrenal glands. Normal right kidney. Normal left kidney. Nonspecific mild degree of bilateral perinephric stranding. The stomach is distended with residual oral contrast and food particles. Normal small intestine. Normal colon. There are surgical clips in the region of the appendix consistent with a prior appendectomy. There is diffuse atherosclerotic calcification of the abdominal aorta and its major visceral branches, without a demonstrated aneurysm. There is an IVC filter in place. There is borderline retroperitoneal lymphadenopathy with enlarged nodes no greater than 10mm in the short axis diameter. Small caliber urinary bladder with diffuse bladder wall thickening. There is a small umbilical hernia containing fat. There are diffuse degenerative changes of the visualized lumbar spine. There is evidence of bilateral total hip replacement causing beam hardening artifact in the pelvis limiting the evaluation. CT/Abdomen/Pelvis WITH Contrast IMPRESSION: Diffuse fatty infiltration of the liver. Small hepatic cysts. Mild degree of nonspecific perinephric stranding. Small caliber urinary bladder with diffuse bladder wall thickening. A filter is seen within the inferior vena cava. Electronically Signed: Wyatt Rivers MD at 14:54 EST ,
== END | disposition home or self-care (01) ==
LOC: CT 14:16
PROVIDERS: PCP Internal Medicine; Visit Provider Internal Medicine
DX: Z95.828 Presence of other vascular implants and grafts (principal)
CPT/HCPCS: 74177; Q9967

== ENCOUNTER 2022-05-03 18:47 | Inpatient (IN) | payer MEDICARE, SELFPAY ==
[2022-05-03 18:49] VITALS: BP 176/88; PULSE 65; RESP 16; TEMP 36.2; O2SAT 98; BMI 35.9
--- NOTE | 2022-05-03 19:22 | EDS_ITS ---
HPI History of Present Illness Chief Complaint: Lower Extremity Injury Informant: patient and spouse/S.O. Narrative Narrative: Patient feels he has a left hip dislocation. He has had both hips surgically replaced. He has had prior dislocation. He is not sure on which side. He states he just sat down into a chair and as soon as he sat down he felt a pop and pain in his left hip. He cannot bear weight. No abdominal pain. No back pain. No lightheaded or dizziness. No distal numbness tingling or weakness. He has had no fall recently. Of note he is on Lovenox injections right now rather than apixaban. Nothing really makes his pain better. Motion does seem to bother it. [facility] Medical History Anemia Arthritis Atherosclerotic heart disease of [place] coronary artery without angina pectoris Body mass index (bmi) 30.0-30.9, adult CAD (coronary artery disease) Cardiology follow-up encounter Cardiomyopathy in other diseases classified elsewhere Diastolic CHF, chronic Dilated cardiomyopathy Dizziness and giddiness DVT (deep venous thrombosis) Essential hypertension Former smoker Gastric reflux [place] filter in place History of DVT (deep vein thrombosis) History of echocardiogram History of edema History of steroid therapy History of stress test 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 of blood 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 Presence of cardiac resynchronization therapy 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 ([employer]-D) Pure hypercholesterolemia Shortness of breath on exertion Syncope Wears glasses Wears hearing aid Home Medications dutasteride 0.5 mg capsule (Avodart) 0.5 mg PO DAILY bph 10/01/16 [History Last Taken 08/19/21 07:30] cholecalciferol (vitamin D3) 125 mcg (5,000 unit) capsule 125 mcg PO DAILY 08/05/19 [History Last Taken 08/15/21] glucosamine 750 gk-oedpnwlje-uwg no.7 644 mg-vit T-ftakar-slurd tablet (Glucosamine-Chondr Cmplx (boswellia)) 1 tab PO DAILY 08/14/21 [History Last Taken 08/15/21] zinc 50 mg tablet 50 mg PO DAILY 08/14/21 [History Last Taken 08/15/21] ascorbic acid (vitamin C) 1,000 mg tablet,extended release 1,000 mg PO DAILY 02/03/22 [History Last Taken Unknown] coenzyme Q10 50 mg chewable tablet 100 mg PO BID supplement 02/03/22 [History Last Taken Unknown] flaxseed oil 1,000 mg capsule ([place]-3 Flaxseed Oil) 1,000 mg PO BID 02/03/22 [History Last Taken Unknown] hydrocodone-acetaminophen 5-325mg 5mg-325mg See Rx Instructions PO BID 02/03/22 [History Last Taken Unknown] prasterone (dhea) 25 mg tablet 50 mg PO DAILY supplement 02/03/22 [History Last Taken Unknown] sulfamethoxazole 800 mg-trimethoprim 160 mg tablet (Bactrim DS) 1 tab PO .COMPLEX #6 tabs 02/03/22 [Rx Last Taken Unknown] turmeric 400 mg capsule 400 mg PO BID 02/03/22 [History Last Taken Unknown] wheat dextrin 3 gram/3.5 gram oral powder (Best Fiber) 1 packet PO DAILY 02/03/22 [History Last Taken Unknown] carvedilol 3.125 mg tablet 3.125 mg PO BID #60 tabs 04/22/22 [Rx Last Taken Unknown] apixaban 5 mg tablet (Eliquis) 5 mg PO BID Per Dr. Hannon for DVT's 04/24/22 [History Last Taken Unknown] enoxaparin 100 mg/mL subcutaneous syringe mg 05/03/22 [History Last Taken Unknown] Allergy/AdvReac Type Severity Reaction Status Date / Time No Known Allergies Allergy Verified 03/19/22 16:36 Family History Father Diabetes Brother Cancer Prostate cancer Surgical History History of left hip replacement History of nasal surgery History of right-sided carotid endarterectomy Hx of left cataract extraction Hx of total hip arthroplasty S/P implantation of automatic cardioverter/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 (AICD) Social History Smoking Status: Former smoker how long ago did patient quit smokin alcohol intake: current alcohol intake frequency: holidays/special occasions only Alcohol type: wine substance use type: does not use caffeine: Yes Type: tea Number of servings: 1 what type of physical activity do you participate in: 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: [employer] frequency: 5-6 times per week duration: 30-45 minutes/day seatbelt use: always do you feel safe at home: Yes ROS ROS ED Constitutional Constitutional ED: Denies chills or fever(s) Eyes Eyes: Denies change in vision ENT ENT ED: Denies sore throat Cardiovascular Cardiovascular: Denies chest pain, palpitations or racing heartbeat Respiratory/Chest Respiratory/Chest: Denies cough or dyspnea Gastrointestinal Gastrointestinal: Denies abdominal pain, nausea or vomiting Genitourinary Genitourinary ED: Denies hematuria Musculoskeletal Musculoskeletal: Reports arthralgias; Denies back pain Integumentary Denies rash Neurologic Neurologic: Denies paresthesias or weakness Hematologic/Lymphatic Hematologic/Lymphatic: Reports easy bleeding and easy bruising Allergic/Immunologic Allergic/Immunologic ED: Denies urticaria EXAM Physical Exam Const Vital Signs: 05/03/22 18:49 05/03/22 22:08 Temperature 97.2 F L 98.2 F Temperature Source Temporal Temporal Pulse Rate 65 74 Respiratory Rate 16 17 Blood Pressure 176/88 H 164/78 H Blood Pressure Mean 117 106 Pulse Ox 98 99 Oxygen Delivery Method Room Air Room Air Positive well nourished and well developed General Appearance ED: well developed and NAD HEENT HEENT Narrative: Mallampati 1 normocephalic Neck full ROM Chest Wall inspection of chest normal Resp normal respiratory effort and clear to auscultation bilaterally Cardio regular rate and regular rhythm GI non-tender GI Narrative: Patient does have a few ecchymosis at injection sites on lower abdomen. Back/Spine no CVA tenderness Extremity Extremity Narrative: Left leg is just slightly shorter than the right. Not externally rotated. They both have chronic edema which is evidently unchanged. There is a little bit of pain with motion Neuro oriented x3 Psych mental status grossly normal Skin no wounds MDM MDM MDM Narrative Medical decision making narrative: X-rays did not show dislocation. At this point I talked with the patient again. I asked if the hip was bothering him recently. I talked about any recent fevers or infections or feeling ill. He denied that part. His stated that he was complaining of some off-and-on hip pain for the last week or 2 but she thought it was the right hip not the left. We attempted to ambulate the patient after pain meds. But he cannot put weight on this leg. I added blood work that showed no acute process. We discussed case with orthopedics who will see the patient in consult tomorrow. I discussed case with hospitalist. Because of this patient's size and inability to bear weight he is not safe to go home. His cannot care for him. Lab Data Attestation: I reviewed the patient's lab results. Labs: Laboratory Results - last 24 hr 05/03/22 05/03/22 22:52 22:52 WBC 6.7 RBC 4.00 L Hgb 11.6 L Hct 36.1 L MCV 90.3 MCH 29.0 MCHC 32.1 RDW Std Deviation 48.0 H RDW Coeff of Michael 14.5 Plt Count 127 L MPV 10.1 Immature Gran % (Auto) 0.300 Neut % (Auto) 70.5 H Lymph % (Auto) 16.8 L Potter % (Auto) 10.2 H Eos % (Auto) 2.1 Baso % (Auto) 0.1 Absolute Neuts (auto) 4.7 Absolute Lymphs (auto) 1.12 Nucleated RBC % 0 Sodium 140 Potassium 3.9 Chloride 107 Carbon Dioxide 29.0 Anion Gap 4 L BUN 15 Creatinine 1.12 Estim Creat Clear Calc 45.80 Est GFR (MDRD) Af Amer 80 Est GFR (MDRD) Non-Af 66 BUN/Creatinine Ratio 13.4 Glucose 123 H Calcium 8.7 Radiography Diagnostic Testing: Clinical Impression(s) from Imaging Studies Hip/Pelvis X-Ray 05/03/22 20:20 IMPRESSION: Bilateral total hip arthroplasty hardware with normal alignment no evidence of hip dislocation. Electronically Signed: Orlando Kauffman DO at 20:47 EST , X-rays show no sign of malalignment or dislocation.. Discharge Plan Triage Chief Complaint: Lower Extremity Injury ED Provider: Aamir Ugarte Dx/Rx/DC Orders Clinical Impression: Acute pain of left hip, Inability to ambulate due to hip Primary Care Provider: Qing Hannon Disposition Disposition: [facility]
[2022-05-03] MEDS: Morphine 4 MG/ML Syringe IV (19:25)
[2022-05-03] MEDS: Ondansetron 4 MG/2 ML Vial IV (19:25)
[2022-05-03] MEDS: Propofol 200 MG/20 ML Vial IV BOLUS (19:26)
--- NOTE | 2022-05-03 20:20 | RAD_ITS ---
Findings INDICATION: dislocation/pain EXAMINATION/TECHNIQUE: X-RAY - LEFT XR Hip Unilateral with Pelvis when performed; 2-3 Views 3 VIEWS COMPARISON: CT abdomen and pelvis 05/01/2022 and left hip x-rays 04/20/2019. FINDINGS: SOFT TISSUES: No soft tissue swelling or gas. No radiopaque foreign body. Mild vascular calcifications femoral arteries. BONES/JOINTS: No acute fracture or malalignment. No hip dislocation. Bilateral total hip arthroplasty hardware shows no evidence of complication. No sclerotic or destructive changes observed. Note of some degenerative changes distal spine. Soft tissue calcifications projecting over the left abdominal region. RAD/HIP, UNI W/ Pelvis 2-3 Views IMPRESSION: Bilateral total hip arthroplasty hardware with normal alignment no evidence of hip dislocation. Electronically Signed: Orlando Kauffman DO at 20:47 EST ,
[2022-05-03 22:08] VITALS: BP 164/78; PULSE 74; RESP 17; TEMP 36.8; O2SAT 99
[2022-05-03 22:57] LABS: Absolute Lymphocyte Count 1.12 X10^3/uL (0.83-4.51); Absolute Neutrophil Count 4.7 X10^3/uL (2.0-7.7); Basophil# 0.01 X10^3/uL; Basophil% 0.1 % (0-1); Eosinophil# 0.14 X10^3/uL; Eosinophils% 2.1 % (0-5); Hematocrit 36.1 % (40-54); Hemoglobin 11.6 g/dL (13.0-16.5); Lymphocyte # 1.12 X10^3/ul (0.83-4.51); Lymphocyte % 16.8 % (19-41); Mean Corp Hgb Conc 32.1 g/dL (32-36); Mean Corpuscular Volume 90.3 fL (80-94); Mean Platelet Vol. 10.1 fl (6.2-12.0); Monocyte# 0.68 X10^3/uL; Monocyte% 10.2 % (0-10); NRBC Flagged by Analyzer 0 % (0-5); Neutrophil # 4.71 X10^3/uL (2.7-7.7); Neutrophil % 70.5 % (47-70); Platelet Count 127 K/mm3 (150-450); RBC Distribution Width CV 14.5 % (11.6-14.6); White Blood Count 6.7 K/mm3 (4.4-11.0)
[2022-05-03 23:08] LABS: Anion Gap 4 (5-15); BUN 15 mg/dL (7-18); BUN/Creat Ratio 13.4 RATIO (10-20); Calcium,Total 8.7 mg/dL (8.5-10.1); Chloride 107 mmol/L (98-107); Creatinine, Serum 1.12 mg/dL (0.70-1.30); EST Glomerular Filtration Rate 66 mL/min (>60); Est Glom Filt Rate - Afr Amer 80 mL/min (>60); Glucose 123 mg/dL (74-106); Potassium 3.9 mmol/L (3.5-5.1); Sodium Level 140 mmol/L (136-145)
--- NOTE | 2022-05-03 23:38 | HP.PCM.HOS_ITS ---
HPI - General General Date of Admission: 05/03/22 HPI Narrative MARY SEBASTIAN, is a 86 M who presents to the hospital with left hip pain which has been going on intermittently for the last week but it got worse today. He denies any trauma to the hip he has had bilateral hip replacements. He states that he was sitting in his chair and when he went to get up he had significant pain and is unable to bear weight on his hip. In the ER hip x-rays show that hardware was in the correct position, and it does not appear to be dislocated. He does not have any significant pain on palpation in or around his hip he does not have significant discomfort with mobility while in bed but in an attempt to get him up at bedside he had significant pain when he started to bear weight. No fevers or chills or sign of infection. [facility] Medical History Anemia Arthritis Atherosclerotic heart disease of [place] coronary artery without angina pectoris Body mass index (bmi) 30.0-30.9, adult CAD (coronary artery disease) Cardiology follow-up encounter Cardiomyopathy in other diseases classified elsewhere Diastolic CHF, chronic Dilated cardiomyopathy Dizziness and giddiness DVT (deep venous thrombosis) Essential hypertension Former smoker Gastric reflux [place] filter in place History of DVT (deep vein thrombosis) History of echocardiogram History of edema History of steroid therapy History of stress test Hx of shelter use of blood thinners Presence of cardiac resynchronization therapy 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 (RIVETER PORTABLE MACHINE-D) Pure hypercholesterolemia Shortness of breath on exertion Syncope Wears glasses Wears hearing aid Home Medications dutasteride 0.5 mg capsule (Avodart) 0.5 mg PO DAILY bph 10/01/16 [History Last Taken 08/19/21 07:30] cholecalciferol (vitamin D3) 125 mcg (5,000 unit) capsule 125 mcg PO DAILY 08/05/19 [History Last Taken 08/15/21] glucosamine 750 [id number] no.7 644 mg-vit J-plaisx-syifv tablet (Glucosamine-Chondr Cmplx (boswellia)) 1 tab PO DAILY 08/14/21 [History Last Taken 08/15/21] zinc 50 mg tablet 50 mg PO DAILY 08/14/21 [History Last Taken 08/15/21] ascorbic acid (vitamin C) 1,000 mg tablet,extended release 1,000 mg PO DAILY 02/03/22 [History Last Taken Unknown] coenzyme Q10 50 mg chewable tablet 100 mg PO BID supplement 02/03/22 [History Last Taken Unknown] flaxseed oil 1,000 mg capsule ([place]-3 Flaxseed Oil) 1,000 mg PO BID 02/03/22 [History Last Taken Unknown] hydrocodone-acetaminophen 5-325mg 5mg-325mg See Rx Instructions PO BID 02/03/22 [History Last Taken Unknown] prasterone (dhea) 25 mg tablet 50 mg PO DAILY supplement 02/03/22 [History Last Taken Unknown] sulfamethoxazole 800 mg-trimethoprim 160 mg tablet (Bactrim DS) 1 tab PO .COMPLEX #6 tabs 02/03/22 [Rx Last Taken Unknown] turmeric 400 mg capsule 400 mg PO BID 02/03/22 [History Last Taken Unknown] wheat dextrin 3 gram/3.5 gram oral powder (Best Fiber) 1 packet PO DAILY 02/03/22 [History Last Taken Unknown] carvedilol 3.125 mg tablet 3.125 mg PO BID #60 tabs 04/22/22 [Rx Last Taken Unknown] apixaban 5 mg tablet (Eliquis) 5 mg PO BID Per Dr. Hannon for DVT's 04/24/22 [History Last Taken Unknown] enoxaparin 100 mg/mL subcutaneous syringe mg 05/03/22 [History Last Taken Unknown] Allergy/AdvReac Type Severity Reaction Status Date / Time No Known Allergies Allergy Verified 03/19/22 16:36 Family History Father Diabetes Brother Cancer Prostate cancer Surgical History History of left hip replacement History of nasal surgery History of right-sided carotid endarterectomy Hx of left cataract extraction Hx of total hip arthroplasty S/P implantation of automatic cardioverter/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 (AICD) Social History Smoking Status: Former smoker how long ago did patient quit smokin alcohol intake: current alcohol intake frequency: holidays/special occasions only Alcohol type: wine substance use type: does not use caffeine: Yes Type: tea Number of servings: 1 what type of physical activity do you participate in: 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: 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: 5-6 times per week duration: 30-45 minutes/day seatbelt use: always do you feel safe at home: Yes ROS Constitutional Constitutional: Denies chills, fatigue, fever(s) or malaise Eyes Eyes: Denies blurry vision ENT HEENT: Denies headache(s) or nasal discharge Cardiovascular Cardiovascular: Denies chest pain, dyspnea on exertion or syncope Respiratory/Chest Respiratory/Chest: Denies cough, shortness of breath at rest or shortness of breath with exertion Gastrointestinal Gastrointestinal: Denies constipation, diarrhea, nausea or vomiting Genitourinary Genitourinary: Denies dysuria Musculoskeletal Musculoskeletal: Reports joint pain Neurologic Neurologic: Denies focal weakness, numbness or tremor(s) Psychiatric Psychiatric: Denies anxiety or depression Vital Signs Vital Signs Vital Signs: 05/03/22 18:49 05/03/22 22:08 Temperature 97.2 F L 98.2 F Temperature Source Temporal Temporal Pulse Rate 65 74 Respiratory Rate 16 17 Blood Pressure 176/88 H 164/78 H Blood Pressure Mean 117 106 Pulse Ox 98 99 Oxygen Delivery Method Room Air Room Air Weight Weight: 236 lb 8.896 oz Body Mass Index (BMI) 35.9 Physical Exam Narrative General: Alert, Oriented x3, Cooperative, No apparent distress HEENT: Atraumatic, PERRLA, EOMI, Normocephalic Oral: Moist Mucosa Neck: Supple, No JVD Lungs: Diminished, normal air movement, No rhonchi, No wheeze, No rales Cardiovascular: Regular rate, Regular Rhythm, Normal S1, Normal S2, No murmurs Abdomen: Soft, Non Tender, Non-Distended, No Hepato-splenomegaly Extremities: Bilateral edema, Capillary Refill Less than 3 Seconds Skin: No rashes, No breakdown Musculoskeletal: No Tenderness to Palpation of Joints or Extremities Neurological: Cranial nerves II-XII grossly intact, Motor Exam 5/5 strength t hroughout, Sensory exam intact to light touch and pain Psych/Mental Status: Normal Affect, Appropriate Results Lab / Micro Data Result Diagrams: 05/03/22 22:52 05/03/22 22:52 Labs: Laboratory Results - last 24 hr 05/03/22 22:52: WBC 6.7, RBC 4.00 L, Hgb 11.6 L, Hct 36.1 L, MCV 90.3, MCH 29.0, MCHC 32.1, RDW Std Deviation 48.0 H, RDW Coeff of Michael 14.5, Plt Count 127 L, MPV 10.1, Immature Gran % (Auto) 0.300, Neut % (Auto) 70.5 H, Lymph % (Auto) 16.8 L, [place] % (Auto) 10.2 H, Eos % (Auto) 2.1, Baso % (Auto) 0.1, Absolute Neuts (auto) 4.7, Absolute Lymphs (auto) 1.12, Nucleated RBC % 0 05/03/22 22:52: Sodium 140, Potassium 3.9, Chloride 107, Carbon Dioxide 29.0, Anion Gap 4 L, BUN 15, Creatinine 1.12, Estim Creat Clear Calc 45.80, Est GFR (MDRD) Af Amer 80, Est GFR (MDRD) Non-Af 66, BUN/Creatinine Ratio 13.4, Glucose 123 H, Calcium 8.7 Radiology Impression Hip/Pelvis X-Ray 05/03/22 20:20 IMPRESSION: Bilateral total hip arthroplasty hardware with normal alignment no evidence of hip dislocation. Electronically Signed: Orlando Kauffman, DO at 20:47 EST , Assessment & Plan Assessment/Plan (1) Hip pain, left: PLAN: Plan 1. Left hip pain ? He has been having hip pain on and off for about the last week but it got significantly worse today ? He has had both of his hips replaced so we will consult orthopedic surgery for evaluation and opinion and to decide whether or not further imaging would be necessary ? Can continue his home opiates for pain control ? No surrounding area of erythema and no tenderness to palpation and very little tenderness with motion, infection is unlikely ? He is on chronic anticoagulation. History of DVT these in the setting of protein C deficiency as well as an MTHFR mutation, so we will monitor hemoglobin on the off chance he could have a hemarthrosis 2. History of DVT with hypercoagulable state ? Used to be on Eliquis however this become expensive so he is now on Lovenox ? Continue with his Lovenox 3. HTN/HLD/chronic diastolic CHF/status post 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 ? Blood pressure is stable, can continue with his home Coreg ? He does not appear to be on any other cardiac medications at this time DVT: Therapeutic Lovenox Charges/Coding Visit Charges OBSV E&M: 90883 Initial observation care L2
[2022-05-04 00:16] VITALS: BMI 33.1
[2022-05-04 00:17] VITALS: BP 141/92; PULSE 70; RESP 16; TEMP 36.7; O2SAT 95
[2022-05-04] MEDS: HYDROcodone Bitartrate/Apap 5/325 Tablet PO ×2 (00:46→21:20)
[2022-05-04 04:56] LABS: Absolute Lymphocyte Count 1.14 X10^3/uL (0.83-4.51); Absolute Neutrophil Count 3.6 X10^3/uL (2.0-7.7); Basophil# 0.01 X10^3/uL; Basophil% 0.2 % (0-1); Eosinophil# 0.15 X10^3/uL; Eosinophils% 2.7 % (0-5); Hematocrit 34.7 % (40-54); Hemoglobin 11.2 g/dL (13.0-16.5); Lymphocyte # 1.14 X10^3/ul (0.83-4.51); Lymphocyte % 20.4 % (19-41); Mean Corp Hgb Conc 32.3 g/dL (32-36); Mean Corpuscular Hgb 29.1 pg (27.0-32.0); Mean Corpuscular Volume 90.1 fL (80-94); Mean Platelet Vol. 10.2 fl (6.2-12.0); Monocyte# 0.69 X10^3/uL; Monocyte% 12.4 % (0-10); NRBC Flagged by Analyzer 0 % (0-5); Neutrophil # 3.58 X10^3/uL (2.7-7.7); Neutrophil % 64.1 % (47-70); Platelet Count 124 K/mm3 (150-450); RBC Distribution Width CV 14.6 % (11.6-14.6); RBC Distribution Width SD 47.8 fl (35.1-43.9); Red Blood Count 3.85 M/mm3 (4.6-6.2); White Blood Count 5.6 K/mm3 (4.4-11.0)
[2022-05-04 05:49] LABS: Anion Gap 5 (5-15); BUN 15 mg/dL (7-18); BUN/Creat Ratio 14.3 RATIO (10-20); Calcium,Total 8.1 mg/dL (8.5-10.1); Chloride 105 mmol/L (98-107); Creatinine, Serum 1.05 mg/dL (0.70-1.30); EST Glomerular Filtration Rate 71 mL/min (>60); Est Glom Filt Rate - Afr Amer 86 mL/min (>60); Glucose 109 mg/dL (74-106); Potassium 3.8 mmol/L (3.5-5.1); Sodium Level 138 mmol/L (136-145)
[2022-05-04 06:17] VITALS: BP 150/90; PULSE 75; RESP 16; TEMP 36.7; O2SAT 96
--- NOTE | 2022-05-04 07:22 | PN.HOSP_ITS ---
Subjective Subjective Patient is an 86-year-old gentleman with history of left hip replacement following hip dislocation who presented with significant hip pain. Objective Data Objective Data Vital Signs: Vital Signs Temp Pulse Resp BP Pulse Ox O2 Del Method 98.1 F 75 16 150/90 H 96 Room Air 05/04/22 06:17 05/04/22 06:17 05/04/22 06:17 05/04/22 06:17 05/04/22 06:17 05/04/22 06:17 Oxygen Delivery Method Room Air Weight: 101.9 kg Body Mass Index (BMI) 33.1 Intake & Output: Intake and Output for Last 24 Hours 05/02/22 05/03/22 05/04/22 23:59 23:59 23:59 Intake Total 200 / 200 Output Total 250 / 250 Balance -50 / -50 Lab / Micro Data Result Diagrams: 05/04/22 04:20 05/04/22 04:20 Labs: Laboratory Results - last 24 hr 05/03/22 22:52: WBC 6.7, RBC 4.00 L, Hgb 11.6 L, Hct 36.1 L, MCV 90.3, MCH 29.0, MCHC 32.1, RDW Std Deviation 48.0 H, RDW Coeff of Michael 14.5, Plt Count 127 L, MPV 10.1, Immature Gran % (Auto) 0.300, Neut % (Auto) 70.5 H, Lymph % (Auto) 16.8 L, [place] % (Auto) 10.2 H, Eos % (Auto) 2.1, Baso % (Auto) 0.1, Absolute Neuts (auto) 4.7, Absolute Lymphs (auto) 1.12, Nucleated RBC % 0 05/03/22 22:52: Sodium 140, Potassium 3.9, Chloride 107, Carbon Dioxide 29.0, Anion Gap 4 L, BUN 15, Creatinine 1.12, Estim Creat Clear Calc 45.80, Est GFR (MDRD) Af Amer 80, Est GFR (MDRD) Non-Af 66, BUN/Creatinine Ratio 13.4, Glucose 123 H, Calcium 8.7 05/04/22 04:20: WBC 5.6, RBC 3.85 L, Hgb 11.2 L, Hct 34.7 L, MCV 90.1, MCH 29.1, MCHC 32.3, RDW Std Deviation 47.8 H, RDW Coeff of Michael 14.6, Plt Count 124 L, MPV 10.2, Immature Gran % (Auto) 0.200, Neut % (Auto) 64.1, Lymph % (Auto) 20.4, [place] % (Auto) 12.4 H, Eos % (Auto) 2.7, Baso % (Auto) 0.2, Absolute Neuts (auto) 3.6, Absolute Lymphs (auto) 1.14, Nucleated RBC % 0 05/04/22 04:20: Sodium 138, Potassium 3.8, Chloride 105, Carbon Dioxide 28.0, Anion Gap 5, BUN 15, Creatinine 1.05, Estim Creat Clear Calc 50.50, Est GFR (MDRD) Af Amer 86, Est GFR (MDRD) Non-Af 71, BUN/Creatinine Ratio 14.3, Glucose 109 H, Calcium 8.1 L Radiography Diagnostic Testing: Radiology Impression Hip/Pelvis X-Ray 05/03/22 20:20 IMPRESSION: Bilateral total hip arthroplasty hardware with normal alignment no evidence of hip dislocation. Electronically Signed: Orlando Kauffman DO at 20:47 EST , Physical Exam Narrative GENERAL: cooperative HEENT: Atraumatic; normocephalic EYES; Anicteric, Normal Conjunctiva NECK; supple, normal thyroid, RESPIRATORY: Diminished to auscultation CARDIOVASCULAR: Regular S1 S2, GI: soft, normoactive bowel sounds, : No Renal angle tenderness; EXTREMITIES: No edema, no clubbing, MUSCULOSKELETAL: no muscle wasting NEURO: Awake; no lateralizing signs. SKIN: No Rash PSYCH; Flat affect Assessment & Plan Assessment/Plan (1) Hip pain, left: PLAN: Plan Patient is an 86-year-old gentleman with history of left hip replacement following hip dislocation who presented with significant hip pain. 1. Left hip pain ? In the patient with previous left hip dislocation and subsequent hip replacement. There was no evidence of infection on admission. Patient has been admitted to regular nursing floor with consultation placed to orthopedic rubén shelly?Dr. Thompson 2. Hypercoagulable state ? Patient has history of MTHFR mutation with previous VTE?DVT. Patient is on systemic anticoagulation with Lovenox did continue 3. History of nonischemic cardiomyopathy with previous AICD placement ? Stable 4. Hypertension - Blood pressure controlled, home medications continued with dose adjustment as needed 5. DVT prophylaxis ? Patient on Lovenox Charges/Coding Visit Charges OBSV E&M: 20789 Subsequent observation care L2
[2022-05-04 08:55] VITALS: BP 139/83; PULSE 76; RESP 18; TEMP 36.2; O2SAT 91
[2022-05-04] MEDS: Enoxaparin 100 MG/ML Syringe SC ×2 (09:00→21:20)
[2022-05-04] MEDS: Carvedilol 3.125 MG TABLET PO ×2 (09:00→16:32)
[2022-05-04] MEDS: Finasteride 5 MG Tablet PO (09:01)
--- NOTE | 2022-05-04 09:05 | CON.PCM.OR_ITS ---
HPI Consult Data Date of Consult: 05/04/22 PCP / Referring MD: LEFT HIP PAIN HPI Narrative Reason for Consultation: Left hip pain HPI Narrative: MARY SEBASTIAN, is a 86 M who presents with inability to bear weight on his left hip x 48 hrs. He denies trauma, he denies any constitutional symptoms consistent with infection. He underwent a revision left THR on 04/20/[address] Fisher for recurrent dislocations and states he has had no problems with his hip since then. He states that he had a DVT in his LLE approximately a week ago and is on Lovenox. He has had DVT's before and has a Annalisa filter in place. Imaging studies are negative for fracture or dislocation. [facility] Medical History (Updated 05/04/22 @ 00:24 by Richa Patton) Anemia Arthritis Atherosclerotic heart disease of [place] coronary artery without angina pectoris Body mass index (bmi) 30.0-30.9, adult CAD (coronary artery disease) Cardiology follow-up encounter Cardiomyopathy in other diseases classified elsewhere Diastolic CHF, chronic Dilated cardiomyopathy Dizziness and giddiness DVT (deep venous thrombosis) Essential hypertension Former smoker Gastric reflux Annalisa filter in place History of DVT (deep vein thrombosis) History of echocardiogram History of edema History of steroid therapy History of stress test Hx of nursing home use of blood thinners Presence of cardiac resynchronization therapy 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 (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) Pure hypercholesterolemia Shortness of breath on exertion Syncope Wears glasses Wears hearing aid Home Medications dutasteride 0.5 mg capsule (Avodart) 0.5 mg PO DAILY bph 10/01/16 [History Last Taken 08/19/21 07:30] coenzyme Q10 50 mg chewable tablet 100 mg PO DAILY supplement 02/03/22 [History Last Taken Unknown] wheat dextrin 3 gram/3.5 gram oral powder (Best Fiber) 1 packet PO DAILY bowels 02/03/22 [History Last Taken 05/03/22] carvedilol 3.125 mg tablet 3.125 mg PO BID #60 tabs 04/22/22 [Rx Last Taken Unknown] enoxaparin 100 mg/mL subcutaneous syringe mg 05/03/22 [History Last Taken Unknown] ferrous sulfate 325 mg (65 mg iron) tablet (Iron (ferrous sulfate)) 65 mg PO DAILY 05/04/22 [History Last Taken Unknown] Allergy/AdvReac Type Severity Reaction Status Date / Time No Known Allergies Allergy Verified 05/04/22 00:14 Family History Father Diabetes Brother Cancer Prostate cancer Surgical History History of left hip replacement History of nasal surgery History of right-sided carotid endarterectomy Hx of left cataract extraction Hx of total hip arthroplasty S/P implantation of automatic cardioverter/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 (AICD) Social History Smoking Status: Former smoker how long ago did patient quit smokin alcohol intake: current alcohol intake frequency: holidays/special occasions only Alcohol type: wine substance use type: does not use caffeine: Yes Type: tea Number of servings: 1 what type of physical activity do you participate in: 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: [employer] frequency: 5-6 times per week duration: 30-45 minutes/day seatbelt use: always do you feel safe at home: Yes Vital Signs Vital Signs Vital Signs: 05/03/22 18:49 05/03/22 22:08 05/04/22 00:17 Temperature 97.2 F L 98.2 F 98.0 F Temperature Source Temporal Temporal Oral Pulse Rate 65 74 70 Respiratory Rate 16 17 16 Respiratory Effort Respiratory Depth Respiratory Pattern Blood Pressure 176/88 H 164/78 H 141/92 H Blood Pressure Mean 117 106 108 Blood Pressure Source Monitor Blood Pressure Position Semi-Fowlers Blood Pressure Location Left Forearm Pulse Ox 98 99 95 Oxygen Delivery Method Room Air Room Air Room Air 05/04/22 00:14 05/04/22 06:17 05/04/22 08:55 Temperature 98.1 F 97.1 F L Temperature Source Oral Axillary Pulse Rate 75 76 Respiratory Rate 16 18 Respiratory Effort Normal Respiratory Depth Normal Respiratory Pattern Normal Blood Pressure 150/90 H 139/83 H Blood Pressure Mean 110 101 Blood Pressure Source Monitor Monitor Blood Pressure Position Semi-Fowlers Semi-Fowlers Blood Pressure Location Left Arm Left Arm Pulse Ox 96 91 Oxygen Delivery Method Room Air Room Air Room Air Weight Weight: 224 lb 10.417 oz Body Mass Index (BMI) 33.1 Physical Exam Const alert, oriented x3, no apparent distress and well nourished General Appearance: cooperative HEENT normocephalic Eyes PERRL Lymph Lymphatic: no lymphadenopathy noted and lymphedema moderate Lymphatic Narrative: b/l LEs Extremity normal capillary refill and no calf tenderness Extremity Narrative: No pain to palpation or ROM of the left hip. Skin no rashes or lesions noted Neuro CN's II-XII intact bilaterally, moves all extremities, no focal motor deficits and no sensory deficits noted Psych mental status grossly normal Lab / Micro Data Result Diagrams: 05/04/22 04:20 05/04/22 04:20 Labs: Laboratory Results - last 24 hr 05/03/22 22:52: WBC 6.7, RBC 4.00 L, Hgb 11.6 L, Hct 36.1 L, MCV 90.3, MCH 29.0, MCHC 32.1, RDW Std Deviation 48.0 H, RDW Coeff of Michael 14.5, Plt Count 127 L, MPV 10.1, Immature Gran % (Auto) 0.300, Neut % (Auto) 70.5 H, Lymph % (Auto) 16.8 L, [place] % (Auto) 10.2 H, Eos % (Auto) 2.1, Baso % (Auto) 0.1, Absolute Neuts (auto) 4.7, Absolute Lymphs (auto) 1.12, Nucleated RBC % 0 05/03/22 22:52: Sodium 140, Potassium 3.9, Chloride 107, Carbon Dioxide 29.0, Anion Gap 4 L, BUN 15, Creatinine 1.12, Estim Creat Clear Calc 45.80, Est GFR (MDRD) Af Amer 80, Est GFR (MDRD) Non-Af 66, BUN/Creatinine Ratio 13.4, Glucose 123 H, Calcium 8.7 05/04/22 04:20: WBC 5.6, RBC 3.85 L, Hgb 11.2 L, Hct 34.7 L, MCV 90.1, MCH 29.1, MCHC 32.3, RDW Std Deviation 47.8 H, RDW Coeff of Michael 14.6, Plt Count 124 L, MPV 10.2, Immature Gran % (Auto) 0.200, Neut % (Auto) 64.1, Lymph % (Auto) 20.4, [place] % (Auto) 12.4 H, Eos % (Auto) 2.7, Baso % (Auto) 0.2, Absolute Neuts (auto) 3.6, Absolute Lymphs (auto) 1.14, Nucleated RBC % 0 05/04/22 04:20: Sodium 138, Potassium 3.8, Chloride 105, Carbon Dioxide 28.0, Anion Gap 5, BUN 15, Creatinine 1.05, Estim Creat Clear Calc 50.50, Est GFR (MDRD) Af Amer 86, Est GFR (MDRD) Non-Af 71, BUN/Creatinine Ratio 14.3, Glucose 109 H, Calcium 8.1 L Radiology Impression Hip/Pelvis X-Ray 05/03/22 20:20 IMPRESSION: Bilateral total hip arthroplasty hardware with normal alignment no evidence of hip dislocation. Electronically Signed: Orlando Kauffman DO at 20:47 EST , Assessment & Plan Assessment/Plan (1) Osteoarthritis: QUALIFIERS: Osteoarthritis location: hip Osteoarthritis type: unspecified Laterality: left Qualified Code(s): M16.12 - Unilateral primary osteoarthritis, left hip PLAN: Plan Will check infection labs. Consider repeat ultrasound to look for migration of DVT. Will discuss case with Dr. Fisher.
[2022-05-04 10:28] VITALS: BP 107/70; PULSE 68; RESP 18; TEMP 36.5; O2SAT 93
[2022-05-04 16:30] VITALS: BP 140/88; PULSE 75; RESP 18; TEMP 36.8; O2SAT 93
[2022-05-04 17:38] LABS: Erythrocyte Sedimentation Rate 3 mm/hr (0-20)
[2022-05-04 17:46] LABS: CRP 3.41 mg/L (0.0-3.0)
[2022-05-04 20:26] VITALS: BP 132/67; PULSE 69; RESP 16; TEMP 36.8; O2SAT 94
[2022-05-05 02:24] VITALS: BP 131/78; PULSE 65; RESP 16; TEMP 36.8; O2SAT 95
--- NOTE | 2022-05-05 07:33 | PCM.PN.HOSP ---
Subjective Subjective Follow-up on left hip pain: Patient was seen and examined. His was at the bedside. Patient complains of pain in the left hip. He denies any chest pain or dizziness. Objective Data Objective Data Vital Signs: Vital Signs Temp Pulse Resp BP Pulse Ox O2 Del Method 98.2 F 65 16 131/78 H 95 Room Air 05/05/22 02:24 05/05/22 02:24 05/05/22 02:24 05/05/22 02:24 05/05/22 02:24 05/05/22 02:24 Oxygen Delivery Method Room Air Weight: 101.9 kg Body Mass Index (BMI) 33.1 Intake & Output: Intake and Output for Last 24 Hours 05/03/22 05/04/22 05/05/22 23:59 23:59 23:59 Intake Total 790 / 790 Output Total 450 / 750 550 / 550 Balance 340 / 40 -550 / -550 Lab / Micro Data Result Diagrams: 05/04/22 04:20 05/04/22 04:20 Labs: Laboratory Results - last 24 hr 05/04/22 04:20: C-React Prot Ext Range 3.41 H 05/04/22 04:20: ESR 3 Physical Exam Narrative Physical exam: General: Alert, Oriented x3, Cooperative, in mild pain HEENT: Atraumatic Oral: Moist Mucosa Neck: Supple Lungs: Diminished to auscultation Cardiovascular: HS I+II, regular, no murmurs Abdomen: Bowel Sounds Present, Soft, Non Tender Extremities: No edema, tenderness over the left hip Skin: No rashes, No breakdown Neurological: Grossly intact Psych/Mental Status: Appropriate Assessment & Plan Assessment/Plan (1) Hip pain, left: PLAN: Plan 1. Acute left hip pain, pain is fairly controlled History of the hip showed bilateral total hip arthroplasty with normal alignment Will continue on current pain regimen Follow-up on orthopedics recommendation 2. Hypercoagulable state, h/o DVT/PE, h/o MTHFR Continue therapeutic Lovenox 3. History of nonischemic cardiomyopathy with previous AICD placement/Hypertension 4. DVT prophylaxis - on therapeutic Lovenox Charges/Coding Visit Charges OBSV E&M: 66211 Subsequent observation care L3
[2022-05-05 08:29] VITALS: BP 148/86; PULSE 71; RESP 16; TEMP 36.7; O2SAT 94
[2022-05-05] MEDS: Finasteride 5 MG Tablet PO (08:43)
[2022-05-05] MEDS: Enoxaparin 100 MG/ML Syringe SC ×2 (08:43→21:48)
[2022-05-05] MEDS: Carvedilol 3.125 MG TABLET PO ×2 (08:43→17:31)
[2022-05-05] MEDS: HYDROcodone Bitartrate/Apap 5/325 Tablet PO ×3 (08:46→23:26)
--- NOTE | 2022-05-05 10:45 | CASEMGMT ---
RN MARYSE Face to Face with patient for initial transition planning/care coordination assessment. RN CM introduced self and role at [facility]. Patient lying in bed, alert and oriented, at bedside. Patient willing to participate in assessment and is able to answer all questions appropriately. Care providers, pharmacy, and demographics verified. Patient wishes to discharge home with possible HHC. Patient willing to go to SNF if recommended by therapy. CM will monitor progress with therapy for recommendations. Patient states he has no further needs or concerns at this time. CM to follow for discharge planning needs that may arise. PCP: Parvez Specialists: Siomara sack sewer machine Preferred Pharmacy: [facility] retail Insurance: [employer] Prescription Benefit: yes Living Will/HPOA: yes, Keshia Guzman LNOK: Living Arrangements: Patient lives with in a single story home with 3 steps and railing to enter the home. Patient states he is independent at home. Transportation: self, DME/HHC: Patient states he has shower chair, raised toilet, cane, crutches, grab bars, and walker at home. No previous HHC or SNF Disposition Plan: TBD, anticipate HHC vs SNF at discharge. Jennifer WATKINS, RN, CM
[2022-05-05] MEDS: Morphine 2 MG/ML Syringe 1 MG IV (11:06)
[2022-05-05] MEDS: 0.9% Saline Lock 10 ML Syringe IV (11:07)
[2022-05-05] MEDS: Acetaminophen 500 MG Tablet 1000 MG PO ×3 (11:11→21:55)
[2022-05-05 13:21] VITALS: BP 106/57; PULSE 63; RESP 16; TEMP 36.8; O2SAT 95
--- NOTE | 2022-05-05 14:09 | CASEMGMT ---
DIANELYS CM in to discuss IBARRA form with patient. RN CM explained IBARRA form, patient voiced understanding. Pt signed form and filed in chart. Pt provided with a copy of signed IBARRA form. Patient had no further questions or concerns at this time.
--- NOTE | 2022-05-05 16:29 | CASEMGMT ---
Social Work Pt states he does have a living will and a health care POA naming his Keshia Guzman. SW informed documents are not on file and requested they be brought in for scanning into the EMR. LEAH Baker
--- NOTE | 2022-05-05 16:33 | CASEMGMT ---
Social Work SW reviewed therapy notes and pt may benefit from SNF placement. SW met with pt and and introduced self and role of SW. Reviewed therapy notes and discussed possible SNF placement. A list of SNF providers including quality and resource use data and consistent with the patient?s preferred geographic region, medical needs, and insurance network were provided from the [employer] Guide. Pt feels he can return home, pt is uncertain that she can provide needed care. Pt states if pt does need SNF, [facility] is preferred provider. [facility]CU does not have beds at this time but SW did request pt be put on the waiting list in the event a bed becomes available. SW will follow up with pt and tomorrow after procedure to continue to discuss discharge plan. LEAH Baker
[2022-05-05 17:29] VITALS: BP 118/69; PULSE 67; RESP 16; TEMP 36.8; O2SAT 98
[2022-05-05 21:42] VITALS: BP 155/82; PULSE 65; RESP 18; TEMP 36.4; O2SAT 93
[2022-05-06 04:00] VITALS: BP 151/74; PULSE 61; RESP 18; TEMP 37.4; O2SAT 95
--- NOTE | 2022-05-06 04:09 | NURSING ---
PT C/O PAIN 10 L HIP - NORCO NOT DUE AGAIN UNTIL 529 - DR YOO NOTIFIED & NEW ORDER RECEIVED TO GIVE NORCO EARLY. ALSO OFFERED TO HELP PT REPOSITION IN BED - PT STATES DOES NOT WANT TO MOVE @ THIS TIME DUE TO PAIN. ICE PACK PLACED L HIP.
--- NOTE | 2022-05-06 07:20 | NURSING ---
Late entry - early dose of norco ordered by Dr Hunter given @ [id number] - when attempting to scan - notification popped up that it couldn't be given due to pt over acetaminophen dose for the 24hr period. Dose was given. Spoke to Claudio in pharmacy - he did not know how to fix the documentation. Also spoke with Demetris in pharmacy - also not sure how to fix the documentation. Demetris spoke to Dheeraj in pharmacy and said they would look into it more today when the next pharmacist or IT comes in.
[2022-05-06 08:28] VITALS: BP 160/100; PULSE 71; RESP 16; TEMP 36.5; O2SAT 100
[2022-05-06] MEDS: Carvedilol 3.125 MG TABLET PO ×2 (08:40→16:46)
[2022-05-06] MEDS: Enoxaparin 100 MG/ML Syringe SC ×2 (10:08→20:46)
[2022-05-06] MEDS: Finasteride 5 MG Tablet PO (10:08)
[2022-05-06] MEDS: Ferrous Sulfate 325 MG Tablet PO (10:08)
[2022-05-06] MEDS: Senna/Docusate Sodium 1 Tablet 2 TABLET PO ×2 (11:18→20:48)
[2022-05-06] MEDS: oxyCODONE 5 MG Tablet PO ×2 (11:18→18:39)
--- NOTE | 2022-05-06 14:28 | CON.PCM.OR_ITS ---
HPI Consult Data Date of Consult: 05/06/22 HPI Narrative HPI Narrative: MARY SEBASTIAN, is a 86 M who presents with left hip pain. Patient had a previous total hip replacement which was revised in 2019 by myself with a constrained liner and retained implants. He has been doing well up until this past weekend. On Thursday patient presented to the hospital with 48 hours of left hip pain. Patient localizes the pain to the groin. It does appear to be mildly improved from his presentation. There has been an infectious work-up which shows an ESR of 3 and a CRP of 3.41 mg/L. Patient denies any recent history of infectious etiology. He did have a previous DVT shortly before his presentation to left hip pain in the left lower extremity. Denies any fevers chills or night sweats. No previous illnesses. Patient reports the pain is worse with hip flexion acti vely. Denies any associated distal numbness and tingling. [facility] Medical History Anemia Arthritis Atherosclerotic heart disease of [place] coronary artery without angina pectoris Body mass index (bmi) 30.0-30.9, adult CAD (coronary artery disease) Cardiology follow-up encounter Cardiomyopathy in other diseases classified elsewhere Diastolic CHF, chronic Dilated cardiomyopathy Dizziness and giddiness DVT (deep venous thrombosis) Essential hypertension Former smoker Gastric reflux [place] filter in place History of DVT (deep vein thrombosis) History of echocardiogram History of edema History of steroid therapy History of stress test Hx of retirement use of blood thinners Presence of cardiac resynchronization therapy 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 (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) Pure hypercholesterolemia Shortness of breath on exertion Syncope Wears glasses Wears hearing aid Home Medications dutasteride 0.5 mg capsule (Avodart) 0.5 mg PO DAILY bph 10/01/16 [History Last Taken 08/19/21 07:30] coenzyme Q10 50 mg chewable tablet 100 mg PO DAILY supplement 02/03/22 [History Last Taken Unknown] wheat dextrin 3 gram/3.5 gram oral powder (Best Fiber) 1 packet PO DAILY bowels 02/03/22 [History Last Taken 05/03/22] carvedilol 3.125 mg tablet 3.125 mg PO BID #60 tabs 04/22/22 [Rx Last Taken Unknown] enoxaparin 100 mg/mL subcutaneous syringe mg 05/03/22 [History Last Taken Unknown] ferrous sulfate 325 mg (65 mg iron) tablet (Iron (ferrous sulfate)) 65 mg PO DAILY 05/04/22 [History Last Taken Unknown] Allergy/AdvReac Type Severity Reaction Status Date / Time No Known Allergies Allergy Verified 05/04/22 00:14 Family History Father Diabetes Brother Cancer Prostate cancer Surgical History History of left hip replacement History of nasal surgery History of right-sided carotid endarterectomy Hx of left cataract extraction Hx of total hip arthroplasty S/P implantation of automatic cardioverter/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 (AICD) Social History Smoking Status: Former smoker how long ago did patient quit smokin alcohol intake: current alcohol intake frequency: holidays/special occasions only Alcohol type: wine substance use type: does not use caffeine: Yes Type: tea Number of servings: 1 what type of physical activity do you participate in: 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: [place] frequency: 5-6 times per week duration: 30-45 minutes/day seatbelt use: always do you feel safe at home: Yes ROS Constitutional Constitutional: Reports systems reviewed and no addt'l complaints, except as documented Eyes Eyes: Reports systems reviewed and no addt'l complaints, except as documented ENT HEENT: Reports systems reviewed and no addt'l complaints, except as documented Cardiovascular Cardiovascular: Reports systems reviewed and no addt'l complaints, except as documented Respiratory/Chest Respiratory/Chest: Reports systems reviewed and no addt'l complaints, except as documented Gastrointestinal Gastrointestinal: Reports systems reviewed and no addt'l complaints, except as documented Genitourinary Genitourinary: Reports systems reviewed and no addt'l complaints, except as documented Musculoskeletal Musculoskeletal: Reports systems reviewed and no addt'l complaints, except as documented Integumentary Integumentary: Reports systems reviewed and no addt'l complaints, except as documented Neurologic Neurologic: Reports systems reviewed and no addt'l complaints, except as documented Psychiatric Psychiatric: Reports systems reviewed and no addt'l complaints, except as documented Endocrine Endocrinology: Reports systems reviewed and no addt'l complaints, except as documented Vital Signs Vital Signs Vital Signs: 05/05/22 16:20 05/05/22 17:29 05/05/22 21:42 Temperature 98.2 F 97.5 F L Temperature Source Oral Oral Pulse Rate 67 65 Respiratory Rate 16 18 Respiratory Effort Normal Respiratory Depth Normal Respiratory Pattern Blood Pressure 118/69 155/82 H Blood Pressure Mean 85 106 Blood Pressure Source Monitor Monitor Blood Pressure Position Semi-Fowlers Semi-Fowlers Blood Pressure Location Left Arm Left Arm Pulse Ox 98 93 Oxygen Delivery Method Room Air Room Air Room Air 05/06/22 04:00 05/06/22 08:28 05/06/22 08:30 Temperature 99.3 F H 97.7 F L Temperature Source Temporal Oral Pulse Rate 61 71 Respiratory Rate 18 16 Respiratory Effort Normal Respiratory Depth Normal Respiratory Pattern Normal Blood Pressure 151/74 H 160/100 H Blood Pressure Mean 99 120 Blood Pressure Source Monitor Monitor Blood Pressure Position Semi-Fowlers Semi-Fowlers Blood Pressure Location Left Arm Left Arm Pulse Ox 95 100 Oxygen Delivery Method Room Air Room Air Room Air Weight Weight: 224 lb 10.417 oz Body Mass Index (BMI) 33.1 Physical Exam Const alert, oriented x3 and no apparent distress General Appearance: cooperative HEENT normocephalic Eyes PERRL Neck No no JVD General: trachea midline Lymph Lymphatic: Negative for lymphedema Resp normal respiratory effort Cardio Cardio Narrative: Regular pulse rate GI non-distended Extremity Extremity Narrative: Left lower extremity: Tenderness palpation around the lesser trochanter. Minimal tenderness palpation at the greater trochanter. Previous incision is well-healed no erythema. No erythema or increased warmth around the thigh. No excessive swelling around the thigh. Neuro vas intact distally with sensation intact light touch saphenous, sural, superficial peroneal, tibial and sural nerve distributions. 5 out of 5 dorsiflexion EHL plantar flexion. Patient has pain with active flexion of the hip. Passively he allows me to flex the hip to 80 degrees however when I allow gravity to bring the leg back down his resistance recreates groin pain. No pain with logroll. Skin no rashes or lesions noted Neuro CN's II-XII intact bilaterally Psych affect normal Medical Records Data Attestation: I reviewed the patient's medical records Lab / Micro Data Attestation: I reviewed the patient's lab results. Result Diagrams: 05/04/22 04:20 05/04/22 04:20 Labs: ESR 3, CRP 3.41 Previous x-rays from May [address] scan from May 01 were reviewed s howing no acute fractures or bony lesions. No evidence of iliopsoas abscess or localized fluid collection or effusion. X-rays show left total hip is stable well aligned without dissociation of constrained liner. Assessment & Plan Assessment/Plan (1) Acute pain of left hip: PLAN: Patient has an acute increase in left hip pain after total hip replacement. He has had 3 years without symptoms. His infection work-up is ne gative at this time. Additional considerations would be iliopsoas abscess however with relatively normal infection lab work and stable vital signs at this time I do not feel a repeat CT scan is necessary as he had one 2 days prior to presentation to the hospital with out evidence of abscess fluid collection. He appears to have hip flexor or iliopsoas tendinopathy based on my physical examination. At this time I would recommend we continue with physical therapy he will likely need inpatient rehabilitation based on his physical therapy notes from today requiring therapy at least 4 times a week. Patient can remain weightbearing as tolerated. I would recommend some form of steroid treatment. Either oral steroid taper pack or consider a loading dose of IV steroids to help settle any tendinopathy's acutely occurring. I would like to see the patient in the office in 2 weeks to evaluate his response to rehabilitation and oral steroids. Can also consider further imaging or iliopsoas corticosteroid injections at that time. [facility] Office:
--- NOTE | 2022-05-06 14:39 | PN.HOSP_ITS ---
Subjective Subjective Follow-up on left hip pain: Patient was seen and examined. He complains of severe left hip pain especially on movement. Discussed with Dr Fisher, will try on steroids and therapy and re- evaluate. Has any fever or chills. Objective Data Objective Data Vital Signs: Vital Signs Temp Pulse Resp BP Pulse Ox O2 Del Method 97.7 F L 71 16 160/100 H 100 Room Air 05/06/22 08:28 05/06/22 08:28 05/06/22 08:28 05/06/22 08:28 05/06/22 08:28 05/06/22 08:30 Oxygen Delivery Method Room Air Weight: 101.9 kg Body Mass Index (BMI) 33.1 Intake & Output: Intake and Output for Last 24 Hours 05/04/22 05/05/22 05/06/22 23:59 23:59 23:59 Intake Total 790 / 790 700 / 1200 560 / 560 Output Total 450 / 750 800 / 1200 575 / 575 Balance 340 / 40 -100 / 0 -15 / -15 Lab / Micro Data Result Diagrams: 05/04/22 04:20 05/04/22 04:20 Physical Exam Narrative Physical exam: General: Alert, Oriented x3, Cooperative, in mild pain HEENT: Atraumatic Oral: Moist Mucosa Neck: Supple Lungs: Diminished to auscultation Cardiovascular: HS I+II, regular, no murmurs Abdomen: Bowel Sounds Present, Soft, Non Tender Extremities: No edema, tenderness over the left hip Skin: No rashes, No breakdown Neurological: Grossly intact Psych/Mental Status: Appropriate Assessment & Plan Assessment/Plan (1) Hip pain, left: PLAN: Plan 1. Acute left hip pain, pain is persistent with ambulation Continue on scheduled Tylenol and as needed oxycodone History of the hip showed bilateral total hip arthroplasty with normal alignment Discussed with orthopedics, will start on Medrol Dosepak, physical therapy We will recheck ESR and CRP 2. Hypercoagulable state, h/o DVT/PE, h/o MTHFR Continue therapeutic Lovenox 3. History of nonischemic cardiomyopathy with previous AICD placement/Hypertension 4. DVT prophylaxis - on therapeutic Lovenox Charges/Coding Visit Charges Inpatient E&M: 71337 Subs Hosp L3
[2022-05-06 14:42] VITALS: BP 132/72; PULSE 72; RESP 16; TEMP 36.4; O2SAT 94
[2022-05-06] MEDS: Acetaminophen 500 MG Tablet 1000 MG PO ×2 (15:04→20:49)
[2022-05-06 15:14] LABS: Absolute Lymphocyte Count 0.92 X10^3/uL (0.83-4.51); Absolute Neutrophil Count 4.3 X10^3/uL (2.0-7.7); Basophil# 0.01 X10^3/uL; Basophil% 0.2 % (0-1); Eosinophil# 0.17 X10^3/uL; Eosinophils% 2.8 % (0-5); Hematocrit 36.2 % (40-54); Hemoglobin 11.7 g/dL (13.0-16.5); Lymphocyte # 0.92 X10^3/ul (0.83-4.51); Lymphocyte % 15.3 % (19-41); Mean Corp Hgb Conc 32.3 g/dL (32-36); Mean Corpuscular Hgb 29.1 pg (27.0-32.0); Mean Platelet Vol. 10.3 fl (6.2-12.0); Monocyte# 0.63 X10^3/uL; Monocyte% 10.5 % (0-10); NRBC Flagged by Analyzer 0 % (0-5); Neutrophil # 4.27 X10^3/uL (2.7-7.7); Neutrophil % 70.9 % (47-70); Platelet Count 136 K/mm3 (150-450); RBC Distribution Width CV 14.6 % (11.6-14.6); Red Blood Count 4.02 M/mm3 (4.6-6.2)
[2022-05-06 15:18] LABS: Erythrocyte Sedimentation Rate 19 mm/hr (0-20)
[2022-05-06 15:46] LABS: ALB/GLOB Ratio 0.8 RATIO (0.9-2.4); AST(SGOT) 62 U/L (15-37); Alanine Aminotransfer ALT/SGPT 72 U/L (16-61); Albumin, Serum 2.9 g/dL (3.2-5.0); Alkaline Phosphatase 72 U/L (45-117); Anion Gap 5 (5-15); BUN 16 mg/dL (7-18); BUN/Creat Ratio 14.4 RATIO (10-20); Calcium,Total 8.6 mg/dL (8.5-10.1); Chloride 104 mmol/L (98-107); Creatinine, Serum 1.11 mg/dL (0.70-1.30); EST Glomerular Filtration Rate 67 mL/min (>60); Est Glom Filt Rate - Afr Amer 81 mL/min (>60); Estimated Creatinine Clearance 47.77 ml/min; Globulin 3.8 g/dL (2.2-4.2); Glucose 127 mg/dL (74-106); Protein, Total 6.7 g/dL (6.4-8.2); Sodium Level 138 mmol/L (136-145)
--- NOTE | 2022-05-06 16:07 | CASEMGMT ---
Social work SW in to check with pt about discharge plan. Discussed Dr. Fisher's report and suggestion for SNF placement for pt to get rehab. Pt finally agreeable but stated SW would have to discuss SNF choices with . SW called pt . Left message requesting a call back, with SW contact information. PLAN: SNF, pending choice [facility]
[2022-05-06 16:44] VITALS: BP 146/85; PULSE 73; RESP 18; O2SAT 94
[2022-05-06] MEDS: MethylPREDNISolone DosePak 4 MG BOX PO ×2 (16:46→20:46)
[2022-05-06 20:42] VITALS: BP 150/86; PULSE 70; RESP 17; TEMP 36.4; O2SAT 93
[2022-05-07 02:45] VITALS: BP 137/82; PULSE 73; RESP 18; TEMP 36.4; O2SAT 94
[2022-05-07] MEDS: Acetaminophen 500 MG Tablet 1000 MG PO ×3 (05:27→21:07)
[2022-05-07 07:36] VITALS: BP 158/78; PULSE 64; RESP 16; TEMP 36.6; O2SAT 96
[2022-05-07] MEDS: Carvedilol 3.125 MG TABLET PO ×2 (08:43→16:55)
[2022-05-07] MEDS: Senna/Docusate Sodium 1 Tablet 2 TABLET PO (08:43)
[2022-05-07] MEDS: Finasteride 5 MG Tablet PO (08:43)
[2022-05-07] MEDS: MethylPREDNISolone DosePak 4 MG BOX PO ×4 (08:43→21:06)
[2022-05-07] MEDS: Ferrous Sulfate 325 MG Tablet PO (08:44)
[2022-05-07] MEDS: Enoxaparin 100 MG/ML Syringe SC ×2 (08:44→21:06)
--- NOTE | 2022-05-07 08:53 | CASEMGMT ---
Social Work SW in to speak to pt and . Discussed discharge plan. SW explained that TCU does have bed available for pt as pt was on waiting list and bed opened. Pt accepting of TCU bed. SW informed Scar[facility] of pt acceptance for TCU. Scarlett explained that due to pt not participating in PT yesterday that PT session would be needed this AM for precert to be submitted. LAURO explained to pt that pt needs to participate in therapy for insurance authorization to be started. Pt agreeable, stated was in severe pain yesterday and could not move but willing to work with therapy today. LAURO updated PT speech and language assistant of situation and PT speech and language assistant stated PT would see pt as soon as possible this morning. PLAN: TCU, pending precert [facility]
--- NOTE | 2022-05-07 10:35 | CASEMGMT ---
Social Work SW in to notify pt and pt that insurance precert has been started for TCU. Explained news of approval may take 24-48 hours or sooner/longer depending on insurance company response time. Both voiced understanding. PLAN: TCU, pending precert. [facility]
[2022-05-07 14:19] VITALS: BP 125/75; PULSE 73; RESP 16; TEMP 36.3; O2SAT 95
--- NOTE | 2022-05-07 14:32 | PCM.PN.HOSP ---
Subjective Subjective Follow-up on left hip pain: Patient was seen and examined. No acute events overnight. His pain is mildly improved; discussed with social work/case management, awaiting on discharge planning to longterm facility Objective Data Objective Data Vital Signs: Vital Signs Temp Pulse Resp BP Pulse Ox O2 Del Method 97.4 F L 73 16 125/75 H 95 Room Air 05/07/22 14:19 05/07/22 14:19 05/07/22 14:19 05/07/22 14:19 05/07/22 14:19 05/07/22 14:19 Oxygen Delivery Method Room Air Weight: 101.9 kg Body Mass Index (BMI) 33.1 Intake & Output: Intake and Output for Last 24 Hours 05/05/22 05/06/22 05/07/22 23:59 23:59 23:59 Intake Total 700 / 1200 560 / 860 700 / 700 Output Total 800 / 1200 575 / 825 1000 / 1000 Balance -100 / 0 -15 / 35 -300 / -300 Lab / Micro Data Result Diagrams: 05/06/22 15:00 05/06/22 15:00 Labs: Laboratory Results - last 24 hr 05/06/22 15:00: WBC 6.0, RBC 4.02 L, Hgb 11.7 L, Hct 36.2 L, MCV 90.0, MCH 29.1, MCHC 32.3, RDW Std Deviation 48.0 H, RDW Coeff of Michael 14.6, Plt Count 136 L, MPV 10.3, Immature Gran % (Auto) 0.300, Neut % (Auto) 70.9 H, Lymph % (Auto) 15.3 L, [place] % (Auto) 10.5 H, Eos % (Auto) 2.8, Baso % (Auto) 0.2, Absolute Neuts (auto) 4.3, Absolute Lymphs (auto) 0.92, Nucleated RBC % 0 05/06/22 15:00: Sodium 138, Potassium 4.0, Chloride 104, Carbon Dioxide 29.0, Anion Gap 5, BUN 16, Creatinine 1.11, Estim Creat Clear Calc 47.77, Est GFR (MDRD) Af Amer 81, Est GFR (MDRD) Non-Af 67, BUN/Creatinine Ratio 14.4, Glucose 127 H, Calcium 8.6, Total Bilirubin 0.60, AST 62 H, ALT 72 H, Alkaline Phosphatase 72, Total Protein 6.7, Albumin 2.9 L, Globulin 3.8, Albumin/Globulin Ratio 0.8 L 05/06/22 15:00: ESR 19 05/06/22 15:00: C-React Prot Ext Range 24.00 H Physical Exam Narrative Physical exam: General: Alert, Oriented x3, Cooperative, in mild pain HEENT: Atraumatic Oral: Moist Mucosa Neck: Supple Lungs: Diminished to auscultation Cardiovascular: HS I+II, regular, no murmurs Abdomen: Bowel Sounds Present, Soft, Non Tender Extremities: No edema, tenderness over the left hip Skin: No rashes, No breakdown Neurological: Grossly intact Psych/Mental Status: Appropriate Assessment & Plan Assessment/Plan (1) Hip pain, left: PLAN: Plan 1. Acute left hip pain, started on prednisone taper Continue on scheduled Tylenol and as needed oxycodone History of the hip showed bilateral total hip arthroplasty with normal alignment Continue with PT/OT. Orthopedic follow-up planned in the outpatient 2. Hypercoagulable state, h/o DVT/PE, h/o MTHFR Continue therapeutic Lovenox 3. History of nonischemic cardiomyopathy with previous AICD placement/Hypertension 4. DVT prophylaxis - on therapeutic Lovenox Charges/Coding Visit Charges Inpatient E&M: 76520 Subs Hosp L2
[2022-05-07 21:04] VITALS: BP 128/71; PULSE 60; RESP 17; TEMP 36.3; O2SAT 94
[2022-05-07] MEDS: oxyCODONE 5 MG Tablet PO (21:52)
[2022-05-08 03:00] VITALS: BP 120/70; PULSE 65; RESP 18; TEMP 36.4; O2SAT 94
[2022-05-08] MEDS: Acetaminophen 500 MG Tablet 1000 MG PO ×3 (05:56→20:48)
[2022-05-08 07:50] VITALS: BP 154/84; PULSE 66; RESP 16; TEMP 36.7; O2SAT 94
[2022-05-08] MEDS: Enoxaparin 100 MG/ML Syringe SC ×2 (08:32→20:48)
[2022-05-08] MEDS: Carvedilol 3.125 MG TABLET PO ×2 (08:32→16:45)
[2022-05-08] MEDS: MethylPREDNISolone DosePak 4 MG BOX PO ×4 (08:32→20:49)
[2022-05-08] MEDS: Finasteride 5 MG Tablet PO (08:34)
[2022-05-08] MEDS: Ferrous Sulfate 325 MG Tablet PO (08:34)
[2022-05-08 09:24] LABS: Erythrocyte Sedimentation Rate 17 mm/hr (0-20)
[2022-05-08 09:25] LABS: Absolute Lymphocyte Count 1.25 X10^3/uL (0.83-4.51); Absolute Neutrophil Count 4.8 X10^3/uL (2.0-7.7); Basophil# 0.01 X10^3/uL; Basophil% 0.1 % (0-1); Eosinophil# 0.02 X10^3/uL; Eosinophils% 0.3 % (0-5); Hematocrit 35.5 % (40-54); Hemoglobin 11.2 g/dL (13.0-16.5); Lymphocyte # 1.25 X10^3/ul (0.83-4.51); Lymphocyte % 18.7 % (19-41); Mean Corp Hgb Conc 31.5 g/dL (32-36); Mean Corpuscular Hgb 28.8 pg (27.0-32.0); Mean Corpuscular Volume 91.3 fL (80-94); Mean Platelet Vol. 10.7 fl (6.2-12.0); Monocyte# 0.63 X10^3/uL; Monocyte% 9.4 % (0-10); NRBC Flagged by Analyzer 0 % (0-5); Neutrophil # 4.76 X10^3/uL (2.7-7.7); Neutrophil % 71.1 % (47-70); Platelet Count 162 K/mm3 (150-450); Red Blood Count 3.89 M/mm3 (4.6-6.2); White Blood Count 6.7 K/mm3 (4.4-11.0)
[2022-05-08 09:35] LABS: ALB/GLOB Ratio 0.8 RATIO (0.9-2.4); AST(SGOT) 44 U/L (15-37); Alanine Aminotransfer ALT/SGPT 53 U/L (16-61); Albumin, Serum 2.9 g/dL (3.2-5.0); Alkaline Phosphatase 70 U/L (45-117); Anion Gap 7 (5-15); BUN 23 mg/dL (7-18); BUN/Creat Ratio 20.9 RATIO (10-20); Calcium,Total 8.8 mg/dL (8.5-10.1); Chloride 102 mmol/L (98-107); EST Glomerular Filtration Rate 67 mL/min (>60); Est Glom Filt Rate - Afr Amer 81 mL/min (>60); Globulin 3.8 g/dL (2.2-4.2); Glucose 111 mg/dL (74-106); Potassium 4.1 mmol/L (3.5-5.1); Protein, Total 6.7 g/dL (6.4-8.2); Sodium Level 137 mmol/L (136-145)
--- NOTE | 2022-05-08 11:20 | PN.HOSP_ITS ---
Subjective Subjective Follow-up on left hip pain: Patient was seen and examined. Patient stated his pain is fairly controlled except when he moves. No acute events overnight. Objective Data Objective Data Vital Signs: Vital Signs Temp Pulse Resp BP Pulse Ox O2 Del Method 98.0 F 66 16 154/84 H 94 Room Air 05/08/22 07:50 05/08/22 07:50 05/08/22 07:50 05/08/22 07:50 05/08/22 07:50 05/08/22 07:50 Oxygen Delivery Method Room Air Weight: 101.9 kg Body Mass Index (BMI) 33.1 Intake & Output: Intake and Output for Last 24 Hours 05/06/22 05/07/22 05/08/22 23:59 23:59 23:59 Intake Total 560 / 860 1350 / 1500 500 / 500 Output Total 575 / 825 1450 / 1650 800 / 800 Balance -15 / 35 -100 / -150 -300 / -300 Lab / Micro Data Result Diagrams: 05/08/22 08:15 05/08/22 08:15 Labs: Laboratory Results - last 24 hr 05/08/22 08:15: WBC 6.7, RBC 3.89 L, Hgb 11.2 L, Hct 35.5 L, MCV 91.3, MCH 28.8, MCHC 31.5 L, RDW Std Deviation 50.0 H, RDW Coeff of Michael 15.0 H, Plt Count 162, MPV 10.7, Immature Gran % (Auto) 0.400, Neut % (Auto) 71.1 H, Lymph % (Auto) 18.7 L, [place] % (Auto) 9.4, Eos % (Auto) 0.3, Baso % (Auto) 0.1, Absolute Neuts (auto) 4.8, Absolute Lymphs (auto) 1.25, Nucleated RBC % 0, ESR 17 05/08/22 08:15: Sodium 137, Potassium 4.1, Chloride 102, Carbon Dioxide 28.0, Anion Gap 7, BUN 23 H, Creatinine 1.10, Estim Creat Clear Calc 48.20, Est GFR (MDRD) Af Amer 81, Est GFR (MDRD) Non-Af 67, BUN/Creatinine Ratio 20.9 H, Glucose 111 H, Calcium 8.8, Total Bilirubin 0.50, AST 44 H, ALT 53, Alkaline Phosphatase 70, C-React Prot Ext Range 20.40 H, Total Protein 6.7, Albumin 2.9 L , Globulin 3.8, Albumin/Globulin Ratio 0.8 L Physical Exam Narrative Physical exam: General: Alert, Oriented x3, Cooperative HEENT: Atraumatic Oral: Moist Mucosa Neck: Supple Lungs: Diminished to auscultation Cardiovascular: HS I+II, regular, no murmurs Abdomen: Bowel Sounds Present, Soft, Non Tender Extremities: No edema, tenderness over the left hip Skin: No rashes, No breakdown Neurological: Grossly intact Psych/Mental Status: Appropriate Assessment & Plan Assessment/Plan (1) Hip pain, left: PLAN: Plan 1. Acute left hip pain, slowly improving, continue on prednisone taper Continue on scheduled Tylenol and as needed oxycodone History of the hip showed bilateral total hip arthroplasty with normal alignment Continue with PT/OT. Orthopedic follow-up planned in the outpatient 2. Hypercoagulable state, h/o DVT/PE, h/o MTHFR Continue therapeutic Lovenox 3. History of nonischemic cardiomyopathy with previous AICD placement/Hypertension 4. DVT prophylaxis - on therapeutic Lovenox Awaiting on discharge planning Charges/Coding Visit Charges Inpatient E&M: 62879 Subs Hosp L2
[2022-05-08] MEDS: oxyCODONE 5 MG Tablet PO ×2 (12:20→16:45)
[2022-05-08 13:53] VITALS: BP 141/59; PULSE 64; RESP 18; TEMP 36.9; O2SAT 99
[2022-05-08] MEDS: oxyCODONE 5 MG Tablet 2.5 MG PO (14:39)
--- NOTE | 2022-05-08 16:32 | RAD_ITS ---
INDICATION: pain -- 2 viewed left hip.. EXAMINATION/TECHNIQUE: X-RAY - LEFT XR Hip Unilateral with Pelvis when performed; 2-3 Views 2 VIEWS COMPARISON: 05/03/2022 FINDINGS: SOFT TISSUES: No soft tissue swelling or gas. No radiopaque foreign body. BONES/JOINTS: LEFT hip arthroplasty is noted, there is normal alignment no fracture or hardware failure. Visualized pelvic ring is intact. RAD/Hip Min 2 Views (Portable) IMPRESSION: 1. Stable exam, LEFT hip arthroplasty without change in alignment. No fractures or hardware failure noted. Electronically Signed: Raymond Hull MD at 17:46 EST ,
[2022-05-08 16:45] VITALS: BP 151/74; PULSE 65; RESP 16; TEMP 36.2; O2SAT 96
[2022-05-08 20:27] VITALS: BP 140/69; PULSE 62; RESP 18; TEMP 36.3; O2SAT 94
[2022-05-08] MEDS: Morphine 2 MG/ML Syringe IV (20:30)
[2022-05-08 22:38] VITALS: BP 132/75; PULSE 72; RESP 18; TEMP 36.5; O2SAT 95
--- NOTE | 2022-05-08 22:44 | NURSING ---
Patient called this RN into room requesting pain medication. Whatever you gave me before didn't help. [This RN had checked on him at 2224 and he was resting with his eyes closed.] He rated his pain a 3/10 and wanted something. His face was relaxed and appeared comfortable. This RN had given him Morphine 2 mg at 2029 and Tylenol 1000 mg at 2047. At that time he rated his pain at 8/10 and had facial grimacing. This RN told patient that I cannot give him narcotics for a pain of 3/10. This RN suggested that he rest and see if that helps. Ok, I can do that, I'll call you and you can come back if it gets worse.
[2022-05-09 05:04] VITALS: BP 145/72; PULSE 69; RESP 18; TEMP 36.3; O2SAT 93
[2022-05-09] MEDS: oxyCODONE 5 MG Tablet PO (05:10)
[2022-05-09] MEDS: Acetaminophen 500 MG Tablet 1000 MG PO ×3 (05:10→21:41)
[2022-05-09] MEDS: 0.9% Saline Lock 10 ML Syringe IV ×2 (05:12→21:42)
--- NOTE | 2022-05-09 07:26 | PN.HOSP_ITS ---
Subjective Subjective Follow-up on left hip pain: Patient was seen and examined. Patient had severe left hip pain last night, worse with ambulation. X-ray of the hip was unremarkable. CT of the pelvis and hip today showed a large retroperitoneal hematoma. Patient's care has been discussed with orthopedics, hematology, vascular surgery and general surgery. Objective Data Objective Data Vital Signs: Vital Signs Temp Pulse Resp BP Pulse Ox O2 Del Method 97.4 F L 69 18 145/72 H 93 Room Air 05/09/22 05:04 05/09/22 05:04 05/09/22 05:04 05/09/22 05:04 05/09/22 05:04 05/09/22 05:04 Oxygen Delivery Method Room Air Weight: 101.9 kg Body Mass Index (BMI) 33.1 Intake & Output: Intake and Output for Last 24 Hours 05/07/22 05/08/22 05/09/22 23:59 23:59 23:59 Intake Total 1350 / 1500 1200 / 1200 500 / 500 Output Total 1450 / 1650 1925 / 1925 400 / 400 Balance -100 / -150 -725 / -725 100 / 100 Lab / Micro Data Result Diagrams: 05/09/22 10:56 05/09/22 10:56 Labs: Laboratory Results - last 24 hr 05/08/22 08:15: WBC 6.7, RBC 3.89 L, Hgb 11.2 L, Hct 35.5 L, MCV 91.3, MCH 28.8, MCHC 31.5 L, RDW Std Deviation 50.0 H, RDW Coeff of Michael 15.0 H, Plt Count 162, MPV 10.7, Immature Gran % (Auto) 0.400, Neut % (Auto) 71.1 H, Lymph % (Auto) 18.7 L, [place] % (Auto) 9.4, Eos % (Auto) 0.3, Baso % (Auto) 0.1, Absolute Neuts (auto) 4.8, Absolute Lymphs (auto) 1.25, Nucleated RBC % 0, ESR 17 05/08/22 08:15: Sodium 137, Potassium 4.1, Chloride 102, Carbon Dioxide 28.0, Anion Gap 7, BUN 23 H, Creatinine 1.10, Estim Creat Clear Calc 48.20, Est GFR (MDRD) Af Amer 81, Est GFR (MDRD) Non-Af 67, BUN/Creatinine Ratio 20.9 H, Glucose 111 H, Calcium 8.8, Total Bilirubin 0.50, AST 44 H, ALT 53, Alkaline Phosphatase 70, C-React Prot Ext Range 20.40 H, Total Protein 6.7, Albumin 2.9 L , Globulin 3.8, Albumin/Globulin Ratio 0.8 L Radiography Diagnostic Testing: Radiology Impression Hip X-Ray 05/08/22 16:32 IMPRESSION: 1. Stable exam, LEFT hip arthroplasty without change in alignment. No fractures or hardware failure noted. Electronically Signed: Raymond Hull MD at 17:46 EST , Physical Exam Narrative Physical exam: General: Alert, Oriented x3, Cooperative HEENT: Atraumatic Oral: Moist Mucosa Neck: Supple Lungs: Diminished to auscultation Cardiovascular: HS I+II, regular, no murmurs Abdomen: Bowel Sounds Present, Soft, Non Tender Extremities: No edema, severe tenderness over the left hip Skin: No rashes, No breakdown Neurological: Grossly intact Psych/Mental Status: Appropriate Assessment & Plan Assessment/Plan (1) Hip pain, left: PLAN: Plan 1. 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 Discussed with interventional radiology, patient's hematoma is within the iliopsoas musculature, not amenable to aspiration Discussed with hematology and vascular surgery as well as general surgery; recommend stopping anticoagulation, repeating CT of the pelvis on Thursday to follow-up on the hematoma, covering patient with Lovenox prophylactic dosing for DVT prophylaxis Continue on scheduled Tylenol and as needed oxycodone We will continue to monitor patient in the hospital 2. Hypercoagulable state, h/o DVT/PE, h/o MTHFR We will continue to monitor off anticoagulation 3. History of nonischemic cardiomyopathy with previous AICD plac ement/Hypertension 4. DVT prophylaxis -prophylactic Lovenox Charges/Coding Visit Charges In[facility] E[facility]M: 63[facility]
[2022-05-09] MEDS: MethylPREDNISolone DosePak 4 MG BOX PO (07:50)
[2022-05-09] MEDS: Carvedilol 3.125 MG TABLET PO ×2 (07:51→17:50)
[2022-05-09 07:52] VITALS: BP 150/83; PULSE 74; RESP 18; TEMP 37.1; O2SAT 95
[2022-05-09 08:36] VITALS: O2SAT 94
--- NOTE | 2022-05-09 08:37 | CT_ITS ---
STUDY: CT PELVIS WITH CONTRAST REASON FOR EXAM: Male, 86 years old. Persistent left hip pain RADIATION DOSAGE (If Supplied By Facility): CTDIvol = ( 27.30 ) mGy, DLP = ( 917.27 ) mGycm TECHNIQUE: Transaxial imaging of the pelvis was performed without oral contrast. IV 100mL Isovue-300 was administered intravenously. Multiplanar coronal and sagittal images were reformatted. Individualized dose optimization techniques were used for this CT. COMPARISON: X-ray May 08, 2022 FINDINGS: Normal urinary bladder. There is ill-defined enlargement of the left iliopsoas musculature consistent with retroperitoneal hematoma. Normal visualized small intestine. Normal visualized colon. There is no pelvic fluid. There is no pelvic lymphadenopathy. There is diffuse atherosclerotic calcification of the pelvic arteries. There is IVC filter. There are small periumbilical hernia containing fat. There is degenerative change of the visualized lower lumbar spine. There are bilateral hip replacements. CT/Pelvis WITH IV Contrast IMPRESSION: Left retroperitoneal hematoma. Bilateral hip replacements. Electronically Signed: Umesh Thomas MD at 9:54 EST ,
[2022-05-09] MEDS: Enoxaparin 100 MG/ML Syringe SC (10:10)
[2022-05-09] MEDS: Ferrous Sulfate 325 MG Tablet PO (10:11)
[2022-05-09] MEDS: Finasteride 5 MG Tablet PO (10:11)
[2022-05-09] MEDS: Senna/Docusate Sodium 1 Tablet 2 TABLET PO (10:11)
[2022-05-09] MEDS: 0.9% Normal Saline 1,000 ML 75 ML IV (10:12)
[2022-05-09 11:13] LABS: Basophil# 0.02 X10^3/uL; Basophil% 0.3 % (0-1); Eosinophil# 0.03 X10^3/uL; Eosinophils% 0.5 % (0-5); Hemoglobin 11.2 g/dL (13.0-16.5); Lymphocyte % 10.8 % (19-41); Mean Corp Hgb Conc 32.9 g/dL (32-36); Mean Corpuscular Hgb 29.9 pg (27.0-32.0); Mean Corpuscular Volume 90.9 fL (80-94); Mean Platelet Vol. 10.2 fl (6.2-12.0); Monocyte# 0.69 X10^3/uL; Monocyte% 10.6 % (0-10); NRBC Flagged by Analyzer 0 % (0-5); Neutrophil # 5.02 X10^3/uL (2.7-7.7); Neutrophil % 77.3 % (47-70); Platelet Count 144 K/mm3 (150-450); RBC Distribution Width CV 14.9 % (11.6-14.6); RBC Distribution Width SD 49.8 fl (35.1-43.9); Red Blood Count 3.74 M/mm3 (4.6-6.2); White Blood Count 6.5 K/mm3 (4.4-11.0)
--- NOTE | 2022-05-09 11:14 | PCM.PN.ORT ---
Subjective Subjective Patient's left thigh pain continue to worsen. He did have some worsening inflammatory labs. Serial ESR did jump to 19 and then remained at 17. Serial CRP did jump to 24 and then remained at 20. With increasing pain and burning in the left thigh anteriorly medicine recontacted me and I recommended further imaging to see if patient has a fluid collection which could be amenable to aspiration to rule out hip infection. I did reexamine the patient today. He does have some burning sensation in the lateral femoral cutaneous nerve distribution. He continues to have pain with hip flexion. Patient does have an IVC filter. He recently had a DVT in the left lower extremity and was placed back on anticoagulation. He appears to have had issues with Eliquis anticoagulation in the past. He is currently on Lovenox. Objective Data Objective Data Vital Signs: Vital Signs Temp Pulse Resp BP Pulse Ox O2 Del Method 98.8 F 74 18 150/83 H 94 Room Air 05/09/22 07:52 05/09/22 07:52 05/09/22 07:52 05/09/22 07:52 05/09/22 08:36 05/09/22 10:51 Oxygen Delivery Method Room Air Weight: 224 lb 10.417 oz Body Mass Index (BMI) 33.1 Intake & Output: Intake and Output for Last 24 Hours 05/07/22 05/08/22 05/09/22 23:59 23:59 23:59 Intake Total 1350 / 1500 1200 / 1200 500 / 500 Output Total 1450 / 1650 1925 / 1925 400 / 400 Balance -100 / -150 -725 / -725 100 / 100 Lab / Micro Data Attestation: I reviewed the patient's lab results. Result Diagrams: 05/09/22 10:56 05/08/22 08:15 Labs: Laboratory Results - last 24 hr 05/09/22 10:56: WBC 6.5, RBC 3.74 L, Hgb 11.2 L, Hct 34.0 L, MCV 90.9, MCH 29.9, MCHC 32.9, RDW Std Deviation 49.8 H, RDW Coeff of Michael 14.9 H, Plt Count 144 L, MPV 10.2, Immature Gran % (Auto) 0.500, Neut % (Auto) 77.3 H, Lymph % (Auto) 10.8 L, [place] % (Auto) 10.6 H, Eos % (Auto) 0.5, Baso % (Auto) 0.3, Absolute Neuts (auto) 5.0, Absolute Lymphs (auto) 0.70 L, Nucleated RBC % 0 Radiography Diagnostic Testing: Radiology Impression Hip X-Ray 05/08/22 16:32 IMPRESSION: 1. Stable exam, LEFT hip arthroplasty without change in alignment. No fractures or hardware failure noted. Electronically Signed: Raymond Hull MD at 17:46 EST , Pelvis CT 05/09/22 08:37 IMPRESSION: Left retroperitoneal hematoma. Bilateral hip replacements. Electronically Signed: Umesh Thomas MD at 9:54 EST , Physical Exam Const alert and oriented x3 Resp normal respiratory effort Extremity Extremity Narrative: Left lower extremity: Pain reproduced with hip flexion actively and passively. Burning sensation in the lateral femoral cutaneous nerve distribution thigh is soft and supple. Assessment & Plan Assessment/Plan (1) Acute pain of left hip: PLAN: Patient has an acute increase in left hip pain after total hip replacement. Imaging was reviewed with the primary service and patient. At this time, it would appear he has a progressive retroperitoneal hematoma which is causing iliopsoas and lateral femoral cutaneous nerve pain and irritation. Recommended consultation with infectious disease or interventional radiology if appropriate to potentially drain the area however patient has numerous risk factors for increased bleeding associated with his current need for Lovenox. Additionally he has been placed on Lovenox recently due to a DVT. He does have an IVC filter. At this point I do not feel any significant orthopedic intervention is recommended however, I should be contacted for any questions or concerns moving forward related to the hip joint itself. Unfortunately, this is a intra-abdominal process which beyond recommendations for percutaneous drainage would be outside of my scope of practice. Please contact me for any further questions or concerns regarding this patient. NISHA [facility] Office:
[2022-05-09 11:42] LABS: ALB/GLOB Ratio 0.8 RATIO (0.9-2.4); AST(SGOT) 78 U/L (15-37); Alanine Aminotransfer ALT/SGPT 57 U/L (16-61); Albumin, Serum 2.9 g/dL (3.2-5.0); Alkaline Phosphatase 70 U/L (45-117); Anion Gap 4 (5-15); BUN 21 mg/dL (7-18); BUN/Creat Ratio 18.8 RATIO (10-20); Calcium,Total 8.4 mg/dL (8.5-10.1); Chloride 101 mmol/L (98-107); Creatinine, Serum 1.12 mg/dL (0.70-1.30); EST Glomerular Filtration Rate 66 mL/min (>60); Est Glom Filt Rate - Afr Amer 80 mL/min (>60); Estimated Creatinine Clearance 47.34 ml/min; Globulin 3.8 g/dL (2.2-4.2); Glucose 128 mg/dL (74-106); Protein, Total 6.7 g/dL (6.4-8.2); Sodium Level 135 mmol/L (136-145)
--- NOTE | 2022-05-09 13:09 | EX.PCM.CON.S ---
Assessment & Plan Assessment/Plan (1) Retroperitoneal hematoma: PLAN: There does not appear to be any blushing of the blood supply in the retroperitoneal hematoma. Patient states that he was on Lovenox twice daily for the last 2 weeks and started to develop this pain particularly when he was trying to stand. He is currently trying to get to the TCU for rehab. He has a longstanding history of blood clots he has not inferior vena cava filter in place. At the present time there is no surgical intervention that is needed for this hematoma. I will defer any anticoagulation to hematology. HPI Consult Data Date of Consult: 05/09/22 HPI Narrative HPI Narrative: MARY SEBASTIAN, is a 86 M who presents to the hospital with left hip pain which has been going on intermittently for the last week but it got worse today.? He denies any trauma to the hip he has had bilateral hip replacements.? He states that he was sitting in his chair and when he went to get up he had significant pain and is unable to bear weight on his hip.? In the ER hip x-rays show that hardware was in the correct position, and it does not appear to be dislocated.? He does not have any significant pain on palpation in or around his hip he does not have significant discomfort with mobility while in bed but in an attempt to get him up at bedside he had significant pain when he started to bear weight.? No fevers or chills or sign of infection. Patient underwent a CAT scan of his abdomen and pelvis which showed an ill-defined enlargement of the left iliopsoas muscle consistent with a retroperitoneal hematoma. There was no blushing identified [facility] Medical History Anemia Arthritis Atherosclerotic heart disease of [place] coronary artery without angina pectoris Body mass index (bmi) 30.0-30.9, adult CAD (coronary artery disease) Cardiology follow-up encounter Cardiomyopathy in other diseases classified elsewhere Diastolic CHF, chronic Dilated cardiomyopathy Dizziness and giddiness DVT (deep venous thrombosis) Essential hypertension Former smoker Gastric reflux Kerrick filter in place History of DVT (deep vein thrombosis) History of echocardiogram History of edema History of steroid therapy History of stress test 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 Presence of cardiac resynchronization therapy 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) Pure hypercholesterolemia Shortness of breath on exertion Syncope Wears glasses Wears hearing aid Home Medications dutasteride 0.5 mg capsule (Avodart) 0.5 mg PO DAILY bph 10/01/16 [History Last Taken 08/19/21 07:30] coenzyme Q10 50 mg chewable tablet 100 mg PO DAILY supplement 02/03/22 [History Last Taken Unknown] wheat dextrin 3 gram/3.5 gram oral powder (Best Fiber) 1 packet PO DAILY bowels 02/03/22 [History Last Taken 05/03/22] carvedilol 3.125 mg tablet 3.125 mg PO BID #60 tabs 04/22/22 [Rx Last Taken Unknown] enoxaparin 100 mg/mL subcutaneous syringe mg 05/03/22 [History Last Taken Unknown] ferrous sulfate 325 mg (65 mg iron) tablet (Iron (ferrous sulfate)) 65 mg PO DAILY 05/04/22 [History Last Taken Unknown] Allergy/AdvReac Type Severity Reaction Status Date / Time No Known Allergies Allergy Verified 05/04/22 00:14 Family History Father Diabetes Brother Cancer Prostate cancer Surgical History History of left hip replacement History of nasal surgery History of right-sided carotid endarterectomy Hx of left cataract extraction Hx of total hip arthroplasty S/P implantation of automatic cardioverter/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 (AICD) Social History Smoking Status: Former smoker how long ago did patient quit smokin alcohol intake: current alcohol intake frequency: holidays/special occasions only Alcohol type: wine substance use type: does not use caffeine: Yes Type: tea Number of servings: 1 what type of physical activity do you participate in: 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: [employer] frequency: 5-6 times per week duration: 30-45 minutes/day seatbelt use: always do you feel safe at home: Yes ROS Constitutional Constitutional: Denies chills or fever(s) Cardiovascular Cardiovascular: Denies chest pain or chest pain at rest Respiratory/Chest Respiratory/Chest: Denies cough or shortness of breath at rest Gastrointestinal Gastrointestinal: Denies abdominal pain Genitourinary Genitourinary: Denies change in urinary stream Physical Exam Const alert, oriented x3 and no apparent distress HEENT normocephalic and head/scalp atraumatic Eyes PERRL and EOMs intact bilaterally Resp clear to auscultation bilaterally Cardio Rate: regular rate Rhythm: regular rhythm GI soft to palpation, non-tender and non-distended Lab / Micro Data Result Diagrams: 05/09/22 10:56 05/09/22 10:56 Labs: Laboratory Results - last 24 hr 05/09/22 10:56: WBC 6.5, RBC 3.74 L, Hgb 11.2 L, Hct 34.0 L, MCV 90.9, MCH 29.9, MCHC 32.9, RDW Std Deviation 49.8 H, RDW Coeff of Michael 14.9 H, Plt Count 144 L, MPV 10.2, Immature Gran % (Auto) 0.500, Neut % (Auto) 77.3 H, Lymph % (Auto) 10.8 L, [place] % (Auto) 10.6 H, Eos % (Auto) 0.5, Baso % (Auto) 0.3, Absolute Neuts (auto) 5.0, Absolute Lymphs (auto) 0.70 L, Nucleated RBC % 0 05/09/22 10:56: Sodium 135 L, Potassium 4.0, Chloride 101, Carbon Dioxide 30.0, Anion Gap 4 L, BUN 21 H, Creatinine 1.12, Estim Creat Clear Calc 47.34, Est GFR (MDRD) Af Amer 80, Est GFR (MDRD) Non-Af 66, BUN/Creatinine Ratio 18.8, Glucose 128 H, Calcium 8.4 L, Total Bilirubin 0.70, AST 78 H, ALT 57, Alkaline Phosphatase 70, Total Protein 6.7, Albumin 2.9 L, Globulin 3.8, Albumin/Globulin Ratio 0.8 L Radiology Impression Hip X-Ray 05/08/22 16:32 IMPRESSION: 1. Stable exam, LEFT hip arthroplasty without change in alignment. No fractures or hardware failure noted. Electronically Signed: Raymond Hull MD at 17:46 EST , Pelvis CT 05/09/22 08:37 IMPRESSION: Left retroperitoneal hematoma. Bilateral hip replacements. Electronically Signed: Umesh Thomas MD at 9:54 EST ,
--- NOTE | 2022-05-09 13:10 | CON.PCM_ITS ---
Consult Date of Consult: 05/09/22 Reason for Consult History of history of multiple DVT secondary to hypercoagulable state Retroperitoneal hematoma on Lovenox injection Mr. 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 He underwent a revision left THR on 04/20/[address] Fisher for recurrent dislocations.? He states that he had a DVT in his LLE approximately 2 weeks ago on venous doppler study and he started on Lovenox last week.? He had multiple DVT's before and hds a Ord filter in place.? Imaging studies are negative for fracture or dislocation and he was admitted on for possible infections. His pain is mostly on his left hip and upper thigh. CT scan of his hips this morning unfortunately show a large left retroperitoneal hematoma. He caleb fever, chills, or rigor. PFSH Medical History? 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 Presence of cardiac resynchronization therapy 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 (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) Pure hypercholesterolemia Shortness of breath on exertion Syncope Wears glasses Wears hearing aid Home Medications dutasteride 0.5 mg capsule (Avodart) 0.5 mg PO DAILY bph 10/01/16 [History Last Taken 08/19/21 07:30] cholecalciferol (vitamin D3) 125 mcg (5,000 unit) capsule 125 mcg PO DAILY 08/05/19 [History Last Taken 08/15/21] glucosamine 750 [id number]-[id number] no.7 644 mg-vit V-cztxjg-cwsca tablet (Glucosamine-Chondr Cmplx (boswellia)) 1 tab PO DAILY 08/14/21 [History Last Taken 08/15/21] zinc 50 mg tablet 50 mg PO DAILY 08/14/21 [History Last Taken 08/15/21] ascorbic acid (vitamin C) 1,000 mg tablet,extended release 1,000 mg PO DAILY 02/03/22 [History Last Taken Unknown] coenzyme Q10 50 mg chewable tablet 100 mg PO BID supplement 02/03/22 [History Last Taken Unknown] flaxseed oil 1,000 mg capsule ([place]-3 Flaxseed Oil) 1,000 mg PO BID 02/03/22 [History Last Taken Unknown] hydrocodone-acetaminophen 5-325mg 5mg-325mg See Rx Instructions PO BID 02/03/22 [History Last Taken Unknown] prasterone (dhea) 25 mg tablet 50 mg PO DAILY supplement 02/03/22 [History Last Taken Unknown] sulfamethoxazole 800 mg-trimethoprim 160 mg tablet (Bactrim DS) 1 tab PO .COMPLEX #6 tabs 02/03/22 [Rx Last Taken Unknown] turmeric 400 mg capsule 400 mg PO BID 02/03/22 [History Last Taken Unknown] wheat dextrin 3 gram/3.5 gram oral powder (Best Fiber) 1 packet PO DAILY 02/03/22 [History Last Taken Unknown] carvedilol 3.125 mg tablet 3.125 mg PO BID #60 tabs 04/22/22 [Rx Last Taken Unknown] apixaban 5 mg tablet (Eliquis) 5 mg PO BID Per Dr. Hannon for DVT's 04/24/22 [History Last Taken Unknown] enoxaparin 100 mg/mL subcutaneous syringe mg 05/03/22 [History Last Taken Unknown] Allergy/AdvReac Type Severity Reaction Status Date / Time No Known Allergies Allergy ? ? Verified 03/19/22 16:36 Family History? Father DiabetesBrother Cancer ?? ? Prostate cancer Surgical History? History of left hip replacement History of nasal surgery History of right-sided carotid endarterectomy Hx of left cataract extraction Hx of total hip arthroplasty S/P implantation of automatic cardioverter/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 (AICD) Social History? Smoking Status:? Former smoker? how long ago did patient quit smoking:? 1963? alcohol intake:? current alcohol intake frequency: holidays/special occasions only Alcohol type: wine? substance use type:? does not use? caffeine:? Yes Type: tea Number of servings: 1? what type of physical activity do you participate in:? 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: [employer]? frequency:? 5-6 times per week? duration:? 30-45 minutes/day? seatbelt use:? always? do you feel safe at home:? Yes? ROS Constitutional Constitutional: Denies chills, fatigue, fever(s) or malaise Eyes Eyes: Denies blurry vision ENT HEENT: Denies headache(s) or nasal discharge Cardiovascular Cardiovascular: Denies chest pain, dyspnea on exertion or syncope Respiratory/Chest Respiratory/Chest: Denies cough, shortness of breath at rest or shortness of breath with exertion Gastrointestinal Gastrointestinal: Denies constipation, diarrhea, nausea or vomiting Genitourinary Genitourinary: Denies dysuria Musculoskeletal Musculoskeletal: Reports joint pain Neurologic Neurologic: Denies focal weakness, numbness or tremor(s) Psychiatric Psychiatric: Denies anxiety or depression Physical Exam Narrative General: Alert, Oriented x3, Cooperative, No apparent distress HEENT: Atraumatic, PERRLA, EOMI, Normocephalic Oral: Moist Mucosa Neck: Supple, No JVD Lungs: Diminished, normal air movement, No rhonchi, No wheeze, No rales Cardiovascular: Regular rate, Regular Rhythm, Normal S1, Normal S2, No murmurs Abdomen: Soft, Non Tender, Non-Distended, No Hepato-splenomegaly Extremities: Bilateral edema, Capillary Refill Less than 3 Seconds Skin: No rashes, No breakdown Musculoskeletal: No Tenderness to Palpation of Joints or Extremities Neurological: Cranial nerves II-XII grossly intact, Motor Exam 5/5 strength t hroughout, Sensory exam intact to light touch and pain Psych/Mental Status: Normal Affect, Appropriate Assessment & Plan Assessment/Plan (1) Retroperitoneal hematoma: PLAN: -Subacute retroperitoneal hematoma secondary to anticoagulation therapy with low molecular weight heparin Plan: - Stop Lovenox - Repeat CT scan in 1 week. If no further changes in retroperitoneal hematoma, then he may resume LMWH & Coumadin aftrer 7 days - long-term anticoagulation therapy with Coumadin keep PT/INR 2.0 - 3.0 (2) Acute deep venous thrombosis: PLAN: -Repeat vascular study of both legs today -measure mid calfs diameters twice daily -follow vascular studies off Lovenox again next week -If there is progression of his blood clots after Lovenox is stopped, then consult vascular surgery -acute inteventions may be needed. PLAN: Plan - Do not stop LMWH until PT/INR is therapeutic x 48 - 72 hours. - Follow up with PCP for Coumadin therapy
--- NOTE | 2022-05-09 13:44 | CASEMGMT ---
Social Work Dr. Renteria updated that pt has second CT ordered for Thursday05/12/22 and that pt will not discharge until after that. LAURO updated Scarlett at [facility] of this information. LEAH Dupont
--- NOTE | 2022-05-09 13:45 | CASEMGMT ---
[facility], the following tertiary facilities are in network: [facility], [place], [facility], [facility], [facility], [place], [facility], [facility] and .
[2022-05-09] MEDS: oxyCODONE 5 MG Tablet 10 MG PO (14:19)
--- NOTE | 2022-05-09 14:56 | NURSING ---
PT MID THIGHS WAS MEASURED @ 13.30 HRS AND LEFT THIGH 23 INCHES RIGHT THIGH 22.5 INCHES.
[2022-05-09 14:57] VITALS: BP 138/83; PULSE 78; RESP 18; TEMP 37.1; O2SAT 98
[2022-05-09 21:26] VITALS: BP 149/68; PULSE 62; RESP 18; TEMP 36.7; O2SAT 97
[2022-05-10 00:28] VITALS: BP 147/84; PULSE 66; RESP 18; TEMP 36.5; O2SAT 94
[2022-05-10] MEDS: oxyCODONE 5 MG Tablet 10 MG PO ×2 (00:31→21:06)
[2022-05-10 06:46] VITALS: BP 153/78; PULSE 73; RESP 20; TEMP 37.2; O2SAT 97
[2022-05-10] MEDS: Acetaminophen 500 MG Tablet 1000 MG PO ×3 (06:51→21:06)
[2022-05-10] MEDS: Enoxaparin 30 MG/0.3 ML Syringe SC (06:51)
[2022-05-10 08:43] VITALS: BP 147/87; PULSE 80; RESP 18; TEMP 36.9; O2SAT 98
[2022-05-10] MEDS: Carvedilol 3.125 MG TABLET PO ×2 (08:46→16:54)
--- NOTE | 2022-05-10 08:56 | PN.SURG_ITS ---
Subjective Subjective No complaints of abdominal pain. Objective Data Objective Data Abdomen is soft Vital Signs: Vital Signs Temp Pulse Resp BP Pulse Ox O2 Del Method 98.5 F 80 18 147/87 H 98 Room Air 05/10/22 08:43 05/10/22 08:43 05/10/22 08:43 05/10/22 08:43 05/10/22 08:43 05/10/22 08:43 Oxygen Delivery Method Room Air Weight: 224 lb 10.417 oz Body Mass Index (BMI) 33.1 Intake & Output: Intake and Output for Last 24 Hours 05/08/22 05/09/22 05/10/22 23:59 23:59 23:59 Intake Total 1200 / 1200 2062.5 / 2462.5 1187.5 / 1187.5 Output Total 1925 / 1925 750 / 1300 1100 / 1100 Balance -725 / -725 1312.5 / 1162.5 87.5 / 87.5 Lab / Micro Data Result Diagrams: 05/09/22 10:56 05/09/22 10:56 Labs: Laboratory Results - last 24 hr 05/09/22 10:56: WBC 6.5, RBC 3.74 L, Hgb 11.2 L, Hct 34.0 L, MCV 90.9, MCH 29.9, MCHC 32.9, RDW Std Deviation 49.8 H, RDW Coeff of Michael 14.9 H, Plt Count 144 L, MPV 10.2, Immature Gran % (Auto) 0.500, Neut % (Auto) 77.3 H, Lymph % (Auto) 10.8 L, [place] % (Auto) 10.6 H, Eos % (Auto) 0.5, Baso % (Auto) 0.3, Absolute Neuts (auto) 5.0, Absolute Lymphs (auto) 0.70 L, Nucleated RBC % 0 05/09/22 10:56: Sodium 135 L, Potassium 4.0, Chloride 101, Carbon Dioxide 30.0, Anion Gap 4 L, BUN 21 H, Creatinine 1.12, Estim Creat Clear Calc 47.34, Est GFR (MDRD) Af Amer 80, Est GFR (MDRD) Non-Af 66, BUN/Creatinine Ratio 18.8, Glucose 128 H, Calcium 8.4 L, Total Bilirubin 0.70, AST 78 H, ALT 57, Alkaline Phospha tase 70, Total Protein 6.7, Albumin 2.9 L, Globulin 3.8, Albumin/Globulin Ratio 0.8 L Radiography Diagnostic Testing: Radiology Impression Pelvis CT 05/09/22 08:37 IMPRESSION: Left retroperitoneal hematoma. Bilateral hip replacements. Electronically Signed: Umesh Thomas MD at 9:54 EST , Assessment & Plan Assessment/Plan (1) Retroperitoneal hematoma: PLAN: At this point surgical services will sign off please reconsult if abdominal pain or overall condition changes.
--- NOTE | 2022-05-10 08:57 | VDLE_ITS ---
Reason For Study: swelling RIGHT LEFT GSV is normal. GSV is normal. CFV is compressible, spontaneous, phasic, CFV is compressible, spontaneous, phasic, competent and demonstrates normal competent, and demonstrates normal augmentation. augmentation. FV is compressible, spontaneous, phasic, FV is compressible, spontaneous, phasic, competent and demonstrates normal competent and demonstrates normal augmentation. augmentation. RT PerV is compressible. PTV is compressible. POP V is dilated and noncompressible with LT PerV is compressible. decreased flow. POP V is dilated and noncompressible with T/P Trunk is partially compressible. decreased flow. PTV are dilated and noncompressible. T/P Trunk is partially compressible. Procedure This is a venous duplex using B-mode, color flow and spectral Doppler. Exam performed portable in patient room. The exam was diagnostic. A preliminary report was called and/or faxed to [facility]. VL/Venous Duplex US - Santosh Extrem Interpretation Summary Deep venous thrombosis right popliteal, tibioperoneal trunk, posterior tibial v eins. Deep venous thrombosis left popliteal and tibioperoneal trunk. Refer to the previous examination of April 23, 2022 Ordering Physician: Mamta Renteria Performed By: Lencho Ruiz RVT
--- NOTE | 2022-05-10 08:57 | PN.HOSP_ITS ---
Subjective Subjective Follow-up on left hip pain: Patient was seen and examined. No acute events overnight. Patient stated his pain is fairly controlled except when he moves. He denied any worsening swelling of his leg Objective Data Objective Data Vital Signs: Vital Signs Temp Pulse Resp BP Pulse Ox O2 Del Method 98.5 F 80 18 147/87 H 98 Room Air 05/10/22 08:43 05/10/22 08:43 05/10/22 08:43 05/10/22 08:43 05/10/22 08:43 05/10/22 08:43 Oxygen Delivery Method Room Air Weight: 101.9 kg Body Mass Index (BMI) 33.1 Intake & Output: Intake and Output for Last 24 Hours 05/08/22 05/09/22 05/10/22 23:59 23:59 23:59 Intake Total 1200 / 1200 2062.5 / 2462.5 1187.5 / 1187.5 Output Total 1925 / 1925 750 / 1300 1100 / 1100 Balance -725 / -725 1312.5 / 1162.5 87.5 / 87.5 Lab / Micro Data Result Diagrams: 05/09/22 10:56 05/09/22 10:56 Labs: Laboratory Results - last 24 hr 05/09/22 10:56: WBC 6.5, RBC 3.74 L, Hgb 11.2 L, Hct 34.0 L, MCV 90.9, MCH 29.9, MCHC 32.9, RDW Std Deviation 49.8 H, RDW Coeff of Michael 14.9 H, Plt Count 144 L, MPV 10.2, Immature Gran % (Auto) 0.500, Neut % (Auto) 77.3 H, Lymph % (Auto) 10.8 L, [place] % (Auto) 10.6 H, Eos % (Auto) 0.5, Baso % (Auto) 0.3, Absolute Neuts (auto) 5.0, Absolute Lymphs (auto) 0.70 L, Nucleated RBC % 0 05/09/22 10:56: Sodium 135 L, Potassium 4.0, Chloride 101, Carbon Dioxide 30.0, Anion Gap 4 L, BUN 21 H, Creatinine 1.12, Estim Creat Clear Calc 47.34, Est GFR (MDRD) Af Amer 80, Est GFR (MDRD) Non-Af 66, BUN/Creatinine Ratio 18.8, Glucose 128 H, Calcium 8.4 L, Total Bilirubin 0.70, AST 78 H, ALT 57, Alkaline Phosphatase 70, Total Protein 6.7, Albumin 2.9 L, Globulin 3.8, Albumin/Globulin Ratio 0.8 L Radiography Diagnostic Testing: Radiology Impression Pelvis CT 05/09/22 08:37 IMPRESSION: Left retroperitoneal hematoma. Bilateral hip replacements. Electronically Signed: Umesh Thomas MD at 9:54 EST , Physical Exam Narrative Physical exam: General: Alert, Oriented x3, Cooperative HEENT: Atraumatic Oral: Moist Mucosa Neck: Supple Lungs: Diminished to auscultation Cardiovascular: HS I+II, regular, no murmurs Abdomen: Bowel Sounds Present, Soft, Non Tender Extremities: Bilateral leg edema +1, pitting, nontender, tenderness over the left hip Skin: No rashes, No breakdown Neurological: Grossly intact Psych/Mental Status: Appropriate Assessment & Plan Assessment/Plan (1) Hip pain, left: PLAN: Plan 1. 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 Discussed with interventional radiology, patient's hematoma is within the iliopsoas musculature, not amenable to aspiration Discussed with hematology and vascular surgery as well as general surgery; recommend stopping anticoagulation, repeating CT of the pelvis in about a week to follow-up on the hematoma Continue on scheduled Tylenol and as needed oxycodone We will continue to monitor patient in the hospital 2. Hypercoagulable state, h/o DVT/PE, h/o MTHFR We will continue to monitor off anticoagulation 3. History of nonischemic cardiomyopathy with previous AICD placement/Hypertension 4. DVT prophylaxis -SCDs Charges/Coding Visit Charges Inpatient E&M: 34385 [facility] L3
--- NOTE | 2022-05-10 09:17 | PCM.PN.BLA ---
Progress Note No new complaint overnight. He has pain in his hip and thigh only when he walked. No increased swelling in his legs. Assessment & Plan Assessment/Plan (1) Retroperitoneal hematoma: PLAN: - Clinically appear to be stable Plan: -Repeat CT scan of abdomen pelvis next week for follow-up. (2) Acute deep venous thrombosis: PLAN: - Clinically unchanged since stopping Lovenox Plan: -Get baseline venous doppler study of both legs. -Continue SCD for DVT prophylaxis -Measure mid thigh diameters and repeat Doppler study if there is any significant changes. PLAN: Plan -No evidence of infection, WBC is normal and hemoglobin is stable. Plan: - Follow CBC daily - Continue to monitor for any sign of infection
--- NOTE | 2022-05-10 10:24 | NURSING ---
Bilateral mid thigh measured and recorded. Right thigh 22 inches and left thigh 23 inches.
[2022-05-10] MEDS: Finasteride 5 MG Tablet PO (11:04)
[2022-05-10] MEDS: Ferrous Sulfate 325 MG Tablet PO (11:04)
[2022-05-10] MEDS: Senna/Docusate Sodium 1 Tablet 2 TABLET PO ×2 (11:05→21:05)
[2022-05-10 15:14] VITALS: BP 137/64; PULSE 67; RESP 18; TEMP 36.4; O2SAT 98
[2022-05-10 21:15] VITALS: BP 129/70; PULSE 63; RESP 16; TEMP 36.6; O2SAT 97
[2022-05-10] MEDS: Morphine 2 MG/ML Syringe IV (23:52)
[2022-05-11 03:15] VITALS: BP 134/77; PULSE 67; RESP 16; TEMP 36.8; O2SAT 96
[2022-05-11 05:57] LABS: Absolute Lymphocyte Count 1.21 X10^3/uL (0.83-4.51); Absolute Neutrophil Count 2.7 X10^3/uL (2.0-7.7); Basophil# 0.01 X10^3/uL; Basophil% 0.2 % (0-1); Eosinophil# 0.21 X10^3/uL; Eosinophils% 4.3 % (0-5); Hematocrit 32.6 % (40-54); Hemoglobin 10.7 g/dL (13.0-16.5); Lymphocyte # 1.21 X10^3/ul (0.83-4.51); Lymphocyte % 24.6 % (19-41); Mean Corp Hgb Conc 32.8 g/dL (32-36); Mean Corpuscular Hgb 30.1 pg (27.0-32.0); Mean Corpuscular Volume 91.8 fL (80-94); Mean Platelet Vol. 10.6 fl (6.2-12.0); Monocyte# 0.76 X10^3/uL; Monocyte% 15.4 % (0-10); NRBC Flagged by Analyzer 0 % (0-5); Neutrophil # 2.72 X10^3/uL (2.7-7.7); Neutrophil % 55.3 % (47-70); Platelet Count 153 K/mm3 (150-450); RBC Distribution Width SD 50.7 fl (35.1-43.9); Red Blood Count 3.55 M/mm3 (4.6-6.2); White Blood Count 4.9 K/mm3 (4.4-11.0)
[2022-05-11] MEDS: Acetaminophen 500 MG Tablet 1000 MG PO ×3 (06:12→20:54)
[2022-05-11 06:31] LABS: ALB/GLOB Ratio 0.8 RATIO (0.9-2.4); AST(SGOT) 79 U/L (15-37); Alanine Aminotransfer ALT/SGPT 53 U/L (16-61); Albumin, Serum 2.7 g/dL (3.2-5.0); Alkaline Phosphatase 72 U/L (45-117); Anion Gap 5 (5-15); BUN 15 mg/dL (7-18); BUN/Creat Ratio 16.3 RATIO (10-20); Calcium,Total 8.5 mg/dL (8.5-10.1); Chloride 103 mmol/L (98-107); Creatinine, Serum 0.92 mg/dL (0.70-1.30); EST Glomerular Filtration Rate 82 mL/min (>60); Est Glom Filt Rate - Afr Amer 100 mL/min (>60); Estimated Creatinine Clearance 57.64 ml/min; Globulin 3.6 g/dL (2.2-4.2); Glucose 105 mg/dL (74-106); Potassium 3.7 mmol/L (3.5-5.1); Protein, Total 6.3 g/dL (6.4-8.2); Sodium Level 137 mmol/L (136-145)
[2022-05-11 07:43] VITALS: BP 146/70; PULSE 70; RESP 16; TEMP 36.4; O2SAT 96
[2022-05-11] MEDS: Carvedilol 3.125 MG TABLET PO ×2 (07:46→15:57)
--- NOTE | 2022-05-11 08:00 | PCM.PN.HOSP ---
Subjective Subjective Follow-up on left hip pain: Patient was seen and examined.?No acute events overnight.?Still has pain with ambulation. Denies any dizziness or palpitations. Objective Data Objective Data Vital Signs: Vital Signs Temp Pulse Resp BP Pulse Ox O2 Del Method 97.5 F L 70 16 146/70 H 96 Room Air 05/11/22 07:43 05/11/22 07:43 05/11/22 07:43 05/11/22 07:43 05/11/22 07:43 05/11/22 07:43 Oxygen Delivery Method Room Air Weight: 101.9 kg Body Mass Index (BMI) 33.1 Intake & Output: Intake and Output for Last 24 Hours 05/09/22 05/10/22 05/11/22 23:59 23:59 23:59 Intake Total 2062.5 / 2462.5 2587.5 / 2587.5 Output Total 750 / 1300 1800 / 2575 1675 / 1675 Balance 1312.5 / 1162.5 787.5 / 12.5 -1675 / -1675 Lab / Micro Data Result Diagrams: 05/11/22 04:28 05/11/22 04:28 Labs: Laboratory Results - last 24 hr 05/11/22 04:28: WBC 4.9, RBC 3.55 L, Hgb 10.7 L, Hct 32.6 L, MCV 91.8, MCH 30.1, MCHC 32.8, RDW Std Deviation 50.7 H, RDW Coeff of Michael 15.0 H, Plt Count 153, MPV 10.6, Immature Gran % (Auto) 0.200, Neut % (Auto) 55.3, Lymph % (Auto) 24.6, [place] % (Auto) 15.4 H, Eos % (Auto) 4.3, Baso % (Auto) 0.2, Absolute Neuts (auto) 2.7, Absolute Lymphs (auto) 1.21, Nucleated RBC % 0 05/11/22 04:28: Sodium 137, Potassium 3.7, Chloride 103, Carbon Dioxide 29.0, Anion Gap 5, BUN 15, Creatinine 0.92, Estim Creat Clear Calc 57.64, Est GFR (MDRD) Af Amer 100, Est GFR (MDRD) Non-Af 82, BUN/Creatinine Ratio 16.3, Glucose 105, Calcium 8.5, Total Bilirubin 0.70, AST 79 H, ALT 53, Alkaline Phosphatase 72, Total Protein 6.3 L, Albumin 2.7 L, Globulin 3.6, Albumin/Globulin Ratio 0.8 L Physical Exam Narrative Physical exam: General: Alert, Oriented x3, Cooperative HEENT: Atraumatic Oral: Moist Mucosa Neck: Supple Lungs: Diminished to auscultation Cardiovascular: HS I+II, regular, no murmurs Abdomen: Bowel Sounds Present, Soft, Non Tender Extremities: Bilateral leg edema +1, pitting, nontender, tenderness over the left hip Skin: No rashes, No breakdown Neurological: Grossly intact Psych/Mental Status: Appropriate Assessment & Plan Assessment/Plan (1) Hip pain, left: PLAN: Plan 86y/o male with PMHx of hypercoagulable state -protein C deficiency, Antithrombin III deficiency, MTHFR mutation, who was on therapeutic Lovenox comes in with acute left hip pain without trauma. Orthopedics was consulted from the ED. Initial management was suggestive of possible hip infection. Imaging does not support any fracture or infection. CT of the pelvis/hip done on showed large left iliopsoas retroperitoneal bleed. 1. Acute left hip pain secondary to acute retroperitoneal(iliopsoas) hematoma, off anticoagulation Seen on CT of pelvis and right hip with contrast (05/09/22) Patient with Antithrombin III deficiency/protein C deficiency/MTHFR mutation, history of recurrent DVT/PE, status post IVC filter. Discussed with interventional radiology, patient's hematoma is within the iliopsoas musculature, not amenable to aspiration Discussed with hematology and vascular surgery as well as general surgery; recommend stopping anticoagulation, repeating CT of the pelvis in about a week to follow-up on the hematoma Continue on scheduled Tylenol, as needed oxycodone, Doppler USG of legs ordered, results pending I have elected to repeat a CT scan tomorrow 05/11/22 in the light of recent slight drop in hemoglobin from 11 to 10 2. Hypercoagulable state, h/o DVT/PE, h/o MTHFR Continue to monitor off anticoagulation 3. Acute blood loss anemia, drop in hemoglobin to 10.7 today Patient's hemoglobin on 04/14/22 was 14.3 We will continue to trend 4. History of nonischemic cardiomyopathy with previous AICD placement/Hypertension, stable Continue on Coreg 5. DVT prophylaxis -SCDs Disposition: Patient has pre-CERT for discharge to TCU. Depending on how the retroperitoneal bleed looks like on repeat CT pelvis will determine on how this hematoma could be followed or even when patient can resume anticoagulation. Charges/Coding Visit Charges Inpatient E&M: 91159 Subs Hosp L3
[2022-05-11] MEDS: Polyethylene Glycol 3350 17 GM PACKET PO (10:45)
[2022-05-11] MEDS: Finasteride 5 MG Tablet PO (10:46)
[2022-05-11] MEDS: Senna/Docusate Sodium 1 Tablet 2 TABLET PO ×2 (10:46→20:54)
[2022-05-11] MEDS: Ferrous Sulfate 325 MG Tablet PO (10:47)
[2022-05-11] MEDS: Lidocaine 5% Patch 3 PATCH TOPICAL (10:56)
[2022-05-11 15:00] VITALS: BP 144/69; PULSE 69; RESP 16; TEMP 36.3; O2SAT 99
--- NOTE | 2022-05-11 16:27 | NURSING ---
right thigh measuring 22.5 and left thigh measuring 23 1/4.
[2022-05-11 20:52] VITALS: BP 119/63; PULSE 67; RESP 16; TEMP 36.6; O2SAT 95
[2022-05-12 03:00] VITALS: BP 135/70; PULSE 64; RESP 14; TEMP 36.5; O2SAT 99
[2022-05-12 04:46] LABS: Absolute Lymphocyte Count 1.36 X10^3/uL (0.83-4.51); Absolute Neutrophil Count 2.4 X10^3/uL (2.0-7.7); Basophil# 0.02 X10^3/uL; Basophil% 0.4 % (0-1); Eosinophil# 0.25 X10^3/uL; Eosinophils% 5.4 % (0-5); Hematocrit 34.7 % (40-54); Hemoglobin 10.7 g/dL (13.0-16.5); Lymphocyte # 1.36 X10^3/ul (0.83-4.51); Lymphocyte % 29.3 % (19-41); Mean Corp Hgb Conc 30.8 g/dL (32-36); Mean Corpuscular Hgb 29.6 pg (27.0-32.0); Mean Corpuscular Volume 95.9 fL (80-94); Mean Platelet Vol. 10.6 fl (6.2-12.0); Monocyte# 0.62 X10^3/uL; Monocyte% 13.4 % (0-10); NRBC Flagged by Analyzer 0 % (0-5); Neutrophil # 2.37 X10^3/uL (2.7-7.7); Neutrophil % 51.1 % (47-70); Platelet Count 150 K/mm3 (150-450); RBC Distribution Width SD 52.3 fl (35.1-43.9); Red Blood Count 3.62 M/mm3 (4.6-6.2); White Blood Count 4.6 K/mm3 (4.4-11.0)
[2022-05-12 05:05] LABS: ALB/GLOB Ratio 0.8 RATIO (0.9-2.4); AST(SGOT) 60 U/L (15-37); Alanine Aminotransfer ALT/SGPT 49 U/L (16-61); Albumin, Serum 2.7 g/dL (3.2-5.0); Alkaline Phosphatase 69 U/L (45-117); Anion Gap 6 (5-15); BUN 14 mg/dL (7-18); BUN/Creat Ratio 15.4 RATIO (10-20); Calcium,Total 8.5 mg/dL (8.5-10.1); Chloride 104 mmol/L (98-107); Creatinine, Serum 0.91 mg/dL (0.70-1.30); EST Glomerular Filtration Rate 84 mL/min (>60); Est Glom Filt Rate - Afr Amer 101 mL/min (>60); Estimated Creatinine Clearance 58.27 ml/min; Globulin 3.5 g/dL (2.2-4.2); Glucose 103 mg/dL (74-106); Potassium 3.9 mmol/L (3.5-5.1); Protein, Total 6.2 g/dL (6.4-8.2); Sodium Level 137 mmol/L (136-145)
--- NOTE | 2022-05-12 05:55 | CT_ITS ---
EXAM: CT ABDOMEN AND PELVIS WITHOUT INTRAVENOUS CONTRAST CLINICAL INDICATION: Follow-up on retroperitoenal bleed TECHNIQUE: Helically acquired images were obtained of the abdomen and pelvis without intravenous contrast. This CT exam was performed using one or more of the following dose reduction techniques: automated exposure control, adjustment of the mA and/or kV according to patient size, and/or use of iterative reconstruction technique. This report was created using [employer] report generation technology. RADIATION DOSE: CTDIvol = 26.28 mGy, DLP = 1316.48 mGy-cm. COMPARISON: May 09, 2022 showing enlarged left psoas, iliacus, iliopsoas muscles with hyperdense material, not present on May 01, 2022. FINDINGS: LOWER THORAX: Advanced degenerative change of the lower thoracic and lumbar spine with vacuum disc, spondylosis and mild canal narrowing appears similar. Bilateral hip prostheses are intact. ABDOMEN: LIVER: Septated 3.3 cm cyst at the dome of the right lobe of the liver appears similar. GALLBLADDER AND BILE DUCTS: Cholecystectomy. No intra- or extrahepatic biliary ductal dilation. PANCREAS: Unremarkable. No focal cystic mass. SPLEEN: Unremarkable. Normal size without focal cystic or solid mass. ADRENALS: Unremarkable. No nodules. KIDNEYS AND URETERS: Bilateral nephrolithiasis and presumed slightly hyperdense left renal cyst appears similar. Normal renal size and position. No hydronephrosis. STOMACH AND BOWEL: Mild fluid and gas in the stomach and small bowel. Mild fecal-like material in a few distal ileal loops. Moderate stool and gas in the right colon, moderate gas and mild stool in the mid to distal colon. Mild scattered diverticulosis in distal descending and proximal sigmoid colon. No stomach or bowel distention. No focal inflammatory change. PELVIS: APPENDIX: No evidence of acute appendicitis. Appendix is not seen. BLADDER: Unremarkable. REPRODUCTIVE: Unremarkable as visualized. No mass. ABDOMEN and PELVIS: INTRAPERITONEAL SPACE: Unremarkable. No ascites or other fluid collection. No free air. BONES/JOINTS: See above. SOFT TISSUES: Similar fat-containing umbilical hernia. VASCULATURE: IVC filter remains adequately positioned. Moderate calcification of aortoiliac and femoral arteries appears similar. Abdominal aorta is non-dilated. Moderate calcifications of the intra-abdominal arterial branches. No periaortic hematoma. LYMPH NODES: Unremarkable. No enlarged lymph nodes. TUBES, LINES AND DEVICES: Pacemaker leads in the heart size and mild cardiomegaly appears similar to prior exams. Mild dependent consolidation and slight effusion at the left lung base are new since May 01, 2022. OTHER FINDINGS: Stable appearance of hyperdensity and increased size of left psoas and iliopsoas compared to prior exam, AP diameter of the iliopsoas roughly 6.4 cm AP on sagittal exam, it was 7.2 cm. No evidence of liquefaction. CT/Abdomen/Pelvis without Cont IMPRESSION: 1. Stable left intramuscular hematomas. 2. Similar appearance of mild presacral edema. 3. New mild consolidation and small effusion at the posterior left lung base. Atelectasis versus pneumonia. 4. Stable fat-containing umbilical and left inguinal hernias. Bilateral nephrolithiasis. Nonvisualized appendix. Mild diverticulosis. Electronically Signed: Alice Gomez MD at 6:14 EST ,
[2022-05-12] MEDS: Acetaminophen 500 MG Tablet 1000 MG PO ×2 (05:59→13:27)
[2022-05-12 07:55] VITALS: O2SAT 95
[2022-05-12 09:00] VITALS: BP 133/75; PULSE 70; RESP 16; TEMP 37.2; O2SAT 95
--- NOTE | 2022-05-12 09:30 | CASEMGMT ---
Social Work SW spoke with Scarlett in TCU. Precert has been obtained. Pt can discharge today if medically ready. If pt does not discharge today, precert will and a new precert will need to be obtained prior to admission to TCU. Physician notified. LAURO met with pt, pt and son and updated on discharge plan. Pt and family agreeable. Plan: TCU, when medically ready. If does not discharge today will need new precert LEAH Baker
[2022-05-12] MEDS: Carvedilol 3.125 MG TABLET PO (09:57)
[2022-05-12] MEDS: Polyethylene Glycol 3350 17 GM PACKET PO (10:35)
[2022-05-12] MEDS: Ferrous Sulfate 325 MG Tablet PO (10:35)
[2022-05-12] MEDS: Finasteride 5 MG Tablet PO (10:36)
[2022-05-12] MEDS: Lidocaine 5% Patch 2 PATCH TOPICAL (10:37)
--- NOTE | 2022-05-12 10:38 | TREXTCAR_ITS ---
Diet Diet Order/Speech Therapy: 05/04/22 00:04 Diet: Regular - General Food consistency:: Regular Liquid Consistency:: Regular/Thin Routine Orders/Code Status Code Status: DNRCC-A (no intubation) Therapies Weight Bearing: Weight bearing as tolerated Physical Therapy: Eval and Treat Occupational Therapy: Eval and Treat Problem/Diagnosis (1) Hip pain, left: Status: Acute Code(s): M25.552 - Pain in left hip Comment: iliopsoas hematoma (2) MTHFR mutation: Status: Chronic Code(s): E72.12 - Methylenetetrahydrofolate reductase deficiency (3) Protein C deficiency: Status: Chronic Code(s): D68.59 - Other primary thrombophilia (4) Retroperitoneal hematoma: Status: Acute Code(s): K66.1 - Hemoperitoneum Allergies/Procedures Done in Hospital Allergies No Known Allergies Allergy (Verified 05/04/22 00:14) Procedures: None Type of Care/Length of Stay Estimated LOS: Convalescent Care Less Than 30 days Type of Care Needed: Skilled Rehab Potential: Good Prognosis: Good Additional Orders/Day of Discharge Additional Orders: repeat CT of abdomen and pelvis without contrast on 05/16/22- if no change in size of hematoma, patient can resume Lovenox at full anticoagulation (100 mg subcu twice a day) Day of Discharge: 05/12/22 Discharge Plan Admission Admit Date/Time: 05/09/22 14:45 Primary Reason for Your Visit: Retroperitoneal hematoma Attending Provider: Vadim Maher Primary Care Provider: Qing Hannon Consulting Providers: Orlando Macias ; Louis Rothman ; Avelino West ; Gian Stout ; Pineda Simon ; Janak Bermeo ; Danuta Zuñiga ; Sandra Millan ; Elgin Maya ; Rip Cardenas ; Mamta Renteria Instructions Additional Instructions / Restrictions: If CAT scan performed on May 16, 2022 is unchanged from his previous CAT scan, resume Lovenox 100 mg twice daily subcu Discharge Orders/Prescriptions Prescriptions: New oxycodone 5 mg Tablet 10 mg PO Q6H PRN PRN (Reason: Pain Score 6-10) 7 Days Qty: 15 0RF Rx Instructions: 5-10 mg Q6 hrs prn pain polyethylene glycol 3350 17 gram Powder In Packet 17 g PO DAILY Qty: 1 0RF sennosides-docusate sodium [Stool Softener-Stimulant Laxat] 8.6-50 mg Tablet 2 tab PO BID Qty: 1 0RF Continued dutasteride [Avodart] 0.5 MG capsule 0.5 mg PO DAILY ferrous sulfate [Iron (ferrous sulfate)] 325 mg (65 mg iron) Tablet 65 mg PO DAILY carvedilol 3.125 mg tablet 3.125 mg PO BID Qty: 60 11RF Rx Instructions: must administer with a meal/food Discontinued Best Fiber 3 gram/3.5 gram powder 1 packet PO DAILY Rx Instructions: mix into at least 4 oz water or juice before administering coenzyme Q10 50 mg tablet,chewable 100 mg PO DAILY Label Comments: supplement enoxaparin 100 mg/mL syringe Label Comments: INJECT 1 ML EVERY 12 HOURS SUBCUTANEOUSLY FOR 5 DAYS STARTING TODAY Referrals / Follow Up: Qing Hannon MD [Primary Care Provider] - Disposition Disposition (needs filled in before D/C Order can be placed): [facility]
--- NOTE | 2022-05-12 10:54 | DS.PCM_ITS ---
Providers Date of Admission: 05/09/22 Date of Discharge: 05/12/22 Primary Care Physician: Dr. Qing Hannon MD Consultations 05/04/22 00:03 Consult: Orthopedics Routine Consulting Provider: Orlando Macias Reason for Consult: Left hip pain unable to ambulate EMERGENT Consult: No MD Notified: Yes Date Notified: 05/03/22 Time Notified: 23:37 Method of Notification: ED Physician Initiated 05/09/22 10:47 Consult: General Surgery Routine Consulting Provider: Gian Stout Reason for Consult: Left retroperitoneal hematoma EMERGENT Consult: No Notified: Yes Date Notified: 05/09/22 Time Notified: 10:47 Method of Notification: Verbal 05/09/22 12:09 Consult: Oncology/Hematology Routine Consulting Provider: ESTUARDO Hem/Onc Francoise Reason for Consult: Protein C deficiency/antithrombin deficiency/large retroperitoneal bleed EMERGENT Consult: Yes MD Notified: Yes Date Notified: 05/09/22 Time Notified: 12:09 Method of Notification: Verbal Method of Consult:: In-Person 05/09/22 12:17 Consult: Vascular Surgery Routine Consulting Provider: Pineda Simon Reason for Consult: Antithrombin III/Protein C deficiency EMERGENT Consult: Yes MD Notified: Yes Date Notified: 05/09/22 Time Notified: 12:17 Method of Notification: Verbal Reason For Visit: HIP PAIN, CANT AMBULATE Diagnosis Discharge Diagnosis (1) Hip pain, left: Status: Acute Code(s): M25.552 - Pain in left hip (2) MTHFR mutation: Status: Chronic Code(s): E72.12 - Methylenetetrahydrofolate reductase deficiency (3) Protein C deficiency: Status: Chronic Code(s): D68.59 - Other primary thrombophilia (4) Retroperitoneal hematoma: Status: Acute Code(s): K66.1 - Hemoperitoneum Plan 1. Acute retroperitoneal hematoma in the iliopsoas muscle secondary to anticoagulation with Lovenox due to hypercoagulable state #2 hypercoagulable state #3 acute blood loss anemia #4 nonischemic cardiomyopathy #5 chronic atrial fibrillation Medications at Discharge Home Medications dutasteride 0.5 mg capsule (Avodart) 0.5 mg PO DAILY bph 10/01/16 ferrous sulfate 325 mg (65 mg iron) tablet (Iron (ferrous sulfate)) 65 mg PO DAILY supplement 05/04/22 carvedilol 3.125 mg tablet 3.125 mg PO BID BP 05/12/22 oxycodone 5 mg tablet 10 mg PO Q6H PRN PRN Pain Score 6-10 7 days #15 tabs 05/12/22 polyethylene glycol 3350 17 gram oral powder packet 17 g PO DAILY constipation 05/12/22 sennosides 8.6 mg-docusate sodium 50 mg tablet (Stool Softener-Stimulant Laxative) 2 tab PO BID stool softener 05/12/22 Hospital Course Operations None Procedures None Summary of Care Provided Minutes Spent on Discharge: 31 Hospital Course: This 86-year-old white male presented to the emergency room at [facility] with a chief complaint of left hip pain. Patient was unable to bear weight on his hip, he denied any trauma such as a fall or accident. Work-up in the ER included plain films of the hip which showed that the patient's hardware was in correct position, patient had significant discomfort with mobility while in bed and he had more significant pain when he attempted to bear weight in the emergency room. Patient was admitted to [place] [address] for left hip pain, he was seen in consultation by orthopedic surgery, it was initially felt that the patient had a hip flexor or iliopsoas tendinopathy and it was recommended that corticosteroids to be administered for this. Patient was seen by PT and OT, he continued to have left hip discomfort on ambulation, repeat CT of the pelvis and hip performed on 05/09/2022 showed a large retroperitoneal hematoma, general surgery was contacted but did not feel the patient needed surgery or intervention. Patient was then seen by oncology who recommended cessation of his Lovenox and repeat CT scan in a week, if no further changes in the retroperitoneal hematoma was noted at that time it was then recommended that he may resume long-term anticoagulation. Due to the patient's debility, it was recommended that he go to a custodial facility for short-term rehab services. On 05/12/2022, patient was seen and examined: On examination he appeared in good health and spirits. Vital signs as documented. Skin warm and dry and without overt rashes. Neck without JVD, neck was supple, trachea midline, thyroid was normal. Lungs clear bilaterally, normal air movement was noted. Heart exam notable for regular rhythm, normal sounds and absence of murmurs, rubs or gallops. Abdomen unremarkable and without evidence of organomegaly, masses, or abdominal aortic enlargement. Bowel sounds are present, abdomen is not distended. Extremities nonedematous, no cyanosis was noted, no clubbing was noted. Neuro: Cranial nerves II through XII are grossly intact, no focal motor deficits were noted, sensation to light touch and pinprick intact, motor exam 5/5 throughout. Psych: Patient is alert and oriented x3, he does not appear anxious or depressed, he does not appear agitated. Patient appeared stable for transfer to TCU on 05/12/2022. Weight / BMI Weight Weight: 101.9 kg Body Mass Index (BMI) 33.1 ABG / Lab / Microbiology Data Result Diagrams: 05/12/22 04:18 05/12/22 04:18 Laboratory: Laboratory Results - last 24 hr 05/12/22 04:18: WBC 4.6, RBC 3.62 L, Hgb 10.7 L, Hct 34.7 L, MCV 95.9 H, MCH 29.6, MCHC 30.8 L D, RDW Std Deviation 52.3 H, RDW Coeff of Michael 15.0 H, Plt Count 150, MPV 10.6, Immature Gran % (Auto) 0.400, Neut % (Auto) 51.1, Lymph % (Auto) 29.3, [place] % (Auto) 13.4 H, Eos % (Auto) 5.4 H, Baso % (Auto) 0.4, Absolute Neuts (auto) 2.4, Absolute Lymphs (auto) 1.36, Nucleated RBC % 0 05/12/22 04:18: Sodium 137, Potassium 3.9, Chloride 104, Carbon Dioxide 27.0, Anion Gap 6, BUN 14, Creatinine 0.91, Estim Creat Clear Calc 58.27, Est GFR (MDRD) Af Amer 101, Est GFR (MDRD) Non-Af 84, BUN/Creatinine Ratio 15.4, Glucose 103, Calcium 8.5, Total Bilirubin 0.60, AST 60 H, ALT 49, Alkaline Phosphatase 69, Total Protein 6.2 L, Albumin 2.7 L, Globulin 3.5, Albumin/Globulin Ratio 0.8 L Radiography Diagnostic Testing: Radiology Impression Abdomen/Pelvis CT 05/12/22 05:55 IMPRESSION: 1. Stable left intramuscular hematomas. 2. Similar appearance of mild presacral edema. 3. New mild consolidation and small effusion at the posterior left lung base. Atelectasis versus pneumonia. 4. Stable fat-containing umbilical and left inguinal hernias. Bilateral nephrolithiasis. Nonvisualized appendix. Mild diverticulosis. Electronically Signed: Alice Gomez MD at 6:14 EST , Meaningful Use Info Meaningful Use Diagnoses (Choose all that apply): None applicable Discharge Plan Admission Admit Date/Time: 05/09/22 14:45 Primary Reason for Your Visit: Retroperitoneal hematoma Attending Provider: Vadim Maher Primary Care Provider: Qing Hannon Consulting Providers: Orlando Macias ; Louis Rothman ; Avelino West ; Gian Stout ; Pineda Simon ; Janak Bermeo ; Danuta Zuñiga ; Sandra Millan ; Elgin Maya ; Rip Cardenas ; Mamta Renteria Instructions Additional Instructions / Restrictions: If CAT scan performed on May 16, 2022 is unchanged from his previous CAT scan, resume Lovenox 100 mg twice daily subcu Discharge Orders/Prescriptions Prescriptions: New oxycodone 5 mg Tablet 10 mg PO Q6H PRN PRN (Reason: Pain Score 6-10) 7 Days Qty: 15 0RF Rx Instructions: 5mg pain score 4-5 10mg pain score 6-10 Continued dutasteride [Avodart] 0.5 MG capsule 0.5 mg PO DAILY ferrous sulfate [Iron (ferrous sulfate)] 325 mg (65 mg iron) Tablet 65 mg PO DAILY Discontinued Best Fiber 3 gram/3.5 gram powder 1 packet PO DAILY Rx Instructions: mix into at least 4 oz water or juice before administering coenzyme Q10 50 mg tablet,chewable 100 mg PO DAILY Label Comments: supplement enoxaparin 100 mg/mL syringe Label Comments: INJECT 1 ML EVERY 12 HOURS SUBCUTANEOUSLY FOR 5 DAYS STARTING TODAY No Action polyethylene glycol 3350 17 gram powder in packet 17 g PO DAILY sennosides-docusate sodium [Stool Softener-Stimulant Laxat] 8.6-50 mg tablet 2 tab PO BID carvedilol 3.125 mg tablet 3.125 mg PO BID Rx Instructions: must administer with a meal/food Referrals / Follow Up: Qing Hannon MD [Primary Care Provider] - Disposition Disposition (needs filled in before D/C Order can be placed): Longterm Facility Charges/Coding Visit Charges Inpatient E&M: 63881 Disch Hosp
--- NOTE | 2022-05-12 11:24 | CASEMGMT ---
Social Work Per physician, pt is ready for discharge today. SW updated pt and and they are agreeable to discharge. Scarlett in TCU updated on discharge today. D/C orders faxed to TCU. Nurse updated. Disposition: TCU, skilled level of care LEAH Baker
--- NOTE | 2022-05-12 11:28 | PHA.DC.MR ---
Pharmacy Service has performed discharge medication reconciliation for this patient. The patient's discharge medication list was reviewed for discrepancies and discrepancies were resolved. Home Medications dutasteride 0.5 mg capsule (Avodart) 0.5 mg PO DAILY bph 10/01/16 carvedilol 3.125 mg tablet 3.125 mg PO BID #60 tabs 04/22/22 ferrous sulfate 325 mg (65 mg iron) tablet (Iron (ferrous sulfate)) 65 mg PO DAILY 05/04/22 oxycodone 5 mg tablet 10 mg PO Q6H PRN PRN Pain Score 6-10 7 days #15 tabs 05/12/22 polyethylene glycol 3350 17 gram oral powder packet 17 g PO DAILY #1 unit 05/12/22 sennosides 8.6 mg-docusate sodium 50 mg tablet (Stool Softener-Stimulant Laxative) 2 tab PO BID #1 TAB 05/12/22
[2022-05-12 14:05] VITALS: BP 112/62; PULSE 66; RESP 16; TEMP 36.7; O2SAT 95
--- NOTE | 2022-05-12 14:16 | NURSING ---
REPORT CALLED TO TCU
== END 2022-05-12 16:08 | disposition skilled nursing facility (03) | DRG 394 ==
LOC: ED 22:39 → MS3 23:51
PROVIDERS: Internal Medicine; Orthopaedic Surgery; Admitting Provider Family Medicine; Emergency Provider Emergency Medicine; PCP Internal Medicine; Visit Provider Internal Medicine
DX: K66.1 Hemoperitoneum (principal); D68.59 Other primary thrombophilia; E72.12 Methylenetetrahydrofolate reductase deficiency; I42.0 Dilated cardiomyopathy; I48.20 Chronic atrial fibrillation, unspecified; I50.32 Chronic diastolic (congestive) heart failure; D62 Acute posthemorrhagic anemia; I11.0 Hypertensive heart disease with heart failure; M16.12 Unilateral primary osteoarthritis, left hip; R26.2 Difficulty in walking, not elsewhere classified; I25.10 Atherosclerotic heart disease of native coronary artery without angina pectoris; E78.00 Pure hypercholesterolemia, unspecified; Z79.01 Long term (current) use of anticoagulants; Z87.891 Personal history of nicotine dependence; Z79.899 Other long term (current) drug therapy; Z95.810 Presence of automatic (implantable) cardiac 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; Z86.718 Personal history of other venous thrombosis and embolism
CPT/HCPCS: 36415; 72193; 73502; 74176; 80048; 80053; 85025; 85652; 86140; 87426; 93970; 97110; 97116; 97162; 97166; 97530; 97535; 99251; 99285; J7030; Q9967; A4216; G0463; J2405

== ENCOUNTER 2022-05-12 16:15 | Inpatient (IN) | payer MEDICARE, SELFPAY ==
[2022-05-12 17:04] VITALS: BP 130/66; PULSE 64; RESP 16; TEMP 36.6; O2SAT 96
[2022-05-12 17:53] VITALS: BMI 32.6
[2022-05-12] MEDS: Carvedilol 3.125 MG TABLET PO (18:46)
--- NOTE | 2022-05-12 19:20 | PCM.HP.STD ---
HPI - General General Date of Admission: 05/12/22 Date of Service: 05/12/22 Chief Complaint: Here for rehabilitation. HPI Narrative 05/03/2022 MARY SEBASTIAN, is a 86 Male who presents to [facility] Emergency Department with lower extremity injury. Left hip pain, feels left hip dislocated. Bilateral total hip arthroplasty, sat down, felt pop, left hip pain. Unable to bear weight. X-ray negative for dislocation, unable to bear weight left leg. Unable to walk, not safe to go home. 05/03/2022 Admit to Hospital. Lovenox for hypercoagulable state. 05/04/2022 Left hip pain. 05/05/2022, Left hip pain persists. Pain controlled with Tylenol, Oxycodone. 05/06/2022 Severe left hip pain. Treat with steroids, PT/OT. 05/07/2022 Left hip pain minimally improved. PT/OT for TCU. 05/08/2022 Pain mostly controlled. Left hip improved with prednisone taper. 05/09/2022 CT pelvis showed left retroperitoneal hematoma. 05/10/2022 Pain controlled. Hematoma not drainable. Stop anticoagulation, repeat CT for left retroperitoneal hematoma. 05/11/2022 Hemoglobin dropped from [address] A/P, stable left retroperitoneal hematoma, new left posterior lung atelectasis versus infiltrate.. Hold anticoagulation for hypercoagulable state due to hematoma. 05/12/2022 Admit to TCU with debility, here for rehabilitation, strengthening, prior to discharge home with . [facility] Medical History Anemia Arthritis Atherosclerotic heart disease of [place] coronary artery without angina pectoris Body mass index (bmi) 30.0-30.9, adult CAD (coronary artery disease) Cardiology follow-up encounter Cardiomyopathy in other diseases classified elsewhere Diastolic CHF, chronic Dilated cardiomyopathy Dizziness and giddiness DVT (deep venous thrombosis) Essential hypertension Former smoker Gastric reflux [place] filter in place History of DVT (deep vein thrombosis) History of echocardiogram History of edema History of steroid therapy History of stress test Hx of fci use of blood thinners Presence of cardiac resynchronization therapy 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) Pure hypercholesterolemia Shortness of breath on exertion Syncope Wears glasses Wears hearing aid Home Medications dutasteride 0.5 mg capsule (Avodart) 0.5 mg PO DAILY bph 10/01/16 [History Last Taken 08/19/21 07:30] ferrous sulfate 325 mg (65 mg iron) tablet (Iron (ferrous sulfate)) 65 mg PO DAILY supplement 05/04/22 [History Last Taken Unknown] carvedilol 3.125 mg tablet 3.125 mg PO BID BP 05/12/22 [History Last Taken Unknown] oxycodone 5 mg tablet 10 mg PO Q6H PRN PRN Pain Score 6-10 7 days #15 tabs 05/12/22 [Rx Last Taken Unknown] polyethylene glycol 3350 17 gram oral powder packet 17 g PO DAILY constipation 05/12/22 [History Last Taken Unknown] sennosides 8.6 mg-docusate sodium 50 mg tablet (Stool Softener-Stimulant Laxative) 2 tab PO BID stool softener 05/12/22 [History Last Taken Unknown] Allergy/AdvReac Type Severity Reaction Status Date / Time No Known Allergies Allergy Verified 05/04/22 00:14 Family History Father Diabetes Brother Cancer Prostate cancer Surgical History History of left hip replacement History of nasal surgery History of right-sided carotid endarterectomy Hx of left cataract extraction Hx of total hip arthroplasty S/P implantation of automatic cardioverter/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 (AICD) Social History (Updated 05/12/22 @ 19:[address] Jerome Aggarwal MD) household members: spouse Smoking Status: Former smoker how long ago did patient quit smokin alcohol intake: current alcohol intake frequency: holidays/special occasions only Alcohol type: wine substance use type: does not use caffeine: Yes Type: tea Number of servings: 1 what type of physical activity do you participate in: 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: [employer] frequency: 5-6 times per week duration: 30-45 minutes/day seatbelt use: always do you feel safe at home: Yes ROS Constitutional Constitutional: Denies chills, fever(s) or weight gain ENT HEENT: Denies headache(s), nasal congestion or nasal discharge Cardiovascular Cardiovascular: Denies chest pain or palpitations Respiratory/Chest Respiratory/Chest: Denies cough, excessive phlegm production or shortness of breath with exertion Gastrointestinal Gastrointestinal: Denies abdominal pain, nausea or vomiting Genitourinary Genitourinary: Denies dysuria Musculoskeletal Musculoskeletal: Denies joint pain or joint swelling Integumentary Integumentary: Denies rash or wounds Neurologic Neurologic: Denies focal weakness, numbness or tingling Psychiatric Psychiatric: Denies anxiety, auditory hallucinations, depression, homicidal ideation or suicidal ideation Vital Signs Vital Signs Vital Signs: 05/12/22 17:04 05/12/22 18:47 Temperature 97.9 F Temperature Source Temporal Pulse Rate 64 Pulse Rhythm Regular Pulse Strength Normal (2+) Respiratory Rate 16 Respiratory Effort Normal Non-Labored Respiratory Depth Normal Respiratory Pattern Normal Blood Pressure 130/66 H Blood Pressure Mean 87 Blood Pressure Source Monitor Pulse Ox 96 Oxygen Delivery Method Room Air Room Air Weight Weight: 100.3 kg Body Mass Index (BMI) 32.6 Physical Exam Const alert General Appearance: cooperative HEENT normocephalic Eyes PERRL and EOMs intact bilaterally Neck supple, no JVD and no carotid bruits Resp normal respiratory effort, normal air movement and clear to auscultation bilaterally Cardio regular rate and regular rhythm GI normal to inspection, nondistended, normoactive bowel sounds, non-tender and non-distended Extremity normal capillary refill General Extremity: Negative for edema Skin no rashes or lesions noted General Skin Exam: no breakdown Psych affect normal Appearance: appropriate Assessment & Plan Assessment/Plan (1) Debility: (2) Left hip pain: (3) Retroperitoneal hematoma: (4) Acute anemia: (5) Benign prostate hyperplasia: (6) Vitamin D deficiency: (7) Atrial fibrillation: (8) Hypercoagulable state: PLAN: Plan 86 year old male with past medical history significant for hypercoagulable state on anticoagulation hospitalized for intractable left hip pain secondary to left retroperitoneal hematoma, admitted to TCU with debility, here for rehabilitation, strengthening, prior to discharge home alone. Debility - PT/OT. Pain - Tylenol 1000mg tid, Oxycodone 10mg q4h prn pain (6-10). Bowel - Miralax 17gm daily, senna/colace 2 tablets bid, MOM 30ml daily prn. Adult immunization - Administer pneumonia vaccine, covid19 vaccine, flu vaccine as appropriate. DVT prophylaxis - Hold, retroperitoneal hematoma. Hypertension - Coreg 3.125mg bid. Iron deficiency anemia - Ferrous sulfate 65mg daily. BPH - Finasteride 5mg daily.
[2022-05-12] MEDS: oxyCODONE 5 MG Tablet PO (21:25)
[2022-05-12] MEDS: Acetaminophen 500 MG Tablet 1000 MG PO (21:26)
[2022-05-13 06:02] LABS: Absolute Lymphocyte Count 1.16 X10^3/uL (0.83-4.51); Absolute Neutrophil Count 2.8 X10^3/uL (2.0-7.7); Basophil# 0.02 X10^3/uL; Basophil% 0.4 % (0-1); Eosinophil# 0.22 X10^3/uL; Eosinophils% 4.6 % (0-5); Hematocrit 32.2 % (40-54); Hemoglobin 10.4 g/dL (13.0-16.5); Lymphocyte # 1.16 X10^3/ul (0.83-4.51); Lymphocyte % 24.1 % (19-41); Mean Corp Hgb Conc 32.3 g/dL (32-36); Mean Corpuscular Hgb 29.6 pg (27.0-32.0); Mean Corpuscular Volume 91.7 fL (80-94); Mean Platelet Vol. 10.2 fl (6.2-12.0); Monocyte# 0.63 X10^3/uL; Monocyte% 13.1 % (0-10); NRBC Flagged by Analyzer 0 % (0-5); Neutrophil # 2.78 X10^3/uL (2.7-7.7); Neutrophil % 57.6 % (47-70); Platelet Count 158 K/mm3 (150-450); RBC Distribution Width SD 50.1 fl (35.1-43.9); Red Blood Count 3.51 M/mm3 (4.6-6.2); White Blood Count 4.8 K/mm3 (4.4-11.0)
[2022-05-13] MEDS: Senna/Docusate Sodium 1 Tablet 2 TABLET PO ×2 (06:29→16:55)
[2022-05-13] MEDS: Acetaminophen 500 MG Tablet 1000 MG PO ×3 (06:29→19:59)
[2022-05-13] MEDS: Finasteride 5 MG Tablet PO (06:29)
[2022-05-13] MEDS: Polyethylene Glycol 3350 17 GM PACKET PO (06:29)
[2022-05-13 06:38] LABS: Anion Gap 5 (5-15); BUN 14 mg/dL (7-18); BUN/Creat Ratio 13.2 RATIO (10-20); Calcium,Total 8.5 mg/dL (8.5-10.1); Chloride 102 mmol/L (98-107); Creatinine, Serum 1.06 mg/dL (0.70-1.30); EST Glomerular Filtration Rate 70 mL/min (>60); Est Glom Filt Rate - Afr Amer 85 mL/min (>60); Estimated Creatinine Clearance 50.02 ml/min; Glucose 108 mg/dL (74-106); Potassium 3.6 mmol/L (3.5-5.1); Sodium Level 137 mmol/L (136-145)
[2022-05-13 06:42] VITALS: BP 148/59; PULSE 62; RESP 16; TEMP 36.3; O2SAT 97
[2022-05-13] MEDS: Carvedilol 3.125 MG TABLET PO ×2 (08:27→16:55)
[2022-05-13] MEDS: 0.9% Saline Lock 10 ML Syringe IV (09:56)
[2022-05-13] MEDS: Ferrous Sulfate 325 MG Tablet PO (09:57)
[2022-05-13] MEDS: Tuberculin,Purif.prot.deriv. 50 TU/ML Vial 0.1 ML ID (09:57)
--- NOTE | 2022-05-13 13:10 | PCM.PN.DRR ---
TCU RX Drug Regimen Review Subjective: TCU Admission. 86 YOM presented to the ER with hip pain. Hospitalized for intractable left hip pain secondary to left retroperitoneal hematoma. Admitted to TCU with debility for strengthening and rehabilitation. Objective: Allergies No Known Allergies Allergy (Verified 05/04/22 00:14) Current Medications Generic Name Dose Route Start Last Admin Trade Name Freq PRN Reason Stop Dose Admin Acetaminophen 1,000 mg 05/12/22 22:00 05/13/22 06:29 Acetaminophen 500 Mg Tablet PO 1,000 mg Q8 MELIZA Administration Carvedilol 3.125 mg 05/12/22 18:00 05/13/22 08:27 Carvedilol 3.125 Mg Tablet PO 3.125 mg BIDCM MELIZA Administration Ferrous Sulfate 325 mg 05/13/22 08:00 05/13/22 09:57 Ferrous Sulfate 325 Mg Tablet PO 325 mg DAILYCM MELIZA Administration Finasteride 5 mg 05/13/22 06:00 05/13/22 06:29 Finasteride 5 Mg Tablet PO 5 mg DAILY MELIZA Administration Magnesium Hydroxide 30 ml 05/12/22 19:33 Magnesium Hydroxide 30 Ml Udc PO DAILY PRN Constipation Oxycodone HCl 0 mg 05/12/22 19:34 05/12/22 21:25 Oxycodone 5 Mg Tablet PO 5 mg Q4H PRN PRN Administration Pain Score 6-10 Polyethylene Glycol 17 gm 05/13/22 06:00 05/13/22 06:29 Polyethylene Glycol 3350 17 Gm Packet PO 17 gm DAILY MELIZA Administration Senna/Docusate Sodium 2 tablet 05/12/22 18:00 05/13/22 06:29 Senna/Docusate Sodium 1 Tablet PO 2 tablet BID MELIZA Administration Sodium Chloride 10 - 40 ml 05/12/22 18:04 05/13/22 09:56 0.9% Saline Lock 10 Ml Syringe IV 10 ml UD PRN Administration SALINE FLUSH Tuberculin PPD 0.1 ml 05/20/22 10:00 Tuberculin,Purif.Prot.Deriv. 50 Tu/Ml Vial ID 05/20/22 10:01 X1 ONE Problem List (Last Reviewed 05/12/22 @ 19:[address] Jerome Aggarwal MD) Hypercoagulable state (Acute) Atrial fibrillation (Acute) Vitamin D deficiency (Acute) Benign prostate hyperplasia (Acute) Acute anemia (Acute) Retroperitoneal hematoma (Acute) Left hip pain (Acute) Debility (Acute) Vital Signs Temp Pulse Resp BP Pulse Ox O2 Del Method 97.4 F L 62 16 148/59 H 97 Room Air 05/13/22 06:42 05/13/22 06:42 05/13/22 06:42 05/13/22 06:42 05/13/22 06:42 05/13/22 06:42 Oxygen Delivery Method Room Air Weight: 100.289 kg Body Mass Index (BMI) 32.6 Sodium 137 mmol/L (136-145) 05/13/22 05:38 Potassium 3.6 mmol/L (3.5-5.1) 05/13/22 05:38 Chloride 102 mmol/L (98-107) 05/13/22 05:38 Carbon Dioxide 30.0 mmol/L (21.0-32.0) 05/13/22 05:38 Anion Gap 5 (5-15) 05/13/22 05:38 BUN 14 mg/dL (7-18) 05/13/22 05:38 Creatinine 1.06 mg/dL (0.70-1.30) 05/13/22 05:38 Est GFR (MDRD) Af Amer 85 mL/min (>60) 05/13/22 05:38 Est GFR (MDRD) Non-Af 70 mL/min (>60) 05/13/22 05:38 BUN/Creatinine Ratio 13.2 RATIO (10-20) 05/13/22 05:38 Glucose 108 mg/dL (74-106) H 05/13/22 05:38 Assessment/Plan: 1. Pain: acetaminophen 1000mg PO Q8 and oxycodone 10mg PO Q4H PRN pain 6-10. Resident has had 1 dose of oxycodone for a pain of 5 in the hip. Please continue to monitor for increased pain, PRN usage, constipation and respiratory depression. 2. Bowel: Miralax 17gm PO daily, senna/docusate 2T PO BID and MOM 30mL PO daily PRN constipation. Please continue to monitor for constipation and PRN usage. Resident has not had any doses of MOM. Last documented bowel movement from 05/12. 3. Hypertension: carvedilol 3.125mg PO BID. Please continue to monitor BP (last 148/59) and HR (last 62). 4. Iron deficiency anemia: ferrous sulfate 325mg PO DAILYCM. Please continue to monitor hemoglobin (Last 10.4g/dL), dark stools and constipation. 5. BPH: finasteride 5mg PO daily. Please continue to monitor for S/S of BPH, breast enlargement and tenderness. Assessment/Plan for indications treated with psychotropic medications: None Medical chart and medication regimen reviewed. The following medication irregularities or issues were identified: None Date of Note:: 05/13/22
[2022-05-13 13:19] VITALS: BP 128/56; PULSE 68; RESP 14; TEMP 37.1; O2SAT 94
--- NOTE | 2022-05-13 16:08 | CASEMGMT ---
Social Work Met with patient to complete initial assessment. Introduced self and role. Verified contacts. Discussed code status and MOLST form. Pt wishes to be DNR-CCA, no intubation. Nursing notified. Signed DNR and MOLST form placed in Drs folder. Pt is aware advanced directives are not on file and agreed to bring them in. Educated to [facility] insurance with NRD 05/14 and continued stay is not guaranteed with each review. Pts goal is to return home with at [facility]. Unsure if is able to care for pt physically and all three sons work full-time. SW to continue to follow for discharge planning. Kary Jimenez, REGIONAL SERVICE MANAGER [employer]
[2022-05-13 17:41] VITALS: BP 127/67; PULSE 64
[2022-05-13 20:11] VITALS: PULSE 64; RESP 16
[2022-05-14] MEDS: Acetaminophen 500 MG Tablet 1000 MG PO ×3 (06:34→22:35)
[2022-05-14] MEDS: Senna/Docusate Sodium 1 Tablet 2 TABLET PO (06:34)
[2022-05-14] MEDS: Finasteride 5 MG Tablet PO (06:35)
[2022-05-14] MEDS: Polyethylene Glycol 3350 17 GM PACKET PO (06:37)
[2022-05-14] MEDS: 0.9% Saline Lock 10 ML Syringe IV ×2 (06:38→16:59)
[2022-05-14] MEDS: Carvedilol 3.125 MG TABLET PO ×2 (09:03→17:02)
[2022-05-14] MEDS: Ferrous Sulfate 325 MG Tablet PO (09:03)
--- NOTE | 2022-05-14 12:16 | NURSING ---
Automatic Trimming Sewer Note; Activity Asset: Complete
[2022-05-14 14:33] VITALS: BP 132/69; PULSE 62; RESP 16; TEMP 36.2; O2SAT 93
[2022-05-14 22:39] VITALS: RESP 16
[2022-05-15] MEDS: Acetaminophen 500 MG Tablet 1000 MG PO ×3 (06:04→21:06)
[2022-05-15] MEDS: Finasteride 5 MG Tablet PO (06:04)
[2022-05-15] MEDS: Senna/Docusate Sodium 1 Tablet 2 TABLET PO (06:04)
[2022-05-15] MEDS: Carvedilol 3.125 MG TABLET PO ×2 (08:20→16:57)
[2022-05-15] MEDS: Ferrous Sulfate 325 MG Tablet PO (08:20)
[2022-05-15 13:58] VITALS: BP 131/67; PULSE 73; RESP 16; TEMP 36.4; O2SAT 95
[2022-05-16] MEDS: Finasteride 5 MG Tablet PO (04:54)
[2022-05-16] MEDS: Acetaminophen 500 MG Tablet 1000 MG PO ×3 (04:58→20:04)
[2022-05-16] MEDS: Carvedilol 3.125 MG TABLET PO ×2 (08:45→17:57)
[2022-05-16] MEDS: Ferrous Sulfate 325 MG Tablet PO (08:45)
[2022-05-16 08:48] VITALS: BP 135/70; PULSE 74
--- NOTE | 2022-05-16 09:18 | CASEMGMT ---
Social Work Insurance issued LCD 05/21, DC 05/22. Spoke with pt and in room about DC date. Both agree pt is not ready to DC home, despite the extra day's notice. MORTGAGE FIELD INSPECTOR in room as well. Pt is still needing CGA with ambulation and transfers; pt gets fatigued with walking and sometimes retrolean. Pt also needing min assist with bathing, LE dressing and toileting tasks. stated she cannot physically assist pt with any of those tasks. Pt was mod I prior to admission. Explained appeal rights. Both requesting to appeal. to contact [facility] this morning. Will await outcome. Kary Jimenez, YVES BAUMW
--- NOTE | 2022-05-16 10:12 | NURSING ---
CT of abdomen and pelvis w/o contrast approved for pt. [id number], Reference # [id number]
--- NOTE | 2022-05-16 13:45 | DS.PCM_ITS ---
Providers Date of Admission: 05/12/22 Primary Care Physician: Dr. Qing Hannon MD Reason For Visit: HIP PAIN,CAN'T AMBULATE Diagnosis Discharge Diagnosis (1) Debility: Status: Acute Code(s): R53.81 - Other malaise (2) Left hip pain: Status: Acute Code(s): M25.552 - Pain in left hip (3) Retroperitoneal hematoma: Status: Acute Code(s): K66.1 - Hemoperitoneum (4) Acute anemia: Status: Acute Code(s): D64.9 - Anemia, unspecified (5) Benign prostate hyperplasia: Status: Acute Code(s): N40.0 - Benign prostatic hyperplasia without lower urinary tract symptoms (6) Vitamin D deficiency: Status: Acute Code(s): E55.9 - Vitamin D deficiency, unspecified (7) Atrial fibrillation: Status: Acute Code(s): I48.91 - Unspecified atrial fibrillation (8) Hypercoagulable state: Status: Acute Code(s): D68.59 - Other primary thrombophilia Plan 86 year old male with past medical history significant for hypercoagulable state on anticoagulation hospitalized for intractable left hip pain secondary to left retroperitoneal hematoma, admitted to TCU with debility, here for rehabilitation, strengthening, prior to discharge home alone. * Debility - PT/OT. * Pain - Tylenol 1000mg tid, Oxycodone 10mg q4h prn pain (6-10). * Bowel - Miralax 17gm daily, senna/colace 2 tablets bid, MOM 30ml daily prn. * Adult immunization - Administer pneumonia vaccine, covid19 vaccine, flu vaccine as appropriate. * DVT prophylaxis - Hold, retroperitoneal hematoma. * Hypertension - Coreg 3.125mg bid. * Iron deficiency anemia - Ferrous sulfate 65mg daily. * BPH - Finasteride 5mg daily. Medications at Discharge Home Medications dutasteride 0.5 mg capsule (Avodart) 0.5 mg PO DAILY bph 10/01/16 carvedilol 3.125 mg tablet 3.125 mg PO BID BP 05/12/22 polyethylene glycol 3350 17 gram oral powder packet 17 g PO DAILY constipation 05/12/22 sennosides 8.6 mg-docusate sodium 50 mg tablet (Stool Softener-Stimulant Laxative) 2 tab PO BID stool softener 05/12/22 acetaminophen 500 mg tablet 1,000 mg PO Q8 #0 tabs 05/16/22 ferrous sulfate 325 mg (65 mg iron) tablet (FeroSul) 325 mg PO DAILYCM 30 days #30 tabs 05/16/22 oxycodone 5 mg tablet 5 mg PO Q4H PRN PRN Pain Score 6-10 3 days #18 tabs 05/16/22 Hospital Course Operations None Procedures None Summary of Care Provided Minutes Spent on Discharge: 35 Hospital Course: 86 year old male with past medical history significant for hypercoagulable state on anticoagulation hospitalized for intractable left hip pain secondary to left retroperitoneal hematoma, admitted to TCU with debility, here for rehabilitation, strengthening, prior to discharge home alone. 05/16/2022 CT abdomen/pelvis left retroperitoneal hematoma stable. Discharge home with 05/22/2022, Home Health Care PT/OT/[facility]. Physical Exam Const alert General Appearance: cooperative HEENT normocephalic Eyes PERRL and EOMs intact bilaterally Neck supple, no JVD and no carotid bruits Resp normal respiratory effort, normal air movement and clear to auscultation bilaterally Cardio regular rate and regular rhythm GI normal to inspection, nondistended, normoactive bowel sounds, non-tender and non-distended Extremity normal capillary refill General Extremity: Negative for edema Skin no rashes or lesions noted General Skin Exam: no breakdown Psych affect normal Appearance: appropriate Weight / BMI Weight Weight: 100.289 kg Body Mass Index (BMI) 32.6 ABG / Lab / Microbiology Data Result Diagrams: 05/13/22 05:38 05/13/22 05:38 Microbiology: Microbiology 05/16/22 05:30 Nasal Secretion SARS-CoV-2 Antigen (Rapid) - Final 05/14/22 06:40 Nasal Secretion SARS-CoV-2 Antigen (Rapid) - Final D/C Instructions Discharge Diet: No restrictions Discharge Activity: Return to Normal Activity, May Shower and Use Walker Weight Bearing Status: Weight bearing as tolerated Call your doctor if you observe: Fever of 101 or Higher, Inability to urinate, Inability to have a bowel movement, Shortness of breath, Dizziness, Fainting s pells, Swelling in the ankles, Chest pain and Uncontrolled pain Additional Instructions: Discharge home with 05/22/2022, Home Health Care PT/OT/[facility]. Please Follow Up With: Orlando Macias DO When: As scheduled. Meaningful Use Info Meaningful Use Diagnoses (Choose all that apply): None applicable Discharge Plan Admission Admit Date/Time: 05/12/22 16:15 Primary Reason for Your Visit: Debility. Attending Provider: Jerome Aggarwal Chi Primary Care Provider: Qing Hannon Instructions Additional Instructions / Restrictions: Discharge home with 05/22/2022, Home Health Care PT/OT/[facility]. Discharge Orders/Prescriptions Prescriptions: New acetaminophen 500 mg Tablet 1,000 mg PO Q8 Qty: 0 0RF ferrous sulfate [FeroSul] 325 mg (65 mg iron) Tablet 325 mg PO DAILYCM 30 Days Qty: 30 0RF oxycodone 5 mg Tablet 5 mg PO Q4H PRN PRN (Reason: Pain Score 6-10) 3 Days Qty: 18 0RF Continued dutasteride [Avodart] 0.5 MG capsule 0.5 mg PO DAILY polyethylene glycol 3350 17 gram powder in packet 17 g PO DAILY sennosides-docusate sodium [Stool Softener-Stimulant Laxat] 8.6-50 mg tablet 2 tab PO BID carvedilol 3.125 mg tablet 3.125 mg PO BID Rx Instructions: must administer with a meal/food Discontinued ferrous sulfate [Iron (ferrous sulfate)] 325 mg (65 mg iron) Tablet 65 mg PO DAILY oxycodone 5 mg Tablet 10 mg PO Q6H PRN PRN (Reason: Pain Score 6-10) 7 Days Qty: 15 0RF Rx Instructions: 5mg pain score 4-5 10mg pain score 6-10 Referrals / Follow Up: Qing Hannon MD [Primary Care Provider] - Disposition Disposition (needs filled in before D/C Order can be placed): Home Health Service
[2022-05-16 14:51] VITALS: BP 129/73; PULSE 67; RESP 16; TEMP 36.8; O2SAT 94
[2022-05-16] MEDS: Senna/Docusate Sodium 1 Tablet 2 TABLET PO (17:57)
[2022-05-16 23:00] VITALS: PULSE 63; RESP 16; O2SAT 93
[2022-05-17] MEDS: Acetaminophen 500 MG Tablet 1000 MG PO ×3 (05:38→21:14)
[2022-05-17] MEDS: Finasteride 5 MG Tablet PO (05:39)
[2022-05-17] MEDS: Carvedilol 3.125 MG TABLET PO ×2 (08:55→16:32)
[2022-05-17] MEDS: Ferrous Sulfate 325 MG Tablet PO (08:55)
[2022-05-17 15:26] VITALS: BP 114/66; PULSE 66; RESP 16; TEMP 36.6; O2SAT 95
[2022-05-17] MEDS: Senna/Docusate Sodium 1 Tablet 2 TABLET PO (16:31)
--- NOTE | 2022-05-17 16:38 | CASEMGMT ---
Social Work As per TCU SW, pt won appeal with insurance. SW notified pt's bedside RN. TOOTIE Samayoa
--- NOTE | 2022-05-17 17:27 | NURSING ---
Pt aware he won appeal with insurance, message left for to call back to TCU for update.
[2022-05-18] MEDS: Acetaminophen 500 MG Tablet 1000 MG PO ×3 (06:10→21:33)
[2022-05-18] MEDS: Finasteride 5 MG Tablet PO (06:11)
[2022-05-18] MEDS: Carvedilol 3.125 MG TABLET PO ×2 (08:52→18:06)
[2022-05-18] MEDS: Ferrous Sulfate 325 MG Tablet PO (08:52)
[2022-05-18 16:00] VITALS: BP 127/62; PULSE 63; RESP 16; TEMP 36.8; O2SAT 95
[2022-05-18] MEDS: Senna/Docusate Sodium 1 Tablet 2 TABLET PO (18:07)
[2022-05-19] MEDS: Polyethylene Glycol 3350 17 GM PACKET PO (06:08)
[2022-05-19] MEDS: Senna/Docusate Sodium 1 Tablet 2 TABLET PO ×2 (06:10→17:16)
[2022-05-19] MEDS: Acetaminophen 500 MG Tablet 1000 MG PO ×3 (06:10→21:16)
[2022-05-19] MEDS: Finasteride 5 MG Tablet PO (06:11)
[2022-05-19] MEDS: Ferrous Sulfate 325 MG Tablet PO (07:56)
[2022-05-19] MEDS: Carvedilol 3.125 MG TABLET PO ×2 (07:56→17:16)
[2022-05-19 07:58] VITALS: BP 138/70; PULSE 73
--- NOTE | 2022-05-19 09:16 | NURSING ---
Instructor Bus Trolley And Taxi Note; MDS Complete
--- NOTE | 2022-05-19 09:35 | CASEMGMT ---
Social Work presented to this worker's office to inquire about appeal. SW updated that pt won appeal and insurance will issue another review date for continued stay. IDT to discuss pt's progress and determine DC as appropriate. SW to continue to follow for DC planning. Kary Jimenez, AGRICULTURE RESEARCH DIRECTOR FLOORLEADER
[2022-05-19 10:00] VITALS: PULSE 73; RESP 18; O2SAT 95
[2022-05-19 12:57] VITALS: BP 116/62; PULSE 67; RESP 18; O2SAT 96
--- NOTE | 2022-05-19 13:03 | NURSING ---
PT CAME TO DESK REQUESTING NURSE, STATED THAT PT FELT DIZZY. VITALS DONE AND WITH IN NORMAL LIMITS. ASKED PT HOW HE WAS FEELING,PT STATED JUST A LITTLE DIZZY BUT FEELING BETTER. WILL CONTINUE TO MONITOR,RN AWARE.
--- NOTE | 2022-05-19 13:47 | NURSING ---
Resident educated on the COVID 19 vaccine. He does not want to receive a Booster at this time.
[2022-05-19 15:13] VITALS: BP 102/60; PULSE 74; RESP 16; TEMP 36.3; O2SAT 93
--- NOTE | 2022-05-19 15:30 | CASEMGMT ---
Social Work BIMS (04/29) and PHQ-9 (10/09) completed for MDS assessment. Kary Jimenez MSW JANITOR CLEANER
[2022-05-19] MEDS: Magnesium Hydroxide 30 ML UDC PO (17:16)
[2022-05-20 05:44] LABS: Absolute Lymphocyte Count 1.37 X10^3/uL (0.83-4.51); Absolute Neutrophil Count 4.2 X10^3/uL (2.0-7.7); Basophil# 0.03 X10^3/uL; Basophil% 0.5 % (0-1); Eosinophil# 0.16 X10^3/uL; Eosinophils% 2.5 % (0-5); Hematocrit 34.9 % (40-54); Hemoglobin 11.3 g/dL (13.0-16.5); Lymphocyte # 1.37 X10^3/ul (0.83-4.51); Lymphocyte % 21.2 % (19-41); Mean Corp Hgb Conc 32.4 g/dL (32-36); Mean Corpuscular Hgb 29.6 pg (27.0-32.0); Mean Corpuscular Volume 91.4 fL (80-94); Monocyte# 0.65 X10^3/uL; Monocyte% 10.1 % (0-10); NRBC Flagged by Analyzer 0 % (0-5); Neutrophil # 4.21 X10^3/uL (2.7-7.7); Neutrophil % 65.2 % (47-70); Platelet Count 148 K/mm3 (150-450); RBC Distribution Width CV 15.2 % (11.6-14.6); RBC Distribution Width SD 50.6 fl (35.1-43.9); Red Blood Count 3.82 M/mm3 (4.6-6.2); White Blood Count 6.5 K/mm3 (4.4-11.0)
[2022-05-20] MEDS: Polyethylene Glycol 3350 17 GM PACKET PO (05:50)
[2022-05-20] MEDS: Acetaminophen 500 MG Tablet 1000 MG PO ×3 (05:50→21:25)
[2022-05-20] MEDS: Finasteride 5 MG Tablet PO (05:50)
[2022-05-20] MEDS: Senna/Docusate Sodium 1 Tablet 2 TABLET PO ×2 (05:50→17:54)
[2022-05-20 06:07] LABS: Anion Gap 7 (5-15); BUN 20 mg/dL (7-18); Calcium,Total 9.3 mg/dL (8.5-10.1); Chloride 98 mmol/L (98-107); Creatinine, Serum 1.33 mg/dL (0.70-1.30); EST Glomerular Filtration Rate 54 mL/min (>60); Est Glom Filt Rate - Afr Amer 65 mL/min (>60); Estimated Creatinine Clearance 39.87 ml/min; Glucose 116 mg/dL (74-106); Potassium 3.9 mmol/L (3.5-5.1); Sodium Level 133 mmol/L (136-145)
[2022-05-20] MEDS: Ferrous Sulfate 325 MG Tablet PO (07:56)
[2022-05-20] MEDS: Carvedilol 3.125 MG TABLET PO ×2 (07:56→17:54)
[2022-05-20] MEDS: Tuberculin,Purif.prot.deriv. 50 TU/ML Vial 0.1 ML ID (10:28)
[2022-05-20] MEDS: Menthol/Lanolin/Calamine/Znox 113 GM Tube 1 APPLIC TOPICAL ×2 (10:29→17:54)
[2022-05-20] MEDS: Magnesium Hydroxide 30 ML UDC PO (10:34)
[2022-05-20 15:02] VITALS: BP 102/57; PULSE 79; RESP 14; TEMP 36.6; O2SAT 92
--- NOTE | 2022-05-20 15:19 | CASEMGMT ---
Social Work IDT met with patient and for care plan meeting. Discussed patient's progress in PT/OT/SN. Educated to [facility] insurance with NRD 05/26 and continued stay is not guaranteed. concerned about car transfers, increased swelling in legs and feet, increased dizziness and quick fatigue. SW coordinated with SOCIAL PROBLEMS SPECIALIST for car tx, left written notification for Dr. Aggarwal on medical concerns. SW offered medical alert at home. and pt agreeable. Resources provided to . appreciative. SW to continue to follow. Kary Jimenez, MEDICAL PAYMENT POSTER BURN CREW MEMBER
[2022-05-20 16:31] VITALS: PULSE 63; RESP 18; O2SAT 95
[2022-05-20] MEDS: MELATONIN 10 MG TABLET PO (21:25)
--- NOTE | 2022-05-20 23:21 | NURSING ---
Addendum entered by Jeanne Caldwell 05/21/22 02:44: Iv inserted 20g in LAC for cta, pt taken to radiology via wc. Addendum entered by Birgit Sarmiento 05/20/22 23:27: Dr aggarwal spoke with and determined not to restart anticoagulation d/t possibility making hematoma worse, CT showed it being stable. Original Note: Dr Aggarwal ordered CTA of chest to Rule out PE.
[2022-05-21] MEDS: Finasteride 5 MG Tablet PO (05:43)
[2022-05-21] MEDS: Acetaminophen 500 MG Tablet 1000 MG PO ×3 (05:43→22:40)
[2022-05-21] MEDS: Polyethylene Glycol 3350 17 GM PACKET PO (05:43)
[2022-05-21] MEDS: Senna/Docusate Sodium 1 Tablet 2 TABLET PO ×2 (05:43→16:27)
[2022-05-21] MEDS: Menthol/Lanolin/Calamine/Znox 113 GM Tube 1 APPLIC TOPICAL ×2 (05:44→16:29)
[2022-05-21] MEDS: Carvedilol 3.125 MG TABLET PO ×2 (08:38→16:27)
[2022-05-21] MEDS: Ferrous Sulfate 325 MG Tablet PO (08:39)
[2022-05-21] MEDS: oxyCODONE 5 MG Tablet PO ×2 (08:59→16:27)
[2022-05-21 10:34] VITALS: BP 93/55; PULSE 71
[2022-05-21 14:18] VITALS: BP 122/71; PULSE 72; RESP 21; TEMP 36.4; O2SAT 93
[2022-05-21] MEDS: MELATONIN 10 MG TABLET PO (22:40)
[2022-05-22] MEDS: Polyethylene Glycol 3350 17 GM PACKET PO (05:52)
[2022-05-22] MEDS: Acetaminophen 500 MG Tablet 1000 MG PO ×3 (05:52→21:52)
[2022-05-22] MEDS: Senna/Docusate Sodium 1 Tablet 2 TABLET PO ×2 (05:52→16:32)
[2022-05-22] MEDS: Finasteride 5 MG Tablet PO (05:52)
[2022-05-22] MEDS: Menthol/Lanolin/Calamine/Znox 113 GM Tube 1 APPLIC TOPICAL ×2 (05:57→16:30)
[2022-05-22 08:08] VITALS: BP 109/60; PULSE 60
[2022-05-22] MEDS: Carvedilol 3.125 MG TABLET PO ×2 (08:09→16:30)
[2022-05-22] MEDS: Ferrous Sulfate 325 MG Tablet PO (08:09)
[2022-05-22 13:02] LABS: International Normalized Ratio 1.2
[2022-05-22 15:49] VITALS: BP 97/60; PULSE 75; RESP 14; TEMP 36.4; O2SAT 95
[2022-05-22 16:27] VITALS: BP 102/61; PULSE 80
[2022-05-22 21:43] VITALS: PULSE 77; RESP 18; O2SAT 97
[2022-05-22] MEDS: oxyCODONE 5 MG Tablet PO (21:51)
[2022-05-22] MEDS: MELATONIN 10 MG TABLET PO (21:51)
[2022-05-22] MEDS: Mirtazapine 15 MG Tablet 7.5 MG PO (21:54)
[2022-05-23] MEDS: Polyethylene Glycol 3350 17 GM PACKET PO (05:07)
[2022-05-23] MEDS: Menthol/Lanolin/Calamine/Znox 113 GM Tube 1 APPLIC TOPICAL ×2 (05:07→16:39)
[2022-05-23] MEDS: Finasteride 5 MG Tablet PO (05:07)
[2022-05-23] MEDS: Senna/Docusate Sodium 1 Tablet 2 TABLET PO ×2 (05:07→16:38)
[2022-05-23] MEDS: Acetaminophen 500 MG Tablet 1000 MG PO ×3 (05:08→21:33)
--- NOTE | 2022-05-23 08:50 | MDS.RN ---
Information for the mds was obtained from review of the clinical record, interview of resident, staff, and direct observation of resident's care.
[2022-05-23 08:51] VITALS: BP 109/55; PULSE 78; RESP 18; TEMP 36.2; O2SAT 95
[2022-05-23] MEDS: Carvedilol 3.125 MG TABLET PO ×2 (08:53→16:37)
[2022-05-23] MEDS: Ferrous Sulfate 325 MG Tablet PO (08:53)
[2022-05-23] MEDS: oxyCODONE 5 MG Tablet PO ×2 (08:56→10:28)
[2022-05-23 11:31] LABS: BNP,B-Type NATRIURETIC PEPTIDE 36.4 pg/mL (0-100)
[2022-05-23 14:20] VITALS: BP 131/73; PULSE 62; RESP 12; TEMP 36.2; O2SAT 97
[2022-05-23] MEDS: Mirtazapine 15 MG Tablet 7.5 MG PO (21:34)
[2022-05-23] MEDS: MELATONIN 10 MG TABLET PO (21:34)
[2022-05-24] MEDS: oxyCODONE 5 MG Tablet PO ×2 (01:23→23:17)
[2022-05-24] MEDS: Acetaminophen 500 MG Tablet 1000 MG PO ×3 (06:35→20:07)
[2022-05-24] MEDS: Finasteride 5 MG Tablet PO (06:35)
[2022-05-24] MEDS: 0.9% Saline Lock 10 ML Syringe IV ×2 (06:35→08:50)
[2022-05-24] MEDS: Senna/Docusate Sodium 1 Tablet 2 TABLET PO ×2 (06:35→17:47)
[2022-05-24] MEDS: Polyethylene Glycol 3350 17 GM PACKET PO (06:36)
[2022-05-24] MEDS: Menthol/Lanolin/Calamine/Znox 113 GM Tube 1 APPLIC TOPICAL ×2 (06:40→17:48)
[2022-05-24] MEDS: Carvedilol 3.125 MG TABLET PO ×2 (08:47→17:48)
[2022-05-24] MEDS: Ferrous Sulfate 325 MG Tablet PO (08:47)
[2022-05-24 08:48] VITALS: BP 108/69; PULSE 73
[2022-05-24 10:00] VITALS: PULSE 73; RESP 18; O2SAT 92
[2022-05-24 13:17] VITALS: BP 118/67; PULSE 73; RESP 14; TEMP 36.7; O2SAT 95
[2022-05-24 17:46] VITALS: BP 114/68; PULSE 80
[2022-05-24] MEDS: Mirtazapine 15 MG Tablet 7.5 MG PO (20:08)
[2022-05-24] MEDS: MELATONIN 10 MG TABLET PO (20:09)
[2022-05-25] MEDS: Acetaminophen 500 MG Tablet 1000 MG PO ×3 (05:52→20:27)
[2022-05-25] MEDS: Menthol/Lanolin/Calamine/Znox 113 GM Tube 1 APPLIC TOPICAL ×2 (05:53→17:12)
[2022-05-25] MEDS: Senna/Docusate Sodium 1 Tablet 2 TABLET PO ×2 (05:53→17:12)
[2022-05-25] MEDS: Finasteride 5 MG Tablet PO (05:53)
[2022-05-25] MEDS: Polyethylene Glycol 3350 17 GM PACKET PO (05:53)
[2022-05-25] MEDS: Carvedilol 3.125 MG TABLET PO ×2 (08:32→17:11)
[2022-05-25] MEDS: Ferrous Sulfate 325 MG Tablet PO (08:32)
[2022-05-25 08:33] VITALS: BP 103/54; PULSE 73; RESP 14; TEMP 36.3; O2SAT 93
[2022-05-25] MEDS: oxyCODONE 5 MG Tablet PO ×3 (09:35→22:15)
[2022-05-25 09:39] VITALS: RESP 16
[2022-05-25 17:08] VITALS: BP 123/59; PULSE 74
[2022-05-25] MEDS: Mirtazapine 15 MG Tablet 7.5 MG PO (20:27)
[2022-05-25] MEDS: MELATONIN 10 MG TABLET PO (20:27)
[2022-05-26] MEDS: Senna/Docusate Sodium 1 Tablet 2 TABLET PO ×2 (05:36→17:39)
[2022-05-26] MEDS: Menthol/Lanolin/Calamine/Znox 113 GM Tube 1 APPLIC TOPICAL ×2 (05:36→17:42)
[2022-05-26] MEDS: Polyethylene Glycol 3350 17 GM PACKET PO (05:36)
[2022-05-26] MEDS: Acetaminophen 500 MG Tablet 1000 MG PO ×3 (05:37→21:20)
[2022-05-26] MEDS: Finasteride 5 MG Tablet PO (05:37)
[2022-05-26] MEDS: oxyCODONE 5 MG Tablet PO ×2 (08:22→21:19)
[2022-05-26] MEDS: Ferrous Sulfate 325 MG Tablet PO (08:23)
[2022-05-26] MEDS: Carvedilol 3.125 MG TABLET PO ×2 (08:23→17:39)
[2022-05-26 12:40] LABS: International Normalized Ratio 1.4; Prothrombin Time (Protime)PT. 16.5 SECONDS (11.7-14.9)
[2022-05-26 14:23] VITALS: BP 115/72; PULSE 77; RESP 18; TEMP 36.6; O2SAT 97
[2022-05-26] MEDS: MELATONIN 10 MG TABLET PO (21:20)
[2022-05-26] MEDS: Mirtazapine 15 MG Tablet 7.5 MG PO (21:22)
[2022-05-27 05:41] LABS: Absolute Lymphocyte Count 1.22 X10^3/uL (0.83-4.51); Absolute Neutrophil Count 4.5 X10^3/uL (2.0-7.7); Basophil# 0.02 X10^3/uL; Basophil% 0.3 % (0-1); Eosinophil# 0.18 X10^3/uL; Eosinophils% 2.6 % (0-5); Hemoglobin 10.2 g/dL (13.0-16.5); Lymphocyte # 1.22 X10^3/ul (0.83-4.51); Lymphocyte % 17.9 % (19-41); Mean Corp Hgb Conc 31.9 g/dL (32-36); Mean Corpuscular Hgb 29.3 pg (27.0-32.0); Mean Platelet Vol. 10.1 fl (6.2-12.0); Monocyte# 0.87 X10^3/uL; Monocyte% 12.8 % (0-10); NRBC Flagged by Analyzer 0 % (0-5); Neutrophil # 4.49 X10^3/uL (2.7-7.7); Neutrophil % 66.1 % (47-70); Platelet Count 113 K/mm3 (150-450); RBC Distribution Width CV 15.2 % (11.6-14.6); RBC Distribution Width SD 51.2 fl (35.1-43.9); Red Blood Count 3.48 M/mm3 (4.6-6.2); White Blood Count 6.8 K/mm3 (4.4-11.0)
[2022-05-27] MEDS: oxyCODONE 5 MG Tablet PO (05:56)
[2022-05-27] MEDS: Senna/Docusate Sodium 1 Tablet 2 TABLET PO (05:57)
[2022-05-27] MEDS: Finasteride 5 MG Tablet PO (05:57)
[2022-05-27] MEDS: Polyethylene Glycol 3350 17 GM PACKET PO (05:57)
[2022-05-27] MEDS: Acetaminophen 500 MG Tablet 1000 MG PO ×3 (05:57→21:31)
[2022-05-27] MEDS: Menthol/Lanolin/Calamine/Znox 113 GM Tube 1 APPLIC TOPICAL ×2 (06:02→17:27)
[2022-05-27 06:03] LABS: Anion Gap 4 (5-15); BUN 31 mg/dL (7-18); Chloride 97 mmol/L (98-107); Creatinine, Serum 1.35 mg/dL (0.70-1.30); EST Glomerular Filtration Rate 53 mL/min (>60); Est Glom Filt Rate - Afr Amer 64 mL/min (>60); Estimated Creatinine Clearance 39.28 ml/min; Glucose 129 mg/dL (74-106); Potassium 4.9 mmol/L (3.5-5.1); Sodium Level 130 mmol/L (136-145)
--- NOTE | 2022-05-27 07:36 | NURSING ---
Patient reports having anxiety alot lately. Written communication left for Dr. Aggarwal
[2022-05-27 08:34] LABS: Osmolality, Serum 294 mOsm/KG (280-301)
[2022-05-27] MEDS: Ferrous Sulfate 325 MG Tablet PO (08:45)
[2022-05-27] MEDS: Carvedilol 3.125 MG TABLET PO ×2 (08:45→17:26)
[2022-05-27 11:41] LABS: Urine Sodium 7 mmol/L (Not Establ.)
[2022-05-27 11:44] LABS: Osmolality, Urine 633 mOsm/KG
[2022-05-27] MEDS: busPIRone 5 MG Tablet PO ×2 (14:03→21:31)
--- NOTE | 2022-05-27 15:41 | CASEMGMT ---
Social Work Spoke with to update on insurance NRD 05/30 and continued stay is not guaranteed. SW expressed concern voiced from IDT about pt's decline. Inquired about pts motivation and DC plans. noticed the same changes and concerned as well. SW offered to have conversation with pt on wishes and motivation. appreciative. Plan still remains home with /HHC. SW to continue to follow. Kary Jimenez, COMMUNITY OUTREACH ADVOCATE FOOD TRUCK CATERER
[2022-05-27 18:05] VITALS: BP 107/60; PULSE 81; RESP 18; TEMP 36.3; O2SAT 95
[2022-05-27 21:00] VITALS: RESP 16
[2022-05-27] MEDS: MELATONIN 10 MG TABLET PO (21:31)
[2022-05-27] MEDS: Mirtazapine 15 MG Tablet 7.5 MG PO (21:31)
[2022-05-28] MEDS: oxyCODONE 5 MG Tablet PO ×2 (00:45→21:39)
[2022-05-28] MEDS: Acetaminophen 500 MG Tablet 1000 MG PO ×3 (05:21→21:42)
[2022-05-28] MEDS: Menthol/Lanolin/Calamine/Znox 113 GM Tube 1 APPLIC TOPICAL ×2 (05:22→17:37)
[2022-05-28] MEDS: busPIRone 5 MG Tablet PO ×3 (05:22→21:42)
[2022-05-28] MEDS: Finasteride 5 MG Tablet PO (05:22)
[2022-05-28 07:50] VITALS: BP 113/49; PULSE 73
[2022-05-28] MEDS: Carvedilol 3.125 MG TABLET PO ×2 (07:52→17:34)
[2022-05-28] MEDS: Ferrous Sulfate 325 MG Tablet PO (07:52)
--- NOTE | 2022-05-28 09:56 | NURSING ---
Addendum entered by Jennifer Rodney 05/28/22 12:22: UPDATED R' AND ON NEW ORDER. AGREEABLE. Addendum entered by Birgit Sarmiento 05/28/22 11:28: DR ERIC ORDERED LASIX 20 MEQ X1 NOW AND CHECK BMP IN AM Original Note: pt noted to have increased edema in BLE's, pt states he having difficulty lifting legs. pt does have own compression socks on. in room, weight increased since admit of [address] ERIC
--- NOTE | 2022-05-28 10:32 | CASEMGMT ---
Social Work Met with patient and in room. Spoke with pt about how pt felt he was doing;wishes;goals for home. Overall, pt expressed he still has will to live, would like to be out of pain, at home, and no longer bothered by people in the hospital. Educated to hospice services and inquired if pt is interested. Pt agrees. agrees as well. Goal is home but expressed concern with being the main caregiver for pt. SW educated to hiring nonskilled RHEOSTAT ASSEMBLER and there is a hospice agency that provides aides 5 days/wk to assist pt. Although it is not all day or every day, but more than other hospice agencies. interested. SW offered to schedule informational meeting with any hospice company to assist with making a decision. would like to meet with [facility], that provides the aid assistance. 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 SW understood. Discussed setting DC date for 05/31 to have two son's present for DC and transition home. Pt/ agreeable. IDT agreeable. Referral phoned and faxed to [facility]. presented to this worker's office and inquired about AL. stated she has been interested in [facility] for some time and never pulled the trigger, but is afraid of caring for pt daily. SW expressed understanding and validated 's feelings. Offered to send referral to [facility] but cautioned there may be a waiting list for AL. is aware. to contact [facility] as well and turn in the application. Educated , both can be at AL with hospice services. appreciative. Provided with list of nonskilled RHEOSTAT ASSEMBLER agencies. is meeting with [facility] 05/29 at 1330. SW to continue to follow. Tentative Plan: DC home with [facility] 05/31 or [facility] with hospice YVES Kolb
[2022-05-28] MEDS: Furosemide 20 MG Tablet PO (13:01)
--- NOTE | 2022-05-28 14:48 | NURSING ---
R' WAS SUPPOSED TO HAVE APPT WITH DR MACE TODAY. HAD CANCELLED APPT. SHE IS GOING TO RESCHEDULE APPT AND LET STAFF KNOW WHEN IT IS.
[2022-05-28 14:57] VITALS: BP 102/60; PULSE 76; RESP 17; TEMP 36.4; O2SAT 95
[2022-05-28] MEDS: MELATONIN 10 MG TABLET PO (21:41)
[2022-05-28] MEDS: Mirtazapine 15 MG Tablet 7.5 MG PO (21:41)
[2022-05-29] MEDS: oxyCODONE 5 MG Tablet PO ×3 (05:33→20:28)
[2022-05-29] MEDS: Acetaminophen 500 MG Tablet 1000 MG PO ×3 (05:34→20:25)
[2022-05-29] MEDS: Senna/Docusate Sodium 1 Tablet 2 TABLET PO (05:34)
[2022-05-29] MEDS: Finasteride 5 MG Tablet PO (05:35)
[2022-05-29] MEDS: busPIRone 5 MG Tablet PO ×3 (05:35→20:25)
[2022-05-29] MEDS: Menthol/Lanolin/Calamine/Znox 113 GM Tube 1 APPLIC TOPICAL ×2 (05:41→17:27)
[2022-05-29 06:08] LABS: International Normalized Ratio 1.7; Prothrombin Time (Protime)PT. 19.7 SECONDS (11.7-14.9)
[2022-05-29 07:35] VITALS: BP 130/72; PULSE 72
[2022-05-29] MEDS: Ferrous Sulfate 325 MG Tablet PO (07:35)
[2022-05-29] MEDS: Carvedilol 3.125 MG TABLET PO ×2 (07:35→17:27)
--- NOTE | 2022-05-29 10:30 | CASEMGMT ---
Social Work Spoke with Haleigh at [facility] [place] and expressed concerns with pt admitting to AL. AL staff does not provide assistance with toileting, and accepts pts that are more independent. would need to decide if she would assist pt or hire assistance. SW spoke with pt and about above information. states if she has to help him at AL, they will DC home. Offered other ALs that do assist with toileting and provided that list for to review. Reminded hospice, HHC or nonskilled HAND SUTURE WINDER can follow pt/ in any setting for assistance. appreciative of information. and pt are meeting with [facility] today. YVES Kolb
[2022-05-29 11:24] LABS: Anion Gap 4 (5-15); BUN 27 mg/dL (7-18); BUN/Creat Ratio 20.5 RATIO (10-20); Chloride 100 mmol/L (98-107); Creatinine, Serum 1.32 mg/dL (0.70-1.30); EST Glomerular Filtration Rate 55 mL/min (>60); Est Glom Filt Rate - Afr Amer 66 mL/min (>60); Estimated Creatinine Clearance 40.17 ml/min; Glucose 136 mg/dL (74-106); Potassium 4.7 mmol/L (3.5-5.1); Sodium Level 134 mmol/L (136-145)
--- NOTE | 2022-05-29 13:30 | MDS.RN ---
Pain interview for DIANNA 05/31/22 completed.
[2022-05-29 14:24] VITALS: BP 103/63; PULSE 72; RESP 16; TEMP 36.7; O2SAT 95
[2022-05-29 17:28] VITALS: BP 115/55; PULSE 73
[2022-05-29] MEDS: MELATONIN 10 MG TABLET PO (20:24)
[2022-05-29] MEDS: Mirtazapine 15 MG Tablet 7.5 MG PO (20:25)
[2022-05-29 20:52] VITALS: PULSE 74; RESP 16; O2SAT 90
[2022-05-30] MEDS: Acetaminophen 500 MG Tablet 1000 MG PO ×3 (06:02→20:39)
[2022-05-30] MEDS: Finasteride 5 MG Tablet PO (06:03)
[2022-05-30] MEDS: busPIRone 5 MG Tablet PO ×3 (06:04→20:38)
[2022-05-30] MEDS: Menthol/Lanolin/Calamine/Znox 113 GM Tube 1 APPLIC TOPICAL ×2 (06:11→16:29)
[2022-05-30] MEDS: Ferrous Sulfate 325 MG Tablet PO (07:37)
[2022-05-30] MEDS: Carvedilol 3.125 MG TABLET PO ×2 (07:38→16:28)
[2022-05-30 07:40] VITALS: BP 124/61; PULSE 69
--- NOTE | 2022-05-30 08:48 | CASEMGMT ---
Addendum entered by Kary Jimenez 05/30/22 13:17: is requesting transport for DC. Pt has 3 steps to enter the home. SW scheduled cot transport through [facility] for 1100. Original Note: Social Work Spoke with to follow up on hospice conversation. and pt both selecting [facility]. confirms plan is home 05/31 with [facility]. Offered to schedule transport home. to discuss with son's and notify this worker. SW updated [facility]. Plan: DC home with 05/31 with [facility] Kary Jimenez, YVES BAUMW
[2022-05-30] MEDS: oxyCODONE 5 MG Tablet PO (11:20)
[2022-05-30 11:25] VITALS: PULSE 68; RESP 16; O2SAT 95
[2022-05-30 13:15] VITALS: BP 99/57; PULSE 75; RESP 14; TEMP 36.4; O2SAT 92
--- NOTE | 2022-05-30 15:08 | CASEMGMT ---
Social Work BIMS and PHQ-9 completed for MDS assessment. Kary Jimenez ,BOW MAKER PRODUCTION ASH CONVEYOR OPERATOR
[2022-05-30] MEDS: Senna/Docusate Sodium 1 Tablet 2 TABLET PO (16:28)
[2022-05-30 16:30] VITALS: BP 108/60; PULSE 73
[2022-05-30] MEDS: MELATONIN 10 MG TABLET PO (20:39)
[2022-05-30] MEDS: Mirtazapine 15 MG Tablet 7.5 MG PO (20:39)
[2022-05-31] MEDS: oxyCODONE 5 MG Tablet PO (01:27)
[2022-05-31] MEDS: Finasteride 5 MG Tablet PO (05:19)
[2022-05-31] MEDS: Senna/Docusate Sodium 1 Tablet 2 TABLET PO (05:19)
[2022-05-31] MEDS: Acetaminophen 500 MG Tablet 1000 MG PO (05:20)
[2022-05-31] MEDS: busPIRone 5 MG Tablet PO (05:20)
[2022-05-31] MEDS: Menthol/Lanolin/Calamine/Znox 113 GM Tube 1 APPLIC TOPICAL (05:20)
[2022-05-31] MEDS: Polyethylene Glycol 3350 17 GM PACKET PO (05:22)
[2022-05-31] MEDS: Carvedilol 3.125 MG TABLET PO (08:31)
[2022-05-31] MEDS: Ferrous Sulfate 325 MG Tablet PO (08:31)
[2022-05-31 10:00] VITALS: RESP 18; O2SAT 92
[2022-05-31 11:00] VITALS: BP 107/56; PULSE 71; RESP 18; TEMP 36.2; O2SAT 92
== END 2022-05-31 11:25 | disposition hospice, home (50) | DRG 394 ==
PROVIDERS: Admitting Provider Family Medicine Geriatric Medicine; PCP Internal Medicine; Visit Provider Family Medicine Geriatric Medicine
DX: K66.1 Hemoperitoneum (principal); D68.59 Other primary thrombophilia; I42.0 Dilated cardiomyopathy; I50.32 Chronic diastolic (congestive) heart failure; I11.0 Hypertensive heart disease with heart failure; I48.91 Unspecified atrial fibrillation; I25.10 Atherosclerotic heart disease of native coronary artery without angina pectoris; E78.00 Pure hypercholesterolemia, unspecified; D50.9 Iron deficiency anemia, unspecified; Z87.891 Personal history of nicotine dependence; N40.0 Benign prostatic hyperplasia without lower urinary tract symptoms; Z79.899 Other long term (current) drug therapy; Z86.718 Personal history of other venous thrombosis and embolism; Z95.810 Presence of automatic (implantable) cardiac 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; Z96.643 Presence of artificial hip joint, bilateral
CPT/HCPCS: 36415; 80048; 83880; 83930; 83935; 84300; 85025; 85610; 87426; 97110; 97116; 97162; 97166; 97530; 97535; 97802; A4216

== ENCOUNTER → 2022-05-16 | Outpatient (CLI) | payer MEDICARE, SELFPAY ==
--- NOTE | 2022-05-16 10:25 | CT_ITS ---
STUDY: CT ABDOMEN AND PELVIS WITHOUT CONTRAST REASON FOR EXAM: Male, 86 years old. History of left retroperitoneal hematoma. RADIATION DOSAGE (If Supplied By Facility): CTDIvol = ( 19.73 ) mGy, DLP = ( 1020.63 ) mGycm TECHNIQUE: Transaxial images were obtained from the dome of the diaphragm to the symphysis pubis without oral contrast, and without intravenous contrast. Sagittal and coronal images were reconstructed. Individualized dose optimization techniques were used for this CT. COMPARISON: Comparison is made with prior examination dated 05/12/2022. FINDINGS: Stable mild increased linear markings at the lung bases suggestive of scarring and/or atelectasis. Dual-chamber pacemaker is seen. Coronary artery calcification. Stable septated cyst in the dome of the right lower liver measuring 3.3 cm. There are surgical clips in the gallbladder fossa consistent with a prior cholecystectomy. Normal spleen. Normal pancreas. Normal bilateral adrenal glands. There is a 1 cm nonobstructive calculi is in the posterior calyx of the upper pole of the right kidney. Stable 1 cm hyperdense cyst in the mid lateral aspect of the left kidney. Normal visualized stomach. Normal small intestine. Normal colon. The appendix is visualized and appears normal. There is diffuse atherosclerotic calcification of the abdominal aorta, without a demonstrated aneurysm. There is an IVC filter in place. Stable left-sided retroperitoneal hematoma overlying the left iliac bone as well as stable hematoma within the left psoas muscle. Normal urinary bladder. There is a small umbilical hernia containing fat. There are diffuse degenerative changes of the visualized lumbar spine. Status post bilateral hip replacement. CT/Abdomen/Pelvis without Cont IMPRESSION: Stable examination. Electronically Signed: Wyatt Rivers MD at 11:02 EST ,
== END | disposition home or self-care (01) ==
PROVIDERS: PCP Internal Medicine; Referring Provider Family Medicine Geriatric Medicine; Visit Provider Family Medicine Geriatric Medicine
DX: K66.1 Hemoperitoneum (principal)
CPT/HCPCS: 74176

== ENCOUNTER → 2022-05-21 | Outpatient (CLI) | payer MEDICARE, SELFPAY ==
--- NOTE | 2022-05-21 02:35 | CT_ITS ---
EXAM: CT ANGIOGRAPHY CHEST WITHOUT AND WITH INTRAVENOUS CONTRAST CLINICAL INDICATION: SOB TECHNIQUE: Helically acquired angiography images were obtained of the chest without and with intravenous contrast. This CT exam was performed using one or more of the following dose reduction techniques: automated exposure control, adjustment of the mA and/or kV according to patient size, and/or use of iterative reconstruction technique. This report was created using JCD report generation technology. MIP reconstructed images were created and reviewed. CONTRAST: 100 cc of Isovue-300 IV. RADIATION DOSE: CTDIvol = 16.55 mGy, DLP = 483.73 mGy-cm. COMPARISON: None. FINDINGS: PULMONARY ARTERIES: Unremarkable. Normal in caliber. No evidence of pulmonary embolism. AORTA: Unremarkable. Normal in caliber. No evidence of dissection. GREAT VESSELS OF AORTIC ARCH: Unremarkable. Normal in caliber. No evidence of dissection. LUNGS AND PLEURAL SPACES: Unremarkable. No mass. No consolidation or edema. No pleural effusion or thickening. No pneumothorax. HEART: Coronary artery calcifications. No pericardial effusion. No signs of right heart strain, ratio of right ventricle to left ventricle measures less than 1. MEDIASTINUM: Unremarkable. No mediastinal or hilar adenopathy. Esophagus is unremarkable. No hiatal hernia. 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 BONES/JOINTS: Degenerative changes bilateral shoulders. No suspicious lytic or blastic abnormality. LIVER: Small cysts in the dome of the liver. CT/CTA Chest W/WO Contrast IMPRESSION: 1. No pulmonary embolism or dissection. 2. 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 3. Coronary artery disease. 4. Small cysts in the dome of the liver. 5. Degenerative changes bilateral shoulders. Electronically Signed: Orlando Morales MD at 5:59 EST ,
== END | disposition home or self-care (01) ==
LOC: CT 02:16
PROVIDERS: PCP Internal Medicine; Visit Provider Family Medicine Geriatric Medicine
DX: R06.02 Shortness of breath (principal)
CPT/HCPCS: 71275; Q9967

== ENCOUNTER → 2022-06-17 | Outpatient (CLI) | payer MEDICARE, SELFPAY ==
[2022-06-17 13:19] LABS: ALB/GLOB Ratio 0.7 RATIO (0.9-2.4); AST(SGOT) 24 U/L (15-37); Alanine Aminotransfer ALT/SGPT 22 U/L (16-61); Albumin, Serum 2.8 g/dL (3.2-5.0); Alkaline Phosphatase 75 U/L (45-117); Anion Gap 6 (5-15); BUN 14 mg/dL (7-18); BUN/Creat Ratio 11.5 RATIO (10-20); Calcium,Total 8.7 mg/dL (8.5-10.1); Chloride 103 mmol/L (98-107); Creatinine, Serum 1.22 mg/dL (0.70-1.30); EST Glomerular Filtration Rate 60 mL/min (>60); Est Glom Filt Rate - Afr Amer 72 mL/min (>60); Globulin 3.8 g/dL (2.2-4.2); Glucose 117 mg/dL (74-106); Potassium 3.9 mmol/L (3.5-5.1); Protein, Total 6.6 g/dL (6.4-8.2); Sodium Level 138 mmol/L (136-145)
== END | disposition home or self-care (01) ==
LOC: LABSPEC 12:19
PROVIDERS: PCP Internal Medicine; Visit Provider Family Medicine
DX: R60.9 Edema, unspecified (principal); Z79.899 Other long term (current) drug therapy
CPT/HCPCS: 80053

== ENCOUNTER → 2022-08-05 | Outpatient (CLI) | payer MEDICARE, SELFPAY ==
[2022-08-05 11:50] LABS: Absolute Lymphocyte Count 1.23 X10^3/uL (0.83-4.51); Absolute Neutrophil Count 2.5 X10^3/uL (2.0-7.7); Basophil# 0.03 X10^3/uL; Basophil% 0.7 % (0-1); Eosinophil# 0.11 X10^3/uL; Eosinophils% 2.6 % (0-5); Hematocrit 39.4 % (40-54); Hemoglobin 12.3 g/dL (13.0-16.5); Lymphocyte # 1.23 X10^3/ul (0.83-4.51); Lymphocyte % 28.8 % (19-41); Mean Corp Hgb Conc 31.2 g/dL (32-36); Mean Corpuscular Volume 89.5 fL (80-94); Mean Platelet Vol. 10.3 fl (6.2-12.0); Monocyte# 0.42 X10^3/uL; Monocyte% 9.8 % (0-10); NRBC Flagged by Analyzer 0 % (0-5); Neutrophil # 2.47 X10^3/uL (2.7-7.7); Neutrophil % 57.9 % (47-70); Platelet Count 140 K/mm3 (150-450); RBC Distribution Width CV 14.6 % (11.6-14.6); RBC Distribution Width SD 48.1 fl (35.1-43.9); White Blood Count 4.3 K/mm3 (4.4-11.0)
[2022-08-05 11:58] LABS: ALB/GLOB Ratio 0.8 RATIO (0.9-2.4); AST(SGOT) 14 U/L (15-37); Alanine Aminotransfer ALT/SGPT 16 U/L (16-61); Albumin, Serum 3.3 g/dL (3.2-5.0); Alkaline Phosphatase 72 U/L (45-117); Anion Gap 4 (5-15); BUN 16 mg/dL (7-18); BUN/Creat Ratio 13.1 RATIO (10-20); Calcium,Total 9.2 mg/dL (8.5-10.1); Chloride 105 mmol/L (98-107); Creatinine, Serum 1.22 mg/dL (0.70-1.30); EST Glomerular Filtration Rate 60 mL/min (>60); Est Glom Filt Rate - Afr Amer 72 mL/min (>60); Ferritin 94 ng/mL (26-388); Globulin 4.3 g/dL (2.2-4.2); Glucose 121 mg/dL (74-106); Potassium 3.8 mmol/L (3.5-5.1); Protein, Total 7.6 g/dL (6.4-8.2); Sodium Level 141 mmol/L (136-145)
== END | disposition home or self-care (01) ==
PROVIDERS: PCP Internal Medicine; Visit Provider Internal Medicine
DX: I50.9 Heart failure, unspecified (principal); Z79.899 Other long term (current) drug therapy
CPT/HCPCS: 80053; 82728; 85025

== ENCOUNTER → 2023-02-20 | Outpatient (CLI) | payer MEDICARE, SELFPAY ==
[2023-02-20 16:39] LABS: Anion Gap 2 (5-15); BUN 24 mg/dL (7-18); BUN/Creat Ratio 17.9 RATIO (10-20); Calcium,Total 9.4 mg/dL (8.5-10.1); Chloride 104 mmol/L (98-107); Creatinine, Serum 1.34 mg/dL (0.70-1.30); EST Glomerular Filtration Rate 54 mL/min (>60); Est Glom Filt Rate - Afr Amer 65 mL/min (>60); Glucose 87 mg/dL (74-106); Potassium 4.1 mmol/L (3.5-5.1); Sodium Level 137 mmol/L (136-145)
== END | disposition home or self-care (01) ==
LOC: LABSPEC 14:59
PROVIDERS: PCP Internal Medicine; Referring Provider Family Medicine; Visit Provider Family Medicine
DX: I50.9 Heart failure, unspecified (principal); Z79.899 Other long term (current) drug therapy
CPT/HCPCS: 80048

== ENCOUNTER → 2024-07-18 | Outpatient (CLI) | payer MEDICARE, SELFPAY ==
[2024-07-18 19:06] LABS: Absolute Lymphocyte Count 1.52 X10^3/uL (0.83-4.51); Absolute Neutrophil Count 2.6 X10^3/uL (2.0-7.7); Basophil# 0.02 X10^3/uL; Basophil% 0.4 % (0-1); Eosinophil# 0.09 X10^3/uL; Eosinophils% 1.9 % (0-5); Hematocrit 42.5 % (40-54); Hemoglobin 13.6 g/dL (13.0-16.5); Lymphocyte # 1.52 X10^3/ul (0.83-4.51); Lymphocyte % 32.5 % (19-41); Mean Corpuscular Hgb 29.8 pg (27.0-32.0); Mean Platelet Vol. 10.5 fl (6.2-12.0); Monocyte# 0.46 X10^3/uL; Monocyte% 9.8 % (0-10); NRBC Flagged by Analyzer 0 % (0-5); Neutrophil # 2.58 X10^3/uL (2.7-7.7); Neutrophil % 55.2 % (47-70); POSITIVE COUNT YES; Platelet Count 131 K/mm3 (150-450); RBC Distribution Width CV 14.5 % (11.6-14.6); RBC Distribution Width SD 49.6 fl (35.1-43.9); Red Blood Count 4.57 M/mm3 (4.6-6.2); White Blood Count 4.7 K/mm3 (4.4-11.0)
[2024-07-18 19:12] LABS: Differential Indicated SCAN CRITERIA MET
[2024-07-18 19:18] LABS: ALB/GLOB Ratio 0.9 RATIO (0.9-2.4); AST(SGOT) 17 U/L (15-37); Alanine Aminotransfer ALT/SGPT 17 U/L (16-61); Albumin, Serum 3.7 g/dL (3.2-5.0); Alkaline Phosphatase 66 U/L (45-117); Anion Gap 5 (5-15); BUN 16 mg/dL (7-18); BUN/Creat Ratio 13.4 RATIO (10-20); Calcium,Total 9.3 mg/dL (8.5-10.1); Chloride 102 mmol/L (98-107); Creatinine, Serum 1.19 mg/dL (0.70-1.30); EST Glomerular Filtration Rate 61 mL/min (>60); Est Glom Filt Rate - Afr Amer 74 mL/min (>60); Glucose 129 mg/dL (74-106); Potassium 3.7 mmol/L (3.5-5.1); Protein, Total 7.7 g/dL (6.4-8.2); Sodium Level 139 mmol/L (136-145)
[2024-07-18 19:30] LABS: Hemoglobin A1c 4.7 % (3.8-5.6)
[2024-07-18 19:39] LABS: Differential Comment SCANNED
== END | disposition home or self-care (01) ==
LOC: LABSPEC 16:55
PROVIDERS: PCP Internal Medicine; Referring Provider Internal Medicine; Visit Provider Internal Medicine
DX: E11.9 Type 2 diabetes mellitus without complications (principal)
CPT/HCPCS: 80053; 83036; 85025